=== PATIENT | male | born 1995 | race Hispanic/Latino ===

== ENCOUNTER 2019-01-07 21:58 | Observation (INO) | payer SELFPAY ==
[2019-01-07] MEDS ORDERED: DIPHENHYDRAMINE 50 MG/ML VIAL ONE (23:08)
[2019-01-07] MEDS ORDERED: ONDANSETRON 4 MG/2 ML VIAL ONE (23:09)
[2019-01-07] MEDS ORDERED: NA CHLORIDE 0.9% 1,000 ML ONE ×2 (23:09→23:28)
[2019-01-07 23:30] LABS: Absolute Lymphocytes (CBC) 2.6 K/uL (0.7-4.9); Absolute Monocytes 0.6 K/uL (0.1-1.3); Absolute Neutrophil 5.7 K/uL (1.8-8.0); Basophils % 0.3 % (0-1.3); Hematocrit 44.7 % (39.6-49.0); Lymphocytes % 28.4 % (15.3-44.8); MPV 10.3 fL (7.6-11.3); Monocytes % 7.2 % (3.3-12.3); RBC Red Blood Cell Count 5.38 M/uL (4.33-5.43)
[2019-01-07 23:31] LABS: Protime INR 1.05
[2019-01-07] MEDS ORDERED: DEXAMETHASONE 4 MG/ML VIAL ONE (23:35)
[2019-01-07 23:45] LABS: ALT/SGPT 37 U/L (12-78); AST/SGOT 24 U/L (15-37); Alkaline Phosphatase 128 U/L (45-117); BUN Blood Urea Nitrogen 12 mg/dL (7-18); Bicarbonate 29 mmol/L (21-32); Bilirubin Direct < 0.1 mg/dL (0-0.2); Bilirubin Total 0.2 mg/dL (0.2-1.0); Glucose Level 134 mg/dL (74-106); Magnesium 2.2 mg/dL (1.8-2.4); Protein, Total 8.3 g/dL (6.4-8.2); Sodium Level 140 mmol/L (136-145); Troponin (Emerg Dept Use Only) < 0.02 ng/mL (0.0-0.045)
[2019-01-08] MEDS ORDERED: ALPRAZOLAM 0.25 MG TABLET PO PRN (00:31)
[2019-01-08] MEDS ORDERED: ACETAMINOPHEN 500 MG TAB PO PRN (00:31)
--- NOTE | 2019-01-08 00:59 | ER ---
Nurse's Notes [facility] Name: Bolivar Yang Age: 23 yrs Sex: Male : 1995 Arrival Date: 01/07/2019 Time: 22:00 Bed 13 Private MD: Diagnosis: Chest pain, unspecified;Abnormal electrocardiogram [ECG] [EKG];Headache;Elevated blood-pressure reading, without diagnosis of hypertension Presentation: 01/07 22:03 Presenting complaint: Patient states: I have a bad headache that started this afternoon la1 and pain on my left side that started about an hour ago. Transition of care: patient was not received from another setting of care. Onset of symptoms was January 07, 2019. Risk Assessment: Do you want to hurt yourself or someone else? Patient reports no desire to harm self or others. Initial Sepsis Screen: Does the patient meet any 2 criteria? No. Patient's initial sepsis screen is negative. Does the patient have a suspected source of infection? No. Patient's initial sepsis screen is negative. Care prior to arrival: None. 22:03 Method Of Arrival: Ambulatory la1 22:03 Acuity: GUILLERMO 3 la1 Triage Assessment: 22:27 Headache History: Denies prior headaches. Pain: Pain at worst was 10 out of 10 on a jd3 pain scale. Pain began 4 hours ago. Also complains of no other associated symptoms. Historical: - Allergies: 22:02 No Known Allergies; la1 - PMHx: 22:02 None; la1 - Immunization history:: Adult Immunizations. - Social history:: Smoking status: Patient/guardian denies using tobacco, Smoking status: Patient/guardian denies using tobacco, the patient reports quitting approximately .5 years ago. - Ebola Screening: : No symptoms or risks identified at this time. Screenin:27 Abuse screen: Denies threats or abuse. Nutritional screening: No deficits noted. jd3 Tuberculosis screening: No symptoms or risk factors identified. Fall Risk Ambulatory Aid- None/Bed Rest/Nurse Assist (0 pts). Gait- Normal/Bed Rest/Wheelchair (0 pts) Mental Status- Oriented to own ability (0 pts). Total Arriaza Fall Scale indicates No Risk (0-24 pts). Assessment: 22:25 General: Appears in no apparent distress. uncomfortable, Behavior is calm, cooperative, jd3 appropriate for age. Pain: Complains of pain in head and left lateral anterior chest Quality of pain is described as aching. Neuro: Level of Consciousness is awake, alert, obeys commands, Oriented to person, place, time, situation, Appropriate for age. Cardiovascular: Reports chest pain, Capillary refill < 3 seconds Patient's skin is warm and dry. Rhythm is irregular. Respiratory: Airway is patent Respiratory effort is even, unlabored, Respiratory pattern is regular, symmetrical, Breath sounds are clear bilaterally. Denies shortness of breath. GI: No signs and/or symptoms were reported involving the gastrointestinal system. : No signs and/or symptoms were reported regarding the genitourinary system. EENT: No signs and/or symptoms were reported regarding the EENT system. Derm: Skin is intact, Skin is dry, Skin is normal, Skin temperature is warm. Musculoskeletal: Circulation, motion, and sensation intact. Range of motion: intact in all extremities. 23:59 Reassessment: Patient appears in no apparent distress at this time. Patient and/or jd3 family updated on plan of care and expected duration. Pain level reassessed. Patient is alert, oriented x 3, equal unlabored respirations, skin warm/dry/pink. 01/08 00:48 Reassessment: Patient appears in no apparent distress at this time. Patient and/or jd3 family updated on plan of care and expected duration. Pain level reassessed. Patient is alert, oriented x 3, equal unlabored respirations, skin warm/dry/pink. 01:35 Reassessment: Patient appears in no apparent distress at this time. Patient and/or jd3 family updated on plan of care and expected duration. Pain level reassessed. Patient is alert, oriented x 3, equal unlabored respirations, skin warm/dry/pink. Vital Signs: 01/07 22:05 Pulse 105; Resp 18; Temp 98.2; Pulse Ox 100% on R/A; Weight 136.08 kg; Height 6 ft. 0 la1 in. (182.88 cm); 22:06 BP 157 / 97; la1 23:59 BP 118 / 70; Pulse 94; Resp 18 S; Pulse Ox 98% on R/A; jd3 01/08 00:49 BP 129 / 64; Pulse 85; Resp 17 S; Pulse Ox 100% on R/A; jd3 01:35 BP 124 / 63; Pulse 84; Resp 17 S; Pulse Ox 99% on R/A; jd3 01/07 22:05 Body Mass Index 40.69 (136.08 kg, 182.88 cm) la1 ED Course: 01/07 22:00 Patient arrived in ED. am2 22:04 Triage completed. la1 22:04 Arm band placed on left wrist. la1 22:22 Josiah Schultz PA is PHCP. cp 22:22 Josiah Alaniz MD is Attending Physician. cp 22:25 Diego Gomes RN is Primary Nurse. jd3 22:27 Patient has correct armband on for positive identification. Bed in low position. Call jd3 light in reach. Side rails up X 1. Adult w/ patient. 23:05 Inserted saline lock: 20 gauge in left antecubital area, using aseptic technique. Blood jd3 collected. 01/08 00:12 XRAY Chest (1 view) In Process Unspecified. EDMS 00:[address] via wheelchair. kw1 00:26 CT completed. Patient tolerated procedure well. Patient moved back from CT. kw1 00:31 CT completed. Patient tolerated procedure well. Patient moved back from CT. kw1 00:31 CT Head Brain wo Cont In Process Unspecified. EDMS 00:57 Didier Ascencio MD is Hospitalizing Provider. cp 01:36 No provider procedures requiring assistance completed. jd3 01:37 Patient admitted, IV remains in place. jd3 Administered Medications: 01/07 23:15 Drug: Zofran 4 mg Route: IVP; Site: left antecubital; rr5 01/08 01:25 Follow up: Response: No adverse reaction jd3 01/07 23:15 Drug: NS 0.9% 1000 ml Route: IV; Rate: 1 bolus; Site: left antecubital; rr5 04 01:24 Follow up: Response: No adverse reaction; IV Status: Completed infusion jd3 01/07 23:20 Drug: Benadryl 25 mg Route: IVP; Site: left antecubital; rr5 04 01:24 Follow up: Response: No adverse reaction jd3 00:12 Drug: Decadron - Dexamethasone 10 mg Route: IVP; Site: left antecubital; jd3 01:24 Follow up: Response: No adverse reaction jd3 Outcome: 00:58 Decision to Hospitalize by Provider. cp 01:39 Admitted to Med/surg accompanied by tech, via wheelchair, room 423, with chart, Report jd3 called to Zora HEADLEY 01:39 Condition: stable 01:39 Instructed on the need for admit, Demonstrated understanding of instructions. 01:58 Patient left the ED. jd3 Signatures: Dispatcher [employer] EDMS Eric Tavera RN RN la1 Josiah Schultz PA PA Edwige Leung Jonathon, RN RN jd3 Fiona Ye1 Breezy Young RN RN rr5 Corrections: (The following items were deleted from the chart) 01:29 01/07 22:25 Cardiovascular: Heart tones S1 S3 present Capillary refill < 3 seconds jd3 Patient's skin is warm and dry. jd3 01/08 01:40 03 23:50 Inserted saline lock: 20 gauge in left antecubital area, using aseptic jd3 technique. Blood collected. jd3 01/08 01:45 01/07 22:25 Cardiovascular: Reports chest pain, Capillary refill < 3 seconds Patient's jd3 skin is warm and dry. jd3 01/08 01:50 01:39 Admitted to Med/surg jd3 jd3 01:50 01:39 Instructed on the need for admit, Demonstrated understanding of instructions, jd3 jd3
--- NOTE | 2019-01-08 00:59 | EDPHYS ---
Physician Documentation [facility] Name: Bolivar Yang Age: 23 yrs Sex: Male : 1995 Arrival Date: 01/07/2019 Time: 22:00 Bed 13 Private MD: ED Physician Josiah Alaniz HPI: 01/07 22:35 This 23 yrs old Male presents to ER via Ambulatory with complaints of Flank cp Pain, Headache. 22:35 The patient complains of pain to the top of head. The patient describes the headache as cp aching. Onset: The symptoms/episode began/occurred today. The patient or guardian reports chest pain that is located primarily in the anterior chest wall, left. The pain does not radiate. Associated signs and symptoms: Pertinent negatives: altered mental status, fever, neck stiffness, paresthesias, sinus congestion, sinus tenderness, vision changes, vomiting. Severity of symptoms: in the emergency department the pain is unchanged, despite home interventions. Duration: The patient or guardian reports a single episode, that is still ongoing, and unchanged. Mother reports she gave patient 1 tablet of her prescribed blood pressure medication [employer]TRAS[employer] MANAGER after noticing patient having elevated blood pressure today. Historical: - Allergies: 22:02 No Known Allergies; la1 - PMHx: 22:02 None; la1 - Immunization history:: Adult Immunizations. - Social history:: Smoking status: Patient/guardian denies using tobacco, Smoking status: Patient/guardian denies using tobacco, the patient reports quitting approximately .5 years ago. - Ebola Screening: : No symptoms or risks identified at this time. ROS: 22:45 Constitutional: Negative for body aches, chills, fever, poor PO intake. cp 22:45 Eyes: Negative for injury, pain, redness, and discharge. cp 22:45 ENT: Negative for drainage from ear(s), ear pain, sore throat, difficulty swallowing, difficulty handling secretions. 22:45 Neck: Negative for pain with movement, pain at rest, stiffness. 22:45 Cardiovascular: Positive for chest pain, Negative for edema, palpitations. 22:45 Respiratory: Negative for cough, shortness of breath, wheezing. 22:45 Abdomen/GI: Negative for abdominal pain, nausea, vomiting, and diarrhea. 22:45 : Negative for urinary symptoms. 22:45 Neuro: Positive for headache, Negative for altered mental status, syncope, weakness. 22:45 All other systems are negative. Exam: 22:45 ECG was reviewed by the Attending Physician. cp 22:50 Constitutional: The patient appears in no acute distress, alert, awake, cp non-diaphoretic, non-toxic, well developed, well nourished, obese. 22:50 Head/Face: Normocephalic, atraumatic. Eyes: Pupils equal round and reactive to light, cp extra-ocular motions intact. Lids and lashes normal. Conjunctiva and sclera are non-icteric and not injected. Cornea within normal limits. Periorbital areas with no swelling, redness, or edema. ENT: Nares patent. No nasal discharge, no septal abnormalities noted. Tympanic membranes are normal and external auditory canals are clear. Oropharynx with no redness, swelling, or masses, exudates, or evidence of obstruction, uvula midline. Mucous membranes moist. Neck: Trachea midline, no thyromegaly or masses palpated, and no cervical lymphadenopathy. Supple, full range of motion without nuchal rigidity, or vertebral point tenderness. No Meningismus. Chest/axilla: Normal chest wall appearance and motion. Nontender with no deformity. No lesions are appreciated. 22:50 Cardiovascular: Rate: tachycardic, Rhythm: regular, Heart sounds: murmur, not appreciated, Edema: is not appreciated, JVD: is not appreciated. 22:50 Respiratory: the patient does not display signs of respiratory distress, Respirations: normal, no use of accessory muscles, no retractions, no splinting, no tachypnea, labored breathing, is not present, Breath sounds: are clear throughout, no decreased breath sounds, no stridor, no wheezing. 22:50 Abdomen/GI: Inspection: abdomen appears normal, Bowel sounds: active, all quadrants, Palpation: abdomen is soft and non-tender, in all quadrants. 22:50 Back: pain, is absent, ROM is normal. 22:50 Skin: cellulitis, is not appreciated, no rash present. 22:50 Neuro: Orientation: to person, place \T\ time. Mentation: is normal, Cerebellar function: is grossly normal, Motor: moves all fours, strength is normal, Sensation: is normal. Vital Signs: 22:05 Pulse 105; Resp 18; Temp 98.2; Pulse Ox 100% on R/A; Weight 136.08 kg; Height 6 ft. 0 la1 in. (182.88 cm); 22:06 BP 157 / 97; la1 23:59 BP 118 / 70; Pulse 94; Resp 18 S; Pulse Ox 98% on R/A; jd3 01/08 00:49 BP 129 / 64; Pulse 85; Resp 17 S; Pulse Ox 100% on R/A; jd3 01:35 BP 124 / 63; Pulse 84; Resp 17 S; Pulse Ox 99% on R/A; jd3 01/07 22:05 Body Mass Index 40.69 (136.08 kg, 182.88 cm) la1 MDM: 01/07 22:22 Patient medically screened. cp 01/08 00:00 Differential diagnosis: cerebral vascular accident, abnormal EKG, acute myocardial cp infarction, intracerebral hemorrhage, migraine, subarachnoid bleed, tension headache. 00:30 Data reviewed: vital signs, nurses notes, lab test result(s), EKG, radiologic studies, cp CT scan, plain films, I have discussed the patient's presentation/case with the attending Emergency Department Physician; and as a result, I will admit patient. 00:30 Test interpretation: by ED physician or midlevel provider: ECG, plain radiologic cp studies. Response to treatment: the patient's symptoms have markedly improved after treatment, and as a result, I will admit patient. 01/07 22:34 Order name: Basic Metabolic Panel; Complete Time: 00:14 cp 01/07 22:34 Order name: CBC with Diff; Complete Time: 00:14 cp 01/07 22:34 Order name: LFT's; Complete Time: 00:14 cp 01/08 00:26 Interpretation: Normal except: ALK 128; TP 8.3; GLOB 4.3; A/G 0.9. cp 01/07 22:34 Order name: Magnesium; Complete Time: 00:14 cp 01/07 22:34 Order name: PT-INR; Complete Time: 00:14 cp 01/07 22:34 Order name: Troponin (emerg Dept Use Only); Complete Time: 00:14 cp 01/07 22:34 Order name: XRAY Chest (1 view) cp 01/07 22:34 Order name: CT Head Brain wo Cont cp 01/07 22:44 Order name: UDS cp 01/08 00:35 Order name: Lipid Profile EDMA 01/08 00:35 Order name: Lipid Profile EDMA 01/08 00:35 Order name: Troponin I EDMA 01/08 00:35 Order name: Troponin I EDMA 01/08 01:27 Order name: Urine Dipstick--Ancillary (enter results) mt 01/07 22:34 Order name: Urine Dipstick-Ancillary (obtain specimen); Complete Time: 01:25 cp 01/07 22:34 Order name: EKG; Complete Time: 22:35 cp 01/07 22:34 Order name: Cardiac monitoring; Complete Time: 22:42 cp 01/07 22:34 Order name: EKG - Nurse/Tech; Complete Time: 22:42 cp 01/07 22:34 Order name: IV Saline Lock; Complete Time: 00:00 cp 01/07 22:34 Order name: Labs collected and sent; Complete Time: 00:00 cp 01/07 22:34 Order name: O2 Per Protocol; Complete Time: 00:00 cp 01/07 22:34 Order name: O2 Sat Monitoring; Complete Time: 00:00 cp 01/08 00:35 Order name: Heart Healthy EDMA 01/08 00:35 Order name: Echo with Doppler EDMA 01/08 00:35 Order name: EKG Electrocardiogram EDMA 01/08 00:35 Order name: EKG Electrocardiogram EDMA EC/03 22:45 Rate is 90 beats/min. Rhythm is regular. VT interval is normal. QRS interval is normal. cp QT interval is normal. Interpreted by me. Reviewed by me. Administered Medications: 23:15 Drug: Zofran 4 mg Route: IVP; Site: left antecubital; rr5 01/08 01:25 Follow up: Response: No adverse reaction j 01/07 23:15 Drug: NS 0.9% 1000 ml Route: IV; Rate: 1 bolus; Site: left antecubital; rr5 01/08 01:24 Follow up: Response: No adverse reaction; IV Status: Completed infusion jd3 01/07 23:20 Drug: Benadryl 25 mg Route: IVP; Site: left antecubital; rr5 0304 01:24 Follow up: Response: No adverse reaction jd3 00:12 Drug: Decadron - Dexamethasone 10 mg Route: IVP; Site: left antecubital; jd3 01:24 Follow up: Response: No adverse reaction jd3 Disposition: 01/08/19 00:58 Hospitalization ordered by Didier Ascencio for Observation. Preliminary diagnosis are Chest pain, unspecified, Abnormal electrocardiogram [ECG] [EKG], Headache, Elevated blood-pressure reading, without diagnosis of hypertension. - Bed requested for Telemetry/MedSurg (observation). - Status is Observation. jd3 - Condition is Stable. - Problem is new. - Symptoms have improved. UTI on Admission? No Addendum: 01/10/2019 11:17 Co-signature as Attending Physician, Josiah Alaniz MD I agree with the assessment and c call plan of care. Signatures: Dispatcher [employer] EDMS Dorota Moon RN RN mw Anderson, Corey, MD MD cha Attema, Lee RN RN la1 Josiah Schultz PA PA cp Davies, Jonathon, RN RN jd3 Breezy Young RN RN rr5 Corrections: (The following items were deleted from the chart) 01/08 00:58 00:58 Hospitalization Ordered by Didier Ascencio MD for Observation. Preliminary mw diagnosis is Chest pain, unspecified; Abnormal electrocardiogram [ECG] [EKG]; Headache; Elevated blood-pressure reading, without diagnosis of hypertension. Bed requested for Telemetry/MedSurg (observation). Status is Observation. Condition is Stable. Problem is new. Symptoms have improved. UTI on Admission? No. cp 01:58 00:58 01/08/2019 00:58 Hospitalization Ordered by Didier Ascencio MD for Observation. jd3 Preliminary diagnosis is Chest pain, unspecified; Abnormal electrocardiogram [ECG] [EKG]; Headache; Elevated blood-pressure reading, without diagnosis of hypertension. Bed requested for Telemetry/MedSurg (observation). Status is Observation. Condition is Stable. Problem is new. Symptoms have improved. UTI on Admission? No. mw
[2019-01-08 01:49] LABS: Barbiturates NEGATIVE (NEGATIVE); Benzodiazepines NEGATIVE (NEGATIVE); Cocaine NEGATIVE (NEGATIVE); METHAMPHETAM NEGATIVE (NEGATIVE); Methadone NEGATIVE (NEGATIVE); Opiates NEGATIVE (NEGATIVE); Phencyclidine NEGATIVE (NEGATIVE); THC Cannibis NEGATIVE (NEGATIVE)
[2019-01-08 03:26] LABS: Urine Blood NEGATIVE (NEG); Urine Glucose NEGATIVE (NEG); Urine Protein NEGATIVE (NEG)
[2019-01-08 05:03] LABS: Urine Appearance CLEAR; Urine Bilirubin NEGATIVE (NEG); Urine Blood NEGATIVE (NEG); Urine Color YELLOW; Urine Glucose NEGATIVE (NEG); Urine Protein NEGATIVE (NEG); Urine Urobilinogen 0.2 mg/dL (0.2-1.0)
[2019-01-08 05:09] LABS: Urine Microscopic Reflex NO UMIC
[2019-01-08 06:05] LABS: HDL Cholesterol 41 mg/dL (40-60); LDL Cholesterol, Calculated 136 (<130); Troponin I < 0.02 ng/mL (0.0-0.045)
--- NOTE | 2019-01-08 07:52 | RAD REPORT ---
EXAM DESCRIPTION: Brijesh Single View01/08/2019 12:03 am CLINICAL HISTORY: Chest pain COMPARISON: none FINDINGS: The lungs appear clear of acute infiltrate. The heart is normal size IMPRESSION: No acute abnormalities displayed
[2019-01-08] MEDS ORDERED: INFLUENZA VACCINE (for 3y+) 0.5 ML DOSE IMVAC ONE (08:00)
[2019-01-08] MEDS: ASPIRIN EC 81 MG TAB PO SCH (08:05)
[2019-01-08] MEDS: ENOXAPARIN 40 MG/0.4 ML SQ SCH (08:06)
[2019-01-08] MEDS ORDERED: LISINOPRIL 10 MG TAB PO SCH ×2 (09:00→10:32)
--- NOTE | 2019-01-08 09:09 | EKG ---
Test Date: 2019-01-07 Test Time: 22:38:57 Switch House Operator: JAVI MEASUREMENT RESULTS: Intervals: Rate: 90 ID: [id number] QRSD: 94 QT: 380 QTc: 464 Tarrs: P: 31 ID: [id number] QRS: 38 T: 20 INTERPRETIVE STATEMENTS: Sinus rhythm with frequent premature ventricular complexes in a pattern of bigeminy Cannot rule out Anterior infarct, age undetermined Abnormal ECG No previous ECG available for comparison Electronically Signed On 01-08-19 09:09:02 EMT DISPATCHER by Manolo Mark
[2019-01-08 09:46] LABS: Thyroid Stimulating Hormone 0.326 uIU/mL (0.360-3.740)
[2019-01-08] MEDS ORDERED: MAGNESIUM SULFATE 1 gm IVPB 1 GM/100 ML BAG IV ONE (09:57)
--- NOTE | 2019-01-08 10:13 | P.HP ---
Certification for Inpatient Patient admitted to: Observation With expected LOS: <2 Midnights Patient will require the following post-hospital care: None Practitioner: I am a practitioner with admitting privileges, knowledge of patient current condition, hospital course, and medical plan of care. Services: Services provided to patient in accordance with Admission requirements found in Title 42 Section 412.3 of the Code of Federal Regulations Patient History Date of Service: 01/08/19 Reason for admission: Chest pain History of Present Illness: Patient is a 23-year-old gentleman who came to the hospital with chest pain. Pain was underneath the left pectoralis region. He denies doing any heavy lifting or falling. No injury reported. His EKG revealed of bigeminy. Because of his current symptoms decision was made to admit the patient to the hospital for further evaluation. I did speak to his mother through a restaurant line server and she states that he never had any health issues growing up. She does not remember him having any heart issues. He does not believe he has had an EKG ever in the pat. I believe this may be his normal baseline rhythm with just has never been discovered because we never have performed an EKG. However because he has morbid obesity, extensor for other comorbidities will admit him for observation and do an echocardiogram as well. Allergies No Known Allergies Allergy (Verified 01/08/19 02:06) Home Medications: NK [No Home Meds] 01/08/19 - Past Medical/Surgical History Has patient received pneumonia vaccine in the past: No Diabetic: No Past Medical History: Patient denies medical history Past Surgical History: Patient denies surgical history - Family History Mother Medical History: Hypertension, Diabetes Notes: High Cholesterol - Social History Smoking Status: Former smoker Alcohol use: Yes CD- Drugs: No Caffeine use: No Place of Residence: Home Review of Systems 10-point ROS is otherwise unremarkable Physical Examination - Vital Signs Temperature: 97.2 F Blood Pressure: 136/70 Pulse: 90 Respirations: 16 Pulse Ox (%): 98 - Physical Exam General: Alert, In no apparent distress, Oriented x3 HEENT: Atraumatic, PERRLA, Mucous membr. moist/pink, EOMI, Sclerae nonicteric Neck: Supple, 2+ carotid pulse no bruit, No LAD, Without JVD or thyroid abnormality Respiratory: Clear to auscultation bilaterally, Normal air movement Cardiovascular: Regular rate/rhythm, Normal S1 S2, No murmurs Gastrointestinal: Normal bowel sounds, Soft and benign, Non-distended, No tenderness Musculoskeletal: Tenderness (Musculoskeletal pain under the left pectoralis muscle) Integumentary: No rashes Neurological: Normal gait, Normal speech, Normal strength at 5/5 x4 extr, Normal tone, Sensation intact, Cranial nerves 3-12 intact, Normal affect Lymphatics: No axilla or inguinal lymphadenopathy - Studies Laboratory Data (last 24 hrs) 01/07/19 22:50: PT 12.4, INR 1.05 01/07/19 22:50: WBC 9.1, Hgb 14.6, Hct 44.7, Plt Count 285 01/07/19 22:50: Sodium 140, Potassium 4.0, BUN 12, Creatinine 1.10, Glucose 134 H, Magnesium 2.2, Total Bilirubin 0.2, AST 24, ALT 37, Alkaline Phosphatase 128 H Assessment & Plan - Problems (Diagnosis) (1) Chest pain, rule out acute myocardial infarction Current Visit: Yes Status: Acute (2) Bigeminal rhythm Current Visit: Yes Status: Acute - Plan 1. Serial troponins and EKG 2. Cardiology consultation 3. Echocardiogram 4. Monitor on telemetry 5. He may benefit from anti-inflammatories if his workup is negative . Discharge Plan: Home Plan to discharge in: 24 Hours - Advance Directives Does patient have a Living Will: No Does patient have a Durable POA for Healthcare: No - Code Status/Comfort Care Code Status Assessed: Yes Code Status: Full Code Critical Care: No Time Spent Managing PTS Care (In Minutes): 45
--- NOTE | 2019-01-08 10:31 | P.PN ---
Subjective Date of Service: 01/08/19 Primary Care Provider: none Chief Complaint: Chest pain Subjective: Improving Physical Examination - Vital Signs Temperature: 97.2 F Blood Pressure: 136/70 Pulse: 90 Respirations: 16 Pulse Ox (%): 98 - Physical Exam General: Alert, In no apparent distress, Oriented x3, Cooperative HEENT: Atraumatic Neck: Supple Respiratory: Clear to auscultation bilaterally, Normal air movement Cardiovascular: Normal pulses, Regular rate/rhythm Gastrointestinal: Normal bowel sounds, Soft and benign, Non-distended Musculoskeletal: No erythema, No tenderness, No warmth Integumentary: No tenderness/swelling, No erythema, No warmth, No cyanosis Neurological: Normal speech, Normal strength at 5/5 x4 extr, Normal tone, Normal affect - Studies Laboratory Data (last 24 hrs) 01/07/19 22:50: PT 12.4, INR 1.05 01/07/19 22:50: WBC 9.1, Hgb 14.6, Hct 44.7, Plt Count 285 01/07/19 22:50: Sodium 140, Potassium 4.0, BUN 12, Creatinine 1.10, Glucose 134 H, Magnesium 2.2, Total Bilirubin 0.2, AST 24, ALT 37, Alkaline Phosphatase 128 H Medications List Reviewed: Yes Assessment & Plan Discharge Plan: Home Plan to discharge in: 24 Hours Physician Review Additional Text: Impression: Chest pain, palpitations with noted PVCs on EKG Hypertension, new Obesity Suspect obstructive sleep apnea Plan: Chest pain, palpitations with noted PVCs on EKG: Continue monitor on telemetry and cardiac enzymes. Cardiology consulted to further evaluate. Echocardiogram ordered. Cardiac stress tests to be done tomorrow as per Cardiology recommendation. Anticipate discharge the next 24 hr if workup unremarkable. Hypertension, new: Patient had elevated blood pressure upon admission. Patient now on lisinopril 10 mg daily. Will monitor closely. Obesity: Will calculate BMI. Will address lifestyle modification education. Suspect obstructive sleep apnea: Will recommend sleep study to be done as an outpatient to further assess. Time Spent Managing Pts Care (In Minutes): 55
[2019-01-08] MEDS: MORPHINE 4 MG/ML SYR IV PRN ×2 (10:37→15:26)
--- NOTE | 2019-01-08 13:36 | RAD REPORT ---
EXAM DESCRIPTION: CT - Head Brain Wo Cont - 01/08/2019 3:37 am CLINICAL HISTORY: The patient is 23 years old and is Male; hypertension;Headache TECHNIQUE: Axial computed tomography images of the head/brain without intravenous contrast. Sagitt al and coronal reformatted images were created and reviewed. This CT exam was performed using one o r more of the following dose reduction techniques: automated exposure control, adjustment of the mA and/or kV according to patient size, and/or use of iterative reconstruction technique. COMPARISON: No relevant prior studies available. FINDINGS: Brain: Unremarkable. The arciniega-white matter differentiation is preserved . No hemorrhag e. No significant white matter disease. No edema. No extra-axial fluid collections. Ventricles: Unremarkable. No ventriculomegaly. Bones/joints: No acute fracture. Soft tissues: Unremarkable. Sinuses: Unremarkable as visualized. No acute sinusitis. Mastoid air cells: Unremarkable as visualized. No mastoid effusion. IMPRESSION: No acute intracranial findings. Electronically signed by: Rhonda Infante MD 01/08/2019 12:37 AM VICE PRESIDENT LENDING Due to temporary technical issues with the PACS/Fluency reporting system, reports are being signed by the in house radiologist as a courtesy to ensure prompt reporting. The interpreting radiologist is f ully responsible for the content of the report.
--- NOTE | 2019-01-08 13:42 | EKG ---
Test Date: 2019-01-08 Test Time: 10:32:11 Washtub Worker Helper: SIGIFREDO MEASUREMENT RESULTS: Intervals: Rate: 99 DC: 138 QRSD: 96 QT: 366 QTc: 469 [place]: P: 47 DC: 138 QRS: 23 T: 36 INTERPRETIVE STATEMENTS: Sinus rhythm with frequent premature ventricular complexes Right atrial enlargement Minimal voltage criteria for LVH, may be normal variant Borderline ECG Compared to ECG 01/07/2019 22:38:57 Atrial abnormality now present Left ventricular hypertrophy now present Myocardial infarct finding no longer present Electronically Signed On 01-08-19 13:38:04 DROP PRESS HAND by Manolo Mark
--- NOTE | 2019-01-08 14:41 | ECHO ---
HEIGHT: 0 ft 6 in WEIGHT: 323 lb 0 oz DATE OF STUDY: 01/08/[address]: Didier Ascencio MD 2-DIMENSIONAL: YES M.MODE: YES DOPPLER: YES COLOR FLOW: YES TDS: NO PORTABLE: NO DEFINITY: NO BUBBLE STUDY: NO DIAGNOSIS: CHEST PAIN CARDIAC HISTORY: CATHERIZATION: NO SURGERY: NO PROSTHETIC VALVE: NO PACEMAKER: NO MEASUREMENTS (cm) DIASTOLIC (NORMALS) SYSTOLIC (NORMALS) IVSd 1.4 (0.6-1.2) LA Diam 4.1 (1.9-4.0) LVEF 60-65% LVIDd 4.1 (3.5-5.7) LVIDs 2.9 (2.0-3.5) %FS 29% LVPWd 1.3 (0.6-1.2) Ao Diam 2.8 (2.0-3.7) 2 DIMENSIONAL ASSESSMENT: RIGHT ATRIUM: NORMAL LEFT ATRIUM: NORMAL RIGHT VENTRICLE: NORMAL LEFT VENTRICLE: NORMAL TRICUSPID VALVE: NORMAL MITRAL VALVE: NORMAL PULMONIC VALVE: NORMAL AORTIC VALVE: NORMAL PERICARDIAL EFFUSION: NONE AORTIC ROOT: NORMAL LEFT VENTRICULAR WALL MOTION: NORMAL. DOPPLER/COLOR FLOW: ESTIMATED RIGHT ATRIAL PRESSURE 15MMHG (ELEVATED). OTHERWISE NORMAL DOPPLER SHOWN . COMMENTS: NORMAL 2D ECHOCARDIOGRAM WITH DOPPLER. ELEVATED RIGHT ATRIAL PRESSURE. TECHNOLOGIST: ERIC AVILES [facility]
--- NOTE | 2019-01-08 14:53 | CON ---
Mr. Zhao Yang is 23 years old. He came to the hospital because yesterday he had chest pain. He w as bending over and tying his shoes. When he had to sit up, all of a sudden the pain lasted about a minute and has not come back. He does not have exertional intolerance. He does not use tobacco, he did until 6 months ago. He takes no blood pressure medicines, but is aware that he has hypertension and his doctors wanted him to start a blood pressure medicine, but he has not as of yet. We do not k now what medicine was contemplated. He denies illegal drug use, heavy alcohol use. Physical Examination: Vital signs: Six feet tall, 323 pounds. HEENT: Normal. Lungs: Clear. Heart: Within normal limits. Abdomen: Soft. Extremities: Normal. His EKG shows sinus rhythm with frequent PVCs. It is mostly bigeminy, questionable anterior infarct. I will recommend that we make sure his electrolytes are good. We will make sure we check a magnesium level. We will get an echo and nuclear stress test and see what to make of it. I suspect his pain has nothing to do with coronary heart disease. His PVCs are concerning. We need to do a workup to s ee if he has underlying cardiomyopathy, valvular heart disease, or ischemic heart disease. CIRA/FEMI Voice ID: [id number] Report ID: [id number]
[2019-01-09] MEDS: MORPHINE 4 MG/ML SYR IV PRN (01:25)
[2019-01-09 04:14] LABS: Absolute Lymphocytes (CBC) 2.4 K/uL (0.7-4.9); Absolute Monocytes 1.1 K/uL (0.1-1.3); Absolute Neutrophil 11.8 K/uL (1.8-8.0); Basophils % 0.1 % (0-1.3); Hematocrit 41.9 % (39.6-49.0); Lymphocytes % 15.5 % (15.3-44.8); MPV 10.3 fL (7.6-11.3); Monocytes % 7.1 % (3.3-12.3); RBC Red Blood Cell Count 5.03 M/uL (4.33-5.43)
[2019-01-09 04:27] LABS: BUN Blood Urea Nitrogen 13 mg/dL (7-18); Bicarbonate 29 mmol/L (21-32); Glucose Level 127 mg/dL (74-106); Magnesium 2.4 mg/dL (1.8-2.4); Sodium Level 141 mmol/L (136-145)
[2019-01-09] MEDS ORDERED: REGADENOSON 0.4 MG/5 ML SYR IV ONE (08:17)
[2019-01-09] MEDS ORDERED: LISINOPRIL 5 MG TAB PO SCH (09:00)
--- NOTE | 2019-01-09 12:48 | PN ---
Subjective: Mr. Zhao Yang is 23-year-old, was seen by Dr. Mark yesterday for chest pain and big eminy. Echocardiogram was done yesterday was perfectly normal. No changes in rhythm today. Lexisca n is pending. We will see what that shows prior to discharge him. LLUVIA/FEMI Voice ID: [id number] Report ID: [id number]
[2019-01-09] MEDS: ENOXAPARIN 40 MG/0.4 ML SQ SCH (14:35)
[2019-01-09] MEDS: ASPIRIN EC 81 MG TAB PO SCH (14:36)
--- NOTE | 2019-01-09 14:46 | RAD REPORT ---
EXAM DESCRIPTION: NM - Rest Stress Cardiac Imaging - 01/09/2019 2:33 pm CLINICAL HISTORY: Chest pain. COMPARISON: None. TECHNIQUE: The patient was administered approximately 10mCi of Tc 99m Sestamibi prior to resting SPE CT imaging of the heart. The patient was then administered approximately 30 mCi of Tc 99m Sestamibi f ollowing exercise or pharmacologic stress. Multiplanar SPECT images were reviewed. FINDINGS: Small area of diminished radiotracer uptake involves the inferior left ventricular myocard ium on rest and stress images. There is uniformity of radiotracer uptake involving the remainder of the left ventricular myocardium on rest and stress images. The left ventricular ejection fraction equals 41% IMPRESSION: Small apparent fixed perfusion defect involving the inferior left ventricular myocardium may be secondary to attenuation from the diaphragm or an infarction. There is no evidence of stress-induced ischemia
--- NOTE | 2019-01-09 15:43 | P.DS ---
Admission Date: 01/08/19 Discharge Date: 01/09/19 Primary Care Provider: none Disposition: ROUTINE DISCHARGE Discharge Condition: GOOD Reason for Admission: Chest pain Consultations: Cardiology-Dr. Mark Procedures: ECHO: EF 60% LEFT VENTRICULAR WALL MOTION: NORMAL. DOPPLER/COLOR FLOW: ESTIMATED RIGHT ATRIAL PRESSURE 15MMHG (ELEVATED). OTHERWISE NORMAL DOPPLER SHOWN . COMMENTS: NORMAL 2D ECHOCARDIOGRAM WITH DOPPLER. ELEVATED RIGHT ATRIAL PRESSURE. Cardiac Stress Test: COMPARISON: None. TECHNIQUE: The patient was administered approximately 10mCi of Tc 99m Sestamibi prior to resting SPECT imaging of the heart. The patient was then administered approximately 30 mCi of Tc 99m Sestamibi following exercise or pharmacologic stress. Multiplanar SPECT images were reviewed. FINDINGS: Small area of diminished radiotracer uptake involves the inferior left ventricular myocardium on rest and stress images. There is uniformity of radiotracer uptake involving the remainder of the left ventricular myocardium on rest and stress images. The left ventricular ejection fraction equals 41% IMPRESSION: Small apparent fixed perfusion defect involving the inferior left ventricular myocardium may be secondary to attenuation from the diaphragm or an infarction. There is no evidence of stress-induced ischemia Medical Problem List: Chest pain, palpitations with noted PVCs on EKG Hypertension, new Obesity, BMI 43.8 Suspect obstructive sleep apnea Brief History of Present Illness: 23-year-old male presented to emergency room with chest pain. Patient admitted for further evaluation. Hospital Course: Patient evaluated for chest pain, palpitations. Cardiac enzymes unremarkable. Patient seen by Cardiology. Echocardiogram unremarkable. Cardiac stress test showed no stress-induced ischemia. Patient found to have hypertension. This is new. At discharge patient will continue with lisinopril 5 mg daily along with aspirin 81 mg daily. Patient may follow up with cardiology as an outpatient to further monitor. Patient with obesity. BMI 43.8. Lifestyle modification education addressed, Patient likely with underlying obstructive sleep apnea. Will recommend patient to have sleep study done as an outpatient to further evaluate. Vital Signs/Physical Exam: Temp Pulse Resp BP Pulse Ox 97.9 F 60 16 125/65 95 01/09/19 12:00 01/09/19 14:35 01/09/19 12:00 01/09/19 14:35 01/09/19 12:00 General: Alert, In no apparent distress, Oriented x3, Cooperative HEENT: Atraumatic Neck: Supple Respiratory: Clear to auscultation bilaterally, Normal air movement Cardiovascular: Normal pulses, Regular rate/rhythm Gastrointestinal: Normal bowel sounds, Soft and benign, Non-distended, No tenderness, No masses, No rebound, No guarding Musculoskeletal: No erythema, No tenderness, No warmth Integumentary: No tenderness/swelling, No erythema, No warmth, No cyanosis Neurological: Normal speech, Normal strength at 5/5 x4 extr, Normal tone, Normal affect Laboratory Data at Discharge: WBC 15.2 K/uL (4.3-10.9) H D 01/09/19 03:33 Hgb 13.4 g/dL (13.6-17.9) L 01/09/19 03:33 Hct 41.9 % (39.6-49.0) 01/09/19 03:33 Plt Count 299 K/uL (152-406) 01/09/19 03:33 PT 12.4 SECONDS (9.5-12.5) 01/07/19 22:50 INR 1.05 01/07/19 22:50 Sodium 141 mmol/L (136-145) 01/09/19 03:33 Potassium 4.0 mmol/L (3.5-5.1) 01/09/19 03:33 BUN 13 mg/dL (7-18) 01/09/19 03:33 Creatinine 0.89 mg/dL (0.55-1.3) 01/09/19 03:33 Glucose 127 mg/dL (74-106) H 01/09/19 03:33 Magnesium 2.4 mg/dL (1.8-2.4) 01/09/19 03:33 Total Bilirubin 0.2 mg/dL (0.2-1.0) 01/07/19 22:50 AST 24 U/L (15-37) 01/07/19 22:50 ALT 37 U/L (12-78) 01/07/19 22:50 Alkaline Phosphatase 128 U/L (45-117) H 01/07/19 22:50 Troponin I < 0.02 ng/mL (0.0-0.045) 01/08/19 05:10 Triglycerides 63 mg/dL (<150) 01/08/19 05:10 Cholesterol 190 mg/dL (<200) 01/08/19 05:10 HDL Cholesterol 41 mg/dL (40-60) 01/08/19 05:10 Cholesterol/HDL Ratio 4.63 01/08/19 05:10 Home Medications: Aspirin [Aspirin EC 81 MG] 81 mg PO DAILY #30 tablet. 01/09/19 Lisinopril [Prinivil*] 5 mg PO DAILY #30 tab 01/09/19 New Medications: Aspirin [Aspirin EC 81 MG] 81 mg PO DAILY #30 tablet. Lisinopril [Prinivil*] 5 mg PO DAILY #30 tab Patient Discharge Instructions: 1. Patient will need to establish care with a PCP to continue his care. 2. Patient evaluated for chest pain, palpitations. Cardiac enzymes unremarkable. Patient seen by Cardiology. Echocardiogram unremarkable. Cardiac stress test showed no stress-induced ischemia. Patient found to have hypertension. This is new. At discharge patient will continue with lisinopril 5 mg daily along with aspirin 81 mg daily. Patient may follow up with cardiology as an outpatient to further monitor. 3. Patient with obesity. BMI 43.8. Lifestyle modification education addressed,. 4. Patient likely with underlying obstructive sleep apnea. Will recommend patient to have sleep study done as an outpatient to further evaluate. Diet: AHA Activity: Ad jyoti Time spent managing pt's care (in minutes): 55
--- NOTE | 2019-01-10 08:50 | TREADPHA ---
DX: CHEST PAIN Date of Study: 01/09/19 Ht: 6 0 Wt: 323 lb 0 oz Consulting Physician: ORLY MEDICATIONS: TYLENOL, XANAX, ASPIRIN, LOVENOX, LISINOPRIL, MORPHINE SULFATE HISTORY: 23 YEAR OLD MALE WITH COMPLAINTS OF CHEST PAIN AND HEADACHE. HISTORY OF HYPERTENSION, HYPERLIPIDEMIA, FORMER SMOKER, QUIT 8 MONTHS AGO. PATIENT WOULD SMOKE 1 PACK A WEEK. PHYSICIAL EXAMINATION: RESTING B.P.: 137/79 RESTING H.R.: 74 RESTING EKG: NORMAL. PROTOCOL: LEXISCAN EXERCISE TIME: 3:30 B.P. AT PEAK STRESS: 159/70 IMPRESSION: LEXISCAN INJECTED, FOLLOWED BY CARDIOLITE PER PROTOCOL, SEE NUCLEAR MEDICINE REPORT. NO SUPRA VENTRICULAR TACHYCARDIA. NO VENTRICULAR TACHYCARDIA. PATIENT HAD FREQUENT PREMATURE ATRIAL COMPLEXES PRIOR TO LEXISCAN INJECTION, NONE PRESENT AFTER INJECTION, AND FREQUENT PREMATURE ATRIAL COMPLEXES DURING RECOVERY. PATIENT WENT INTO BIGEMINY AND BACK DURING RECOVERY. NO PREMATURE VENTRICULAR COMPLEXES. PATIENT REPORTED CHEST PAIN 4/10 DURING PROCEDURE AND IN RECOVERY.
== END 2019-01-09 18:05 | disposition home or self-care (01) ==
LOC: ER 21:58 → ERHOLD 01-08 00:39 → 4TH 01-08 01:49
PROVIDERS: ADMIT Hospitalist; ATTEND Hospitalist
DX: R07.9 Chest pain, unspecified (principal); R00.2 Palpitations; I49.3 Ventricular premature depolarization; I10 Essential (primary) hypertension; E66.9 Obesity, unspecified; Z68.41 Body mass index [BMI] 40.0-44.9, adult
CPT/HCPCS: 36415; 70450; 71045; 78452; 80048; 80061; 80076; 80307; 81003; 83036; 83735; 84439; 84443; 84484; 85025; 85610; 93005; 93017; 93306; 96361; 96374; 96375; 99285; A9500; G0378; J1650; J2405; J2785; J3475; J7030

== ENCOUNTER 2019-06-13 08:15 | Emergency (ER) | payer OTHER, SELFPAY ==
[2019-06-13] MEDS ORDERED: NA CHLORIDE 0.9% 1,000 ML ONE ×2 (08:50→14:01)
[2019-06-13] MEDS ORDERED: ASPIRIN 81 MG CHEWABLE TABLET ONE (08:50)
--- NOTE | 2019-06-13 09:15 | EKG ---
Test Date: 2019-06-13 Test Time: 08:40:29 Business Support Liaison: AZIZA MEASUREMENT RESULTS: Intervals: Rate: 90 DC: 142 QRSD: 92 QT: 370 QTc: 452 [place]: P: 36 DC: 142 QRS: 1 T: 34 INTERPRETIVE STATEMENTS: Sinus rhythm with sinus arrhythmia with frequent premature ventricular complexes Moderate voltage criteria for LVH, may be normal variant Borderline ECG Compared to ECG 01/09/2019 01:35:07 Left ventricular hypertrophy now present Electronically Signed On 06-13-19 09:15:01 CDT by Manolo Mark
[2019-06-13 09:20] LABS: Absolute Lymphocytes (CBC) 2.2 K/uL (0.7-4.9); Basophils % 0.7 % (0-1.3); Hematocrit 41.6 % (39.6-49.0); Lymphocytes % 25.6 % (15.3-44.8); MPV 9.7 fL (7.6-11.3); RBC Red Blood Cell Count 4.94 M/uL (4.33-5.43)
[2019-06-13 09:21] LABS: Protime INR 1.01
[2019-06-13 09:41] LABS: ALT/SGPT 38 U/L (12-78); AST/SGOT 32 U/L (15-37); Albumin 3.8 g/dL (3.4-5.0); Alkaline Phosphatase 132 U/L (45-117); BUN Blood Urea Nitrogen 10 mg/dL (7-18); Bicarbonate 27 mmol/L (21-32); Bilirubin Direct 0.2 mg/dL (0-0.2); Bilirubin Total 0.6 mg/dL (0.2-1.0); Glucose Level 99 mg/dL (74-106); Lipase 51 U/L (73-393); Magnesium 2.3 mg/dL (1.8-2.4); NT PRO-BNP 28 pg/mL (<125); Potassium 4.2 mmol/L (3.5-5.1); Protein, Total 7.9 g/dL (6.4-8.2); Sodium Level 140 mmol/L (136-145); Troponin (Emerg Dept Use Only) < 0.02 ng/mL (0.0-0.045)
--- NOTE | 2019-06-13 10:07 | RAD REPORT ---
EXAM DESCRIPTION: CT - Chest For Pe Angio - 06/13/2019 9:59 am CLINICAL HISTORY: Left-sided chest pain COMPARISON: Chest films same date TECHNIQUE: Dynamically enhanced 3 mm thick images of the chest were obtained during administration o f approximately 150mL Isovue 370 IV contrast. Coronal and oblique MIP reconstruction images were gene rated and reviewed. Exam utilizes a protocol to evaluate the pulmonary arterial tree. All CT scans are performed using dose optimization technique as appropriate and may include automated exposure control or mA/KV adjustment according to patient size. FINDINGS: Examination has motion degradation limitations. This affects evaluation of the far periphe ral branches. No central pulmonary artery emboli are present and far peripheral embolic disease is fe lt to be unlikely. The aorta as imaged shows no acute or suspicious finding. Cardiomegaly is present without pericardial effusion. No infiltrate or mass in the lung parenchyma. No pleural effusion or pleural thickening. Lung marking s are prominent accentuated by the motion. No mediastinal or hilar suspicious masses. No chest wall masses or abnormal axillary lymphadenopathy. No rib lesion identified. IMPRESSION: No pulmonary emboli identified. Far peripheral branch assessment is limited due to motio n; however, probability disease is felt to be quite low. Interstitial markings are prominent and there is cardiomegaly. A mild failure or volume overload is s uspected.
[2019-06-13 10:10] LABS: Barbiturates NEGATIVE (NEGATIVE); Benzodiazepines NEGATIVE (NEGATIVE); Cocaine NEGATIVE (NEGATIVE); METHAMPHETAM NEGATIVE (NEGATIVE); Methadone NEGATIVE (NEGATIVE); Opiates NEGATIVE (NEGATIVE); Phencyclidine NEGATIVE (NEGATIVE); THC Cannibis NEGATIVE (NEGATIVE)
[2019-06-13 10:18] LABS: Urine Blood NEGATIVE (NEG); Urine Glucose NEGATIVE (NEG); Urine Protein NEGATIVE (NEG); Urine Specific Gravity 1.025 (1.005-1.030)
--- NOTE | 2019-06-13 10:22 | RAD REPORT ---
EXAM DESCRIPTION: Brijesh Single View06/13/2019 9:01 am CLINICAL HISTORY: Chest pain COMPARISON: December 2017 FINDINGS: The lungs appear clear of acute infiltrate. The heart is moderately enlarged IMPRESSION: No acute abnormalities displayed
--- NOTE | 2019-06-13 12:48 | ER ---
Nurse's Notes [facility] Name: Bolivar Yang Age: 23 yrs Sex: Male : 1995 Arrival Date: 06/13/2019 Time: 08:20 Bed 19 Private MD: Diagnosis: Chest pain, unspecified;Obesity, unspecified;Ventricular premature depolarization;Cardiomegaly Presentation: 06/13 08:29 Presenting complaint: Patient states: L sided chest/ breast pain that is tender upon ss palpation. Denies injury. Transition of care: patient was not received from another setting of care. Onset of symptoms was May 11, 2019. Risk Assessment: Do you want to hurt yourself or someone else? Patient reports no desire to harm self or others. Initial Sepsis Screen: Does the patient meet any 2 criteria? RR > 20 per min. Does the patient have a suspected source of infection? No. Patient's initial sepsis screen is negative. Care prior to arrival: None. 08:29 Method Of Arrival: Ambulatory ss 08:29 Acuity: GUILLERMO 3 ss Historical: - Allergies: 08:30 No Known Allergies; ss - PMHx: 08:30 Hypertension; ss - PSHx: 08:30 None; ss - Immunization history:: Adult Immunizations up to date. - Social history:: Smoking status: Patient/guardian denies using tobacco. - Ebola Screening: : Patient denies exposure to infectious person Patient denies travel to an Ebola-affected area in the 21 days before illness onset. - Family history:: not pertinent. Screenin:03 Abuse screen: Denies threats or abuse. Denies injuries from another. Nutritional hb screening: No deficits noted. Tuberculosis screening: No symptoms or risk factors identified. Fall Risk None identified. Assessment: 08:55 General: Appears in no apparent distress. Behavior is calm, cooperative. Pain: hb Complains of pain in left breast and left lateral anterior chest and anterior aspect of left upper chest Pain does not radiate. Pain began 1 day ago. Neuro: Level of Consciousness is awake, alert, obeys commands, Oriented to person, place, time, situation. Cardiovascular: Heart tones S1 S2 present Capillary refill < 3 seconds Patient's skin is warm and dry. Respiratory: Airway is patent Respiratory effort is even, unlabored, Respiratory pattern is regular, symmetrical, Breath sounds are clear bilaterally. GI: No signs and/or symptoms were reported involving the gastrointestinal system. : No signs and/or symptoms were reported regarding the genitourinary system. EENT: No signs and/or symptoms were reported regarding the EENT system. Derm: Skin is intact, is healthy with good turgor, Skin is pink, warm \T\ dry. Musculoskeletal: No signs and/or symptoms reported regarding the musculoskeletal system. 10:00 Reassessment: Patient appears in no apparent distress at this time. Patient and/or hb family updated on plan of care and expected duration. Pain level reassessed. Patient is alert, oriented x 3, equal unlabored respirations, skin warm/dry/pink. 10:57 Reassessment: Pt c/p left sided chest pain 07/17, VSS. Dr. Alaniz notified, morphine hb and Zofran administered as ordered. 11:30 Reassessment: Pt to radiology for echo. hb 12:30 Reassessment: Patient appears in no apparent distress at this time. Patient and/or hb family updated on plan of care and expected duration. Pain level reassessed. Patient is alert, oriented x 3, equal unlabored respirations, skin warm/dry/pink. 13:15 Reassessment: Patient appears in no apparent distress at this time. Patient and/or hb family updated on plan of care and expected duration. Pain level reassessed. Patient is alert, oriented x 3, equal unlabored respirations, skin warm/dry/pink. Vital Signs: 08:30 BP 149 / 91; Pulse 96; Resp 26; Temp 97.9(O); Pulse Ox 100% on R/A; Weight 156.04 kg; Height 6 ft. 0 in. (182.88 cm); Pain 9/10; 09:30 BP 161 / 63; Pulse 83; Resp 15; Pulse Ox 99% on R/A; Pain 5/10; hb 10:30 BP 155 / 84; Pulse 88; Resp 22; Pulse Ox 99% on R/A; hb 12:30 BP 156 / 86; Pulse 64; Resp 21; Pulse Ox 100% on R/A; Pain 5/10; hb 13:15 BP 146 / 78; Pulse 66; Resp 18; Pulse Ox 99% on R/A; hb 08:30 Body Mass Index 46.65 (156.04 kg, 182.88 cm) ED Course: 08:20 Patient arrived in ED. mr 08:22 Josiah Alaniz MD is Attending Physician. rodrigo 08:30 Triage completed. ss 08:30 Arm band placed on right wrist. ss 08:45 Mackenzie Hoang, RN is Primary Nurse. hb 08:52 EKG done, by paint prep technician. reviewed by Josiah Alaniz MD. dt2 08:55 XRAY Chest (1 view) In Process Unspecified. EDMS 08:57 Missed attempt(s): 22 gauge in right wrist. Bleeding controlled, band aid applied, hb catheter tip intact. 09:03 Patient has correct armband on for positive identification. Placed in gown. Bed in low hb position. Call light in reach. Side rails up X 1. oil well fishing tool operator on. Pulse ox on. NIBP on. 09:03 Patient maintains SpO2 saturation greater than 95% on room air. hb 09:14 Initial lab(s) drawn, by me, sent to lab. Inserted saline lock: 18 gauge in right 3 antecubital area, using aseptic technique. Blood collected. 09:20 Inserted saline lock: 20 gauge in right antecubital area, using aseptic technique. hb 09:45 Urine collected: urinal, clear. dh3 10:00 CT Chest For PE Angio In Process Unspecified. EDMS 11:06 Repeat lab(s) drawn. by me, sent to lab. dh3 11:07 Troponin (emerg Dept Use Only): now Sent. dh3 12:12 2D Echocardiogram with Doppler completed by Gps Field Data Collector. dt2 12:47 Mariano Lee MD is Referral Physician. rodrigo 13:22 No provider procedures requiring assistance completed. IV discontinued, intact, hb bleeding controlled, No redness/swelling at site. Pressure dressing applied. Administered Medications: 09:02 Drug: Aspirin 162 mg Route: PO; hb 09:44 Follow up: Response: No adverse reaction hb 09:20 Drug: NS 0.9% 1000 ml Route: IV; Rate: 1 bolus; Site: right antecubital; hb 10:19 Follow up: Response: No adverse reaction; IV Status: Completed infusion; IV Intake: hb 1000ml 10:59 Drug: morphine 4 mg {Note: RASS +2.} Route: IVP; Site: left antecubital; hb 11:25 Follow up: Response: No adverse reaction; Pain is decreased; RASS: Alert and Calm (0) hb 10:59 Drug: Zofran 4 mg Route: IVP; Site: left antecubital; hb 11:23 Follow up: Response: No adverse reaction hb 13:13 Drug: ToPROL XL 25 mg Route: PO; ss 13:20 Follow up: Response: Medication administered at discharge. hb Outcome: 12:48 Discharge ordered by . rodrigo 13:22 Discharged to home ambulatory, with family. hb 13:22 Condition: good 13:22 Discharge instructions given to patient, family, Instructed on discharge instructions, follow up and referral plans. medication usage, Demonstrated understanding of instructions, follow-up care, medications, Prescriptions given X 3. 13:26 Patient left the ED. hb Signatures: Dispatcher [employer] EDMS Josiah Alaniz MD MD cha Rivera, Brenda Layne Mojica RN RN Mackenzie Orantes RN RN Yohan, Kari 3 Edie Rowell2
--- NOTE | 2019-06-13 12:48 | EDPHYS ---
Physician Documentation [facility] Name: Bolivar Yang Age: 23 yrs Sex: Male : 1995 Arrival Date: 06/13/2019 Time: 08:20 Bed 19 Private MD: ED Physician Josiah Alaniz HPI: 06/13 08:32 This 23 yrs old Male presents to ER via Ambulatory with complaints of Chest rodrigo Pain, Dizziness. 08:32 The patient or guardian reports chest pain that is located primarily in the anterior rodrigo chest wall, left. The pain does not radiate. Associated signs and symptoms: The patient has no apparent associated signs or symptoms. The chest pain is described as aching, chest wall sore. Duration: The patient or guardian reports a single episode, that is still ongoing. Modifying factors: The symptoms are alleviated by remaining still, the symptoms are aggravated by deep breath, movement, palpation of area. Severity of pain: At its worst the pain was moderate in the emergency department the pain is unchanged. The patient has not experienced similar symptoms in the past. Historical: - Allergies: 08:30 No Known Allergies; ss - PMHx: 08:30 Hypertension; ss - PSHx: 08:30 None; ss - Immunization history:: Adult Immunizations up to date. - Social history:: Smoking status: Patient/guardian denies using tobacco. - Ebola Screening: : Patient denies exposure to infectious person Patient denies travel to an Ebola-affected area in the 21 days before illness onset. - Family history:: not pertinent. ROS: 08:32 Constitutional: Negative for fever, chills, and weight loss, Eyes: Negative for injury, rodrigo pain, redness, and discharge, ENT: Negative for injury, pain, and discharge, Neck: Negative for injury, pain, and swelling, Cardiovascular: Negative for chest pain, palpitations, and edema, Respiratory: Negative for shortness of breath, cough, wheezing, and pleuritic chest pain, Abdomen/GI: Negative for abdominal pain, nausea, vomiting, diarrhea, and constipation, Back: Negative for injury and pain, : Negative for injury, bleeding, discharge, and swelling, MS/Extremity: Negative for injury and deformity, Skin: Negative for injury, rash, and discoloration, Neuro: Negative for headache, weakness, numbness, tingling, and seizure, Psych: Negative for depression, anxiety, suicide ideation, homicidal ideation, and hallucinations, Allergy/Immunology: Negative for hives, rash, and allergies, Endocrine: Negative for neck swelling, polydipsia, polyuria, polyphagia, and marked weight changes, Hematologic/Lymphatic: Negative for swollen nodes, abnormal bleeding, and unusual bruising. Exam: 08:32 Constitutional: This is a well developed, well nourished patient who is awake, alert, rodrigo and in no acute distress. Head/Face: Normocephalic, atraumatic. Eyes: Pupils equal round and reactive to light, extra-ocular motions intact. Lids and lashes normal. Conjunctiva and sclera are non-icteric and not injected. Cornea within normal limits. Periorbital areas with no swelling, redness, or edema. ENT: Nares patent. No nasal discharge, no septal abnormalities noted. Tympanic membranes are normal and external auditory canals are clear. Oropharynx with no redness, swelling, or masses, exudates, or evidence of obstruction, uvula midline. Mucous membranes moist. Neck: Trachea midline, no thyromegaly or masses palpated, and no cervical lymphadenopathy. Supple, full range of motion without nuchal rigidity, or vertebral point tenderness. No Meningismus. Cardiovascular: Regular rate and rhythm with a normal S1 and S2. No gallops, murmurs, or rubs. Normal PMI, no JVD. No pulse deficits. Respiratory: Lungs have equal breath sounds bilaterally, clear to auscultation and percussion. No rales, rhonchi or wheezes noted. No increased work of breathing, no retractions or nasal flaring. Abdomen/GI: Soft, non-tender, with normal bowel sounds. No distension or tympany. No guarding or rebound. No evidence of tenderness throughout. Back: No spinal tenderness. No costovertebral tenderness. Full range of motion. Male : Normal genitalia with no discharge or lesions. Skin: Warm, dry with normal turgor. Normal color with no rashes, no lesions, and no evidence of cellulitis. MS/ Extremity: Pulses equal, no cyanosis. Neurovascular intact. Full, normal range of motion. Neuro: Awake and alert, GCS 15, oriented to person, place, time, and situation. Cranial nerves II-XII grossly intact. Motor strength 5/5 in all extremities. Sensory grossly intact. Cerebellar exam normal. Normal gait. Psych: Awake, alert, with orientation to person, place and time. Behavior, mood, and affect are within normal limits. 08:32 Chest/axilla: Inspection: normal, no acute changes, Palpation: tenderness, that is mild, that is moderate, of the anterior aspect of left upper chest, left lateral anterior chest and left breast. Vital Signs: 08:30 BP 149 / 91; Pulse 96; Resp 26; Temp 97.9(O); Pulse Ox 100% on R/A; Weight 156.04 kg; ss Height 6 ft. 0 in. (182.88 cm); Pain 9/10; 09:30 BP 161 / 63; Pulse 83; Resp 15; Pulse Ox 99% on R/A; Pain 5/10; hb 10:30 BP 155 / 84; Pulse 88; Resp 22; Pulse Ox 99% on R/A; hb 12:30 BP 156 / 86; Pulse 64; Resp 21; Pulse Ox 100% on R/A; Pain 5/10; hb 13:15 BP 146 / 78; Pulse 66; Resp 18; Pulse Ox 99% on R/A; hb 08:30 Body Mass Index 46.65 (156.04 kg, 182.88 cm) ss MDM: 08:22 Patient medically screened. [facility] 08:35 Data reviewed: vital signs, nurses notes, lab test result(s), EKG, radiologic studies, [facility] scan, plain films. 06/13 08:32 Order name: Basic Metabolic Panel; Complete Time: 10:03 [facility] 06/13 08:32 Order name: CBC with Diff; Complete Time: 10:03 [facility] 06/13 08:32 Order name: LFT's; Complete Time: 10:03 [facility] 06/13 08:32 Order name: Magnesium; Complete Time: 10:03 [facility] 06/13 08:32 Order name: NT PRO-BNP; Complete Time: 10:03 [facility] 06/13 08:32 Order name: PT-INR; Complete Time: 10:03 [facility] 06/13 08:32 Order name: Troponin (emerg Dept Use Only); Complete Time: 10:03 [facility] 08 08:32 Order name: XRAY Chest (1 view); Complete Time: 10:30 [facility] 06/13 08:32 Order name: CT Chest For PE Angio; Complete Time: 10:22 [facility] 06/13 08:32 Order name: Lipase; Complete Time: 10:03 [facility] 06/13 08:32 Order name: UDS; Complete Time: 10:22 rodrigo 06/13 09:46 Order name: Urine Dipstick--Ancillary (enter results); Complete Time: 10:22 06/13 10:23 Order name: Echo w/ Doppler rodrigo 06/13 10:49 Order name: Troponin (emerg Dept Use Only): now; Complete Time: 12:37 [facility] 06/13 08:32 Order name: EKG; Complete Time: 08:38 [facility] 06/13 08:32 Order name: Cardiac monitoring; Complete Time: 09:15 [facility] 06/13 08:32 Order name: EKG - Nurse/Tech; Complete Time: 09:15 [facility] 06/13 08:32 Order name: IV Saline Lock; Complete Time: 09:15 [facility] 06/13 08:32 Order name: Labs collected and sent; Complete Time: 09:15 [facility] 06/13 08:32 Order name: O2 Per Protocol; Complete Time: 09:15 [facility] 06/13 08:32 Order name: O2 Sat Monitoring; Complete Time: 09:15 [facility] 06/13 08:32 Order name: Urine Dipstick-Ancillary (obtain specimen); Complete Time: 09:45 [facility] Administered Medications: 09:02 Drug: Aspirin 162 mg Route: PO; hb 09:44 Follow up: Response: No adverse reaction hb 09:20 Drug: NS 0.9% 1000 ml Route: IV; Rate: 1 bolus; Site: right antecubital; hb 10:19 Follow up: Response: No adverse reaction; IV Status: Completed infusion; IV Intake: hb 1000ml 10:59 Drug: morphine 4 mg {Note: RASS +2.} Route: IVP; Site: left antecubital; hb 11:25 Follow up: Response: No adverse reaction; Pain is decreased; RASS: Alert and Calm (0) hb 10:59 Drug: Zofran 4 mg Route: IVP; Site: left antecubital; hb 11:23 Follow up: Response: No adverse reaction hb 13:13 Drug: ToPROL XL 25 mg Route: PO; ss 13:20 Follow up: Response: Medication administered at discharge. hb Disposition: 06/13/19 12:48 Discharged to Home. Impression: Chest pain, unspecified, Obesity, unspecified, Ventricular premature depolarization, Cardiomegaly. - Condition is Stable. - Discharge Instructions: Nonspecific Chest Pain, Chest Wall Pain, Echocardiogram, Obesity, Adult, Chest Wall Pain, Adqf-fy-Rvat, Nonspecific Chest Pain, Gmdw-cq-Djll, Aspirin and Your Heart. - Prescriptions for Ibuprofen 600 mg Oral Tablet - take 1 tablet by ORAL route every 6 hours As needed take with food; 20 tablet. Tylenol- Codeine #3 300-30 mg Oral Tablet - take 2 tablets by ORAL route every 6 hours As needed; 20 tablet. Toprol XL 25 mg Oral Tablet - take 1 tablet by ORAL route once daily; 20 tablet. - Medication Reconciliation Form, Thank You Letter, Antibiotic Education, Prescription Opioid Use, Work release form form. - Follow up: Private Physician; When: 2 - 3 days; Reason: Recheck today's complaints, Continuance of care, Re-evaluation by your physician. Follow up: Mariano Lee; When: 2 - 3 days; Reason: Recheck today's complaints, Re-evaluation by your physician. - Problem is new. - Symptoms have improved. Signatures: Dispatcher [employer] EDMS Josiah Alaniz MD MD cha Smirch, Shelby, RN RN Mackenzie Hoang RN RN hb Corrections: (The following items were deleted from the chart) 13:26 12:48 06/13/2019 12:48 Discharged to Home. Impression: Chest pain, unspecified; hb Obesity, unspecified; Ventricular premature depolarization; Cardiomegaly. Condition is Stable. Discharge Instructions: Nonspecific Chest Pain, Obesity, Adult, Nonspecific Chest Pain, Lczy-ti-Jsfc, Aspirin and Your Heart, Chest Wall Pain, Chest Wall Pain, Ikpt-rb-Vham, Echocardiogram. Prescriptions for Ibuprofen 600 mg Oral Tablet - take 1 tablet by ORAL route every 6 hours As needed take with food; 20 tablet, Tylenol-Codeine #3 300-30 mg Oral Tablet - take 2 tablets by ORAL route every 6 hours As needed; 20 tablet. and Forms are Medication Reconciliation Form, Thank You Letter, Antibiotic Education, Prescription Opioid Use. Follow up: Private Physician; When: 2 - 3 days; Reason: Recheck today's complaints, Continuance of care, Re-evaluation by your physician. Follow up: Mariano Lee; When: 2 - 3 days; Reason: Recheck today's complaints, Re-evaluation by your physician. Problem is new. Symptoms have improved. rodrigo 13:26 13:26 06/13/2019 12:48 Discharged to Home. Impression: Chest pain, unspecified; hb Obesity, unspecified; Ventricular premature depolarization; Cardiomegaly. Condition is Stable. Discharge Instructions: Nonspecific Chest Pain, Obesity, Adult, Nonspecific Chest Pain, Davw-uh-Txex, Aspirin and Your Heart, Chest Wall Pain, Chest Wall Pain, Mwtt-nc-Wnjp, Echocardiogram. Prescriptions for Ibuprofen 600 mg Oral Tablet - take 1 tablet by ORAL route every 6 hours As needed take with food; 20 tablet, Tylenol-Codeine #3 300-30 mg Oral Tablet - take 2 tablets by ORAL route every 6 hours As needed; 20 tablet, Toprol XL 25 mg Oral Tablet - take 1 tablet by ORAL route once daily; 20 tablet. and Forms are Medication Reconciliation Form, Thank You Letter, Antibiotic Education, Prescription Opioid Use, Work release form. Follow up: Private Physician; When: 2 - 3 days; Reason: Recheck today's complaints, Continuance of care, Re-evaluation by your physician. Follow up: Mariano Lee; When: 2 - 3 days; Reason: Recheck today's complaints, Re-evaluation by your physician. Problem is new. Symptoms have improved. hb
--- NOTE | 2019-06-13 12:56 | ECHO ---
HEIGHT: 6 ft 0 in WEIGHT: 344lb oz DATE OF STUDY: 06/13/[address]: Josiah Alaniz MD 2-DIMENSIONAL: YES M.MODE: YES DOPPLER: YES COLOR FLOW: YES TDS: YES PORTABLE: NO DEFINITY: NO BUBBLE STUDY: NO DIAGNOSIS: CHEST PAIN CARDIAC HISTORY: CATHERIZATION: NO SURGERY: NO PROSTHETIC VALVE: NO PACEMAKER: NO MEASUREMENTS (cm) DIASTOLIC (NORMALS) SYSTOLIC (NORMALS) IVSd 1.2 (0.6-1.2) LA Diam 4.0 (1.9-4.0) LVEF 59% LVIDd 5.2 (3.5-5.7) LVIDs 3.6 (2.0-3.5) %FS 32% LVPWd 1.2 (0.6-1.2) Ao Diam 2.9 (2.0-3.7) 2 DIMENSIONAL ASSESSMENT: RIGHT ATRIUM: NORMAL LEFT ATRIUM: DILATED RIGHT VENTRICLE: NORMAL LEFT VENTRICLE: NORMAL TRICUSPID VALVE: NORMAL MITRAL VALVE: NORMAL PULMONIC VALVE: NORMAL AORTIC VALVE: NORMAL PERICARDIAL EFFUSION: NONE AORTIC ROOT: NORMAL LEFT VENTRICULAR WALL MOTION: NORMAL. DOPPLER/COLOR FLOW: MILD MITRAL AND TRICUSPID REGURGITATION. ESTIMATED RIGHT VENTRICULAR SYSTOLIC PRESSURE 38mmHG (MILD PULMONARY HYPERTENSION) COMMENTS: NORMAL LEFT VENTRICULAR EJECTION FRACTION. DILATED LEFT ATRIUM. MILD MITRAL AND TRICUSPID REGURGITATION. MILD PULMONARY HYPERTENSION. TECHNOLOGIST: ERIC TONEY
[2019-06-13] MEDS ORDERED: METOPROLOL XL 50 MG TAB PO ONE (13:10)
[2019-06-13] MEDS ORDERED: LORAZEPAM 1 MG TABLET ONE (14:01)
== END 2019-06-13 13:26 | disposition home or self-care (01) ==
LOC: ER 08:15
DX: I49.3 Ventricular premature depolarization (principal); I51.7 Cardiomegaly; E66.9 Obesity, unspecified; I10 Essential (primary) hypertension
CPT/HCPCS: 93005; 93306; 85025; 80048; 36415; 83735; 85610; 80076; 80307 ×8; 81003; 84484 ×2; 83690; 83880; 71275; 71045; Q9967; J7030 ×2; 96361; 96374; 96375; 99285

== ENCOUNTER 2020-01-19 18:29 | Emergency (ER) | payer OTHER, SELFPAY ==
--- OUTSIDE RECORDS SUMMARY | 2020-01-19 18:31 | XMS REPORT ---
:1995 [facility] Address [address] [place] [address] Care Team Providers Name Role Phone JAY STEELE Unavailable Unavailable Problems This patient has no known problems. Allergies, Adverse Reactions, Alerts This patient has no known allergies or adverse reactions. Medications This patient has no known medications. Results Test Description Test Time Test Comments Text Results Atomic Results Result Comments TROPONIN I 2019-06-15 15:21:00 Test Item Value Reference Range Comments TROPONIN I (BEAKER) (test lvwf=471) < ng/mL 0.00-0.03 Troponin I (TnI) levels must be interpreted in the context of the presenting symptoms and the clinical findings. Elevated TnI levels indicate myocardial damage, but are not specific for ischemic heart disease. Elevated TnI levels are seen in patients with other cardiac conditions (including myocarditis and congestive heart failure), and slight TnI elevations occur in patients with other conditions, including sepsis, renal failure, acidosis, acute neurological disease, and persistent tachyarrhythmia.B-TYPE NATRIURETIC FACTOR (BNP) 15:21:00 Test Item Value Reference Range Comments B-TYPE NATRIURETIC PEPTIDE (BEAKER) (test dhza=239) 23 pg/mL 0-100 BASIC METABOLIC [id number] 15:17:00 Test Item Value Reference Range Comments SODIUM (BEAKER) (test 138 meq/L 136-145 adkk=167) POTASSIUM (BEAKER) (test 3.9 meq/L 3.5-5.1 vabu=461) CHLORIDE (BEAKER) (test 105 meq/L 98-107 hpvu=004) CO2 (BEAKER) (test 23 meq/L 22-29 fiyb=260) BLOOD UREA NITROGEN 11 mg/dL 7-21 (BEAKER) (test tmwq=505) CREATININE (BEAKER) (test 0.87 mg/dL 0.57-1.25 plun=036) GLUCOSE RANDOM (BEAKER) 79 mg/dL 70-105 (test bozu=184) CALCIUM (BEAKER) (test 9.8 mg/dL 8.4-10.2 dqgo=949) EGFR (BEAKER) (test mL/min/1.73 sq m INSUFFICIENT CLINICAL DATA ndgz=5620) TO CALCULATE ESTIMATED GFR. [id number] 15:14:00 Test Item Value Reference Range Comments MAGNESIUM (BEAKER) (test eoks=793) 2.0 mg/dL 1.6-2.6 CBC W/PLT COUNT & AUTO [id number] 14:53:00 Test Item Value Reference Range Comments WHITE BLOOD CELL COUNT (BEAKER) (test qzfv=371) 9.4 K/ L 3.5-10.5 RED BLOOD CELL COUNT (BEAKER) (test hmrx=735) 5.02 M/ L 4.63-6.08 HEMOGLOBIN (BEAKER) (test owwu=765) 13.6 GM/DL 13.7-17.5 HEMATOCRIT (BEAKER) (test vrrg=922) 44.1 % 40.1-51.0 MEAN CORPUSCULAR VOLUME (BEAKER) (test wqox=771) 87.8 fL 79.0-92.2 MEAN CORPUSCULAR HEMOGLOBIN (BEAKER) (test 27.1 pg 25.7-32.2 cvqw=927) MEAN CORPUSCULAR HEMOGLOBIN CONC (BEAKER) (test 30.8 GM/DL 32.3-36.5 fqsn=119) RED CELL DISTRIBUTION WIDTH (BEAKER) (test 13.4 % 11.6-14.4 ggns=790) PLATELET COUNT (BEAKER) (test qnhj=539) 292 K/CU MM 150-450 MEAN PLATELET VOLUME (BEAKER) (test jxbv=561) 11.1 fL 9.4-12.4 NUCLEATED RED BLOOD CELLS (BEAKER) (test 0 /100 WBC 0-0 wtfr=693) NEUTROPHILS RELATIVE PERCENT (BEAKER) (test 51 % deqk=902) LYMPHOCYTES RELATIVE PERCENT (BEAKER) (test 38 % hygd=622) MONOCYTES RELATIVE PERCENT (BEAKER) (test 9 % ezqx=286) EOSINOPHILS RELATIVE PERCENT (BEAKER) (test 1 % ppke=427) BASOPHILS RELATIVE PERCENT (BEAKER) (test 0 % xvvg=271) NEUTROPHILS ABSOLUTE COUNT (BEAKER) (test 4.80 K/ L 1.78-5.38 qaxh=324) LYMPHOCYTES ABSOLUTE COUNT (BEAKER) (test 3.60 K/ L 1.32-3.57 cwyc=864) MONOCYTES ABSOLUTE COUNT (BEAKER) (test 0.84 K/ L 0.30-0.82 ejew=737) EOSINOPHILS ABSOLUTE COUNT (BEAKER) (test 0.09 K/ L 0.04-0.54 gwnm=335) BASOPHILS ABSOLUTE COUNT (BEAKER) (test 0.04 K/ L 0.01-0.08 pwrh=237) IMMATURE GRANULOCYTES-RELATIVE PERCENT (BEAKER) 1 % 0-1 (test ixvw=9501) RAD, CHEST, 1 VIEW, NON [id number] 14:32:00Reason for exam:->CPFINAL REPORT RAD, CHEST, 1 VIEW, NON DEPT CLINICAL INDICATION: CP COMPARISON:None TECHNIQUE: AP view of the chest FINDINGS: Lung volumes are low. No focal consolidation. No pleural effusion or pneumothorax. Cardiomediastinal silhouette, kendrick, and pulmonary vasculature are normal. No acute osseous abnormality. IMPRESSION:No acute cardiopulmonary abnormality. Signed: Dina Packer MDReport Verified Date/Time: 06/15/2019 14:32:22 Reading Location: [facility] B1 [id number] Consult Reading Room
--- OUTSIDE RECORDS SUMMARY | 2020-01-19 18:31 | XMS REPORT | Summary of Care ---
:1995 Author Organization [facility] Address [address] [place] [id number] Care Team Providers Name Role Phone Bismark Han [facility] Primary Care Provider [phone] Encounter Details Date Type Department Care Team Description 06/21/2019 Letter (Out) [facility] Cardiology- Heaven Hinds MD [place] [address] [facility] [address] [address] [address] [place] [address] [place] [address] Allergies No Known Allergiesdocumented as of this encounter (statuses as of 06/21/2019) Medications Medication Sig Dispensed Refills Start Date End Date Status carvedilol (COREG) Take 1 tablet by 60 tablet 2 06/21/2019 Active 6.25 mg mouth 2 (two) tabletIndications: times daily with Essential meals. hypertension, Frequent PVCs lisinopril (PRINIVIL) Take 1 tablet by 30 tablet 2 06/21/2019 07/21/2019 Active 5 mg mouth daily for tabletIndications: 30 days. Essential hypertension, Frequent PVCs documented as of this encounter (statuses as of 06/21/2019) Active Problems Not on filedocumented as of this encounter (statuses as of 06/21/2019) Social History Tobacco Use Types Packs/Day Years Used Date Never Smoker Smokeless Tobacco: Never Used Sex Assigned at Date Recorded Not on file Job Start Date Occupation Industry Not on file Not on file Not on file Travel History Travel Start Travel End No recent travel history available. documented as of this encounter Last Filed Vital Signs Not on filedocumented in this encounter Plan of Treatment Health Maintenance Due Date Last Done Comments VARICELLA VACCINES (1 of 2 - 13+ 2006 2-dose series) DTaP,Tdap,and Td Vaccines (1 - 2012 Tdap) INFLUENZA VACCINE (#1) 2019 HPV VACCINES Aged Out No longer eligible based on patient's age to complete this topic PNEUMOCOCCAL 0-64 YEARS COMBINED Aged Out No longer eligible based on SERIES patient's age to complete this topic documented as of this encounter Results Not on filedocumented in this encounter Insurance Payer Benefit Plan / Subscriber ID Effective Dates Phone Address Type Group COMMERCIAL COMMERCIAL [id number] 2019-Elvin HMO/PPO/PO NON-CONTRACT NON-CONTRACT t S GENERIC GENERIC documented as of this encounter
--- OUTSIDE RECORDS SUMMARY | 2020-01-19 18:32 | XMS REPORT | Summary of Care ---
:1995 Author Organization [facility] - [facility] Address [address] [place] [address] Care Team Providers Name Role Phone Bismark Han [facility] Primary Care Provider [phone] Reason for Visit Reason Comments New Patient Hospital Follow up/CP Medical Records Pending to recieve from [facility] (Routine) Status Reason Specialty Diagnoses / Referred By Referred To Procedures Contact Contact New Request Cardiology Diagnoses Cardiomegaly Bismarkestella Patricio Procedures CONSULT/REFERRAL CARDIOLOGY [facility] [address] [place] [address] Encounter Details Date Type Department Care Team Description 06/21/2019 Office Visit [facility] Heaven Hinds Atypical chest pain ( Primary Dx); Cardiology- Karl Monique MD Essential [facility]; [facility] [address] [place] [phone] Allergies No Known Allergiesdocumented as of this encounter (statuses as of 07/17/2019) Medications Medication Sig Dispensed Refills Start Date [...] as of this encounter (statuses as of 07/17/2019) Active Problems Not on filedocumented as of this encounter (statuses as of 07/17/2019) Social History Tobacco Use Types Packs/Day Years Used Date Never Smoker Smokeless Tobacco: Never Used Sex Assigned at Date Recorded Not on file Job Start Date Occupation Industry Not on file Not on file Not on file Travel History Travel Start Travel End No recent travel history available. documented as of this encounter Last Filed Vital Signs Vital Sign Reading Time Taken Comments Blood Pressure 140/94 06/21/2019 9:50 AM CDT Pulse 103 06/21/2019 9:45 AM CDT Temperature - - Respiratory Rate 22 06/21/2019 9:45 AM CDT Oxygen Saturation 97% 06/21/2019 9:45 AM CDT Inhaled Oxygen Concentration - - Weight 156.3 kg (344 lb 8 oz) 06/21/2019 9:45 AM CDT Height 182.9 cm (6') 06/21/2019 9:45 AM CDT Body Mass Index 46.72 06/21/2019 9:45 AM CDT documented in this encounter Patient Instructions Patient InstructionsPraHeaven ochoa MD - 06/21/2019 9:30 AM CDTGoal BP &lt ;< 130/80 Follow up in 2 monthsElectronically signed by Heaven Hinds MD at 2018 11:46 AM CDT documented in this encounter Progress Notes Heaven Hinds MD - 06/21/2019 9:30 AM CDT [facility] Cardiology Consult Note Patient: Bolivar Churchill Date of : 1995 Date of service: 06/21/2019 Primary Care Physician: Olegario Patricio [facility] CHIEF COMPLAINT: Chief Complaint Patient presents with New Patient Hospital Follow up/ Medical Records Pending to recieve from [facility] HISTORY OF PRESENT ILLNESS: Bolivar Churchill is a 23 year old male presents to the clinic for evaluation for atypical chest pain. History from patient/. She translated for the patient Reports having Chest pain, left mammary region, all the time, worse and reproducible with palpiationand more sleeping on that side. No radiation. ORONA NYHA class II. Reports that he was evaluated in [facility]. Reports ECG, Echo was done. "told that he had enlarged heart and leaky valves). He was started on Toprol XL 25 mg daily. Awaiting records. No history of exertional chest pain. No PND or orthopnea. No pedal edema. No exertional palpitationsor palpitations at rest. No syncopal attacks. Previous Cardiac Studies: IMAGING - I personally reviewed, pertinent results as below: ECG reports from [facility] was reviewed. SR with frequent PVCs in bigeminal pattern. PAST MEDICAL HISTORY HTN, obese No significant family history and surgical history noted from cardiac stand point. SOCIAL HISTORY Social History Socioeconomic History Marital status: Spouse name: Not on file Number of children: Not on file Years of education: Not on file Highest education level: Not on file Occupational History Not on file Social Needs Financial resource strain: Not on file Food insecurity: Worry: Not on file Inability: Not on file Transportation needs: Medical: Not on file Non-medical: Not on file Tobacco Use Smoking status: Never Smoker Smokeless tobacco: Never Used Substance and Sexual Activity Alcohol use: Not on file Drug use: Not on file Sexual activity: Not on file Lifestyle Physical activity: Days per week: Not on file Minutes per session: Not on file Stress: Not on file Relationships Social connections: Talks on phone: Not on file Gets together: Not on file Attends hindu service: Not on file Active member of club or organization: Not on file Attends meetings of clubs or organizations: Not on file Relationship status: Not on file Intimate partner violence: Fear of current or ex partner: Not on file Emotionally abused: Not on file Physically abused: Not on file Forced sexual activity: Not on file Other Topics Concern Not on file Social History Narrative Not on file ALLERGIES No Known Allergies MEDICATIONS Patient's Medications START taking these medications CARVEDILOL (COREG) 6.25 MG TABLET Take 1 tablet by mouth 2 (two) times daily with meals. LISINOPRIL (PRINIVIL) 5 MG TABLET Take 1 tablet by mouth daily for 30 days. CONTINUE taking these medications which have NOT CHANGED No medications on file START taking Modified Medications as Prescribed No medications on file STOP taking these medications No medications on file REVIEW OF SYSTEMS: Comprehensive 10-system review was conducted and were negative except for what' s noted in the HPI. The following systems were reviewed: Constitutional, cardiovascular, respiratory, gastrointestinal, genitourinary, musculoskeletal, neurologic, psychiatric, endocrinological, and hematological. PHYSICAL EXAMINATION: Vitals: 06/21/19 0945 06/21/19 0950 BP: (!) 148/81 (!) 140/94 BP Location: Left arm Patient Position: Sitting BP CUFF SIZE: Adult Large Pulse: 103 Resp: 22 SpO2: 97% Weight: 344 lb 8 oz (156.3 kg) Height: 6' (1.829 m) General: no apparent distress HEENT: normocephalic atraumatic Neck: supple, no lymphadenopathy, no bruits, no JVD Lungs: clear to auscultation bilaterally. No wheezes or rhonchi. No increased work of breathing. Cardio: Regular rate and rhythm, S1&S2 normal, no murmurs, rubs or gallops Abdomen: soft; non-tender; non-distended; normoactive bowel sounds. : not examined Rectal: not examined Extremities: no clubbing, cyanosis, or edema. Skin: no rashes, no visible lesions. Neuro: no gross focal deficits LABS - Reviewed pertinent labs as below: CBC BMP PT/INR No results found for: WBC No results found for: NA No results found for: PT No results found for: PLT No results found for: K No results found for: PTINR No results found for: HGB No results found for: BUN No results found for: HCT No results found for: CREAT LIPID PROFILE No results found for: GLU No results found for: CHOL TSH No results found for: LDL No results found for: TSH CARDIAC ENZYMES No results found for: HDL No results found for: CK No results found for: TRIG LFTs No results found for: CKMB No results found for: AST No results found for: TROPNI No results found for: ALT No results found for: BNP No results found for: LDL There are no current results on file for these tests and/or test for 1 year. There are no current results on file for these tests and/or test for 1 year. No results found for: LDL No results found for: NTBNP No recent labs for review ASSESSMENT/PLAN 1. Essential hypertension carvedilol (COREG) 6.25 mg tablet lisinopril (PRINIVIL) 5 mg tablet 2. Frequent PVCs carvedilol (COREG) 6.25 mg tablet lisinopril (PRINIVIL) 5 mg tablet 3. Atypical chest pain Atypical chest pain: Non cardiac etiology. Reproducible on palpations in the left mammary region. Recommended noncardiac work up with his PCP. Will review cardiac records. If echo abnormal, then will plan for DSE or Ex stress test. HTN: uncontrolled. Likely essential HTN. Labs from 06/2019 care everywhere BMP Normal. If difficult to control, then will need secondary work up. Stop Toprol XL. Start Coreg 6.25 mg BiD and lisinopril 5 mg daily. Goal BP <& lt; 130/80. May need TORIBIO work up. Recommend to discuss with his PCP regarding that. Frequent PVCs; Will start coreg 6.25 mg BiD. Will review cardiac records. Recommend to loose weight. Follow up in 2 months. Patient's diease process and its evaluation and treatment were discussed. We discussed each of for cardio vascular-related problems and discussed long-term goals and expectations for the each problem.I reviewed each of the cardiac medications in detail. Reviewed the medication with patient in detail recommended to continue taking the current medications without further changes other than changes mentioned above. Recommended goal BP < 130/80 consistently, LDL << 70, HbA1c < 6.5. Recommended, explained and stressed the importance of healthy eating habits and exercises and lifestyle modifications Follow up as planned is predicated on symptoms stability and/or acceptable test results. Patient is urged to call in sooner should problems arise or if there is no improvement in cardiac symptoms. ER warning signs and symptoms explained and patient verbalized understanding. My diagnostic impression and treatment plans were discussed at length with the patient and family member present. All side effects as well as drug-drug interactions and risks discussed at length. Ample opportunity was offered and encouraged to ask questions during this visit and patient appreciated the answers given by me and verbzalised statisfcation in the answers given. We reviewed the [place] [employer] recommendations for reduction of overall cardio vascular risk. The importance of monitoring the blood pressure carefully both at home on regular basis along with other physicians appointment was stressed in detail. In addition we discussed target LDL levels for optimal risk reduction. It was advised that to daily physical activity be performed with 30 minutes of sustained exercise for both cardio vascular fitness and improvement for generalized medical health and well-being. Thank you for allowing us to participate in the care of Bolivar Churchill. If you have any questions or concerns please feel free to call our office at [phone]. I would be happy to be of further assistance for Bolivar Churchill wellbeing. Hosea Hinds MD Cra Officer, Division of Cardiology [facility] Addendum 07/17/[address] [facility] reviewed Echo Mild MR and TR. RVSP 38 mmHg Normal LVEF, Dilated LA. ECG: SR with frequent PVC LVH CBC Normal CMP: Normal NT pro BNP: 28 CT lung: No PE, Cardiomegaly + documented in this encounter Plan of Treatment Date Type Specialty Care Team Description 08/23/2019 Office Visit Cardiology Heaven Hinds MD [address] [place] [phone] Health Maintenance Due Date Last Done Comments [...] Results Not on filedocumented in this encounter Visit Diagnoses Diagnosis Atypical chest pain - Primary Other chest pain Essential hypertension Unspecified essential hypertension Frequent PVCs Other premature beats documented in this encounter Insurance Payer Benefit Plan / Subscriber ID Effective Dates Phone Address Type Group COMMERCIAL COMMERCIAL [id number] 2019-Elvin HMO/PPO/PO NON-CONTRACT NON-CONTRACT t S GENERIC GENERIC documented as of this encounter
--- OUTSIDE RECORDS SUMMARY | 2020-01-19 18:32 | XMS REPORT | Summary of Care ---
:1995 Author Organization [facility] - [facility] Address [address] [place] [id number] Care Team Providers Name Role Phone Bismark Han [facility] Primary Care Provider Reason for Visit Reason Comments New Patient Hospital Follow up/CP Medical Records Pending to recieve from [facility] (Routine) Status Reason Specialty Diagnoses / Referred By Referred To Procedures Contact Contact New Request Cardiology Diagnoses Cardiomegaly Bismarkestella Patricio Procedures CONSULT/REFERRAL CARDIOLOGY [facility] [address] [place] [address] Encounter Details Date Type Department Care Team Description 06/21/2019 Office Visit [facility] Heaven Hinds Atypical chest pain ( Primary Dx); Cardiology- Karl Monique MD Essential [facility]; [facility] [address], [address] [place] [phone] Allergies No Known Allergiesdocumented [...] Hinds MD - 06/21/2019 9:30 AM CDT [facility] Cardiology Consult Note Patient: Bolivar Churchill Date of : 1995 Date of service: 06/21/2019 Primary Care Physician: Olegario Patricio [facility] CHIEF COMPLAINT: Chief Complaint Patient presents with New Patient Hospital Follow up/ Medical Records Pending to recieve from [facility] HISTORY OF PRESENT ILLNESS: Bolivar Churchill is a 23 year old male presents to the clinic for evaluation for atypical chest pain. History from patient/. She translated for the patient Reports having Chest pain, left mammary region, all the time, worse and reproducible with palpiationand more sleeping on that side. No radiation. ORONA NYHA class II. Reports that he was evaluated in [facility] and [facility]. Reports ECG, Echo was done. "told that he had enlarged heart and leaky valves). He was started on Toprol XL 25 mg daily. Awaiting records. No history of exertional chest pain. No PND or orthopnea. No pedal edema. No exertional palpitationsor palpitations at rest. No syncopal attacks. Previous Cardiac Studies: IMAGING - I personally reviewed, pertinent results as below: ECG reports from [facility] was reviewed. SR with frequent PVCs in [...] file Gets together: Not on file Attends orthodox service: Not on file Active member of [...] in the answers given. We reviewed the [place] [employer] recommendations for reduction of overall [...] feel free to call our office at [phone]. I would be happy to be of further assistance for Bolivar Churchill wellbeing. Hosea Hinds MD School Laboratory Technician, Division of Cardiology [facility] documented in this encounter Plan of Treatment Date Type Specialty Care Team Description 08/23/2019 Office Visit Cardiology Heaven Hinds MD [address] [place] [phone] Health Maintenance Due Date Last Done [...] Dates Phone Address Type Group COMMERCIAL COMMERCIAL [id number] 2019-[employer] HMO/PPO/PO NON-CONTRACT NON-CONTRACT t S GENERIC GENERIC documented as of this encounter
--- OUTSIDE RECORDS SUMMARY | 2020-01-19 18:32 | XMS REPORT | Summary of Care ---
:[address] [facility] - [facility] Address [address] [place] [id number] Care Team Providers Name Role Phone Bismark Han [facility] Primary Care Provider [phone] Reason for Visit Reason Comments New Patient Hospital Follow up/CP Medical Records Pending to recieve from [place] (Routine) Status Reason Specialty Diagnoses / Referred By Referred To Procedures Contact Contact New Request Cardiology Diagnoses Cardiomegaly Bismarkestella Patricio Procedures CONSULT/REFERRAL CARDIOLOGY [facility] [address] [place] [address] Encounter Details Date Type Department Care Team Description 06/21/[address] [facility] Heaven Hinds Atypical chest pain ( Primary Dx); Cardiology- Karl Monique MD [facility]ential [facility]; [facility] [address], [address] [place] [phone] Allergies No Known Allergiesdocumented [...] Hinds MD - 06/21/2019 9:[address] [facility] Cardiology Consult Note Patient: Bolivar Churchill Date of : 1995 Date of service: 06/21/2019 Primary Care Physician: Olegario Patricio [facility] CHIEF COMPLAINT: Chief Complaint Patient presents with New Patient Hospital Follow up/ Medical Records Pending to recieve from [place] HISTORY OF PRESENT ILLNESS: Bolivar Churchill is a 23 year old male presents to the clinic for evaluation for atypical chest pain. History from patient/. She translated for the patient Reports having Chest pain, left mammary region, all the time, worse and reproducible with palpiationand more sleeping on that side. No radiation. ORONA NYHA class II. Reports that he was evaluated in [facility]. Reports ECG, Echo was done. "told that he had enlarged heart and leaky valves). He was started on Toprol XL 25 mg daily. Awaiting records. No history of exertional chest pain. No PND or orthopnea. No pedal edema. No exertional palpitationsor palpitations at rest. No syncopal attacks. Previous Cardiac Studies: IMAGING - I personally reviewed, pertinent results as below: ECG reports from [facility] was reviewed. SR with frequent PVCs in [...] file Gets together: Not on file Attends rastafarian service: Not on file Active member of [...] in the answers given. We reviewed the [place] [employer] recommendations for reduction of overall [...] feel free to call our office at [phone]. I would be happy to be of further assistance for Bolivar Churchill wellbeing. Hosea Hinds MD Multiple Tube Winding Machine Operator, Division of Cardiology [facility] documented in this encounter Plan of Treatment Date Type Specialty Care Team Description 08/23/2019 Office Visit Cardiology Heaven Hinds MD [address] [place] [phone] Health Maintenance Due Date Last Done [...] Dates Phone Address Type Group COMMERCIAL COMMERCIAL [id number] 2019-[employer] HMO/PPO/PO NON-CONTRACT NON-CONTRACT t S GENERIC GENERIC documented as of this encounter
[2020-01-19 19:57] LABS: Absolute Lymphocytes (CBC) 2.6 K/uL (0.7-4.9); Basophils % 0.6 % (0-1.3); Hematocrit 44.2 % (39.6-49.0); MPV 10.1 fL (7.6-11.3); RBC Red Blood Cell Count 5.35 M/uL (4.33-5.43)
[2020-01-19 20:02] LABS: Protime INR 1.07
[2020-01-19 20:19] LABS: ALT/SGPT 32 U/L (12-78); AST/SGOT 23 U/L (15-37); Alkaline Phosphatase 132 U/L (45-117); BUN Blood Urea Nitrogen 9 mg/dL (7-18); Bicarbonate 27 mmol/L (21-32); Bilirubin Direct < 0.1 mg/dL (0-0.2); Bilirubin Total 0.4 mg/dL (0.2-1.0); Glucose Level 97 mg/dL (74-106); Magnesium 2.2 mg/dL (1.8-2.4); NT PRO-BNP 7 pg/mL (<125); Potassium 3.9 mmol/L (3.5-5.1); Protein, Total 8.4 g/dL (6.4-8.2); Sodium Level 141 mmol/L (136-145); Troponin (Emerg Dept Use Only) < 0.02 ng/mL (0.0-0.045)
[2020-01-19] MEDS ORDERED: KETOROLAC 30 MG/ML INJ ONE (20:55)
[2020-01-19 21:03] LABS: Arterial Blood Carboxyhemoglob 1.3 % (0-1.5); Blood Gas Oxyhemoglobin 92.6 % (94-97); Blood O2 Saturation 94.5 % (92-98.5)
--- NOTE | 2020-01-19 21:45 | ER ---
Nurse's Notes [facility] Name: Bolivar Yang Age: 24 yrs Sex: Male : 1995 Arrival Date: 01/19/2020 Time: 18:32 Bed 5 Private MD: Diagnosis: Other chest pain;Palpitations Presentation: 01/18 18:53 Chief complaint: Patient states: chest discomfort x 2 days. Worse with palpation and ss repositioning. Pt has a history of high blood pressure and has not been taking his medication for months. Coronavirus screen: The patient has NOT traveled to a country currently being monitored by the [facility] within the last 14 days. Proceed with normal triage procedures. Ebola Screen: Patient denies exposure to infectious person. Patient denies travel to an Ebola-affected area in the 21 days before illness onset. Initial Sepsis Screen: Does the patient meet any 2 criteria? No. Patient's initial sepsis screen is negative. Does the patient have a suspected source of infection? No. Patient's initial sepsis screen is negative. Risk Assessment: Do you want to hurt yourself or someone else? Patient reports no desire to harm self or others. 18:53 Method Of Arrival: Ambulatory ss 18:53 Acuity: GUILLERMO 3 ss Historical: - Allergies: 18:56 No Known Allergies; ss - Home Meds: 18:56 None [Active]; ss - PMHx: 18:56 Hypertension; ss - PSHx: 18:56 None; ss - Immunization history:: Adult Immunizations up to date. - Social history:: Smoking status: Patient denies any tobacco usage or history of. Screenin:25 Abuse screen: Denies threats or abuse. Denies injuries from another. Nutritional sg screening: No deficits noted. Tuberculosis screening: No symptoms or risk factors identified. Never had TB. Fall Risk None identified. Assessment: 19:25 General: Appears in no apparent distress. uncomfortable, well groomed, well developed, sg well nourished, Behavior is calm, cooperative, appropriate for age. Pain: Complains of pain in chest Pain does not radiate. Quality of pain is described as pressure, sharp, Pain began 2-3 days ago. Is intermittent, episodic. Neuro: Level of Consciousness is awake, alert, obeys commands, Oriented to person, place, time, Automotive Starter Repairer are equal bilaterally Moves all extremities. Facial symmetry appears normal. Cardiovascular: Capillary refill is brisk in bilateral fingers Patient's skin is warm and dry. Chest pain is denied. Respiratory: Reports shortness of breath on exertion Airway is patent Respiratory effort is even, labored, Respiratory pattern is symmetrical, tachypnea Breath sounds are clear the patient has mild shortness of breath. GI: Abdomen is round non-distended, obese. : No signs and/or symptoms were reported regarding the genitourinary system. EENT: No signs and/or symptoms were reported regarding the EENT system. Derm: Skin is pink, warm \T\ dry. Musculoskeletal: Circulation, motion, and sensation intact. Range of motion: intact in all extremities. 19:51 Reassessment: Patient appears in no apparent distress at this time. Patient is alert, sg oriented x 3, equal unlabored respirations, skin warm/dry/pink. Xray at bedside at this time. 20:53 Reassessment: Patient and/or family updated on plan of care and expected duration. Pain ea level reassessed. Patient is alert, oriented x 3, equal unlabored respirations, skin warm/dry/pink. Pt complaining of pain to left upper chest, provider notified, medication order obtained, medication administered, pt tolerated well. 21:22 Reassessment: Patient and/or family updated on plan of care and expected duration. Pain ea level reassessed. Patient is alert, oriented x 3, equal unlabored respirations, skin warm/dry/pink. Pt reports pain has decreased. 22:00 Reassessment: Patient and/or family updated on plan of care and expected duration. Pain ea level reassessed. Patient is alert, oriented x 3, equal unlabored respirations, skin warm/dry/pink. Discharge instruction given to patient, verbalized the understanding of instruction. Pt left ED ambulatory accompanied by family. Vital Signs: 18:53 BP 160 / 100; Pulse 113; Resp 20; Temp 99.2(TE); Pulse Ox 95% on R/A; Height 6 ft. 0 ss in. (182.88 cm); Pain 7/10; 20:36 BP 132 / 58; Pulse 87; Resp 19; Pulse Ox 93% on R/A; ea 21:23 BP 134 / 76; Pulse 96; Resp 18; Pulse Ox 97% ; ea ED Course: 18:32 Patient arrived in ED. 18:55 Triage completed. ss 18:56 Arm band placed on right wrist. ss 19:25 Luís Roblero MD is Attending Physician. tw4 19:40 Initial lab(s) drawn, by me, sent to lab. Inserted saline lock: 18 gauge in right sg antecubital area, using aseptic technique. Blood collected. Oxygen administration via nasal cannula \T\ 2L/min Response to oxygen therapy: symptoms improved. 19:52 Elizabeth Esquivel, RN is Primary Nurse. ea 19:55 XRAY Chest (1 view) In Process Unspecified. EDMS 20:30 Patient has correct armband on for positive identification. Placed in gown. Bed in low ea position. patient monitor on. Pulse ox on. NIBP on. 21:23 No provider procedures requiring assistance completed. ea 21:46 Manolo Mark MD is Referral Physician. tw4 21:46 Mariano Lee MD is Referral Physician. tw4 22:00 IV discontinued, intact, bleeding controlled, No redness/swelling at site. Pressure ea dressing applied. Administered Medications: 20:53 Drug: TORadol - Ketorolac 15 mg Route: IVP; Site: right antecubital; ea 21:30 Follow up: Response: No adverse reaction; Pain is decreased ea Outcome: 21:44 Discharge ordered by . tw4 22:01 Discharged to home ambulatory, with family. ea 22:01 Condition: stable 22:01 Discharge instructions given to patient, Instructed on discharge instructions, follow up and referral plans. medication usage, Demonstrated understanding of instructions, follow-up care, medications, Prescriptions given X 1. 22:02 Patient left the ED. ea Signatures: Dispatcher [employer] EDMS Jone Peña, RN FANG Brenda KeysLayne, RN Elizabeth Peres, RN Luís Bergeron ea, MD MD tw4
--- NOTE | 2020-01-19 21:45 | EDPHYS ---
Physician Documentation [facility] Name: Bolivar Yang Age: 24 yrs Sex: Male : 1995 Arrival Date: 01/19/2020 Time: 18:32 Bed 5 Private MD: ED Physician Luís Roblero HPI: 01/18 21:24 This 24 yrs old Male presents to ER via Ambulatory with complaints of Chest tw4 Pain. 21:24 This 24 yrs old Male presents to ER via Ambulatory with complaints of Chest tw4 Pain for 2 days. 21:24 The pain does not radiate. tw4 21:24 The patient or guardian reports chest pain that is located primarily in the anterior tw4 chest wall, left. Associated signs and symptoms: The patient has no apparent associated signs or symptoms. The chest pain is described as sharp. Duration: The patient or guardian reports a single episode, that is still ongoing. Severity of pain: At its worst the pain was moderate in the emergency department the pain is unchanged. The patient has not experienced similar symptoms in the past. Historical: - Allergies: 18:56 No Known Allergies; ss - Home Meds: 18:56 None [Active]; ss - PMHx: 18:56 Hypertension; ss - PSHx: 18:56 None; ss - Immunization history:: Adult Immunizations up to date. - Social history:: Smoking status: Patient denies any tobacco usage or history of. ROS: 21:24 Constitutional: Negative for fever, chills, and weight loss, Eyes: Negative for injury, tw4 pain, redness, and discharge, Respiratory: Negative for shortness of breath, cough, wheezing, and pleuritic chest pain, Abdomen/GI: Negative for abdominal pain, nausea, vomiting, diarrhea, and constipation, Back: Negative for injury and pain, MS/Extremity: Negative for injury and deformity, Skin: Negative for injury, rash, and discoloration. 21:24 Cardiovascular: Positive for chest pain, Negative for edema, orthopnea, palpitations. Exam: 21:24 Constitutional: This is a well developed, well nourished patient who is awake, alert, tw4 and in no acute distress. Head/Face: Normocephalic, atraumatic. Chest/axilla: Normal chest wall appearance and motion. Nontender with no deformity. No lesions are appreciated. Cardiovascular: Regular rate and rhythm with a normal S1 and S2. No gallops, murmurs, or rubs. Normal PMI, no JVD. No pulse deficits. Respiratory: Lungs have equal breath sounds bilaterally, clear to auscultation and percussion. No rales, rhonchi or wheezes noted. No increased work of breathing, no retractions or nasal flaring. Abdomen/GI: Soft, non-tender, with normal bowel sounds. No distension or tympany. No guarding or rebound. No evidence of tenderness throughout. Back: No spinal tenderness. No costovertebral tenderness. Full range of motion. MS/ Extremity: Pulses equal, no cyanosis. Neurovascular intact. Full, normal range of motion. Neuro: Awake and alert, GCS 15, oriented to person, place, time, and situation. Cranial nerves II-XII grossly intact. Motor strength 5/5 in all extremities. Sensory grossly intact. Cerebellar exam normal. Normal gait. Vital Signs: 18:53 BP 160 / 100; Pulse 113; Resp 20; Temp 99.2(TE); Pulse Ox 95% on R/A; Height 6 ft. 0 ss in. (182.88 cm); Pain 7/10; 20:36 BP 132 / 58; Pulse 87; Resp 19; Pulse Ox 93% on R/A; ea 21:23 BP 134 / 76; Pulse 96; Resp 18; Pulse Ox 97% ; ea MDM: 19:25 Patient medically screened. tw4 21:24 Differential diagnosis: acute myocardial infarction, pulmonary embolus. Data reviewed: tw4 vital signs, nurses notes. Data interpreted: Pulse oximetry: Interpretation: normal. Counseling: I had a detailed discussion with the patient and/or guardian regarding: the historical points, exam findings, and any diagnostic results supporting the discharge/admit diagnosis. Special discussion: I discussed with the patient/guardian in detail that at this point there is no indication for admission to the hospital. It is understood, however, that if the symptoms persist or worsen the patient needs to return immediately for re-evaluation. 21:37 ED course: repeat EKG at 2126 reveal NSR with normal rate, minimal LVH rate 87, tw4 interpreted by 01/18 19:45 Order name: Basic Metabolic Panel; Complete Time: 20:29 tw4 01/18 20:30 Interpretation: Within normal limits. 01/18 19:45 Order name: CBC with Diff; Complete Time: 20:29 01/18 20:30 Interpretation: Normal except: MCH 26.5. 01/18 19:45 Order name: LFT's; Complete Time: 20:29 01/18 20:30 Interpretation: Normal except: ALK 132; TP 8.4; GLOB 4.4; A/G 0.9. 01/18 19:45 Order name: Magnesium; Complete Time: 20:29 01/18 20:30 Interpretation: Within normal limits: MG 2.2. 01/18 19:45 Order name: NT PRO-BNP; Complete Time: 20:29 01/18 20:30 Interpretation: Within normal limits: NT PRO-BNP 7. 01/18 19:45 Order name: PT-INR; Complete Time: 20:29 01/18 20:30 Interpretation: Normal except: PT 12.6. 01/18 19:45 Order name: Troponin (emerg Dept Use Only); Complete Time: 20:29 01/18 20:30 Interpretation: Within normal limits: TROPED < 0.02. 01/18 19:45 Order name: XRAY Chest (1 view) 01/18 19:45 Order name: EKG; Complete Time: 19:46 01/18 19:45 Order name: Cardiac monitoring; Complete Time: 19:46 01/18 19:45 Order name: EKG - Nurse/Tech; Complete Time: 19:46 01/18 19:45 Order name: D-Dimer; Complete Time: 20:29 01/18 20:30 Interpretation: Within normal limits: D-DIMER 294. 01/18 20:31 Order name: ABG: perform on RA; Complete Time: 21:19 01/18 19:45 Order name: IV Saline Lock; Complete Time: 19:47 01/18 19:45 Order name: Labs collected and sent; Complete Time: 19:49 01/18 19:45 Order name: O2 Per Protocol; Complete Time: 19:49 01/18 19:45 Order name: O2 Sat Monitoring; Complete Time: 19:49 tw4 EC:37 Rate is 109 beats/min. Rhythm is regular, Sinus tachycardia with Unifocal PVCs. QRS tw4 [place] is Normal. RI interval is normal. QRS interval is normal. QT interval is normal. No Q waves. T waves are Normal. No ST changes noted. Clinical impression: Sinus tachycardia. Interpreted by me. Reviewed by me. Administered Medications: 20:53 Drug: TORadol - Ketorolac 15 mg Route: IVP; Site: right antecubital; ea 21:30 Follow up: Response: No adverse reaction; Pain is decreased ea Disposition: 01/19/20 21:44 Discharged to Home. Impression: Other chest pain, Palpitations. - Condition is Stable. - Discharge Instructions: Nonspecific Chest Pain, Electrocardiography, Holter Monitoring, Pain Without a Known Cause, Palpitations, Exercise Stress Electrocardiogram, Ieeu-ag-Ewcw, Chest Wall Pain, Mwqc-hu-Ioiu, Nonspecific Chest Pain, Ubvl-mz-Rzvh, Palpitations, Mbxd-yo-Ghkz. - Prescriptions for Ibuprofen 800 mg Oral Tablet - take 1 tablet by ORAL route every 8 hours As needed take with food; 30 tablet. - Medication Reconciliation Form, Thank You Letter, Antibiotic Education, Prescription Opioid Use form. - Follow up: Private Physician; When: Upon discharge from the Emergency Department; Reason: Recheck today's complaints, Continuance of care, Re-evaluation by your physician. Follow up: Manolo Mark MD; When: Upon discharge from the Emergency Department; Reason: Recheck today's complaints, Continuance of care, Re-evaluation by your physician. Follow up: Mariano Lee MD; When: Upon discharge from the Emergency Department; Reason: Recheck today's complaints, Continuance of care, Re-evaluation by your physician. - Problem is new. - Symptoms have improved. Signatures: Dispatcher [employer] EDNM Layne Levi RN RN ss Antunez, Elena, RN RN ea Wadley, Terrence, MD MD tw4 Corrections: (The following items were deleted from the chart) 21:46 21:44 01/19/2020 21:44 Discharged to Home. Impression: Other chest pain; Palpitations. tw4 Condition is Stable. Forms are Medication Reconciliation Form, Thank You Letter, Antibiotic Education, Prescription Opioid Use. Follow up: Private Physician; When: Upon discharge from the Emergency Department; Reason: Recheck today's complaints, Continuance of care, Re-evaluation by your physician. Problem is new. Symptoms have improved. tw4 22:02 21:46 01/19/2020 21:44 Discharged to Home. Impression: Other chest pain; Palpitations. ea Condition is Stable. Discharge Instructions: Nonspecific Chest Pain, Electrocardiography, Holter Monitoring, Pain Without a Known Cause, Palpitations, Exercise Stress Electrocardiogram, Otnp-az-Clny, Chest Wall Pain, Dpvm-dz-Zagl, Nonspecific Chest Pain, Jfbr-zz-Vjeh, Palpitations, Uhal-qd-Jsva. Prescriptions for Ibuprofen 800 mg Oral Tablet - take 1 tablet by ORAL route every 8 hours As needed take with food; 30 tablet. and Forms are Medication Reconciliation Form, Thank You Letter, Antibiotic Education, Prescription Opioid Use. Follow up: Private Physician; When: Upon discharge from the Emergency Department; Reason: Recheck today's complaints, Continuance of care, Re-evaluation by your physician. Follow up: Manolo Mark; When: Upon discharge from the Emergency Department; Reason: Recheck today's complaints, Continuance of care, Re-evaluation by your physician. Follow up: Mariano Lee; When: Upon discharge from the Emergency Department; Reason: Recheck today's complaints, Continuance of care, Re-evaluation by your physician. Problem is new. Symptoms have improved. tw4
[2020-01-19 22:15] VITALS: TEMP 99.2
[2020-01-19 22:18] VITALS: BP 134/76; O2SAT 97
--- NOTE | 2020-01-20 08:27 | RAD REPORT ---
EXAM DESCRIPTION: RAD - Chest Single View - 01/19/2020 7:58 pm CLINICAL HISTORY: SOB, chest pain COMPARISON: Portable June 13, 2019 TECHNIQUE: AP portable chest image was obtained 01/19/2020 7:58 pm . FINDINGS: Lung volumes are low. No peripheral mass consolidation. Cardiomegaly is present similar to comparison. No measurable pleural effusion and no pneumothorax. No acute bony abnormality seen. No a cute aortic findings suspected. IMPRESSION: Cardiomegaly without significant failure or volume overload. No peripheral mass or consolidation.
--- NOTE | 2020-01-20 09:14 | EKG ---
Test Date: 2020-01-19 Test Time: 18:59:39 [place] Marker: KAPIL MEASUREMENT RESULTS: Intervals: Rate: 109 IL: 142 QRSD: 98 QT: 352 QTc: 474 [place]: P: 48 IL: 142 QRS: 41 T: 34 INTERPRETIVE STATEMENTS: Sinus tachycardia with frequent premature ventricular complexes Right atrial enlargement Borderline ECG Compared to ECG 06/13/2019 08:40:29 Atrial abnormality now present Sinus rhythm no longer present Sinus arrhythmia no longer present Left ventricular hypertrophy no longer present Electronically Signed On 01-20-20 09:13:21 CDT by Mariano Lee
--- NOTE | 2020-01-21 06:56 | EKG ---
Test Date: 2020-01-19 Test Time: 21:26:43 Bracelet Form Coverer: RACHANA MEASUREMENT RESULTS: Intervals: Rate: 87 ME: 154 QRSD: 98 QT: 380 QTc: 457 [place]: P: 29 ME: 154 QRS: 18 T: 16 INTERPRETIVE STATEMENTS: Normal sinus rhythm Minimal voltage criteria for LVH, may be normal variant Borderline ECG Compared to ECG 01/19/2020 18:59:39 Left ventricular hypertrophy now present Sinus tachycardia no longer present Ventricular premature complex(es) no longer present Atrial abnormality no longer present Electronically Signed On 01-21-20 06:55:00 CDT by Mariano Lee
== END 2020-01-19 22:02 | disposition home or self-care (01) ==
LOC: ER 18:29
DX: R00.2 Palpitations (principal); R07.89 Other chest pain
CPT/HCPCS: 36415; 71045; 80048; 80076; 82805; 83735; 83880; 84484; 85025; 85379; 85610; 93005; 96374; 99285

== ENCOUNTER 2020-01-20 14:17 | Emergency (ER) | payer SELFPAY ==
--- OUTSIDE RECORDS SUMMARY | 2020-01-20 14:19 | XMS REPORT ---
:1995 [facility] Address [address] [place] [address] Care Team Providers Name Role Phone JAY [...] Reference Range Comments TROPONIN I (BEAKER) (test xmjz=195) < ng/mL 0.00-0.03 Troponin I (TnI) levels [...] Range Comments B-TYPE NATRIURETIC PEPTIDE (BEAKER) (test uyva=386) 23 pg/mL 0-100 BASIC METABOLIC [id number] 15:17:00 Test Item Value Reference Range Comments SODIUM (BEAKER) (test 138 meq/L 136-145 goat=197) POTASSIUM (BEAKER) (test 3.9 meq/L 3.5-5.1 chkl=303) CHLORIDE (BEAKER) (test 105 meq/L 98-107 dtra=075) CO2 (BEAKER) (test 23 meq/L 22-29 oriv=274) BLOOD UREA NITROGEN 11 mg/dL 7-21 (BEAKER) (test zaku=403) CREATININE (BEAKER) (test 0.87 mg/dL 0.57-1.25 zkub=112) GLUCOSE RANDOM (BEAKER) 79 mg/dL 70-105 (test zsqw=610) CALCIUM (BEAKER) (test 9.8 mg/dL 8.4-10.2 bzoh=922) EGFR (BEAKER) (test mL/min/1.73 sq m INSUFFICIENT CLINICAL DATA gpwf=4354) TO CALCULATE ESTIMATED GFR. [id number] 15:14:00 Test Item Value Reference Range Comments MAGNESIUM (BEAKER) (test sbmb=801) 2.0 mg/dL 1.6-2.6 CBC W/PLT COUNT & AUTO [id number] 14:53:00 Test Item Value Reference Range Comments WHITE BLOOD CELL COUNT (BEAKER) (test xljh=359) 9.4 K/ L 3.5-10.5 RED BLOOD CELL COUNT (BEAKER) (test zuwt=804) 5.02 M/ L 4.63-6.08 HEMOGLOBIN (BEAKER) (test krkz=902) 13.6 GM/DL 13.7-17.5 HEMATOCRIT (BEAKER) (test hxny=062) 44.1 % 40.1-51.0 MEAN CORPUSCULAR VOLUME (BEAKER) (test lekk=075) 87.8 fL 79.0-92.2 MEAN CORPUSCULAR HEMOGLOBIN (BEAKER) (test 27.1 pg 25.7-32.2 xwbw=922) MEAN CORPUSCULAR HEMOGLOBIN CONC (BEAKER) (test 30.8 GM/DL 32.3-36.5 trtm=143) RED CELL DISTRIBUTION WIDTH (BEAKER) (test 13.4 % 11.6-14.4 obtd=903) PLATELET COUNT (BEAKER) (test hrzz=964) 292 K/CU MM 150-450 MEAN PLATELET VOLUME (BEAKER) (test lyum=410) 11.1 fL 9.4-12.4 NUCLEATED RED BLOOD CELLS (BEAKER) (test 0 /100 WBC 0-0 srsu=962) NEUTROPHILS RELATIVE PERCENT (BEAKER) (test 51 % jjbi=386) LYMPHOCYTES RELATIVE PERCENT (BEAKER) (test 38 % wyob=851) MONOCYTES RELATIVE PERCENT (BEAKER) (test 9 % ckrz=075) EOSINOPHILS RELATIVE PERCENT (BEAKER) (test 1 % zlqx=858) BASOPHILS RELATIVE PERCENT (BEAKER) (test 0 % ceau=555) NEUTROPHILS ABSOLUTE COUNT (BEAKER) (test 4.80 K/ L 1.78-5.38 ouua=453) LYMPHOCYTES ABSOLUTE COUNT (BEAKER) (test 3.60 K/ L 1.32-3.57 vwcj=911) MONOCYTES ABSOLUTE COUNT (BEAKER) (test 0.84 K/ L 0.30-0.82 hxdn=385) EOSINOPHILS ABSOLUTE COUNT (BEAKER) (test 0.09 K/ L 0.04-0.54 jbnm=311) BASOPHILS ABSOLUTE COUNT (BEAKER) (test 0.04 K/ L 0.01-0.08 fwkn=126) IMMATURE GRANULOCYTES-RELATIVE PERCENT (BEAKER) 1 % 0-1 (test hezs=0902) RAD, CHEST, 1 VIEW, NON [id number] 14:32:00Reason for exam:->CPFINAL REPORT RAD, CHEST, 1 VIEW, NON DEPT CLINICAL INDICATION: CP COMPARISON:None TECHNIQUE: AP view of the chest FINDINGS: Lung volumes are low. No focal consolidation. No pleural effusion or pneumothorax. Cardiomediastinal silhouette, kendrick, and pulmonary vasculature are normal. No acute osseous abnormality. IMPRESSION:No acute cardiopulmonary abnormality. Signed: Dina Packer MDReport Verified Date/Time: 06/15/2019 14:32:22 Reading Location: [facility] B1 [id number] Consult Reading Room
[2020-01-20] MEDS ORDERED: KETOROLAC 30 MG/ML INJ ONE (15:59)
[2020-01-20] MEDS ORDERED: HYDROCODONE/APAP 10/325 TAB ONE (15:59)
--- NOTE | 2020-01-20 16:20 | RAD REPORT ---
EXAM DESCRIPTION: US - BREAST/AXILLA, COMPLETE - 01/20/2020 3:42 pm CLINICAL HISTORY: Left breast region pain and swelling COMPARISON: None FINDINGS: Retroareolar and four-quadrant sonography performed. Fatty tissues are identified. No mass or abscess. No gynecomastia findings identified. IMPRESSION: Negative ultrasound of the left breast/chest soft tissues.
--- NOTE | 2020-01-20 16:28 | ER ---
Nurse's Notes [facility] Name: Bolivar Yang Age: 24 yrs Sex: Male : 1995 Arrival Date: 01/20/2020 Time: 14:19 Bed 5 Private MD: Diagnosis: Breast Pain Presentation: 01/19 14:25 Chief complaint: Spouse and/or significant other states: Chest pain x 3 days and L ss sided chest wall/ breast swelling. Pt was seen in ER last night and was told that all of his results were normal and that it was not his heart. Coronavirus screen: The patient has NOT traveled to a country currently being monitored by the [facility] within the last 14 days. Proceed with normal triage procedures. Ebola Screen: Patient denies exposure to infectious person. Patient denies travel to an Ebola-affected area in the 21 days before illness onset. Initial Sepsis Screen: Does the patient meet any 2 criteria? No. Patient's initial sepsis screen is negative. Does the patient have a suspected source of infection? No. Patient's initial sepsis screen is negative. Risk Assessment: Do you want to hurt yourself or someone else? Patient reports no desire to harm self or others. 14:25 Method Of Arrival: Ambulatory ss 14:25 Acuity: GUILLERMO 3 ss Historical: - Allergies: 14:29 No Known Allergies; ss - PMHx: 14:29 Hypertension; ss - PSHx: 14:29 None; ss - Immunization history:: Adult Immunizations up to date. - Social history:: Smoking status: Patient denies any tobacco usage or history of. Screenin:38 Abuse screen: Denies threats or abuse. Denies injuries from another. Nutritional hb screening: No deficits noted. Tuberculosis screening: No symptoms or risk factors identified. Fall Risk None identified. Assessment: 14:38 General: Appears in no apparent distress. Behavior is calm, cooperative. Pain: hb Complains of pain in left breast. Neuro: Level of Consciousness is awake, alert, obeys commands, Oriented to person, place, time, situation. Cardiovascular: Heart tones S1 S2 present Capillary refill < 3 seconds Patient's skin is warm and dry. Respiratory: Airway is patent Respiratory effort is even, unlabored, Respiratory pattern is regular, symmetrical, Breath sounds are clear bilaterally. GI: No signs and/or symptoms were reported involving the gastrointestinal system. : No signs and/or symptoms were reported regarding the genitourinary system. EENT: No signs and/or symptoms were reported regarding the EENT system. Derm: Skin is pink, warm \T\ dry. Musculoskeletal: No signs and/or symptoms reported regarding the musculoskeletal system. 15:30 Reassessment: Patient appears in no apparent distress at this time. Patient and/or hb family updated on plan of care and expected duration. Pain level reassessed. Patient is alert, oriented x 3, equal unlabored respirations, skin warm/dry/pink. 16:43 Reassessment: Patient appears in no apparent distress at this time. Patient and/or sv family updated on plan of care and expected duration. Pain level reassessed. Patient is alert, oriented x 3, equal unlabored respirations, skin warm/dry/pink. Vital Signs: 14:25 BP 159 / 93; Pulse 77; Resp 16; Temp 98.1(TE); Pulse Ox 99% on R/A; Weight 104.33 kg; ss Height 5 ft. 5 in. (165.10 cm); 16:00 BP 118 / 64; Pulse 83; Resp 18; Pulse Ox 95% ; hb 16:43 BP 114 / 76; Pulse 81; Resp 18; Pulse Ox 98% ; sv 14:25 Body Mass Index 38.27 (104.33 kg, 165.10 cm) ED Course: 14:19 Patient arrived in ED. mr 14:28 Guero Boss PA is PHCP. jr8 14:28 Josiah Alaniz MD is Attending Physician. jr8 14:28 Triage completed. ss 14:29 Arm band placed on right wrist. ss 14:37 Mackenzie Hoang, RN is Primary Nurse. hb 14:40 Patient has correct armband on for positive identification. Placed in gown. Bed in low hb position. Call light in reach. Side rails up X 1. 15:42 BREAST/AXILLA, COMPLETE In Process Unspecified. EDMS 15:47 Ultrasound completed. Patient tolerated well. Notified MASON LINER/PA . sg3 16:43 No provider procedures requiring assistance completed. Patient did not have IV access sv during this emergency room visit. Administered Medications: 15:58 Drug: TORadol - Ketorolac 15 mg Route: IM; Site: right deltoid; sv 16:45 Follow up: Response: No adverse reaction sv 15:58 Drug: [place] 10 mg-325 mg 1 tabs {Note: RASS2.} Route: PO; sv 16:44 Follow up: Response: No adverse reaction; Pain is decreased; RASS: Alert and Calm (0) sv Outcome: 16:28 Discharge ordered by MD. byrd 16:43 Discharged to home ambulatory, with family. sv 16:43 Condition: stable 16:43 Discharge instructions given to patient, family, Instructed on discharge instructions, follow up and referral plans. medication usage, Demonstrated understanding of instructions, follow-up care, medications, Prescriptions given X 1. 16:44 Patient left the ED. sv Signatures: Dispatcher [employer] EDMary Kay Moyer RN Brenda Bauman Shelby RN Guero Jerry PA PA jr8 Mackenzie Hoang RN RN Antonia Garcia sg3
--- NOTE | 2020-01-20 16:29 | EDPHYS ---
Physician Documentation [facility] Name: Bolivar Yang Age: 24 yrs Sex: Male : 1995 Arrival Date: 01/20/2020 Time: 14:19 Bed 5 Private MD: ED Physician Josiah Alaniz HPI: 01/19 14:34 This 24 yrs old Male presents to ER via Ambulatory with complaints of Breast jr8 Pain. 14:34 Onset: The symptoms/episode began/occurred acutely, 3 day(s) ago. Associated signs and jr8 symptoms: The patient has no apparent associated signs or symptoms. Modifying factors: The patient symptoms are alleviated by nothing, the patient symptoms are aggravated by nothing. The patient has not experienced similar symptoms in the past. The patient has been recently seen by a physician:. Patient seen and evaluated yesterday for chest pain. Patient had labs, ECG, and Imaging done without acute finding. Came back today for continued pain. Stated that he feels that it is more his breast. Stated that it is tender to touch and looks inflamed . Historical: - Allergies: 14:29 No Known Allergies; ss - PMHx: 14:29 Hypertension; ss - PSHx: 14:29 None; ss - Immunization history:: Adult Immunizations up to date. - Social history:: Smoking status: Patient denies any tobacco usage or history of. ROS: 14:34 Eyes: Negative for injury, pain, redness, and discharge, ENT: Negative for injury, jr8 pain, and discharge, Neck: Negative for injury, pain, and swelling, Cardiovascular: Negative for chest pain, palpitations, and edema, Respiratory: Negative for shortness of breath, cough, wheezing, and pleuritic chest pain, Abdomen/GI: Negative for abdominal pain, nausea, vomiting, diarrhea, and constipation, Back: Negative for injury and pain, MS/Extremity: Negative for injury and deformity, Neuro: Negative for headache, weakness, numbness, tingling, and seizure. 14:34 Skin: Positive for swelling, of the left breast. Exam: 14:34 Eyes: Pupils equal round and reactive to light, extra-ocular motions intact. Lids and jr8 lashes normal. Conjunctiva and sclera are non-icteric and not injected. Cornea within normal limits. Periorbital areas with no swelling, redness, or edema. ENT: Nares patent. No nasal discharge, no septal abnormalities noted. Tympanic membranes are normal and external auditory canals are clear. Oropharynx with no redness, swelling, or masses, exudates, or evidence of obstruction, uvula midline. Mucous membranes moist. Neck: Trachea midline, no thyromegaly or masses palpated, and no cervical lymphadenopathy. Supple, full range of motion without nuchal rigidity, or vertebral point tenderness. No Meningismus. Cardiovascular: Regular rate and rhythm with a normal S1 and S2. No gallops, murmurs, or rubs. Normal PMI, no JVD. No pulse deficits. Respiratory: Lungs have equal breath sounds bilaterally, clear to auscultation and percussion. No rales, rhonchi or wheezes noted. No increased work of breathing, no retractions or nasal flaring. Abdomen/GI: Soft, non-tender, with normal bowel sounds. No distension or tympany. No guarding or rebound. No evidence of tenderness throughout. Back: No spinal tenderness. No costovertebral tenderness. Full range of motion. Skin: Warm, dry with normal turgor. Normal color with no rashes, no lesions, and no evidence of cellulitis. MS/ Extremity: Pulses equal, no cyanosis. Neurovascular intact. Full, normal range of motion. Neuro: Awake and alert, GCS 15, oriented to person, place, time, and situation. Cranial nerves II-XII grossly intact. Motor strength 5/5 in all extremities. Sensory grossly intact. Cerebellar exam normal. Normal gait. 14:34 Chest/axilla: Patient has mild swelling to left breast when compared to right side. Moderate tenderness diffusely. No palpable masses felt and no lymphadenopathy palpated. Negative for nipple retraction or discharge . 14:34 ECG was reviewed by the Attending Physician. Vital Signs: 14:25 BP 159 / 93; Pulse 77; Resp 16; Temp 98.1(TE); Pulse Ox 99% on R/A; Weight 104.33 kg; ss Height 5 ft. 5 in. (165.10 cm); 16:00 BP 118 / 64; Pulse 83; Resp 18; Pulse Ox 95% ; hb 16:43 BP 114 / 76; Pulse 81; Resp 18; Pulse Ox 98% ; sv 14:25 Body Mass Index 38.27 (104.33 kg, 165.10 cm) ss MDM: 14:29 Patient medically screened. rodrigo 16:24 Data reviewed: vital signs, nurses notes, old medical records, radiologic studies, jr8 ultrasound. Data interpreted: Pulse oximetry: on room air is 95 %. Interpretation: normal. Counseling: I had a detailed discussion with the patient and/or guardian regarding: the historical points, exam findings, and any diagnostic results supporting the discharge/admit diagnosis, radiology results, the need for outpatient follow up, a family practitioner, to return to the emergency department if symptoms worsen or persist or if there are any questions or concerns that arise at home. Response to treatment: the patient's symptoms have mildly improved after treatment. ED course: No acute findings on labs, imagine, or ECG from yesterday. US today does not show any acute findings. Recommended f/u in next couple of days. To continue NSAID based products . 01/19 14:41 Order name: BREAST/AXILLA, COMPLETE; Complete Time: 16:24 EDMS EC:34 Rate is 91 beats/min. Rhythm is regular, Sinus Rhythm. QRS [place] is Normal. CA interval jr8 is normal at 146 msec. QRS interval is normal at 92 msec. QT interval is normal at 374 msec. No Q waves. T waves are Normal. No ST changes noted. Clinical impression: Abnormal EKG without significant change. Interpreted by me. Reviewed by me. Administered Medications: 15:58 Drug: TORadol - Ketorolac 15 mg Route: IM; Site: right deltoid; sv 16:45 Follow up: Response: No adverse reaction sv 15:58 Drug: [place] 10 mg-325 mg 1 tabs {Note: RASS2.} Route: PO; sv 16:44 Follow up: Response: No adverse reaction; Pain is decreased; RASS: Alert and Calm (0) sv Disposition: 01/20 10:34 Co-signature as Attending Physician, Josiah Alaniz MD I agree with the assessment and [facility] plan of care. Disposition: 01/20/20 16:28 Discharged to Home. Impression: Breast Pain. - Condition is Stable. - Discharge Instructions: Breast Ultrasound. - Prescriptions for Medrol (Shawn) 4 mg Oral Tablets, Dose Pack - take 1 tablet by ORAL route as directed - follow package instructions; 1 packet. - Medication Reconciliation Form, Thank You Letter, Antibiotic Education, Prescription Opioid Use form. - Follow up: Private Physician; When: 2 - 3 days; Reason: Recheck today's complaints, Continuance of care, Re-evaluation by your physician. - Problem is new. - Symptoms have improved. Signatures: Dispatcher [employer] EDMary Kay Moyer, RN RN Josiah Correa MD MD cha Smirch, Shelby, RN RN ss Roszak, Josh, NICK ROMERO jr8 Corrections: (The following items were deleted from the chart) 01/19 14:41 14:34 Extrmty Nonvasular [employer]+US.RAD.BRZ ordered. [facility] 16:44 16:28 01/20/2020 16:28 Discharged to Home. Impression: Breast Pain. Condition is sv Stable. Forms are Medication Reconciliation Form, Thank You Letter, Antibiotic Education, Prescription Opioid Use. Follow up: Private Physician; When: 2 - 3 days; Reason: Recheck today's complaints, Continuance of care, Re-evaluation by your physician. Problem is new. Symptoms have improved. jr8
[2020-01-20 16:52] VITALS: TEMP 98.1
[2020-01-20 16:55] VITALS: BP 114/76; O2SAT 98
--- NOTE | 2020-01-21 09:14 | EKG ---
Test Date: 2020-01-20 Test Time: 14:25:44 Assembly Riveter: CAMPBELL MEASUREMENT RESULTS: Intervals: Rate: 91 DE: 146 QRSD: 92 QT: 374 QTc: 460 [place]: P: 42 DE: 146 QRS: 46 T: 12 INTERPRETIVE STATEMENTS: Sinus rhythm with fusion complexes Biatrial enlargement Abnormal ECG Compared to ECG 01/19/2020 21:26:43 Fusion complex(es) now present Atrial abnormality now present Left ventricular hypertrophy no longer present Electronically Signed On 01-21-20 09:14:06 CDT by Manolo aMrk
== END 2020-01-20 16:44 | disposition home or self-care (01) ==
LOC: ER 14:17
DX: N64.4 Mastodynia (principal); I10 Essential (primary) hypertension
CPT/HCPCS: 76641; 93005; 96372; 99283

== ENCOUNTER 2020-06-01 22:24 | Emergency (ER) | payer SELFPAY ==
--- OUTSIDE RECORDS SUMMARY | 2020-06-01 22:26 | XMS REPORT | Clinical Summary ---
:1995 Author Organization [facility] Address [address] [place] [address] Care Team Providers Name Role Phone Mcnamara Primary Care Provider Allergies No Known Allergies Medications Medication Sig Dispensed Refills Start Date End Date Status diazePAM (VALIUM) 5 Take 1 tablet (5 10 tablet 0 06/15/2019 MG tablet mg total) by mouth 2 (two) times daily for 10 days. Max Daily Amount: 10 mg Active Problems Not on file Encounters Date Type Specialty Care Team Description 06/15/2019 Emergency Emergency Medicine Christian Dove Ches t pain, unspecified type (Primary Dx); PVC (premature ventricular contraction); Jorge 06/15/2019 Orders Only General Internal Medicine after 06/01/2019 Social History Tobacco Use Types Packs/Day Years Used Date Never Assessed Sex Assigned at Date Recorded Not on file Job Start Date Occupation Industry Not on file Not on file Not on file Travel History Travel Start Travel End No recent travel history available. Last Filed Vital Signs Vital Sign Reading Time Taken Blood Pressure 140/82 06/15/2019 5:30 PM CDT Pulse 72 06/15/2019 5:30 PM CDT Temperature 36.8 C (98.3 F) 06/15/2019 1:51 PM CDT Respiratory Rate 20 06/15/2019 5:30 PM CDT Oxygen Saturation 97% 06/15/2019 5:30 PM CDT Inhaled Oxygen Concentration - - Weight 158.3 kg (349 lb) 06/15/2019 1:51 PM CDT Height 182.9 cm (6') 06/15/2019 1:51 PM CDT Body Mass Index 47.33 06/15/2019 1:51 PM CDT Plan of Treatment Not on file Procedures Procedure Name Priority Date/Time Associated Comments Diagnosis REPORT OF PROCEDURE - 06/19/2019 5:35 ENDOSCOPY SCAN PM CDT ED ECG INTERPRETATION Routine 06/15/2019 3:37 Re sults for this PM CDT procedure are i n the results section. ED ECG INTERPRETATION Routine 06/15/2019 3:37 Re sults for this PM CDT procedure are i n the results section. ECG 12-LEAD Routine 06/15/2019 3:19 Results for this PM CDT procedure are i n the results section. ECG 12-LEAD Routine 06/15/2019 3:19 PM CDT Procedure Note - Interface, External Ris In - 06/15/2019 4:15 PM CDT Ventricular Rate 92 BPM Atrial Rate 92 BPM P-R Interval 142 ms QRS Duration 94 ms Q-T Interval 390 ms QTC Calculation(Bazett) 482 ms P [place]yg[place] 41 degrees R [place] 5 degrees T [place] 21 degrees Sinus rhythm with frequent P remature ventricular complexes in a pattern of bigeminy Right atrial enlargement Moderate voltage criteria fo r LVH, may be normal variant Prolonged QT Abnormal ECG When compared with ECG of 15:18, No significant change was fo und ECG 12-LEAD Routine 06/15/2019 3:18 PM CDT Procedure Note - Interface, External Ris In - 06/15/2019 4:14 PM CDT Ventricular Rate 89 BPM Atrial Rate 89 BPM P-R Interval 146 ms QRS Duration 98 ms Q-T Interval 390 ms QTC Calculation(Bazett) 474 ms P [place] 48 degrees R [place] 6 degrees T [place] 16 degrees Sinus rhythm with frequent P remature ventricular complexes in a pattern of bigeminy Right atrial enlargement Moderate voltage criteria fo r LVH, may be normal variant Borderline ECG No previous ECGs available ECG 12-LEAD STAT 06/15/2019 3:18 PM CDT Resu lts for this procedure are i n the results section . CBC W/PLT COUNT & AUTO STAT 06/15/2019 2:45 PM CDT Results for this DIFFERENTIAL procedure are i n the results section . CBC W/PLT COUNT & AUTO STAT 06/15/2019 2:45 PM CDT Results for this DIFFERENTIAL procedure are i n the results section . TROPONIN I STAT 06/15/2019 2:45 PM CDT Resu lts for this procedure are i n the results section . B-TYPE NATRIURETIC FACTOR STAT 06/15/2019 2:45 PM CDT Results for this (BNP) procedure are i n the results section . MAGNESIUM STAT 06/15/2019 2:45 PM CDT Resu lts for this procedure are i n the results section . BASIC METABOLIC PANEL (7) STAT 06/15/2019 2:45 PM CDT Results for this procedure are i n the results section . XR CHEST 1 VIEW STAT 06/15/2019 1:54 PM CDT R esults for this PORTABLE/BEDSIDE procedure a re in the results section . ECG 12-LEAD Routine 06/15/2019 1:46 PM CDT Resu lts for this procedure are i n the results section . ECG 12-LEAD Routine 06/15/2019 1:46 PM CDT Procedure Note - Interface, External Ris In - 06/15/2019 8:16 PM CDT Ventricular Rate 86 BPM Atrial Rate 86 BPM P-R Interval 144 ms QRS Duration 96 ms Q-T Interval 368 ms QTC Calculation(Bazett) 440 ms P [place]yg[place] 47 degrees R [place]yg[place] 46 degrees T [place] 16 degrees Normal sinus rhythm Normal ECG No previous ECGs available after 06/01/2019 Results EKG-SCANNED (06/19/2019 5:35 PM CDT) Narrative Performed At This result has an attachment that is no t available. ECG/EKG Interpretation (06/15/2019 3:37 PM CDT)Only the most recent of2 results within the time period is included. Narrative Performed At Christian Dove MD 06/16/2019 6:58 PM ECG/EKG Interpretation Date/Time: 06/16/2019 3:30 PM Performed by: Christian Dove MD Authorized by: Christian Dove MD Ectopy noted: bigeminy. ECG reviewed and does not meet STEMI criteria. Patient tolerance: Patient tolerated the procedure wel l with no immediate complications ECG 12 lead (06/15/2019 3:19 PM CDT)Only the most recent of3 resultswithin the time period is included. Specimen Narrative Performed At Ventricular Rate 92 BPM GE MUSE Atrial Rate 92 BPM P-R Interval 142 ms QRS Duration 94 ms Q-T Interval 390 ms QTC Calculation(Bazett) 482 ms P [place] 41 degrees R [place] 5 degrees T [place] 21 degrees Sinus rhythm with frequent Premature ventricular compl exes in a pattern of bigeminy Right atrial enlargement Moderate voltage criteria for LVH, may b e normal variant Prolonged QT Abnormal ECG When compared with ECG of 15-JUN-2019 15 :18, No significant change was found Confirmed by MD FARMER YOCHAI ([id number]) on 06/17/2019 5:40:47 PM Procedure Note Interface, External Ris In - 06/17/2019 5:40 PM CDT Ventricular Rate 92 BPM Atrial Rate 92 BPM P-R Interval 142 ms QRS Duration 94 ms Q-T Interval 390 ms QTC Calculation(Bazett) 482 ms P [place] 41 degrees R [place] 5 degrees T [place] 21 degrees Sinus rhythm with frequent Premature aissatou tricular complexes in a pattern of bigeminy Right atrial enlargement Moderate voltage criteria for LVH, march b e normal variant Prolonged QT Abnormal ECG When compared with ECG of 15-JUN-2019 15 :18, No significant change was found Confirmed by MD FARMER YOCHAI ([id number]) on 06/17/2019 5:40:47 PM Performing Organization Address City/State/Zipcode Phone Number GE Red Aril CBC with platelet count + automated diff (06/15/2019 2:45 PM CDT) WBC 9.4 3.5 - 10.5 K/L [facility] RBC 5.02 4.63 - 6.08 M/L [facility] Hemoglobin 13.6 (L) 13.7 - 17.5 GM/DL [facility] Hematocrit 44.1 40.1 - 51.0 % [facility] MCV 87.8 79.0 - 92.2 fL [facility] MCH 27.1 25.7 - 32.2 pg [facility] MCHC 30.8 (L) 32.3 - 36.5 GM/DL [facility] RDW 13.4 11.6 - 14.4 % [facility] Platelets 292 150 - 450 K/CU MM [facility] MPV 11.1 9.4 - 12.4 fL [facility] nRBC 0 0 - 0 /100 WBC [facility] % Neutros 51 % [facility] % Lymphs 38 % [facility] % Monos 9 % [facility] % Eos 1 % [facility] % Baso 0 % [facility] # Neutros 4.80 1.78 - 5.38 K/L [facility] # Lymphs 3.60 (H) 1.32 - 3.57 K/L [facility] # Monos 0.84 (H) 0.30 - 0.82 K/L [facility] # Eos 0.09 0.04 - 0.54 K/L [facility] # Baso 0.04 0.01 - 0.08 K/L [facility] Immature Granulocytes-Relative 1 0 - 1 % C HI [facility] Specimen Blood Performing Organization Address City/[facility]/Zipcode Phone Number [address] [address] CENTER Troponin I (06/15/2019 2:45 PM CDT) Troponin I <0.01 0.00 - 0.03 ng/mL [facility] Specimen Blood Narrative Performed At Troponin I (TnI) levels must be interpreted [facility] in the context of the presenting symptoms and the clinical findings. Elevated TnI levels indicate myocardial damage, but are not specific for ischemic heart disease. Elevated TnI levels are seen in patients with other cardiac conditions (including myocarditis and congestive heart failure), and slight TnI elevations occur in patients with other conditions, including sepsis, renal failure, acidosis, acute neurological disease, and persistent tachyarrhythmia. Performing Organization Address City/[facility]/Zipcode Phone Number [address] [address] [place] B-type Natriuretic Factor (BNP) (06/15/2019 2:45 PM CDT) BNP 23 0 - 100 pg/mL [facility] Specimen Blood Performing Organization Address City/[facility]/Zipcode Phone Number [address] [address] [place] Magnesium (06/15/2019 2:45 PM CDT) Magnesium 2.0 1.6 - 2.6 mg/dL [facility] Specimen Blood Performing Organization Address [facility] Cent[facility] Phone Number [address] [address] [place] Basic Metabolic Panel (06/15/2019 2:45 PM CDT) Sodium 138 136 - 145 meq/L [facility] Potassium 3.9 3.5 - 5.1 meq/L [facility] Chloride 105 98 - 107 meq/L [facility] CO2 23 22 - 29 meq/L [facility] BUN 11 7 - 21 mg/dL [facility] Creatinine 0.87 0.57 - 1.25 mg/dL [facility] Glucose 79 70 - 105 mg/dL [facility] Calcium 9.8 8.4 - 10.2 mg/dL [facility] EGFR Comment: INSUFFICIENT CLINICAL mL/min/1.73 sq m [facility] DATA TO CALCULATE ESTIMATED [facility] GFR. Specimen Blood Performing Organization Address City/[facility]/Zipcode Phone Number [address] [address] [place] XR chest 1 view portable / bedside (06/15/2019 1:54 PM CDT) Specimen Narrative Performed At FINAL REPORT GE RIS RAD, CHEST, 1 VIEW, NON DEPT CLINICAL INDICATION: CP COMPARISON: None TECHNIQUE: AP view of the chest FINDINGS: Lung volumes are low. No focal consolida tion. No pleural effusion or pneumothorax. Cardiomediastinal silhouet te, kendrick, and pulmonary vasculature are normal. No acute osseous abnormality. IMPRESSION: No acute cardiopulmonary abnormality. Signed: Dina Packer MD Report Verified Date/Time:06/15/2019 14:32:22 Reading Location: [facility] [id number] Consult R [facility] Room Procedure Note Interface, External Ris In - 06/15/2019 3:43 PM CDT FINAL REPORT RAD, CHEST, 1 VIEW, NON DEPT CLINICAL INDICATION: CP COMPARISON: None TECHNIQUE: AP view of the chest FINDINGS: Lung volumes are low. No focal consolida tion. No pleural effusion or pneumothorax. Cardiomediastinal silhouet te, kendrick, and pulmonary vasculature are normal. No acute osseous abnormality. IMPRESSION: No acute cardiopulmonary abnormality. Signed: Dina Packer MD Report Verified Date/Time: 06/15/2019 1 4:32:22 Reading Location: [facility] B1 [id number] Consult R [facility] Room Performing Organization Address City/State/Zipcode Phone Number GE RIS after 06/01/2019 Insurance Payer Benefit Plan / Group Subscriber ID Type Phone A ddress OTHER-COMMERCIAL GENERIC COMMERCIAL xxxxxxxxxxxx
--- OUTSIDE RECORDS SUMMARY | 2020-06-01 22:27 | XMS REPORT | Continuity of Care Document ---
:1995 Author Organization [facility] t Address [address] [place] [address] Care Team Providers Name Role Phone Anders Primary Care Physician Guzman MONDRAGON, K.H. Attending Clinician Avel Steele MD Attending Clinician AVEL STEELE Attending Clinician Unavailable Payers Payer Name Policy Policy Number Effective Expiration Source Type Date Date OTHER-COMMERCIALGENERIC xxxxxxxxxxxx [facility] COMMERCIALxxxxxxxxxxxx [facility] Problems This patient has no known problems. Allergies, Adverse Reactions, Alerts This patient has no known allergies or adverse reactions. Social History Social Habit Start Date Stop Date Quantity Comments Source Sex Assigned At [facility] Medications Ordered Filled Start Stop Current Ordering Indication Dosage Frequency Signature Comments Components Source Medication Medication Date Date Medication? Clinician (SIG) Name Name diazePAM 2019- No 5mg Q.5D Take [address] [facility] [address] (VALIUM) 5 06-15 tablet (5 Adolph es - MG tablet 00:00: 23:59 mg total) Me dical 00 :00 by mouth 2 Center (two) times daily for 10 days. Max Daily Amount: 10 mg Vital Signs Vital Name Observation Time Observation Value Comments Source Systolic blood 2019-06-15 17:30:00 140 mm[Hg] [facility] Diastolic blood 2019-06-15 17:30:00 82 mm[Hg] [facility] S [facility] Heart rate 2019-06-15 17:30:00 72 /min [facility] Respiratory rate 2019-06-15 17:30:00 20 /min [facility] Oxygen saturation in 2019-06-15 17:30:00 97 /min [facility] Arterial blood by Medical Ce nter Pulse oximetry Body temperature 2019-06-15 13:51:00 36.83 [facility] Body height 2019-06-15 13:51:00 [address] [facility] Body weight Measured 2019-06-15 13:51:00 158.305 kg [facility] BMI 2019-06-15 13:51:00 47.33 kg/m2 [facility] Procedures Procedure Date / Time Performing Clinician Source Performed REPORT OF PROCEDURE - 2019-06-19 17:35:27 Provider, Default [facility] ENDOSCOPY SCAN Scanning [facility] ED ECG INTERPRETATION 2019-06-15 15:37:50 Christian Steele [facility] ECG 12-LEAD 2019-06-15 15:19:13 Unknown, Hl7 Doctor [facility] ECG 12-LEAD 2019-06-15 15:18:44 Unknown, Hl7 Doctor [facility] BASIC METABOLIC PANEL (7) 2019-06-15 14:45:00 Juani Marinelil [facility] MAGNESIUM 2019-06-15 14:45:00 Juani Marinelli [facility] B-TYPE NATRIURETIC FACTOR 2019-06-15 14:45:00 Juani Marinelli [facility] (BNP) [facility] TROPONIN I 2019-06-15 14:45:00 Juani Marinelli [facility] CBC W/PLT COUNT & AUTO 2019-06-15 14:45:00 Juani Marinelli [facility] DIFFERENTIAL [facility] XR CHEST 1 VIEW 2019-06-15 13:54:00 Juani Marinelli [facility] PORTABLE/BEDSIDE Medical Center ECG 12-LEAD 2019-06-15 13:46:50 Unknown, 7 [facility] Encounters Start End Encounter Admission Attending Care Care Encounter Source Date/Time Date/Time Type Type Clinicians Facility Department ID 2019-06-21 2019-07-17 Office Guzman [facility] [id number] 09:25:01 12:38:55 Visit [facility] [id number] Omar [id number] Usha [id number] nal 059 Building Results Test Description Test Test Results Result Source Time Comments Comments ECG 12 lead Interface, External Ris [facility] In - 06/17/2019 5:40 Adolph es - 17:40:51 PM CDTVentricular Rate Me dical 92 BPMAtrial Rate 92 Cent er BPMP-R Interval 142 msQRS Duration 94 msQ-T Interval 390 msQTC Calculation(Bazett) 482 msP Conway 41 degreesR Conway 5 degreesT Conway 21 degreesSinus rhythm with frequent Premature ventricular complexes in a pattern of bigeminyRight atrial enlargementModerate voltage criteria for LVH, may be normal variantProlonged QTAbnormal ECGWhen compared with ECG of 15-JUN-2019 15:18,No significant change was foundConfirmed by MD DARIAN, BRYON ([id number]) on 06/17/2019 5:40:47 PM ECG/EKG 2019-06- Christian Steele MD [facility] Interpretation 09 06/16/2019 6:58 Luke s - 15:37:50 PMECG/EKG Medical InterpretationDate/Time C enter : 06/16/2019 3:30 PMPerformed by: Christian Steele MDAuthorized by: Christian Steele MD Ectopy noted: bigeminy. ECG reviewed and does not meet STEMI criteria. Patient tolerance: Patient tolerated the procedure well with no immediate complications B-type Natriuretic Factor (BNP) 2019-06-15 15:21:00 Test Item Value Reference Range Interpretation Comme nts BNP (test code = 66205-7) 23 pg/mL 0-100 Lab Interpretation (test code = 96105-6) Normal [facility] [id number] 15:21:00 Test Item Value Reference Range Interpretation Comments Troponin I (test code = <0.01 0-0.03 44477-0) EDEL (test code = EDEL) Troponin I (TnI) levels must be interpreted [...] acidosis, acute neurological disease, and persistent tachyarrhythmia. Lab Interpretation (test Normal code = 87508-8) [facility] [id number] 15:21:00 Test Item Value Reference Range Interpretation Comments TROPONIN I (BEAKER) (test code = 397) < ng/mL 0.00-0.03 Troponin I (TnI) levels [...] disease, and persistent tachyarrhythmia.B-TYPE NATRIURETIC FACTOR (BNP) 2019-06-15 15:21:00 Test Item Value Reference Range Interpretation Comments B-TYPE NATRIURETIC PEPTIDE (BEAKER) 23 pg/mL 0-100 (test code = 700) Basic Metabolic [id number] 15:17:00 Test Item Value Reference Range Interpretation Comments Sodium (test code = 138 meq/L 247-336 3830-2) Potassium (test code 3.9 meq/L 3.5-5.1 = 2823-3) Chloride (test code 105 meq/L 98-107 = 2075-0) CO2 (test code = 23 meq/L 22-29 8-9) BUN (test code = 11 mg/dL 7-21 3094-0) Creatinine (test 0.87 mg/dL 0.57-1.25 code = 2160-0) Glucose (test code = 79 mg/dL 70-105 2345-7) Calcium (test code = 9.8 mg/dL 8.4-10.2 35544-8) EGFR (test code = mL/min/1.73 sq m [facility] 51318-2) DATA TO CALCULA TE ESTIMATED GFR. [facility] [id number] 15:17:00 Test Item Value Reference Range Interpretation Comments SODIUM (BEAKER) 138 meq/L 136-145 (test code = 381) POTASSIUM (BEAKER) 3.9 meq/L 3.5-5.1 (test code = 379) CHLORIDE (BEAKER) 105 meq/L 98-107 (test code = 382) CO2 (BEAKER) (test 23 meq/L 22-29 code = 355) BLOOD UREA NITROGEN 11 mg/dL 7-21 (BEAKER) (test code = 354) CREATININE (BEAKER) 0.87 mg/dL 0.57-1.25 (test code = 358) GLUCOSE RANDOM 79 mg/dL 70-105 (BEAKER) (test code = 652) CALCIUM (BEAKER) 9.8 mg/dL 8.4-10.2 (test code = 697) EGFR (BEAKER) (test mL/min/1.73 INSUFFIC IENT CLINICAL code = 1092) sq m DATA TO CALCULA TE ESTIMATED GFR. [id number] 15:14:00 Test Item Value Reference Range Interpretation Comments Magnesium (test code = 45255-5) 2.0 mg/dL 1.6-2.6 Lab Interpretation (test code = Normal 87884-5) [facility] 15:14:00 Test Item Value Reference Range Interpretation Comments MAGNESIUM (BEAKER) (test code = 2.0 mg/dL 1.6-2.6 627) CBC with platelet count + automated [id number] 14:53:00 Test Item Value Reference Range Interpretation Comments WBC (test code = 6690-2) 9.4 3.5- 10.5 K/L RBC (test code = 789-8) 5.02 4.63- 6.08 M/L MCHC (test code = 786-4) 30.8 32.3- 36.5 GM/DL L Hematocrit (test code = 4544-3) 44.1 % 40.1-51 MCV (test code = 787-2) 87.8 fL 79-92.2 MCH (test code = 785-6) 27.1 pg 25.7-32.2 RDW (test code = 788-0) 13.4 % 11.6-14.4 Platelets (test code = 777-3) 292 150- 450 K/CU MM MPV (test code = 50484-4) 11.1 fL 9.4-12.4 nRBC (test code = 413) 0 0- 0 /100 WBC % Neutros (test code = 429) 51 % % Lymphs (test code = 430) 38 % % Monos (test code = 431) 9 % % Eos (test code = 432) 1 % % Baso (test code = 437) 0 % # Neutros (test code = 670) 4.80 1.78- 5.38 K/L # Lymphs (test code = 414) 3.60 1.32- 3.57 K/L H # Monos (test code = 415) 0.84 0.30- 0.82 K/L H # Eos (test code = 416) 0.09 0.04- 0.54 K/L # Baso (test code = 417) 0.04 0.01- 0.08 K/L Immature Granulocytes-Relative 1 % 0-1 (test code = 2801) Lab Interpretation (test code = Abnormal 85800-1) [facility] W/PLT COUNT & AUTO [id number] 14:53:00 Test Item Value Reference Range Interpretation Comments WHITE BLOOD CELL COUNT (BEAKER) 9.4 K/ L 3.5-10.5 (test code = 775) RED BLOOD CELL COUNT (BEAKER) 5.02 M/ L 4.63-6.08 (test code = 761) HEMOGLOBIN (BEAKER) (test code = 13.6 GM/DL 13.7-17.5 L 410) HEMATOCRIT (BEAKER) (test code = 44.1 % 40.1-51.0 411) MEAN CORPUSCULAR VOLUME (BEAKER) 87.8 fL 79.0-92.2 (test code = 753) MEAN CORPUSCULAR HEMOGLOBIN 27.1 pg 25.7-32.2 (BEAKER) (test code = 751) MEAN CORPUSCULAR HEMOGLOBIN CONC 30.8 GM/DL 32.3-36.5 L (BEAKER) (test code = 752) RED CELL DISTRIBUTION WIDTH 13.4 % 11.6-14.4 (BEAKER) (test code = 412) PLATELET COUNT (BEAKER) (test 292 K/CU MM 150-450 code = 756) MEAN PLATELET VOLUME (BEAKER) 11.1 fL 9.4-12.4 (test code = 754) NUCLEATED RED BLOOD CELLS 0 /100 WBC 0-0 (BEAKER) (test code = 413) NEUTROPHILS RELATIVE PERCENT 51 % (BEAKER) (test code = 429) LYMPHOCYTES RELATIVE PERCENT 38 % (BEAKER) (test code = 430) MONOCYTES RELATIVE PERCENT 9 % (BEAKER) (test code = 431) EOSINOPHILS RELATIVE PERCENT 1 % (BEAKER) (test code = 432) BASOPHILS RELATIVE PERCENT 0 % (BEAKER) (test code = 437) NEUTROPHILS ABSOLUTE COUNT 4.80 K/ L 1.78-5.38 (BEAKER) (test code = 670) LYMPHOCYTES ABSOLUTE COUNT 3.60 K/ L 1.32-3.57 H (BEAKER) (test code = 414) MONOCYTES ABSOLUTE COUNT (BEAKER) 0.84 K/ L 0.30-0.82 H (test code = 415) EOSINOPHILS ABSOLUTE COUNT 0.09 K/ L 0.04-0.54 (BEAKER) (test code = 416) BASOPHILS ABSOLUTE COUNT (BEAKER) 0.04 K/ L 0.01-0.08 (test code = 417) IMMATURE GRANULOCYTES-RELATIVE 1 % 0-1 PERCENT (BEAKER) (test code = 2801) RAD, CHEST, 1 VIEW, NON [id number] 14:32:00Reason for exam:->CPFINAL REPORT RAD, CHEST, 1 VIEW, NON DEPT CLINICAL INDICATION: CP COMPARISON:None TECHNIQUE: AP view of the chest FINDINGS: Lung volumes are low. No focal consolidation. No pleural effusion or pneumothorax. Cardiomediastinal silhouette, kendrick, and pulmonary vasculature are normal. No acute osseous abnormality. IMPRESSION:No acute cardiopulmonary abnormality. Signed: Swapnil Harman Verified Date/Time: 06/15/2019 14:32:22 Reading Location: [address] Consult Reading Room XR chest 1 view portable / bedside 2019-06-15 14:32:00Interface, External Ris In - 06/15/2019 3:43 PM CDTFINAL REPORT RAD, CHEST, 1 VIEW, NON DEPT CLINICAL INDICATION: CP COMPARISON: None TECHNIQUE: AP view of the chest FINDINGS: Lung volumes are low. No focal consolidation. No pleural effusion or pneumothorax. Cardiomediastinal silhouette, kendrick, and pulmonary vasculature are normal. No acute osseous abnormality. IMPRESSION:No acute cardiopulmonary abnormality. Signed: Swapnil Harman MDReport Verified Date/Time: 06/15/2019 14:32:22 Reading Location: [facility] C013 Consult Reading Room [facility]
[2020-06-01 23:56] LABS: Protime INR 0.94
[2020-06-01 23:58] LABS: Absolute Lymphocytes (CBC) 3.6 K/uL (0.7-4.9); Basophils % 0.7 % (0-1.3); Hematocrit 40.6 % (39.6-49.0); Lymphocytes % 28.3 % (15.3-44.8); MPV 10.2 fL (7.6-11.3); RBC Red Blood Cell Count 4.91 M/uL (4.33-5.43)
[2020-06-02 00:46] LABS: ALT/SGPT 35 U/L (12-78); AST/SGOT 20 U/L (15-37); Albumin 3.6 g/dL (3.4-5.0); Alkaline Phosphatase 130 U/L (45-117); BUN Blood Urea Nitrogen 12 mg/dL (7-18); Bicarbonate 23 mmol/L (21-32); Bilirubin Direct < 0.1 mg/dL (0-0.2); Bilirubin Total 0.3 mg/dL (0.2-1.0); Glucose Level 158 mg/dL (74-106); Magnesium 1.9 mg/dL (1.8-2.4); NT PRO-BNP 19 pg/mL (<125); Potassium 3.5 mmol/L (3.5-5.1); Protein, Total 7.4 g/dL (6.4-8.2); Sodium Level 142 mmol/L (136-145); Troponin (Emerg Dept Use Only) < 0.02 ng/mL (0.0-0.045)
[2020-06-02] MEDS ORDERED: MORPHINE 4 MG/ML SYR ONE (01:43)
[2020-06-02] MEDS ORDERED: ONDANSETRON 4 MG/2 ML VIAL ONE (01:43)
[2020-06-02 02:01] LABS: Barbiturates NEGATIVE (NEGATIVE); Benzodiazepines NEGATIVE (NEGATIVE); Cocaine NEGATIVE (NEGATIVE); METHAMPHETAM NEGATIVE (NEGATIVE); Methadone NEGATIVE (NEGATIVE); Opiates NEGATIVE (NEGATIVE); Phencyclidine NEGATIVE (NEGATIVE); THC Cannibis NEGATIVE (NEGATIVE)
--- NOTE | 2020-06-02 05:15 | EDPHYS ---
Physician Documentation [facility] Name: Bolivar Yang Age: 24 yrs Sex: Male : 1995 Arrival Date: 06/01/2020 Time: 22:28 Bed 16 Private MD: ED Physician Luís Roblero HPI: 06/01 22:56 This 24 yrs old Male presents to ER via Ambulatory with complaints of Chest jmm Pain. 22:56 The patient or guardian reports chest pain that is located primarily in the substernal jmm area. The pain does not radiate. Associated signs and symptoms: Pertinent positives: shortness of breath, Pertinent negatives: abdominal pain, cough. The chest pain is described as aching, sharp. Duration:. Modifying factors: The symptoms are alleviated by nothing. the symptoms are aggravated by nothing. This is a 24 year old male with a history of htn, sleep apnea that presents to the ED with complaints of chest pain beginning this morning around 0900 am. Patient states he has had ongoing chest pain for the past year and a half but states the pain is now more intense. . Historical: - Allergies: 22:44 No Known Allergies; lp1 - Home Meds: 22:44 Unable to obtain [Active]; lp1 - PMHx: 22:44 Hypertension; Sleep Apnea; lp1 - PSHx: 22:44 None; lp1 - Immunization history:: Adult Immunizations up to date. - Social history:: Smoking status: Patient denies any tobacco usage or history of. ROS: 22:56 Constitutional: Negative for fever, chills, and weight loss. jmm 22:56 Cardiovascular: Positive for chest pain. 22:56 Respiratory: Positive for shortness of breath. 22:56 All other systems are negative. Exam: 22:56 Head/Face: atraumatic. Eyes: EOMI, no conjunctival erythema appreciated ENT: Moist jmm Mucus Membranes Neck: Trachea midline, Supple Chest/axilla: Normal chest wall appearance and motion. Cardiovascular: Regular rate and rhythm. No edema appreciated Respiratory: Normal respirations, no respiratory distress appreciated Abdomen/GI: Non distended, soft Back: Normal ROM Skin: General appearance color normal MS/ Extremity: Moves all extremities, no obvious deformities appreciated, no edema noted to the lower extremities Neuro: Awake and alert, normal gait Psych: Behavior is normal, Mood is normal, Patient is cooperative and pleasant 22:56 Constitutional: The patient appears alert, awake, anxious, uncomfortable. Vital Signs: 22:41 BP 171 / 111; Pulse 106; Resp 18; Temp 98.7(O); Pulse Ox 98% on R/A; Weight 163.29 kg lp1 (R); Height 6 ft. 0 in. (182.88 cm); Pain 8/10; 23:21 BP 144 / 85; Pulse 104; Resp 19; Pulse Ox 96% ; Pain 8/10; mt2 06/02 00:00 BP 166 / 91; Pulse 104; Resp 19; Pulse Ox 98% on R/A; Pain 10/10; mt2 01:00 BP 143 / 80; Pulse 96; Resp 19; Temp 98.0(O); Pulse Ox 98% on R/A; Pain 5/10; mt2 02:00 BP 143 / 79; Pulse 79; Resp 16; Pulse Ox 97% on R/A; Pain 0/10; mt2 03:00 BP 149 / 89; Pulse 89; Resp 17; Temp 98.0(O); Pulse Ox 97% on R/A; Pain 0/10; mt2 04:00 BP 152 / 83; Pulse 79; Resp 19; Pulse Ox 95% on R/A; Pain 0/10; mt2 05:20 BP 144 / 72; Pulse 83; Resp 17; Pulse Ox 93% on R/A; Pain 0/10; mt2 06/01 22:41 Body Mass Index 48.82 (163.29 kg, 182.88 cm) [facility] MDM: 06/01 23:17 Patient medically screened. [facility] 06/02 03:09 Data reviewed: vital signs, nurses notes. Transition of care: After a detail discussion gladis of the patient's case, care is transferred to Luís Roblero MD. 06/01 23:18 Order name: Basic Metabolic Panel; Complete Time: 00:48 [facility] 06/02 03:52 Interpretation: Normal except: CL 108; GLUC 158; GFR 72. [facility] 06/01 23:18 Order name: CBC with Diff; Complete Time: 00:08 [facility] 06/02 03:52 Interpretation: Normal except: WBC 12.7; HGB 13.3. 4 06/01 23:18 Order name: LFT's; Complete Time: 00:48 [facility] 06/02 03:52 Interpretation: Normal except: ALK 130; GLOB 3.8; A/G 0.9. tw4 06/01 23:18 Order name: Magnesium; Complete Time: 00:48 [facility] 06/01 23:18 Order name: NT PRO-BNP; Complete Time: 00:48 [facility] 06/01 23:18 Order name: PT-INR; Complete Time: 00:08 [facility] 06/01 22:56 Order name: EKG; Complete Time: 22:[address] [facility] 06/01 23:18 Order name: Troponin (emerg Dept Use Only); Complete Time: 00:48 [facility] 06/01 23:18 Order name: XRAY Chest (1 view) [facility] 06/02 00:24 Order name: Urine Drug Screen; Complete Time: 02:06 [facility] 06/02 00:49 Order name: CT Chest For PE Angio [facility] 06/02 02:30 Order name: Troponin (emerg Dept Use Only) [facility] 06/01 22:56 Order name: EKG - Nurse/Tech; Complete Time: 23:[address] [facility] 06/01 23:18 Order name: Cardiac monitoring; Complete Time: 23:24 [facility] 06/01 23:18 Order name: IV Saline Lock; Complete Time: 23:24 [facility] 06/01 23:18 Order name: Labs collected and sent; Complete Time: 23:24 [facility] 06/01 23:18 Order name: O2 Per Protocol; Complete Time: 05:19 [facility] 06/01 23:18 Order name: O2 Sat Monitoring; Complete Time: 23:24 [facility] 06/02 02:29 Order name: EKG - Nurse/Tech; Complete Time: 05:17 [facility] EC:40 Rate is 103 beats/min. Rhythm is regular. QRS [place] is Normal. TN interval is normal. tw4 QRS interval is normal. QT interval is normal. No Q waves. T waves are Normal. No ST changes noted. Clinical impression: Sinus tachycardia. Interpreted by me. Reviewed by me. Administered Medications: 01:38 Drug: morphine 4 mg Route: IVP; Site: left antecubital; mt2 01:59 Follow up: Response: No adverse reaction; Pain is decreased mt2 01:38 Drug: Zofran (Ondansetron) 4 mg Route: IVP; Site: left antecubital; mt2 01:59 Follow up: Response: No adverse reaction; Nausea is decreased mt2 Disposition: 05:40 Co-signature as Attending Physician, Luís Roblero MD I agree with the assessment and tw4 plan of care. Disposition: 06/02/20 05:14 Discharged to Home. Impression: Other chest pain. - Condition is Stable. - Discharge Instructions: Nonspecific Chest Pain, Pain Without a Known Cause. - Medication Reconciliation Form, Thank You Letter, Antibiotic Education, Prescription Opioid Use, Work release form form. - Follow up: Private Physician; When: Upon discharge from the Emergency Department; Reason: Recheck today's complaints, Continuance of care, Re-evaluation by your physician. - Problem is new. - Symptoms have improved. Signatures: Dispatcher [employer] EDMS Jose Manuel Mathis PA PA jmm Pena, Laura, RN RN lp1 Luís Roblero MD MD tw4 Cait Lindsey wy5 Marta Harrington RN RN mt2 Corrections: (The following items were deleted from the chart) 06:14 05:14 06/02/2020 05:14 Discharged to Home. Impression: Other chest pain. Condition is mt2 Stable. Forms are Medication Reconciliation Form, Thank You Letter, Antibiotic Education, Prescription Opioid Use. Follow up: Private Physician; When: Upon discharge from the Emergency Department; Reason: Recheck today's complaints, Continuance of care, Re-evaluation by your physician. Problem is new. Symptoms have improved. tw4
--- NOTE | 2020-06-02 05:15 | ER ---
Nurse's Notes [facility] Name: Bolivar Yang Age: 24 yrs Sex: Male : 1995 Arrival Date: 06/01/2020 Time: 22:28 Bed 16 Private MD: Diagnosis: Other chest pain Presentation: 06/01 22:41 Chief complaint: Patient states: Chest pain that has been ongoing for the last 2 years; lp1 states this episode began this morning, worse pain that began this morning. Coronavirus screen: Patient denies a cough. Patient denies shortness of breath or difficulty breathing. Patient denies measured and/or subjective temperature greater than 100.4F prior to today's visit. Patient denies travel on a cruise ship or to a country the [facility] currently lists as an affected area. Patient denies contact with known and/or suspected case of COVID-19. Proceed with normal triage. Ebola Screen: No symptoms or risks identified at this time. Initial Sepsis Screen: Does the patient meet any 2 criteria? No. Patient's initial sepsis screen is negative. Does the patient have a suspected source of infection? No. Patient's initial sepsis screen is negative. Risk Assessment: Do you want to hurt yourself or someone else? Patient reports no desire to harm self or others. Onset of symptoms was June 01, 2020. 22:41 Method Of Arrival: Ambulatory lp1 22:41 Acuity: GUILLERMO 3 lp1 Triage Assessment: 23:23 General: Appears uncomfortable, Behavior is cooperative. Pain: Complains of pain in mt2 chest. Historical: - Allergies: 22:44 No Known Allergies; lp1 - Home Meds: 22:44 Unable to obtain [Active]; lp1 - PMHx: 22:44 Hypertension; Sleep Apnea; lp1 - PSHx: 22:44 None; lp1 - Immunization history:: Adult Immunizations up to date. - Social history:: Smoking status: Patient denies any tobacco usage or history of. Screenin:44 Abuse screen: Denies threats or abuse. Denies injuries from another. Nutritional lp1 screening: No deficits noted. Tuberculosis screening: No symptoms or risk factors identified. Fall Risk None identified. Assessment: 23:20 Also complains of shortness of breath. Pain: Complains of pain in chest Pain does not mt2 radiate. Pain currently is 8 out of 10 on a pain scale. Pain began gradually, 2-3 days ago. Neuro: No deficits noted. Cardiovascular: Reports chest pain, shortness of breath. Respiratory: Reports shortness of breath on exertion. GI: No deficits noted. : No deficits noted. EENT: No deficits noted. Derm: No deficits noted. Musculoskeletal: No deficits noted. 06/02 00:13 Also complains of no other symptoms. General: Appears uncomfortable, Behavior is mt2 cooperative. Pain: Complains of pain in chest Pain does not radiate. Pain currently is 5 out of 10 on a pain scale. 01:00 Reassessment: Patient and/or family updated on plan of care and expected duration. Pain mt2 level reassessed. General: Appears uncomfortable, Behavior is cooperative. Pain: Complains of pain in chest Pain currently is 10 out of 10 on a pain scale. Quality of pain is described as aching. 02:00 Reassessment: Patient and/or family updated on plan of care and expected duration. Pain mt2 level reassessed. Patient denies pain at this time. Patient states symptoms have improved. General: Appears comfortable, Behavior is cooperative. 03:00 Reassessment: Patient and/or family updated on plan of care and expected duration. Pain mt2 level reassessed. Patient denies pain at this time. Patient states symptoms have improved. General: Appears in no apparent distress. comfortable, Behavior is cooperative. 04:00 Reassessment: Patient and/or family updated on plan of care and expected duration. Pain mt2 level reassessed. Patient denies pain at this time. Patient states symptoms have improved. General: Appears comfortable, Behavior is cooperative. 05:35 Reassessment: Patient and/or family updated on plan of care and expected duration. Pain mt2 level reassessed. Patient denies pain at this time. Patient states symptoms have improved. General: Appears comfortable, Behavior is cooperative. Vital Signs: 06/01 22:41 BP 171 / 111; Pulse 106; Resp 18; Temp 98.7(O); Pulse Ox 98% on R/A; Weight 163.29 kg lp1 (R); Height 6 ft. 0 in. (182.88 cm); Pain 8/10; 23:21 BP 144 / 85; Pulse 104; Resp 19; Pulse Ox 96% ; Pain 8/10; mt2 07/27 00:00 BP 166 / 91; Pulse 104; Resp 19; Pulse Ox 98% on R/A; Pain 10/10; mt2 01:00 BP 143 / 80; Pulse 96; Resp 19; Temp 98.0(O); Pulse Ox 98% on R/A; Pain 5/10; mt2 02:00 BP 143 / 79; Pulse 79; Resp 16; Pulse Ox 97% on R/A; Pain 0/10; mt2 03:00 BP 149 / 89; Pulse 89; Resp 17; Temp 98.0(O); Pulse Ox 97% on R/A; Pain 0/10; mt2 04:00 BP 152 / 83; Pulse 79; Resp 19; Pulse Ox 95% on R/A; Pain 0/10; mt2 05:20 BP 144 / 72; Pulse 83; Resp 17; Pulse Ox 93% on R/A; Pain 0/10; mt2 06/01 22:41 Body Mass Index 48.82 (163.29 kg, 182.88 cm) lp1 ED Course: 06/01 22:28 Patient arrived in ED. es 22:43 Triage completed. lp1 22:43 Arm band placed on. lp1 23:17 Jose Manuel Mathis PA is PHCP. [facility] 23:17 Luís Roblero MD is Attending Physician. [facility] 23:19 Marta Harrington, FANG is Primary Nurse. mt2 23:22 Patient has correct armband on for positive identification. Placed in gown. Bed in low mt2 position. Call light in reach. Side rails up X 1. manager instrumentation on. 23:22 Initial lab(s) drawn, by ED staff, sent to lab. Inserted saline lock: 20 gauge in left mt2 antecubital area, using aseptic technique. Blood collected. Patient maintains SpO2 saturation greater than 95% on room air. 06/02 00:24 XRAY Chest (1 view) In Process Unspecified. EDMS 01:38 CT Chest For PE Angio In Process Unspecified. EDMS 05:30 No provider procedures requiring assistance completed. IV discontinued, intact, mt2 bleeding controlled, No redness/swelling at site. Pressure dressing applied. Administered Medications: 01:38 Drug: morphine 4 mg Route: IVP; Site: left antecubital; mt2 01:59 Follow up: Response: No adverse reaction; Pain is decreased mt2 01:38 Drug: Zofran (Ondansetron) 4 mg Route: IVP; Site: left antecubital; mt2 01:59 Follow up: Response: No adverse reaction; Nausea is decreased mt2 Outcome: 05:14 Discharge ordered by . tw4 05:30 Discharged to home ambulatory. mt2 05:30 Condition: good 05:30 Discharge instructions given to patient, Instructed on discharge instructions, follow up and referral plans. Demonstrated understanding of instructions, follow-up care. 06:14 Patient left the ED. mt2 Signatures: Dispatcher [employer] EDMS Jose Manuel Mathis PA PA jmm Salyer, Edna es Pena, Laura RN RN lp1 Luís Roblero MD MD tw4 Marta Harrington RN RN mt2
[2020-06-02 06:26] VITALS: TEMP 98
[2020-06-02 06:32] VITALS: BP 144/72; O2SAT 93
--- NOTE | 2020-06-02 08:16 | RAD REPORT ---
EXAM DESCRIPTION: RAD - Chest Single View - 06/02/2020 12:14 am CLINICAL HISTORY: CHEST PAIN COMPARISON: January 19, 2020 TECHNIQUE: AP portable chest image was obtained 06/02/2020 12:14 am . FINDINGS: Lung volumes are low. Assessment is further limited by portable technique and very large b modesto habitus. As imaged the lung ross are clear. No significant failure or volume overload. Retrocardiac left bas e assessment is limited. Mild cardiomegaly, accentuated by chest film limitations. Vasculature within normal limits for this examination. No measurable pleural effusion and no pneumothorax. No acute bony abnormality seen. No acute aortic findings suspected. IMPRESSION: Portable chest film was significantly limited. However, no acute cardiopulmonary finding identifiable.
--- NOTE | 2020-06-02 09:39 | RAD REPORT ---
EXAM DESCRIPTION: CT - Chest For Pe Angio - 06/02/2020 2:31 am CLINICAL HISTORY: 24 years Male CHEST PAIN TECHNIQUE: Contiguous axial images obtained through the chest were obtained from the thoracic inlet to the level of the upper abdomen during the pulmonary arterial phase of intravenous contrast adminis tration. Multiplanar reformatted images provided. This CT exam was performed according to our departmental dose-optimization program, which includes on e or more of the following dose reduction techniques: automated exposure control, adjustment of the m A and/or kV according to patient size, and/or use of iterative reconstruction technique. COMPARISON: No prior exams provided for comparison. FINDINGS: There is no central pulmonary venous. Small peripheral pulmonary emboli can neither be con firmed nor excluded due to beam hardening artifact related to patient size. Mild cardiomegaly without pericardial effusion. No thoracic aortic aneurysm or dissection. Low lung volumes with mild atelectasis. The lungs are otherwise clear. No pleural effusion or pneumot horax. The central airways are patent. No visualized lymphadenopathy in the chest. No visualized acute upper abdominal or osseous abnormality. IMPRESSION: No central pulmonary embolus. Small peripheral pulmonary emboli cannot be excluded due t o artifact related to patient size. Mild cardiomegaly. Low lung volumes with mild atelectasis. Electronically signed by: Gema Oneill MD 06/02/2020 1:46 AM CDT Due to temporary technical issues with the PACS/Fluency reporting system, reports are being signed by the in house radiologist without review as a courtesy to ensure prompt reporting. The interpreting r adiologist is fully responsible for the content of the report.
== END 2020-06-02 06:14 | disposition home or self-care (01) ==
LOC: ER 22:24
DX: R07.89 Other chest pain (principal); I10 Essential (primary) hypertension
CPT/HCPCS: 36415; 71045; 71275; 80048; 80076; 80307; 83735; 83880; 84484; 85025; 85610; 93005; 96374; 96375; 99285; J2405; Q9967

== ENCOUNTER 2020-11-25 13:35 | Emergency (ER) | payer BC, SELFPAY ==
--- OUTSIDE RECORDS SUMMARY | 2020-11-25 13:41 | XMS REPORT | Clinical Summary ---
:1995 Author Organization [facility] Address [address] [place] [address] Care Team Providers Name Role Phone Anders Primary Care Provider Allergies No Known Allergies Medications Not on file Active Problems Not on file Social History Tobacco Use Types Packs/Day Years Used Date Never Assessed Sex Assigned at Date Recorded Not on file Last Filed Vital Signs Not on file Plan of Treatment Health Maintenance Due Date Last Done Comments LIPID PANEL 2013 INFLUENZA VACCINE (#1) 2020 Results Not on fileafter 11/25/2019
--- OUTSIDE RECORDS SUMMARY | 2020-11-25 13:42 | XMS REPORT | Continuity of Care Document ---
:1995 Author Organization [facility] t Address [address] [place] [address] Care Team Providers Name Role Phone Anders Primary Care Physician Jacquelyn Woodson DO Attending Clinician Doctor Unassigned, Name Attending Clinician Unavailable Guzman MONDRAGON, K.H. Attending Clinician AVEL STEELE Attending Clinician Unavailable Problems This patient has no known problems. Allergies, Adverse Reactions, Alerts This patient has no known allergies or adverse reactions. Social History Social Habit Start Date Stop Date Quantity Comments Source Sex Assigned At [facility] Medications This patient has no known medications. Procedures This patient has no known procedures. Plan of Care Planned Activity Planned Date Details Comments Source Future Scheduled 2020-07-[address] [facility] - Test 00:00:00 (#1) [code = [facility] INFLUENZA VACCINE (#1)] Future Scheduled [address] [facility] - Test 00:00:00 (procedure) [code = [facility] [id number]] Encounters Start End Encounter Admission Attending Care Care Encounter Source Date/Time Date/Time Type Type Clinicians Facility Department ID 2020-07-14 2020-07-15 Emergency ELLIE Woodson [id number] 21:40:00 00:54:00 Archana Barajas [id number] [place] [id number] [place] [id number] 2020-07-14 2020-07-14 Orders Doctor BARBIE [id number] 00:00:00 00:00:00 Only Unassigned, [place]AN[place] [id number] [place] [facility] [id number] 2019-06-21 2019-07-17 Office Guzman, [facility] [id number] 09:25:01 12:38:55 Visit Heaven Barajas [id number] [place] [id number] [place] [id number] [place] 059 Building Results Test Description Test Time Test Comments Results Result Comments Source TROPONIN I 2019-06-15 15:21:00 Test Item Value Reference Range Interpretation Comme nts TROPONIN I (BEAKER) (test code = 397) [...] 23 pg/mL 0-100 (test code = 700) BASIC METABOLIC [id number] 15:17:00 Test Item Value Reference Range Interpretation [...] m DATA TO CALCULA TE ESTIMATED GFR. [id number] 15:14:00 Test Item Value Reference Range Interpretation Comments MAGNESIUM (BEAKER) (test code = 2.0 mg/dL 1.6-2.6 627) CBC W/PLT COUNT & AUTO [id number] 14:53:00 Test Item Value Reference Range Interpretation [...] = 2801) RAD, CHEST, 1 VIEW, NON [id number] 14:32:00Reason for exam:->CPFINAL REPORT RAD, CHEST, 1 VIEW, NON DEPT CLINICAL INDICATION: CP COMPARISON:None TECHNIQUE: AP view of the chest FINDINGS: Lung volumes are low. No focal consolidation. No pleural effusion or pneumothorax. Cardiomediastinal silhouette, kendrick, and pulmonary vasculature are normal. No acute osseous abnormality. IMPRESSION:No acute cardiopulmonary abnormality. Signed: Swapnil Packer MDReport Verified Date/Time: 06/15/2019 14:32:22 Reading Location: [facility] C013 Consult Reading Room
[2020-11-25] MEDS ORDERED: HYDROCODONE/APAP 10/325 TAB ONE (16:10)
--- NOTE | 2020-11-25 16:36 | RAD REPORT ---
EXAM DESCRIPTION: RAD - Femur Left - 11/25/2020 4:17 pm CLINICAL HISTORY: PAIN COMPARISON: None. FINDINGS: No fracture is identified. There is no dislocation or periosteal reaction noted. No acute or suspicious bony finding. No air or foreign body in the soft tissues. IMPRESSION: Negative left femur examination.
--- NOTE | 2020-11-25 16:55 | RAD REPORT ---
EXAM DESCRIPTION: US - Extremity Venous Uni Ltd - 11/25/2020 4:50 pm CLINICAL HISTORY: pain, swelling COMPARISON: None. TECHNIQUE: Real-time sonographic evaluation of the left lower extremity deep venous system was perfo rmed. FINDINGS: Normal compressibility, flow augmentation, phasic flow and spontaneous flow are identified in the left lower extremity common femoral, superficial femoral, popliteal and posterior tibial vein s. No intraluminal filling defects seen. IMPRESSION: No DVT in the left lower extremity.
--- NOTE | 2020-11-25 17:41 | EDPHYS ---
Physician Documentation [facility] Name: Bolivar Yang Age: 24 yrs Sex: Male : 1995 Arrival Date: 11/25/2020 Time: 13:38 Bed 20 Private MD: ED Physician Josiah Alaniz HPI: 11/25 15:45 This 24 yrs old Male presents to ER via Wheelchair with complaints of Leg Pain.jmm 15:45 The patient presents with pain. Onset: The symptoms/episode began/occurred gradually, 2 jmm day(s) ago. Modifying factors: The symptoms are alleviated by nothing. the symptoms are aggravated by nothing. This is a 24 year old male with a history of htn, that presents to the ED with complaints of left thigh pain. Denies injury. Denies fever. . Historical: - Allergies: 14:23 No Known Allergies; ca1 - PMHx: 14:23 Hypertension; Sleep Apnea; ca1 - PSHx: 14:23 None; ca1 - Immunization history:: Flu vaccine is up to date. - Social history:: Smoking status: Patient denies any tobacco usage or history of. ROS: 15:45 Constitutional: Negative for fever, chills, and weight loss, Cardiovascular: Negative jmm for chest pain, palpitations, and edema, Respiratory: Negative for shortness of breath, cough, wheezing, and pleuritic chest pain. 15:45 MS/extremity: Positive for pain. 15:45 All other systems are negative. Exam: 15:45 Constitutional: This is a well developed, well nourished patient who is awake, alert, jmm and in no acute distress. Head/Face: atraumatic. Eyes: EOMI, no conjunctival erythema appreciated ENT: Moist Mucus Membranes Neck: Trachea midline, Supple Chest/axilla: Normal chest wall appearance and motion. Cardiovascular: Regular rate and rhythm. No edema appreciated Respiratory: Normal respirations, no respiratory distress appreciated Abdomen/GI: Non distended, soft Back: Normal ROM Skin: General appearance color normal 15:45 Musculoskeletal/extremity: left proximal thigh ttp, compartments are soft, NVI. 15:45 Skin: Appearance: Color: normal in color. 15:45 Neuro: Orientation: is normal, Mentation: is normal, Memory: is normal. 15:45 Psych: Behavior/mood is pleasant, cooperative. Vital Signs: 14:21 BP 137 / 85; Pulse 83; Resp 16 S; Temp 98.4(TE); Pulse Ox 99% on R/A; Weight 145.15 kg; ca1 Height 6 ft. 0 in. (182.88 cm) (R); Pain 7/10; 17:31 BP 134 / 67; Pulse 83; Resp 16; Pulse Ox 100% ; bp 14:21 Body Mass Index 43.40 (145.15 kg, 182.88 cm) ca1 MDM: 15:12 Patient medically screened. [facility] 17:37 Data reviewed: vital signs, nurses notes. Counseling: I had a detailed discussion with gladis the patient and/or guardian regarding: the historical points, exam findings, and any diagnostic results supporting the discharge/admit diagnosis, radiology results, the need for outpatient follow up, to return to the emergency department if symptoms worsen or persist or if there are any questions or concerns that arise at home. ED course: Imaging studies negative. Patient advised to follow up with ortho for further evaluation. Patient understood and agrees with the plan of care. . 11/25 15:32 Order name: US Extremity Venous Unilateral Ltd; Complete Time: 17:00 [facility] 11/25 15:32 Order name: Femur Left XRAY; Complete Time: 16:39 [facility] Administered Medications: 15:50 Drug: Widener 10 mg-325 mg 1 tabs Route: PO; bp 17:48 Follow up: Response: Pain is decreased bp Disposition: 11/26 06:24 Co-signature as Attending Physician, Josiah Alaniz MD I agree with the assessment and [facility] plan of care. Disposition: 11/25/20 17:40 Discharged to Home. Impression: Pain in left leg. - Condition is Stable. - Discharge Instructions: Musculoskeletal Pain. - Prescriptions for orphenadrine citrate 100 mg Oral Tablet Sustained Release - take 1 tablet by ORAL route 2 times per day As needed; 20 tablet. - Medication Reconciliation Form, Thank You Letter, Antibiotic Education, Prescription Opioid Use, Work release form form. - Follow up: Private Physician; When: 2 - 3 days; Reason: Recheck today's complaints, Continuance of care, Re-evaluation by your physician. Signatures: Dispatcher [employer] EDJosiah Mcgill MD MD cha Mickail, Joel, PA PA Osito Connors RN RN bp Barbara Schmitz RN RN ca1 Corrections: (The following items were deleted from the chart) 11/25 17:48 17:40 11/25/2020 17:40 Discharged to Home. Impression: Pain in left leg. Condition is bp Stable. Forms are Medication Reconciliation Form, Thank You Letter, Antibiotic Education, Prescription Opioid Use. Follow up: Private Physician; When: 2 - 3 days; Reason: Recheck today's complaints, Continuance of care, Re-evaluation by your physician. gladis
--- NOTE | 2020-11-25 17:41 | ER ---
Nurse's Notes [facility] Name: Bolivar Yang Age: 24 yrs Sex: Male : 1995 Arrival Date: 11/25/2020 Time: 13:38 Bed 20 Private MD: Diagnosis: Pain in left leg Presentation: 11/25 14:21 Chief complaint: Patient states: L anterior thigh pain since Tuesday, getting worse. L ca1 thigh swelling, pain with ambulation. Denies injury. Coronavirus screen: Client denies travel out of the [place] in the last 14 days. At this time, the client does not indicate any symptoms associated with coronavirus-19. Ebola Screen: Patient negative for fever greater than or equal to 101.5 degrees Fahrenheit, and additional compatible Ebola Virus Disease symptoms Patient denies exposure to infectious person. Patient denies travel to an Ebola-affected area in the 21 days before illness onset. No symptoms or risks identified at this time. Initial Sepsis Screen: Does the patient meet any 2 criteria? No. Patient's initial sepsis screen is negative. Does the patient have a suspected source of infection? No. Patient's initial sepsis screen is negative. Risk Assessment: Do you want to hurt yourself or someone else? Patient reports no desire to harm self or others. Onset of symptoms was November 25, 2020. 14:21 Method Of Arrival: Wheelchair ca1 14:21 Acuity: GUILLERMO 4 ca1 Triage Assessment: 15:00 General: Appears in no apparent distress. uncomfortable, Behavior is cooperative, bp appropriate for age, anxious. Pain: Complains of pain in left leg. EENT: No deficits noted. Neuro: No deficits noted. Cardiovascular: No deficits noted. Respiratory: No deficits noted. GI: No signs and/or symptoms were reported involving the gastrointestinal system. : No signs and/or symptoms were reported regarding the genitourinary system. Derm: No deficits noted. Musculoskeletal: Reports pain in left quadriceps. Historical: - Allergies: 14:23 No Known Allergies; ca1 - PMHx: 14:23 Hypertension; Sleep Apnea; ca1 - PSHx: 14:23 None; ca1 - Immunization history:: Flu vaccine is up to date. - Social history:: Smoking status: Patient denies any tobacco usage or history of. Screenin:00 Abuse screen: Denies threats or abuse. Denies injuries from another. Nutritional bp screening: No deficits noted. Tuberculosis screening: No symptoms or risk factors identified. Fall Risk None identified. Assessment: 15:00 General: SEE TRIAGE NOTE. bp 16:00 Reassessment: Patient appears in no apparent distress at this time. Patient and/or bp family updated on plan of care and expected duration. Pain level reassessed. Patient is alert, oriented x 3, equal unlabored respirations, skin warm/dry/pink. XRAY AT B/S. 17:33 Reassessment: PT RETURNED FROM U/S. DISPO PENDING. bp 17:46 Reassessment: PT D/C HOME AMBULATORY, DX WITH LEG PAIN. bp Vital Signs: 14:21 BP 137 / 85; Pulse 83; Resp 16 S; Temp 98.4(TE); Pulse Ox 99% on R/A; Weight 145.15 kg; ca1 Height 6 ft. 0 in. (182.88 cm) (R); Pain 7/10; 17:31 BP 134 / 67; Pulse 83; Resp 16; Pulse Ox 100% ; bp 14:21 Body Mass Index 43.40 (145.15 kg, 182.88 cm) ca1 ED Course: 13:38 Patient arrived in ED. rg4 14:23 Triage completed. ca1 14:23 Arm band placed on right wrist. ca1 15:00 Patient has correct armband on for positive identification. Bed in low position. Call bp light in reach. Side rails up X2. 15:02 Osito Fair, FANG is Primary Nurse. bp 15:03 Jose Manuel Mathis PA is PHCP. [facility] 15:03 Josiah Alaniz MD is Attending Physician. jmm 16:17 Femur Left XRAY In Process Unspecified. EDMS 16:50 US Extremity Venous Unilateral Ltd In Process Unspecified. EDMS 17:46 No provider procedures requiring assistance completed. Patient did not have IV access bp during this emergency room visit. Administered Medications: 15:50 Drug: [place] 10 mg-325 mg 1 tabs Route: PO; bp 17:48 Follow up: Response: Pain is decreased bp Outcome: 17:40 Discharge ordered by . jmm 17:46 Discharged to home ambulatory. bp 17:46 Condition: stable 17:46 Discharge instructions given to patient, Instructed on discharge instructions, follow up and referral plans. medication usage, Demonstrated understanding of instructions, follow-up care, medications, Prescriptions given X 1. 17:48 Patient left the ED. bp Signatures: Dispatcher [employer] EDJose Manuel Ward PA PA jmm Garcia, Rubi rg4 Osito Fair, RN RN bp Barbara Schmitz RN RN ca1
[2020-11-25 17:54] VITALS: TEMP 98.4
[2020-11-25 17:55] VITALS: BP 134/67; O2SAT 100
== END 2020-11-25 17:48 | disposition home or self-care (01) ==
LOC: ER 13:35
DX: M79.652 Pain in left thigh (principal); I10 Essential (primary) hypertension
CPT/HCPCS: 93971; 99283

== ENCOUNTER 2021-04-21 09:43 | Emergency (ER) | payer BC, SELFPAY ==
[2021-04-21] MEDS ORDERED: NA CHLORIDE 0.9% 1,000 ML ONE (11:45)
[2021-04-21] MEDS ORDERED: ONDANSETRON 4 MG/2 ML VIAL ONE (11:45)
[2021-04-21 11:55] LABS: RBC Red Blood Cell Count 4.86 M/uL (4.33-5.43)
[2021-04-21 11:56] LABS: Absolute Lymphocytes (CBC) 2.2 K/uL (0.7-4.9); Basophils % 0.7 % (0-1.3); Hematocrit 41.2 % (39.6-49.0); Lymphocytes % 26.5 % (15.3-44.8); MPV 10.4 fL (7.6-11.3)
[2021-04-21 12:09] LABS: ALT/SGPT 36 U/L (12-78); AST/SGOT 25 U/L (15-37); Alkaline Phosphatase 110 U/L (45-117); BUN Blood Urea Nitrogen 10 mg/dL (7-18); Bicarbonate 28 mmol/L (21-32); Bilirubin Direct 0.1 mg/dL (0-0.2); Bilirubin Total 0.4 mg/dL (0.2-1.0); Glucose Level 92 mg/dL (74-106); Lipase 32 U/L (73-393); Potassium 3.8 mmol/L (3.5-5.1); Protein, Total 7.8 g/dL (6.4-8.2); Sodium Level 142 mmol/L (136-145)
[2021-04-21] MEDS ORDERED: FAMOTIDINE 20 MG/2 ML VIAL IV ONE (13:03)
--- NOTE | 2021-04-21 13:58 | ER ---
Nurse's Notes [facility] Name: Bolivar Yang Age: 25 yrs Sex: Male : 1995 Arrival Date: 04/21/2021 Time: 09:45 Bed 20 Private MD: Diagnosis: Vomiting;Diarrhea, unspecified Presentation: 04/21 09:59 Chief complaint: Patient states: "He has been feeling bad since yesterday. Yesterday he ss had diarrhea and today he is nauseous. Last time he had this it was a bacteria." Denies fever. Coronavirus screen: Client denies travel out of the [place] in the last 14 days. Ebola Screen: Patient denies exposure to infectious person. Patient denies travel to an Ebola-affected area in the 21 days before illness onset. Initial Sepsis Screen: Does the patient meet any 2 criteria? No. Patient's initial sepsis screen is negative. Does the patient have a suspected source of infection? No. Patient's initial sepsis screen is negative. Risk Assessment: Do you want to hurt yourself or someone else? Patient reports no desire to harm self or others. Onset of symptoms was April 20, 2021. 09:59 Method Of Arrival: Ambulatory ss 09:59 Acuity: GUILLERMO 3 ss Historical: - Allergies: 10:02 No Known Allergies; ss - Home Meds: 10:02 None [Active]; ss - PMHx: 10:02 Hypertension; Sleep Apnea; ss - PSHx: 10:02 None; ss - Immunization history:: Adult Immunizations up to date. - Social history:: Smoking status: Patient reports the use of cigarette tobacco products, < 1/2 ppd. Screenin:21 Abuse screen: Denies threats or abuse. Nutritional screening: No deficits noted. vg1 Tuberculosis screening: No symptoms or risk factors identified. Fall Risk No fall in past 12 months (0 pts). No secondary diagnosis (0 pts). IV access (20 points). Ambulatory Aid- None/Bed Rest/Nurse Assist (0 pts). Gait- Normal/Bed Rest/Wheelchair (0 pts) Mental Status- Oriented to own ability (0 pts). Total Arriaza Fall Scale indicates No Risk (0-24 pts). Assessment: 11:20 General: Appears in no apparent distress. comfortable, Behavior is calm, cooperative. vg1 Pain: Complains of pain in epigastric area Pain currently is 0 out of 10 on a pain scale. Pain began 1 day ago. Neuro: Level of Consciousness is awake, alert, obeys commands, Oriented to person, place, time, situation. Cardiovascular: Patient's skin is warm and dry. Respiratory: Airway is patent Respiratory effort is even, unlabored. GI: Abdomen is round obese, Bowel sounds present X 4 quads. Reports diarrhea, nausea, vomiting. : No signs and/or symptoms were reported regarding the genitourinary system. EENT: No signs and/or symptoms were reported regarding the EENT system. Derm: Skin is intact, is healthy with good turgor. Musculoskeletal: Circulation, motion, and sensation intact. 12:34 Reassessment: Patient appears in no apparent distress at this time. No changes from vg1 previously documented assessment. Patient and/or family updated on plan of care and expected duration. Pain level reassessed. Patient is alert, oriented x 3, equal unlabored respirations, skin warm/dry/pink. Pt states can hold water down and food but then has a sensation of regurgitation. Provider notified. 13:53 Reassessment: Patient appears in no apparent distress at this time. Patient and/or vg1 family updated on plan of care and expected duration. Pain level reassessed. Patient is alert, oriented x 3, equal unlabored respirations, skin warm/dry/pink. Patient states feeling better. Vital Signs: 09:59 Pulse 71; Resp 22; Temp 98.0(TE); Pulse Ox 98% ; Pain 0/10; ss 10:02 BP 157 / 77; ss 11:21 BP 140 / 93; Pulse 70; Resp 18; Pulse Ox 99% on R/A; vg1 12:35 BP 104 / 70; Pulse 62; Resp 18; Pulse Ox 100% on R/A; vg1 13:53 BP 121 / 89; Pulse 70; Resp 18; Pulse Ox 100% on R/A; vg1 ED Course: 09:45 Patient arrived in ED. rg4 10:01 Triage completed. ss 10:02 Arm band placed on right wrist. ss 10:58 Jose Manuel Mathis PA is PHCP. [facility] 10:58 Josiah Alaniz MD is Attending Physician. [facility] 11:12 Devi Colmenares, RN is Primary Nurse. vg1 11:21 Patient has correct armband on for positive identification. Bed in low position. Call 1 light in reach. Side rails up X 1. 11:38 Initial lab(s) drawn, by me, sent to lab. Inserted saline lock: 20 gauge in right vg1 antecubital area, using aseptic technique. Blood collected. 14:05 No provider procedures requiring assistance completed. IV discontinued, intact, vg1 bleeding controlled, No redness/swelling at site. Pressure dressing applied. Administered Medications: 11:40 Drug: NS 0.9% 1000 ml Route: IV; Rate: 1 bolus; Site: right antecubital; vg1 12:34 Follow up: IV Status: Completed infusion; IV Intake: 1000ml vg1 11:41 Drug: Zofran (Ondansetron) 4 mg Route: IVP; Site: right antecubital; vg1 12:34 Follow up: Response: No adverse reaction; Nausea is decreased vg1 12:48 Drug: Pepcid (famotidine) 20 mg Route: IVP; Site: right antecubital; vg1 13:53 Follow up: Response: No adverse reaction; Pain is decreased vg1 Intake: 12:34 IV: 1000ml; Total: 1000ml. vg1 Outcome: 13:58 Discharge ordered by . gladis 14:06 Discharged to home ambulatory, with family. vg1 14:06 Condition: stable 14:06 Discharge instructions given to patient, Instructed on discharge instructions, follow up and referral plans. medication usage, Demonstrated understanding of instructions, follow-up care, medications, Prescriptions given X 2. 14:06 Patient left the ED. vg1 Signatures: Jose Manuel Mathis PA PA jmm Smirch, Shelby, RN RN April Logan4 Devi Colmenares RN RN vg1
--- NOTE | 2021-04-21 13:58 | EDPHYS ---
Physician Documentation [facility] Name: Bolivar Yang Age: 25 yrs Sex: Male : 1995 Arrival Date: 04/21/2021 Time: 09:45 Bed 20 Private MD: ED Physician Josiah Alaniz HPI: 04/21 11:20 This 25 yrs old Male presents to ER via Ambulatory with complaints of jmm Diarrhea, Nausea. 11:20 The patient presents to the emergency department with nausea, vomiting, diarrhea. jmm Onset: The symptoms/episode began/occurred gradually, 1 day(s) ago. Possible causes: unknown. The symptoms are aggravated by nothing. The symptoms are alleviated by nothing. Associated signs and symptoms: Pertinent negatives: abdominal pain, fever. This is a 25 year old male with no chronic medical conditions that presents to the ED with complaints of vomiting, diarrhea, beginning approx 1 day ago. Denies recent travel, infectious exposure, recent abx use. . Historical: - Allergies: 10:02 No Known Allergies; ss - Home Meds: 10:02 None [Active]; ss - PMHx: 10:02 Hypertension; Sleep Apnea; ss - PSHx: 10:02 None; ss - Immunization history:: Adult Immunizations up to date. - Social history:: Smoking status: Patient reports the use of cigarette tobacco products, < 1/2 ppd. ROS: 11:20 Constitutional: Negative for fever, chills, and weight loss, Cardiovascular: Negative jmm for chest pain, palpitations, and edema, Respiratory: Negative for shortness of breath, cough, wheezing, and pleuritic chest pain. 11:20 Abdomen/GI: Positive for nausea and vomiting, diarrhea. 11:20 All other systems are negative. Exam: 11:20 Constitutional: This is a well developed, well nourished patient who is awake, alert, jmm and in no acute distress. Head/Face: atraumatic. Eyes: EOMI, no conjunctival erythema appreciated ENT: Moist Mucus Membranes Neck: Trachea midline, Supple Chest/axilla: Normal chest wall appearance and motion. Cardiovascular: Regular rate and rhythm. No edema appreciated Respiratory: Normal respirations, no respiratory distress appreciated 11:20 Back: Normal ROM Skin: General appearance color normal MS/ Extremity: Moves all extremities, no obvious deformities appreciated, no edema noted to the lower extremities Neuro: Awake and alert, normal gait Psych: Behavior is normal, Mood is normal, Patient is cooperative and pleasant 11:20 Abdomen/GI: Inspection: abdomen appears normal, Bowel sounds: normal, Palpation: soft, nontender, in all quadrants. Vital Signs: 09:59 Pulse 71; Resp 22; Temp 98.0(TE); Pulse Ox 98% ; Pain 0/10; ss 10:02 BP 157 / 77; ss 11:21 BP 140 / 93; Pulse 70; Resp 18; Pulse Ox 99% on R/A; vg1 12:35 BP 104 / 70; Pulse 62; Resp 18; Pulse Ox 100% on R/A; vg1 13:53 BP 121 / 89; Pulse 70; Resp 18; Pulse Ox 100% on R/A; vg1 MDM: 11:08 Patient medically screened. rodrigo 13:56 Data reviewed: vital signs, nurses notes. Counseling: I had a detailed discussion with bon the patient and/or guardian regarding: the historical points, exam findings, and any diagnostic results supporting the discharge/admit diagnosis, lab results, the need for outpatient follow up, to return to the emergency department if symptoms worsen or persist or if there are any questions or concerns that arise at home. ED course: Patient advised to follow up with GI for further evaluation. Otherwise given strict return precautions. Patient understood and agrees with the plan of care. . 04/21 11:20 Order name: Basic Metabolic Panel [facility] 04/21 11:20 Order name: CBC with Diff; Complete Time: 12:01 [facility] 04/21 11:20 Order name: Hepatic Function; Complete Time: 12:12 [facility] 04/21 11:20 Order name: Lipase; Complete Time: 12:12 [facility] 04/21 11:20 Order name: Basic Metabolic Panel; Complete Time: 12:12 [facility] 04/21 11:20 Order name: IV Saline Lock; Complete Time: 11:44 [facility] 04/21 11:20 Order name: Labs collected and sent; Complete Time: 11:44 [facility] 04/21 12:13 Order name: PO challenge; Complete Time: 12:34 [facility] Administered Medications: 11:40 Drug: NS 0.9% 1000 ml Route: IV; Rate: 1 bolus; Site: right antecubital; vg1 12:34 Follow up: IV Status: Completed infusion; IV Intake: 1000ml vg1 11:41 Drug: Zofran (Ondansetron) 4 mg Route: IVP; Site: right antecubital; vg1 12:34 Follow up: Response: No adverse reaction; Nausea is decreased vg1 12:48 Drug: Pepcid (famotidine) 20 mg Route: IVP; Site: right antecubital; vg1 13:53 Follow up: Response: No adverse reaction; Pain is decreased vg1 Disposition: 04/22 07:57 Co-signature as Attending Physician, Josiah Alaniz MD I agree with the assessment and [facility] plan of care. Disposition: 04/21/21 13:58 Discharged to Home. Impression: Vomiting, Diarrhea, unspecified. - Condition is Stable. - Discharge Instructions: Food Choices to Help Relieve Diarrhea, Adult, Diarrhea, Adult, Nausea and Vomiting, Adult. - Prescriptions for Zofran ODT 4 mg Oral tablet,disintegrating - place 1 tablet by TRANSLINGUAL route every 4-6 hours; 20 tablet. Pepcid 20 mg Oral Tablet - take 1 tablet by ORAL route every 12 hours for 10 days; 20 tablet. - Medication Reconciliation Form, Thank You Letter, Antibiotic Education, Prescription Opioid Use form. - Follow up: Private Physician; When: 2 - 3 days; Reason: Recheck today's complaints, Continuance of care, Re-evaluation by your physician. Signatures: Dispatcher [employer] Josiah Medina MD MD cha Mickail, Joel, PA PA jmm Smirch, Shelby, RN RN ss Deiv Colmenares RN RN vg1 Corrections: (The following items were deleted from the chart) 04/21 14:06 13:58 04/21/2021 13:58 Discharged to Home. Impression: Vomiting; Diarrhea, unspecified. vg1 Condition is Stable. Forms are Medication Reconciliation Form, Thank You Letter, Antibiotic Education, Prescription Opioid Use. Follow up: Private Physician; When: 2 - 3 days; Reason: Recheck today's complaints, Continuance of care, Re-evaluation by your physician. gladis
[2021-04-21 14:12] VITALS: TEMP 98
[2021-04-21 14:16] VITALS: O2SAT 100
[2021-04-21 14:18] VITALS: BP 121/89
== END 2021-04-21 14:06 | disposition home or self-care (01) ==
LOC: ER 09:43
DX: R19.7 Diarrhea, unspecified (principal); I10 Essential (primary) hypertension; F17.210 Nicotine dependence, cigarettes, uncomplicated
CPT/HCPCS: 36415; 80048; 80076; 83690; 85025; 96361; 96374; 96375; 99284; J2405; J7030

== ENCOUNTER 2021-07-02 16:04 | Emergency (ER) | payer OTHER, SELFPAY ==
--- OUTSIDE RECORDS SUMMARY | 2021-07-02 16:07 | XMS REPORT | Continuity of Care Document ---
:1995 Author Organization [facility] t Address [address] [place] [address] Care Team Providers Name Role Phone Anders Primary Care Physician Jacquelyn Woodson DO Attending Clinician Doctor Unassigned, Name Attending Clinician Unavailable Guzman MONDRAGON, K.H. Attending Clinician AVLE STEELE Attending Clinician Unavailable Problems This patient has no known problems. Allergies, Adverse Reactions, Alerts This patient has no known allergies or adverse reactions. Social History Social Habit Start Date Stop Date Quantity Comments Source Sex Assigned At [facility] Medications This patient has no known medications. Procedures This patient has no known procedures. Plan of Care Planned Activity Planned Date Details Comments Source Future Scheduled 2020-07-08 INFLUENZA VACCINE [facility] - Test 00:00:00 (#1) [code = [facility] INFLUENZA VACCINE (#1)] Future Scheduled 2013 Lipid panel [facility] - Test 00:00:00 (procedure) [code = [facility] [id number]] Encounters Start End Encounter Admission Attending Care Care Encounter Source Date/Time Date/Time Type Type Clinicians Facility Department ID 2020-07-14 2020-07-15 Emergency ELLIE Woodson [id number] 21:40:00 00:54:00 Archana Barajas [id number] [place] [id number] [place] [id number] 2020-07-14 2020-07-14 Orders Doctor BARBIE [id number] 00:00:00 00:00:00 Only Unassigned, [place] [id number] [place] [facility] [id number] 2019-06-21 2019-07-17 Office Guzman, [facility] [id number] 09:25:01 12:38:55 Visit Heaven Barajas [id number] [place] [id number] [place] [id number] [place] 059 Building Results Test Description Test [...] 0-100 (test code = 700) BASIC METABOLIC [id number] 15:17:00 Test Item Value Reference Range Interpretation [...] m DATA TO CALCULA TE ESTIMATED GFR. [id number] 15:14:00 Test Item Value Reference Range Interpretation Comments MAGNESIUM (BEAKER) (test code = 2.0 mg/dL 1.6-2.6 627) CBC W/PLT COUNT & AUTO [id number] 14:53:00 Test Item Value Reference Range Interpretation [...] = 2801) RAD, CHEST, 1 VIEW, NON [id number] 14:32:00Reason for exam:->CPFINAL REPORT RAD, CHEST, 1 VIEW, NON DEPT CLINICAL INDICATION: CP COMPARISON:None TECHNIQUE: AP view of the chest FINDINGS: Lung volumes are low. No focal consolidation. No pleural effusion or pneumothorax. Cardiomediastinal silhouette, kendrick, and pulmonary vasculature are normal. No acute osseous abnormality. IMPRESSION:No acute cardiopulmonary abnormality. Signed: Dina Packer Verified Date/Time: 06/15/2019 14:32:22 Reading Location: [facility] C013 Consult Reading Room
[2021-07-02] MEDS ORDERED: ACETAMINOPHEN 500 MG TAB ONE (17:07)
[2021-07-02] MEDS ORDERED: NA CHLORIDE 0.9% 250 ML ONE (20:10)
[2021-07-02] MEDS ORDERED: CASIRIVIMAB/IMDEVIMAB 10 ML VIAL ONE (20:11)
--- NOTE | 2021-07-02 20:33 | EDPHYS ---
Physician Documentation [facility] Name: Bolivar Yang Age: 25 yrs Sex: Male : 1995 Arrival Date: 07/02/2021 Time: 16:08 Bed DIS3 Private MD: ED Physician Yonathan Ford HPI: 07/02 20:28 This 25 yrs old Male presents to ER via Ambulatory with complaints of Cough, rn Sore Throat, Fever. 20:28 The patient or guardian reports cough, that is intermittent, described as mild, with no rn sputum. Onset: The symptoms/episode began/occurred yesterday. Severity of symptoms: At their worst the symptoms were mild, in the emergency department the symptoms are unchanged. Modifying factors: The symptoms are alleviated by nothing, the symptoms are aggravated by nothing. Associated signs and symptoms: Pertinent positives: fever, Headache, myalgias, fatigue, loss of taste and smell. The patient has not experienced similar symptoms in the past. The patient has not recently seen a physician. Patient reports 1 day of fever, chills, myalgias, loss of taste and smell. Denies any cough or trouble breathing. Denies chest pain or abdominal pain.. Historical: - Allergies: 16:42 No Known Allergies; sv - PMHx: 16:42 Hypertension; Sleep Apnea; sv - Immunization history:: Client reports having NOT received the Covid vaccine. - Social history:: Smoking status: Patient denies any tobacco usage or history of. - Family history:: not pertinent. - Hospitalizations: : No recent hospitalization is reported. ROS: 20:28 Constitutional: Positive for fever and chills Eyes: Negative for injury, pain, redness, rn and discharge, Cardiovascular: Negative for chest pain, palpitations, and edema, Respiratory: Negative for cough or shortness of breath. Abdomen/GI: Negative for abdominal pain, nausea, vomiting, and constipation, Back: Negative for injury and pain, : Negative for injury, bleeding, discharge, and swelling, MS/Extremity: Negative for injury and deformity, Skin: Negative for injury, rash, and discoloration, Neuro: Positive for headache and generalized weakness 20:28 All other systems are negative. Exam: 20:28 Constitutional: Overweight male no acute distress Head/Face: Normocephalic, rn atraumatic. Eyes: Pupils equal round and reactive to light, extra-ocular motions intact. Lids and lashes normal. Conjunctiva and sclera are non-icteric and not injected. Cornea within normal limits. Periorbital areas with no swelling, redness, or edema. ENT: No stridor Neck: Trachea midline, no masses palpated, and no cervical lymphadenopathy. Supple, full range of motion without nuchal rigidity, or vertebral point tenderness. No Meningismus. Cardiovascular: Regular rate and rhythm. No pulse deficits. Respiratory: Mild tachypnea, no retractions. Speaking full sentences unlabored. Abdomen/GI: Soft, non-tender Skin: Warm, dry with normal turgor. Normal color with no rashes, no lesions, and no evidence of cellulitis. MS/ Extremity: Pulses equal, no cyanosis. Neurovascular intact. Full, normal range of motion. Equal circumference. Neuro: Awake and alert, GCS 15 Vital Signs: 16:42 BP 156 / 90; Pulse 86; Resp 28; Temp 101.6(O); Pulse Ox 99% ; Weight 163.29 kg; Height sv 6 ft. 0 in. (182.88 cm); 20:23 BP 143 / 74; Pulse 81; Resp 16 S; Temp 99.5(O); Pulse Ox 97% on R/A; bb 20:50 BP 144 / 73; Pulse 80; Resp 16 S; Temp 100.1(O); Pulse Ox 99% on R/A; bb 21:20 BP 133 / 71; Pulse 88; Resp 16 S; Temp 100.3(O); Pulse Ox 97% on R/A; bb 23:00 BP 143 / 72; Pulse 85; Resp 16 S; Temp 98.1(O); Pulse Ox 94% on R/A; bb 16:42 Body Mass Index 48.82 (163.29 kg, 182.88 cm) sv MDM: 19:31 Patient medically screened. rn 20:28 Differential Diagnosis: Bronchitis Upper Respiratory Infection Pharyngitis Viral rn Syndrome Pneumonia Other Covid. Data reviewed: vital signs, nurses notes. 20:31 Data interpreted: Pulse oximetry: on room air is 99 %. Interpretation: normal. rn Counseling: I had a detailed discussion with the patient and/or guardian regarding: the historical points, exam findings, and any diagnostic results supporting the discharge/admit diagnosis, lab results, the need for outpatient follow up, to return to the emergency department if symptoms worsen or persist or if there are any questions or concerns that arise at home. Special discussion: I discussed with the patient/guardian in detail that at this point there is no indication for admission to the hospital. It is understood, however, that if the symptoms persist or worsen the patient needs to return immediately for re-evaluation. ED course: Patient without oxygen requirement. Will DC home. Patient with hypertension, obese, and sleep apnea. Will receive Regeneron and DC home. Patient consented and understands risks and benefits.. 07/02 19:40 Order name: SARS-COV-2 RT PCR; Complete Time: 19:44 EDMS Administered Medications: 16:45 Drug: Tylenol 1000 mg Route: PO; sv 23:06 Follow up: Response: No adverse reaction bb 20:31 Drug: REGEN-COV Dose Pack 120 mg/mL-120 mg/mL (EUA) 600 mg Route: IV; Rate: calculated bb rate; Site: left antecubital; 21:35 Follow up: IV Status: Completed infusion; IV Intake: 310ml bb 21:30 Drug: Motrin (ibuprofen) 800 mg Route: PO; bb 23:06 Follow up: Response: No adverse reaction; Temperature is decreased bb Disposition Summary: 07/02/21 20:32 Discharge Ordered Location: Home rn Problem: new rn Symptoms: are unchanged rn Condition: Stable rn Diagnosis - SARS-associated coronavirus as the cause of diseases classified elsewhere rn - Fever, unspecified rn Followup: rn - With: Private Physician - When: As needed - Reason: Recheck today's complaints, Re-evaluation by your physician Discharge Instructions: - Discharge Summary Sheet rn - Fever, Adult rn - COVID-19 rn - Viral Illness, Adult rn Forms: - Medication Reconciliation Form rn - Work release form bb - Thank You Letter rn - Antibiotic rn procedure - Prescription Opioid Use rn Signatures: Dispatcher [employer] EDMary Kay Moyer RN RN Samantha Stoddard RN RN Yonathan Deluna MD MD distance learning coordinator: (The following items were deleted from the chart) 18:56 16:44 CORONAVIRUS+.MARTINZ ordered. EDMS EDMS
--- NOTE | 2021-07-02 20:33 | ER ---
Nurse's Notes [facility] Name: Bolivar Yang Age: 25 yrs Sex: Male : 1995 Arrival Date: 07/02/2021 Time: 16:08 Bed DIS3 Private MD: Diagnosis: SARS-associated coronavirus as the cause of diseases classified elsewhere;Fever, unspecified Presentation: 07/02 16:41 Chief complaint: Spouse and/or significant other states: headache, sore throat, cough, sv swollen feet, joint pain x 1 day. Coronavirus screen: Client denies travel out of the [place] in the last 14 days. At this time, the client does not indicate any symptoms associated with coronavirus-19. Ebola Screen: No symptoms or risks identified at this time. Risk Assessment: Do you want to hurt yourself or someone else? Patient reports no desire to harm self or others. 16:41 Method Of Arrival: Ambulatory sv 16:42 Initial Sepsis Screen: Does the patient meet any 2 criteria? RR > 20 per min. Temp sv <36.0*C (96.8*F)) or > 38.3*C (100.9*F). Yes Does the patient have a suspected source of infection? No. Patient's initial sepsis screen is negative. Onset of symptoms was July 01, 2021. 16:42 Acuity: GUILLERMO 3 sv Triage Assessment: 16:45 General: Appears in no apparent distress. Behavior is calm, cooperative, appropriate sv for age. Neuro: Level of Consciousness is awake, alert, obeys commands. Respiratory: Respiratory effort is even, unlabored, Respiratory pattern is tachypnea. Historical: - Allergies: 16:42 No Known Allergies; sv - PMHx: 16:42 Hypertension; Sleep Apnea; sv - Immunization history:: Client reports having NOT received the Covid vaccine. - Social history:: Smoking status: Patient denies any tobacco usage or history of. - Family history:: not pertinent. - Hospitalizations: : No recent hospitalization is reported. Screenin:45 Abuse screen: Denies threats or abuse. Nutritional screening: No deficits noted. bb Tuberculosis screening: No symptoms or risk factors identified. Fall Risk None identified. Assessment: 19:45 General: Appears in no apparent distress. obese, Behavior is calm, cooperative. Pain: bb Denies pain. Neuro: Level of Consciousness is awake, alert, obeys commands, Oriented to person, place, time, situation. Cardiovascular: Capillary refill < 3 seconds Patient's skin is warm and dry. Respiratory: Airway is patent Respiratory effort is even, unlabored, Breath sounds are clear bilaterally. GI: No signs and/or symptoms were reported involving the gastrointestinal system. EENT: Throat is clear. Derm: Skin is dry, Skin is normal, Skin temperature is warm. Musculoskeletal: Circulation, motion, and sensation intact. 20:30 Reassessment: Patient is alert, oriented x 3, equal unlabored respirations, skin bb warm/dry/pink. Regen-Cov administered to L AC. 20:41 Reassessment: pt awaiting completion of Regen-Cov and subsequent one hour of monitoring bb prior to discharge. 21:30 Reassessment: Patient is alert, oriented x 3, equal unlabored respirations, skin bb warm/dry/pink. Regen-Cov completed, pt tolerated well, will continue to monitor x 1 hour prior to discharge. 23:00 Reassessment: Patient is alert, oriented x 3, equal unlabored respirations, skin bb warm/dry/pink. pt verbalized understanding of and agrees to plan of care discharge instructions given pt ambulated with steady gait to exit. Vital Signs: 16:42 BP 156 / 90; Pulse 86; Resp 28; Temp 101.6(O); Pulse Ox 99% ; Weight 163.29 kg; Height sv 6 ft. 0 in. (182.88 cm); 20:23 BP 143 / 74; Pulse 81; Resp 16 S; Temp 99.5(O); Pulse Ox 97% on R/A; bb 20:50 BP 144 / 73; Pulse 80; Resp 16 S; Temp 100.1(O); Pulse Ox 99% on R/A; bb 21:20 BP 133 / 71; Pulse 88; Resp 16 S; Temp 100.3(O); Pulse Ox 97% on R/A; bb 23:00 BP 143 / 72; Pulse 85; Resp 16 S; Temp 98.1(O); Pulse Ox 94% on R/A; bb 16:42 Body Mass Index 48.82 (163.29 kg, 182.88 cm) sv ED Course: 16:08 Patient arrived in ED. ds1 16:40 Arm band placed on. sv 16:43 Triage completed. sv 19:31 Yonathan Ford MD is Attending Physician. rn 19:39 Notified ED physician of a critical lab result(s). COVID positive Dr Ford notified. bb 19:45 Aurelio Chin, RN is Primary Nurse. em 19:45 Patient has correct armband on for positive identification. bb 19:45 No provider procedures requiring assistance completed. bb 20:16 consent for Regen-Cov explained by Dr Ford and signed by pt. bb 20:27 Inserted saline lock: 20 gauge in left antecubital area, using aseptic technique. bb 23:15 IV discontinued, intact, bleeding controlled, No redness/swelling at site. Pressure bb dressing applied. Administered Medications: 16:45 Drug: Tylenol 1000 mg Route: PO; sv 23:06 Follow up: Response: No adverse reaction bb 20:31 Drug: REGEN-COV Dose Pack 120 mg/mL-120 mg/mL (EUA) 600 mg Route: IV; Rate: calculated bb rate; Site: left antecubital; 21:35 Follow up: IV Status: Completed infusion; IV Intake: 310ml bb 21:30 Drug: Motrin (ibuprofen) 800 mg Route: PO; bb 23:06 Follow up: Response: No adverse reaction; Temperature is decreased bb Intake: 21:35 IV: 310ml; Total: 310ml. bb Outcome: 20:32 Discharge ordered by . rn 23:15 Discharged to home ambulatory. bb 23:15 Condition: stable 23:15 Discharge instructions given to patient, Instructed on discharge instructions, follow up and referral plans. Demonstrated understanding of instructions, follow-up care. 23:15 Patient left the ED. bb Signatures: Mary Kay Stark RN RN Aurelio Chin, RN RN Attila Eliza ds1 Samantha Salgado RN RN bb Yonathan Ford MD MD pattern cleaner: (The following items were deleted from the chart) 16:43 16:41 Chief complaint: Spouse and/or significant other states: headache, sore throat, sv cough x 1 day sv
[2021-07-02] MEDS ORDERED: NA CHLORIDE 0.9% 50 ML ONE (20:43)
[2021-07-02] MEDS ORDERED: IBUPROFEN 200 MG TAB PO ONE (21:39)
[2021-07-02 23:35] VITALS: BP 143/72; TEMP 98.1; O2SAT 94
== END 2021-07-02 23:15 | disposition home or self-care (01) ==
LOC: ER 16:04
DX: U07.1 COVID-19 (principal); I10 Essential (primary) hypertension
CPT/HCPCS: 96365; 99283; J7050; U0003

== ENCOUNTER 2021-07-30 11:09 | Emergency (ER) | payer SELFPAY ==
[2021-07-30 11:55] LABS: Absolute Lymphocytes (CBC) 2.7 K/uL (0.7-4.9); Basophils % 0.4 % (0-1.3); Hematocrit 38.5 % (39.6-49.0); Lymphocytes % 30.5 % (15.3-44.8); MPV 9.6 fL (7.6-11.3); RBC Red Blood Cell Count 4.57 M/uL (4.33-5.43)
[2021-07-30 11:59] LABS: Protime INR 1.02
[2021-07-30 12:16] LABS: ALT/SGPT 31 U/L (12-78); AST/SGOT 17 U/L (15-37); Albumin 3.9 g/dL (3.4-5.0); Alkaline Phosphatase 118 U/L (45-117); BUN Blood Urea Nitrogen 9 mg/dL (7-18); Bicarbonate 29 mmol/L (21-32); Bilirubin Direct 0.1 mg/dL (0-0.2); Bilirubin Total 0.3 mg/dL (0.2-1.0); Glucose Level 127 mg/dL (74-106); Magnesium 2.1 mg/dL (1.8-2.4); NT PRO-BNP 51 pg/mL (<125); Potassium 3.8 mmol/L (3.5-5.1); Protein, Total 7.7 g/dL (6.4-8.2); Sodium Level 141 mmol/L (136-145); Troponin (Emerg Dept Use Only) < 0.02 ng/mL (0.0-0.045)
--- NOTE | 2021-07-30 13:20 | RAD REPORT ---
EXAM DESCRIPTION: RAD - Chest Single View - 07/30/2021 1:00 pm CLINICAL HISTORY: CHEST PAIN Chest pain. COMPARISON: Chest Single View dated 06/01/2020; Chest Single View dated 01/19/2020; Chest Single View dated 06/13/2019; Chest Single View dated 01/07/2019 FINDINGS: Portable technique limits examination quality. Interstitial lung markings are mildly prominent. This can be seen in viral infection/bronchitis or in terstitial pulmonary edema. Cardiac size is mildly enlarged. No displaced fractures.
[2021-07-30] MEDS ORDERED: KETOROLAC 30 MG/ML INJ ONE (13:22)
[2021-07-30] MEDS ORDERED: METHYLPREDNISOLONE 125 MG INJ ONE (13:22)
[2021-07-30] MEDS ORDERED: ASPIRIN 81 MG CHEWABLE TABLET ONE (13:22)
--- NOTE | 2021-07-30 14:36 | RAD REPORT ---
EXAM DESCRIPTION: US - Chest - 07/30/2021 1:31 pm CLINICAL HISTORY: Left chest wall/breast pain Pain and swelling COMPARISON: Chest Single View dated 07/30/2021 FINDINGS: No abnormal finding is seen in the area of interest left chest wall. No mass or fluid charu ection is identified.
--- NOTE | 2021-07-30 16:15 | ER ---
Nurse's Notes [facility] Name: Bolivar Yang Age: 25 yrs Sex: Male : 1995 Arrival Date: 07/30/2021 Time: 11:13 Bed 3 Private MD: Diagnosis: Chest pain, unspecified-Left anterior chest wall Presentation: 07/30 11:19 Chief complaint: Spouse and/or significant other states: "He has been having this chest jd3 pain for about a week. we went to the clinic and they did an EKG and they said to come to the ER.". Coronavirus screen: At this time, the client does not indicate any symptoms associated with coronavirus-19. Ebola Screen: Patient negative for fever greater than or equal to 101.5 degrees Fahrenheit, and additional compatible Ebola Virus Disease symptoms. Initial Sepsis Screen: Does the patient meet any 2 criteria? No. Patient's initial sepsis screen is negative. Does the patient have a suspected source of infection? No. Patient's initial sepsis screen is negative. Risk Assessment: Do you want to hurt yourself or someone else? Patient reports no desire to harm self or others. Onset of symptoms was July 22, 2021. 11:19 Method Of Arrival: Ambulatory jd3 11:19 Acuity: GUILLERMO 3 jd3 Historical: - Allergies: 11:20 No Known Allergies; jd3 - Home Meds: 11:20 None [Active]; jd3 - PMHx: 11:20 Hypertension; Sleep Apnea; jd3 - PSHx: 11:20 None; jd3 - Immunization history:: Adult Immunizations unknown. - Social history:: Smoking status: Patient denies any tobacco usage or history of. Screenin:24 Abuse screen: Denies threats or abuse. Denies injuries from another. Nutritional ch5 screening: No deficits noted. Tuberculosis screening: No symptoms or risk factors identified. Fall Risk None identified. Assessment: 12:24 Reassessment: Pt sent for CP 06/16. Dx with PVC's in th past. Pain: Complains of pain in ch5 chest Pain currently is 8 out of 10 on a pain scale. Cardiovascular: Reports chest pain, shortness of breath, Chest pain is aggravated by activity. 14:39 Reassessment: No changes from previously documented assessment. Patient states feeling ch5 better. Vital Signs: 11:20 BP 176 / 83; Pulse 69; Resp 18 S; Temp 98.4(TE); Pulse Ox 100% on R/A; Weight 163.75 kg jd3 (R); Height 6 ft. 0 in. (182.88 cm) (R); Pain 8/10; 14:39 BP 159 / 99; Pulse 65; Resp 20; Pulse Ox 98% ; Pain 3/10; ch5 15:59 BP 149 / 95; Pulse 75; Resp 19; Pulse Ox 98% ; ch5 11:20 Body Mass Index 48.96 (163.75 kg, 182.88 cm) jd3 ED Course: 11:13 Patient arrived in ED. as 11:20 Triage completed. jd3 11:21 Arm band placed on. jd3 11:29 John Frazier MD is Attending Physician. kdr 12:24 Sanjay Nicholson RN is Primary Nurse. ch5 12:24 Patient has correct armband on for positive identification. Bed in low position. Call ch5 light in reach. Side rails up X2. 12:24 No provider procedures requiring assistance completed. Inserted saline lock: 20 gauge ch5 in right antecubital area, using aseptic technique. 12:55 XRAY Chest (1 view) Sent. ch5 13:00 XRAY Chest (1 view) In Process Unspecified. EDMS 13:31 Chest In Process Unspecified. EDMS 15:31 Troponin (emerg Dept Use Only): Drawn 2 hours after initial draw Sent. ch5 15:59 intact. ch5 Administered Medications: 13:04 Drug: Ketorolac 15 mg Route: IVP; Site: right antecubital; ch5 13:04 Drug: SOLU-Medrol (methylPrednisoLONE) 125 mg Route: IVP; Site: right antecubital; ch5 Outcome: 15:59 Discharged to home ambulatory. ch5 15:59 Condition: improved 15:59 Discharge instructions given to patient, Prescriptions given X 3. 16:15 Discharge ordered by . kdr 16:22 Patient left the ED. ch5 Signatures: Dispatcher [employer] EDMS John Frazier MD MD kdr Martinez, Amelia as Davies, Jonathon, RN RN j Sanjay Nicholson RN RN 5
--- NOTE | 2021-07-30 16:15 | EDPHYS ---
Physician Documentation [facility] Name: Bolivar Yang Age: 25 yrs Sex: Male : 1995 Arrival Date: 07/30/2021 Time: 11:13 Bed 3 Private MD: ED Physician John Frazier Historical: - Allergies: 07/30 11:20 No Known Allergies; jd3 - Home Meds: 11:20 None [Active]; jd3 - PMHx: 11:20 Hypertension; Sleep Apnea; jd3 - PSHx: 11:20 None; jd3 - Immunization history:: Adult Immunizations unknown. - Social history:: Smoking status: Patient denies any tobacco usage or history of. Vital Signs: 11:20 BP 176 / 83; Pulse 69; Resp 18 S; Temp 98.4(TE); Pulse Ox 100% on R/A; Weight 163.75 kg jd3 (R); Height 6 ft. 0 in. (182.88 cm) (R); Pain 8/10; 14:39 BP 159 / 99; Pulse 65; Resp 20; Pulse Ox 98% ; Pain 3/10; ch5 15:59 BP 149 / 95; Pulse 75; Resp 19; Pulse Ox 98% ; ch5 11:20 Body Mass Index 48.96 (163.75 kg, 182.88 cm) jd3 MDM: 16:15 Patient medically screened. kdr 07/30 11:28 Order name: Basic Metabolic Panel; Complete Time: 12:56 bp 07/30 11:28 Order name: CBC with Diff; Complete Time: 12:56 bp 07/30 11:28 Order name: LFT's; Complete Time: 12:56 bp 07/30 11:28 Order name: Magnesium; Complete Time: 12:56 bp 07/30 11:28 Order name: NT PRO-BNP; Complete Time: 12:56 bp 07/30 11:28 Order name: PT-INR; Complete Time: 12:56 bp 07/30 11:28 Order name: Troponin (emerg Dept Use Only); Complete Time: 12:56 bp 07/30 11:28 Order name: XRAY Chest (1 view); Complete Time: 13:50 bp 07/30 11:28 Order name: EKG; Complete Time: 11:29 bp 07/30 12:57 Order name: Troponin (emerg Dept Use Only): Drawn 2 hours after initial draw ; Complete kdr Time: 16:17 07/30 12:59 Order name: Chest; Complete Time: 14:49 EDMS 07/30 11:28 Order name: Cardiac monitoring; Complete Time: 12:28 bp 07/30 11:28 Order name: EKG - Nurse/Tech; Complete Time: 12:28 bp 07/30 11:28 Order name: IV Saline Lock; Complete Time: 12:28 bp 07/30 11:28 Order name: Labs collected and sent; Complete Time: 12:29 bp 07/30 11:28 Order name: O2 Per Protocol; Complete Time: 12:29 bp 07/30 11:28 Order name: O2 Sat Monitoring; Complete Time: 12:29 bp Administered Medications: 13:04 Drug: Ketorolac 15 mg Route: IVP; Site: right antecubital; 5 13:04 Drug: SOLU-Medrol (methylPrednisoLONE) 125 mg Route: IVP; Site: right antecubital; 5 Disposition Summary: 07/30/21 16:15 Discharge Ordered Location: Home kdr Problem: an ongoing problem kdr Symptoms: have improved kdr Condition: Stable kdr Diagnosis - Chest pain, unspecified - Left anterior chest wall kdr Followup: kdr - With: Private Physician - When: 2 - 3 days - Reason: If symptoms return, Further diagnostic work-up, Recheck today's complaints, Continuance of care, Re-evaluation by your physician Discharge Instructions: - Discharge Summary Sheet kdr - Chest Wall Pain, [id number] kdr - Nonspecific Chest Pain, Adult, [id number] kdr Forms: - Medication Reconciliation Form kdr - Thank You Letter kdr - Prescription Opioid Use kdr - Work release form ch5 Prescriptions: - Ibuprofen 600 mg Oral Tablet - take 1 tablet by ORAL route every 6 hours As needed take with food; 30 tablet; kdr Refills: 0, Product Selection Permitted - Tramadol 50 mg Oral Tablet - take 1 tablet by ORAL route every 8 hours as needed; 12 tablet; Refills: 0, kdr Product Selection Permitted - Medrol (Shawn) 4 mg Oral Tablets, Dose Pack - take 1 tablet by ORAL route as directed - follow package instructions; 1 kdr packet; Refills: 0, Product Selection Permitted Signatures: Dispatcher [employer] EDMS Rittger, MD MD loree Lopez Jonathon, RN RN jd3 Osito Fair RN RN bp Sanjay Nicholson RN RN ch5 Corrections: (The following items were deleted from the chart) 12:59 12:57 Abdomen Limited+US.RAD.JUAN ordered. EDMS EDMS
[2021-07-30 16:37] VITALS: TEMP 98.4
[2021-07-30 16:39] VITALS: O2SAT 98
[2021-07-30 16:40] VITALS: BP 149/95
== END 2021-07-30 16:22 | disposition home or self-care (01) ==
LOC: ER 11:09
DX: R07.89 Other chest pain (principal); I10 Essential (primary) hypertension
CPT/HCPCS: 36415; 71045; 76604; 80048; 80076; 83735; 83880; 84484; 85025; 85610; 93005; 96374; 96375; 99284; J2930

== ENCOUNTER 2021-12-01 09:44 | Emergency (ER) | payer OTHER, SELFPAY ==
--- OUTSIDE RECORDS SUMMARY | 2021-12-01 09:47 | XMS REPORT | Continuity of Care Document ---
:1995 Author Organization [facility] t Address [address] [place] [address] Care Team Providers Name Role Phone Mcnamara Primary Care Physician Jacquelyn Woodson DO Attending Clinician Doctor Unassigned, Name Attending Clinician Unavailable Guzman MONDRAGON, K.H. Attending Clinician AVEL STEELE Attending Clinician Unavailable Payers Payer Name Policy Type Policy Number Effective Date Expiration Date S ource COMMERCIAL [id number] 2019 NON-CONTRACT 00:00:00 GENERIC Problems This patient has no known problems. Allergies, Adverse Reactions, Alerts Allergy Allergy Status Severity Reaction(s) Onset Inactive Treating Comm ents Source Name Type Date Date Clinician NO KNOWN Drug Active Univers ALLERGIE Class ity of S [facility] Social History Social Habit Start Date Stop Date Quantity Comments Source Sex Assigned At [facility] Medications This patient has no known medications. Procedures This patient has no known procedures. Plan of Care Planned Activity Planned Date Details Comments Source Future Scheduled 2020-07-08 INFLUENZA VACCINE [facility] - Test 00:00:00 (#1) [code = [facility] INFLUENZA VACCINE (#1)] Future Scheduled 2013 Lipid panel [facility] s - Test 00:00:00 (procedure) [code = [facility] [id number]] Encounters Start End Encounter Admission Attending Care Care Encounter Source Date/Time Date/Time Type Type Clinicians Facility Department ID 2021-09-04 Emergency [facility] [id number] [facility] 16:13:46 ity [facility] 2020-07-14 2020-07-15 Emergency Chintan, [facility] [id number] 21:40:00 00:54:00 Archana Barajas [id number] [place] [id number] [place] [id number] 2020-07-14 2020-07-14 Orders Doctor BARBIE [id number] 00:00:00 00:00:00 Only Unassigned, [place] [id number] [place] [facility] [id number] 2019-06-21 2019-07-17 Office Hinds, [facility] [id number] 09:25:01 12:38:55 Visit Heaven Barajas [id number] [place] [id number] [facility] [id number] nal 059 Building Results Test Description Test [...] 0-100 (test code = 700) BASIC METABOLIC [id number] 15:17:00 Test Item Value Reference Range Interpretation [...] m DATA TO CALCULA TE ESTIMATED GFR. [id number] 15:14:00 Test Item Value Reference Range Interpretation Comments MAGNESIUM (BEAKER) (test code = 2.0 mg/dL 1.6-2.6 627) CBC W/PLT COUNT & AUTO [id number] 14:53:00 Test Item Value Reference Range Interpretation [...] = 2801) RAD, CHEST, 1 VIEW, NON [id number] 14:32:00Reason for exam:->CPFINAL REPORT RAD, CHEST, 1 VIEW, NON DEPT CLINICAL INDICATION: CP COMPARISON:None TECHNIQUE: AP view of the chest FINDINGS: Lung volumes are low. No focal consolidation. No pleural effusion or pneumothorax. Cardiomediastinal silhouette, kendrick, and pulmonary vasculature are normal. No acute osseous abnormality. IMPRESSION:No acute cardiopulmonary abnormality. Signed: Dina Packer MDReport Verified Date/Time: 06/15/2019 14:32:22 Reading Location: [facility] B1 [id number] Consult Reading Room
[2021-12-01] MEDS ORDERED: KETOROLAC 30 MG/ML INJ ONE (10:11)
[2021-12-01] MEDS ORDERED: HYDROMORPHONE HCL 1 MG/ML INJ ONE (10:11)
[2021-12-01] MEDS ORDERED: ONDANSETRON 4 MG/2 ML VIAL ONE (10:11)
--- NOTE | 2021-12-01 11:22 | RAD REPORT ---
EXAM DESCRIPTION: MRI - Lumbar Spine Carter Finn - 12/01/2021 10:57 am CLINICAL HISTORY: LOWER BACK PAIN, left lower extremity radiculopathy COMPARISON: No comparisons TECHNIQUE: Sagittal T1-weighted, T2-weighted and T2-STIR weighted sequences were obtained. Axial T1 -weighted and heavily T2-weighted sequenceswere obtained through the lumbar disc levels. FINDINGS: Exam is limited due to large body habitus. Lumbar bodies are normal in height. No subluxation abnormality seen. There is accentuation of the low er lumbar lordosis. No suspicious marrow signal. No paraspinal masses. There is minimal edema associa yaima with a Schmorl's node in the anterior aspect of the S1 superior endplate. Schmorl's nodes are see n in the superior and inferior endplates of the L1-L4 vertebrae and the inferior endplate T12. Conus is normal with no clumping or thickening of the cauda equina. T12-L1 level: No significant findings. L1-2 level: No significant findings. L2-3 level: No significant findings. L3-4 level: No significant findings. L4-5 level: Disc is desiccated without loss in disc height. No central spinal stenosis or significant foraminal encroachment. L5-S1 level: Disc is desiccated. No canal or foramen stenosis. IMPRESSION: No disc herniation, central spinal stenosis or other abnormality to explain left lower e xtremity radiculopathy. Patient has disc desiccation and L4-5 and L5-S1 levels. Numerous Schmorl's nodes are seen throughout the lumbar spine with edema adjacent to the Schmorl's no de in the superior endplate of S1. These are generally asymptomatic but can be associated occasionall y with pain symptoms. This would not explain the radiculopathy.
--- NOTE | 2021-12-01 12:29 | EDPHYS ---
Physician Documentation [facility] Name: Bolivar Yang Age: 26 yrs Sex: Male : 1995 Arrival Date: 12/01/2021 Time: 09:47 Bed 7 Private MD: ED Physician Brittaney Reynolds HPI: 12/01 10:03 This 26 yrs old Male presents to ER via Wheelchair with complaints of Fall sp3 Injury, Back Pain, Leg Pain. 10:03 26-year-old male with history of hypertension, obesity, sleep apnea presents with acute sp3 on chronic low back pain with pain radiating posteriorly down the left leg to the point where he was weak and sustained a slow ground-level fall without traumatic injury from the fall itself. Patient denies loss of bowel or bladder control, any other neurological symptoms including sensory deficits or weakness anywhere else. Patient states that the leg was somewhat weak but not totally limp. Patient states that the symptoms are off and on for several weeks but have recently gotten worse over the last 3 to 4 days with today being the worst. On ROS, patient denies headache, neck pain, chest pain, upper back pain, shortness of breath, cough, congestion, abdominal pain, nausea, vomiting, diarrhea, syncope, known sick contacts, or any other symptoms at this time.. Historical: - Allergies: 09:53 No Known Allergies; ll1 - PMHx: 09:53 Hypertension; Sleep Apnea; ll1 - Immunization history:: Client reports having NOT received the Covid vaccine. - Social history:: Smoking status: Patient reports the use of cigarette tobacco products, smokes one-half pack cigarettes per day. - Immunization history: Last tetanus immunization: unknown. ROS: 10:05 Constitutional: Negative for fever, chills, and weight loss, Eyes: Negative for injury, sp3 pain, redness, and discharge, ENT: Negative for injury, pain, and discharge, Neck: Negative for injury, pain, and swelling, Cardiovascular: Negative for chest pain, palpitations, and edema, Respiratory: Negative for shortness of breath, cough, wheezing, and pleuritic chest pain, Abdomen/GI: Negative for abdominal pain, nausea, vomiting, diarrhea, and constipation, MS/Extremity: Negative for injury and deformity, Skin: Negative for injury, rash, and discoloration, Neuro: Negative for headache, weakness, numbness, tingling, and seizure, Psych: Negative for depression, anxiety, suicide ideation, homicidal ideation, and hallucinations, Allergy/Immunology: Negative for hives, rash, and allergies, Hematologic/Lymphatic: Negative for swollen nodes, abnormal bleeding, and unusual bruising. Exam: 10:05 Constitutional: This is a well developed, well nourished patient who is awake, alert, sp3 and in no acute distress. Head/Face: Normocephalic, atraumatic. Eyes: Pupils equal round and reactive to light, extra-ocular motions intact. Lids and lashes normal. Conjunctiva and sclera are non-icteric and not injected. Cornea within normal limits. Periorbital areas with no swelling, redness, or edema. ENT: Nares patent. No nasal discharge, no septal abnormalities noted. External auditory canals are clear. Oropharynx with no redness, swelling, or masses, exudates, or evidence of obstruction, uvula midline. Mucous membranes moist. Neck: Trachea midline, no thyromegaly or masses palpated, and no cervical lymphadenopathy. Supple, full range of motion without nuchal rigidity, or vertebral point tenderness. No Meningismus. Chest/axilla: Normal chest wall appearance and motion. Nontender with no deformity. No lesions are appreciated. Cardiovascular: Regular rate and rhythm with a normal S1 and S2. No gallops, murmurs, or rubs. Normal PMI, no JVD. No pulse deficits. Respiratory: Lungs have equal breath sounds bilaterally, clear to auscultation and percussion. No rales, rhonchi or wheezes noted. No increased work of breathing, no retractions or nasal flaring. Abdomen/GI: Soft, non-tender, with normal bowel sounds. No distension or tympany. No guarding or rebound. No evidence of tenderness throughout. Skin: Warm, dry with normal turgor. Normal color with no rashes, no lesions, and no evidence of cellulitis. Psych: Awake, alert, with orientation to person, place and time. Behavior, mood, and affect are within normal limits. 10:05 Back: Patient has pain on his lower back with extension into his left lower leg. 4 out of 5 motor strength on plantar flexion and 5/5 on dorsiflexion. Sensory exam including pin and temperature and proprioception are normal. Reflexes are normal. Right leg has a normal exam. There is no loss of bowel or bladder control. Remainder of neurological exam including mental status is normal. Gait exam deferred at this time.. Vital Signs: 09:53 Resp 18; Temp 98.1; Weight 165.56 kg; Height 6 ft. 0 in. (182.88 cm); Pain 9/10; ll1 10:04 BP 159 / 107; Pulse 79; Resp 20; Pulse Ox 100% ; vg1 11:30 BP 128 / 80; Pulse 66; Resp 19; Pulse Ox 100% ; vg1 12:46 BP 124 / 61; Pulse 60; Resp 20; Temp 98.3(O); Pulse Ox 100% ; jh6 09:53 Body Mass Index 49.50 (165.56 kg, 182.88 cm) ll1 Shashank Coma Score: 10:00 Eye Response: spontaneous(4). Verbal Response: oriented(5). Motor Response: obeys vg1 commands(6). Total: 15. Trauma Score (Adult): 10:00 Eye Response: spontaneous(1); Verbal Response: oriented(1); Motor Response: obeys vg1 commands(2); Systolic BP: > 89 mm Hg(4); Respiratory Rate: 10 to 29 per min(4); [place] Score: 15; Trauma Score: 12 MDM: 09:50 Patient medically screened. sp3 10:06 Data reviewed: vital signs, nurses notes. ED course: 26-year-old male with acute on sp3 chronic low back pain with now radiculopathy in the left lower extremity with objective signs of motor weakness. Will obtain MRI of the lumbosacral spine and administer ketorolac, Dilaudid, and Zofran for IV pain control. Disposition based on work-up and patient course.. 12:27 ED course: Demonstrates no significant disc herniation or spinal compromise. Disc sp3 desiccation is present in L5-S1 and L4-L5. Will have patient follow-up with neurosurgery and discharge patient on Medrol Dosepak and anti-inflammatories.. 12/01 09:57 Order name: MRI Lumbar Spine wo Con; Complete Time: 12:07 sp3 12/01 09:58 Order name: IV Saline Lock; Complete Time: 10:22 sp3 Administered Medications: 10:15 Drug: Zofran (Ondansetron) 4 mg Route: IVP; Site: right antecubital; vg1 12:15 Follow up: Response: No adverse reaction jh6 10:17 Drug: Ketorolac 60 mg Route: IVP; Site: right antecubital; vg1 12:14 Follow up: Response: Pain is decreased jh6 10:19 Drug: Dilaudid (HYDROmorphone) 1 mg Route: IVP; Site: right antecubital; vg1 12:15 Follow up: Response: Pain is decreased jh6 Disposition Summary: 12/01/21 12:28 Discharge Ordered Location: Home sp3 Condition: Stable sp3 Diagnosis - Sciatica, left side sp3 Followup: sp3 - With: Private Physician - When: Upon discharge from the Emergency Department - Reason: Continuance of care Followup: sp3 - With: Galo Crespo MD - When: Upon discharge from the Emergency Department - Reason: Recheck today's complaints Discharge Instructions: - Discharge Summary Sheet sp3 - Sciatica sp3 Forms: - Medication Reconciliation Form sp3 - Thank You Letter sp3 - Antibiotic Education sp3 - Prescription Opioid Use sp3 - Work release form jh6 Prescriptions: - Diclofenac Sodium 75 mg Oral Tablet Sustained Release - take 1 tablet by ORAL route 2 times per day; 30 tablet; Refills: 0, Product sp3 Selection Permitted - Medrol (Shawn) 4 mg Oral Tablets, Dose Pack - take 1 tablet by ORAL route as directed - follow package instructions; 1 sp3 packet; Refills: 0, Product Selection Permitted Signatures: Dispatcher [employer] Devi Graves RN RN vg1 Ruthann Huddleston RN RN ll1 Brittaney Reynolds MD MD sp3 Meera Valera RN jh6
--- NOTE | 2021-12-01 12:29 | ER ---
Nurse's Notes [facility] Name: Bolivar aYng Age: 26 yrs Sex: Male : 1995 Arrival Date: 12/01/2021 Time: 09:47 Bed 7 Private MD: Diagnosis: Sciatica, left side Presentation: 12/01 09:53 Chief complaint: Patient states: Back pain for a month, worse for 1 week. Pain radiates ll1 down L leg, L leg gave out his morning and he fell. Coronavirus screen: Vaccine status: Patient reports being unvaccinated. Client denies travel out of the [place] in the last 14 days. At this time, the client does not indicate any symptoms associated with coronavirus-19. Ebola Screen: Patient denies travel to an Ebola-affected area in the 21 days before illness onset. Risk Assessment: Do you want to hurt yourself or someone else? Patient reports no desire to harm self or others. Onset of symptoms was October 31, 2021. 09:53 Method Of Arrival: Wheelchair ll1 09:53 Acuity: GUILLERMO 3 ll1 10:03 Care prior to arrival: None. Mechanism of Injury: Fall down 1 steps. Trauma event vg1 details: Injury occurred in the [facility]. 12:48 Initial Sepsis Screen: Does the patient meet any 2 criteria? No. Patient's initial [facility] sepsis screen is negative. 12:48 Initial Sepsis Screen: Does the patient have a suspected source of infection? No. 6 Patient's initial sepsis screen is negative. Trauma Activation: Physician: ED Physician; Name: Dr Reynolds; Notified At: ; Arrived At: Physician: General Surgeon; Name: ; Notified At: ; Arrived At: Physician: Radiology; Name: ; Notified At: ; Arrived At: Physician: Respiratory; Name: ; Notified At: ; Arrived At: Physician: Lab; Name: ; Notified At: ; Arrived At: Historical: - Allergies: 09:53 No Known Allergies; ll1 - PMHx: 09:53 Hypertension; Sleep Apnea; ll1 - Immunization history:: Client reports having NOT received the Covid vaccine. - Social history:: Smoking status: Patient reports the use of cigarette tobacco products, smokes one-half pack cigarettes per day. - Immunization history: Last tetanus immunization: unknown. Screenin:00 Abuse screen: Denies threats or abuse. Nutritional screening: No deficits noted. vg1 Tuberculosis screening: No symptoms or risk factors identified. 10:00 Fall Risk Fall in past 12 months (25 points). No secondary diagnosis (0 pts). IV access vg1 (20 points). Ambulatory Aid- None/Bed Rest/Nurse Assist (0 pts). Gait- Weak (10 pts.). Mental Status- Oriented to own ability (0 pts). Total [place] Fall Scale indicates High Risk Score (45 or more points). Fall prevention measures have been instituted. Side Rails Up X 2 Placed Close to Nursing Station. Primary Survey: 10:00 NO uncontrolled hemorrhage observed. A: The patient is alert. Breathing/Chest: vg1 Respiratory pattern: regular, Respiratory effort: spontaneous, Breath sounds: clear, bilaterally. Chest inspection: symmetrical rise and fall of the chest. Circulation: Skin color: pink. Disability Alert. Exposure/Environment: A warming method has been applied: A warm blanket has been provided to the patient. 10:10 Reassessment Airway Airway Patent Breathing/Chest Respiratory pattern Regular vg1 Respiratory effort Spontaneous Breath sounds Clear Chest inspection Symmetrical Circulation Color [place] Disability Alert. Secondary Survey: 10:00 HEENT: No deficits noted. Gastrointestinal: Abdomen is obese. : No signs and/or vg1 symptoms were reported regarding the genitourinary system. Musculoskeletal: Circulation, motion, and sensation intact. Denies numbness in, left leg. Assessment: 10:00 General: Appears in no apparent distress. uncomfortable, Behavior is calm, cooperative. vg1 Pain: Complains of pain in lower back and left leg Pain currently is 9 out of 10 on a pain scale. Pain began about a month ago. Neuro: Level of Consciousness is awake, alert, obeys commands, Oriented to person, place, time, situation, Reports headache Denies dizziness, paresthesias numbness. EENT: No signs and/or symptoms were reported regarding the EENT system. Cardiovascular: Patient's skin is warm and dry. Respiratory: Airway is patent Respiratory effort is even, unlabored. GI: Patient currently denies nausea, vomiting. : No signs and/or symptoms were reported regarding the genitourinary system. Derm: Skin is intact, is healthy with good turgor. Musculoskeletal: Circulation, motion, and sensation intact. Denies numbness in, left leg. 11:30 Reassessment: Patient appears in no apparent distress at this time. Patient and/or vg1 family updated on plan of care and expected duration. Pain level reassessed. Patient is alert, oriented x 3, equal unlabored respirations, skin warm/dry/pink. Rates pain 5/10 Patient states feeling better. Vital Signs: 09:53 Resp 18; Temp 98.1; Weight 165.56 kg; Height 6 ft. 0 in. (182.88 cm); Pain 9/10; ll1 10:04 BP 159 / 107; Pulse 79; Resp 20; Pulse Ox 100% ; vg1 11:30 BP 128 / 80; Pulse 66; Resp 19; Pulse Ox 100% ; vg1 12:46 BP 124 / 61; Pulse 60; Resp 20; Temp 98.3(O); Pulse Ox 100% ; jh6 09:53 Body Mass Index 49.50 (165.56 kg, 182.88 cm) ll1 Shashank Coma Score: 10:00 Eye Response: spontaneous(4). Verbal Response: oriented(5). Motor Response: obeys vg1 commands(6). Total: 15. Trauma Score (Adult): 10:00 Eye Response: spontaneous(1); Verbal Response: oriented(1); Motor Response: obeys vg1 commands(2); Systolic BP: > 89 mm Hg(4); Respiratory Rate: 10 to 29 per min(4); Shashank Score: 15; Trauma Score: 12 ED Course: 09:47 Patient arrived in ED. mr 09:49 Brittaney Reynolds MD is Attending Physician. sp3 09:53 Arm band placed on Patient placed in an exam room, on a stretcher. ll1 09:54 Triage completed. ll1 09:55 Devi Colmenares, RN is Primary Nurse. vg1 10:00 Patient has correct armband on for positive identification. Bed in low position. Call vg1 light in reach. Side rails up X 1. Adult w/ patient. 10:00 Patient maintains SpO2 saturation greater than 95% on room air. vg1 10:03 Thermoregulation: warm blanket given to patient. vg1 10:12 Inserted saline lock: 20 gauge in right antecubital area, using aseptic technique. vg1 10:46 MRI Lumbar Spine wo Con In Process Unspecified. EDMS 12:28 Galo Crespo MD is Referral Physician. sp3 12:45 IV discontinued, intact, bleeding controlled, No redness/swelling at site. Pressure jh6 dressing applied. 12:47 No provider procedures requiring assistance completed. jh6 12:49 IV discontinued, intact, bleeding controlled, No redness/swelling at site. Pressure jh6 dressing applied. Administered Medications: 10:15 Drug: Zofran (Ondansetron) 4 mg Route: IVP; Site: right antecubital; vg1 12:15 Follow up: Response: No adverse reaction jh6 10:17 Drug: Ketorolac 60 mg Route: IVP; Site: right antecubital; vg1 12:14 Follow up: Response: Pain is decreased jh6 10:19 Drug: Dilaudid (HYDROmorphone) 1 mg Route: IVP; Site: right antecubital; vg1 12:15 Follow up: Response: Pain is decreased jh6 Output: 12:46 Urine: 700ml (Voided); Total: 700ml. jh6 Outcome: 12:28 Discharge ordered by . sp3 12:47 Discharged to home ambulatory. jh6 12:47 Condition: good 12:47 Discharge instructions given to patient, family, Instructed on discharge instructions, Demonstrated understanding of instructions, Prescriptions given X 2. 12:49 Patient's length of stay was not longer than 2 hours. jh6 12:50 Patient left the ED. 6 Signatures: Dispatcher [employer] [facility] Brenda KeysDevi RN RN vg1 Ruthann Huddleston RN RN ll1 Brittaney Reynolds MD MD sp3 Meera Valera RN RN jh6
[2021-12-01 13:03] VITALS: O2SAT 100
[2021-12-01 13:07] VITALS: BP 124/61; TEMP 98.3
== END 2021-12-01 12:50 | disposition home or self-care (01) ==
LOC: ER 09:44
DX: M54.32 Sciatica, left side (principal); I10 Essential (primary) hypertension; F17.210 Nicotine dependence, cigarettes, uncomplicated; W19.XXXA Unspecified fall, initial encounter
CPT/HCPCS: 72148; 96374; 96375; 99284; J1170; J2405

== ENCOUNTER 2022-01-19 06:12 | Emergency (ER) | payer OTHER, SELFPAY ==
--- OUTSIDE RECORDS SUMMARY | 2022-01-19 06:15 | XMS REPORT | Continuity of Care Document ---
:1995 Author Organization [facility] t Address [address] [place] [address] Care Team Providers Name Role Phone Mcnamara Primary Care Physician Jacquelyn Woodson DO Attending Clinician Doctor Unassigned, Name Attending Clinician Unavailable Guzman MONDRAGON, K.H. Attending Clinician AVEL STEELE Attending Clinician Unavailable Payers Payer Name Policy Type Policy Number Effective Date Expiration Date S [employer] [id number] 2019 NON-CONTRACT 00:00:00 GENERIC Problems This patient has no known problems. Allergies, Adverse Reactions, Alerts Allergy Allergy Status Severity Reaction(s) Onset Inactive Treating Comm ents Source Name Type Date Date Clinician NO KNOWN Drug Active Univers ALLERGIE Class ity of S [facility] Social History Social Habit Start Date Stop Date Quantity Comments Source Sex Assigned At [facility] Medications This patient has no known medications. Procedures This patient has no known procedures. Plan of Care Planned Activity Planned Date Details Comments Source Future Scheduled 2020-07-08 INFLUENZA VACCINE [facility] - Test 00:00:00 (#1) [code = [facility] INFLUENZA VACCINE (#1)] Future Scheduled 2013 Lipid panel [facility] s - Test 00:00:00 (procedure) [code = [facility] [id number]] Encounters Start End Encounter Admission Attending Care Care Encounter Source Date/Time Date/Time Type Type Clinicians Facility Department ID 2021-09-04 Emergency [facility] [id number] Univers 16:13:46 ity [facility] 2020-07-14 2020-07-15 Emergency Chint[place], [facility] [id number] 21:40:00 00:54:00 Archana Barajas [id number] [place] [id number] [place] [id number] 2020-07-14 2020-07-14 Orders Doctor BARBIE [id number] 00:00:00 00:00:00 Only Unassigned, [place] [id number] [place] [facility] [id number] 2019-06-21 2019-07-17 Office [place], [facility] [id number] 09:25:01 12:38:55 Visit Heaven Barajas [id number] [place] [id number] Profess [id number] [facility] [address] Results Test Description Test Time [...] 0-100 (test code = 700) BASIC METABOLIC [id number] 15:17:00 Test Item Value Reference Range Interpretation [...] m DATA TO CALCULA TE ESTIMATED GFR. [id number] 15:14:00 Test Item Value Reference Range Interpretation Comments MAGNESIUM (BEAKER) (test code = 2.0 mg/dL 1.6-2.6 627) CBC W/PLT COUNT & AUTO [id number] 14:53:00 Test Item Value Reference Range Interpretation [...] = 2801) RAD, CHEST, 1 VIEW, NON [id number] 14:32:00Reason for exam:->CPFINAL REPORT RAD, CHEST, 1 VIEW, NON DEPT CLINICAL INDICATION: CP COMPARISON:None TECHNIQUE: AP view of the chest FINDINGS: Lung volumes are low. No focal consolidation. No pleural effusion or pneumothorax. Cardiomediastinal silhouette, kendrick, and pulmonary vasculature are normal. No acute osseous abnormality. IMPRESSION:No acute cardiopulmonary abnormality. Signed: Dina Packer MDReport Verified Date/Time: 06/15/2019 14:32:22 Reading Location: [facility] B1 [id number] Consult Reading Room
[2022-01-19] MEDS ORDERED: MORPHINE 4 MG/ML SYR ONE ×2 (07:15→09:38)
[2022-01-19] MEDS ORDERED: NA CHLORIDE 0.9% 1,000 ML ONE (07:16)
[2022-01-19] MEDS ORDERED: ONDANSETRON 4 MG/2 ML VIAL ONE (07:16)
[2022-01-19 07:37] LABS: Urine Blood Negative (Negative); Urine Glucose Negative (Negative); Urine Protein Negative (Negative); Urine Specific Gravity 1.025 (1.005-1.030)
[2022-01-19 07:38] LABS: Absolute Lymphocytes (CBC) 2.5 K/uL (0.7-4.9); Hematocrit 39.8 % (39.6-49.0); Lymphocytes % 28.6 % (15.3-44.8); MPV 9.8 fL (7.6-11.3); RBC Red Blood Cell Count 4.71 M/uL (4.33-5.43)
[2022-01-19 08:58] LABS: ALT/SGPT 34 U/L (12-78); AST/SGOT 20 U/L (15-37); Albumin 3.4 g/dL (3.4-5.0); Alkaline Phosphatase 98 U/L (45-117); BUN Blood Urea Nitrogen 11 mg/dL (7-18); Bicarbonate 27 mmol/L (21-32); Bilirubin Total 0.4 mg/dL (0.2-1.0); Glucose Level 104 mg/dL (74-106); Lipase 78 U/L (73-393); Potassium 3.9 mmol/L (3.5-5.1); Sodium Level 140 mmol/L (136-145)
[2022-01-19 09:17] LABS: Bilirubin Direct < 0.1 mg/dL (0-0.2)
[2022-01-19 09:18] LABS: Blood Morphology Comment NOT SEEN (NOT SEEN); Platelet Estimate ADEQ; White Blood Cell Scan OK (OK)
--- NOTE | 2022-01-19 10:09 | RAD REPORT ---
EXAM DESCRIPTION: CT - Abdomen Pelvis W Contrast - 01/19/2022 9:34 am CLINICAL HISTORY: Abdominal pain COMPARISON: none. TECHNIQUE: Computed axial tomography of the abdomen pelvis was obtained. 100 cc Isovue-300 was admin istered intravenously. Oral contrast was not requested which limits evaluation of bowel. All CT scans are performed using dose optimization technique as appropriate and may include automated exposure control or mA/KV adjustment according to patient size. FINDINGS: The liver, spleen, pancreas, adrenal and kidneys appear unremarkable. There is no evidence of diverticulitis. Normal appendix Cardiomegaly Small left inguinal hernia contains fat. Small umbilical hernia IMPRESSION: Cardiomegaly No acute abnormality involving the abdomen.
--- NOTE | 2022-01-19 10:29 | ER ---
Nurse's Notes [facility] Name: Bolivar Yang Age: 26 yrs Sex: Male : 1995 Arrival Date: 01/19/2022 Time: 06:25 Bed 7 Private MD: Diagnosis: Abdominal pain, unspecified Presentation: 01/19 06:39 Chief complaint: Spouse and/or significant other states: LUQ pain, nausea, dizziness. as6 Coronavirus screen: At this time, the client does not indicate any symptoms associated with coronavirus-19. Ebola Screen: No symptoms or risks identified at this time. Initial Sepsis Screen: Does the patient meet any 2 criteria? No. Patient's initial sepsis screen is negative. Does the patient have a suspected source of infection? No. Patient's initial sepsis screen is negative. Risk Assessment: Do you want to hurt yourself or someone else? Patient reports no desire to harm self or others. Onset of symptoms was January 18, 2022. 06:39 Method Of Arrival: Ambulatory as6 06:39 Acuity: GUILLERMO 3 as6 Triage Assessment: 06:44 General: Appears uncomfortable, Behavior is calm, cooperative. Pain: Complains of pain as6 in left upper quadrant. GI: Reports upper abdominal pain, nausea. Historical: - Allergies: 06:43 No Known Allergies; as6 - Home Meds: 06:43 None [Active]; as6 - PMHx: 06:43 Hypertension; as6 - PSHx: 06:43 None; as6 - Immunization history:: Client reports having NOT received the Covid vaccine. - Social history:: Smoking status: Patient reports the use of cigarette tobacco products, smokes 0.25 packs per day. Screenin:31 Abuse screen: Denies threats or abuse. Nutritional screening: No deficits noted. vg1 Tuberculosis screening: No symptoms or risk factors identified. Fall Risk No fall in past 12 months (0 pts). No secondary diagnosis (0 pts). IV access (20 points). Ambulatory Aid- None/Bed Rest/Nurse Assist (0 pts). Gait- Normal/Bed Rest/Wheelchair (0 pts) Mental Status- Oriented to own ability (0 pts). Total Arriaza Fall Scale indicates No Risk (0-24 pts). Assessment: 07:15 General: Appears in no apparent distress. uncomfortable, Behavior is calm, cooperative. vg1 Pain: Complains of pain in abdomen and left upper quadrant Pain currently is 8 out of 10 on a pain scale. Pain began 1 day ago. Neuro: Level of Consciousness is awake, alert, obeys commands, Oriented to person, place, time, situation. Cardiovascular: Patient's skin is warm and dry. Respiratory: Airway is patent Respiratory effort is even, unlabored. GI: Abdomen is flat, obese, Bowel sounds present X 4 quads. Abdomen is tender to palpation in left upper quadrant. : No signs and/or symptoms were reported regarding the genitourinary system. EENT: No signs and/or symptoms were reported regarding the EENT system. Derm: Skin is intact, is healthy with good turgor. Musculoskeletal: Circulation, motion, and sensation intact. 08:36 Reassessment: Patient appears in no apparent distress at this time. No changes from vg1 previously documented assessment. Patient and/or family updated on plan of care and expected duration. Pain level reassessed. Patient is alert, oriented x 3, equal unlabored respirations, skin warm/dry/pink. 09:35 Reassessment: Patient appears in no apparent distress at this time. No changes from ww previously documented assessment. Patient states symptoms have not improved. complaining of abdominal pain, Bud WLILARD notified. New order for Morphine IVP. Patient is in CT scan at this time.. Vital Signs: 06:39 BP 148 / 85; Pulse 61; Resp 18 S; Temp 99.0(TE); Pulse Ox 100% on R/A; Weight 165.56 kg as6 (R); Height 6 ft. 0 in. (182.88 cm) (R); Pain 8/10; 07:31 BP 159 / 90; Pulse 60; Resp 16; Pulse Ox 100% ; vg1 08:37 BP 145 / 76; Pulse 59; Resp 17; Pulse Ox 100% ; vg1 09:30 BP 147 / 77; Pulse 58; Resp 17; Pulse Ox 99% ; vg1 10:30 BP 127 / 80; Pulse 62; Resp 16; Pulse Ox 100% ; vg1 06:39 Body Mass Index 49.50 (165.56 kg, 182.88 cm) as6 ED Course: 06:25 Patient arrived in ED. es 06:43 Triage completed. as6 06:45 Arm band placed on. as6 06:55 [facility] pm1 06:55 Rip Mejia MD is Attending Physician. pm1 07:22 Basic Metabolic Panel Sent. ww 07:22 CBC with Diff Sent. ww 07:22 Hepatic Function Sent. ww 07:22 Lipase Sent. ww 07:22 Inserted saline lock: 20 gauge in left antecubital area, using aseptic technique. Blood ww collected. 07:27 Devi Colmenares, RN is Primary Nurse. vg1 07:31 Patient has correct armband on for positive identification. Bed in low position. Call vg1 light in reach. Side rails up X 1. Adult w/ patient. 07:31 No provider procedures requiring assistance completed. vg1 07:38 IV discontinued, intact, bleeding controlled, No redness/swelling at site. Pressure vg1 dressing applied. 07:41 Inserted saline lock: 20 gauge in right antecubital area, using aseptic technique. vg1 08:15 Lab(s) recollected, by me, sent to lab. vg1 09:34 CT Abd/Pelvis - IV Contrast Only In Process Unspecified. EDMS Administered Medications: 07:20 Drug: NS 0.9% 1000 ml Route: IV; Rate: 1000 ml; Site: left antecubital; vg1 08:36 Follow up: IV Status: Completed infusion; IV Intake: 1000ml vg1 07:22 Drug: Zofran (Ondansetron) 4 mg Route: IVP; Site: left antecubital; vg1 08:37 Follow up: Response: No adverse reaction vg1 07:25 Drug: morphine 4 mg Route: IVP; Site: left antecubital; vg1 08:37 Follow up: Response: No adverse reaction; Pain is unchanged, physician notified vg1 09:42 Drug: morphine 4 mg Route: IVP; Site: right antecubital; ww 10:54 Follow up: Response: No adverse reaction; No change in condition vg1 10:54 Drug: GI Cocktail without - (Maalox Suspension 30 ml, Lidocaine Liquid 2 % 15 vg1 ml) Route: PO; 10:54 Follow up: Response: Medication administered at discharge. vg1 Intake: 08:36 IV: 1000ml; Total: 1000ml. vg1 Outcome: 10:28 Discharge ordered by . pm1 10:55 Discharged to home ambulatory, with family. vg1 10:55 Condition: good 10:55 Discharge instructions given to patient, family, Instructed on discharge instructions, follow up and referral plans. medication usage, Demonstrated understanding of instructions, follow-up care, medications, Prescriptions given X 2. 10:55 Patient left the ED. vg1 Signatures: Dispatcher [employer] EDJaneth Yates Patrick, NP SCADA ENGINEER pm1 Devi Colmenares RN RN vg1 Dov Cabral RN RN as6 Saritha Loja RN RN ww Corrections: (The following items were deleted from the chart) 06:44 06:43 PMHx: Sleep Apnea; as6 as6
--- NOTE | 2022-01-19 10:29 | EDPHYS ---
Physician Documentation [facility] Name: Bolivar Yang Age: 26 yrs Sex: Male : 1995 Arrival Date: 01/19/2022 Time: 06:25 Bed 7 Private MD: ED Physician Rip Mejia HPI: 01/19 07:49 This 26 yrs old Male presents to ER via Ambulatory with complaints of pm1 Abdominal Pain. 07:49 The patient presents with abdominal pain in the left upper quadrant. Onset: The pm1 symptoms/episode began/occurred today. The symptoms do not radiate. Associated signs and symptoms: Pertinent positives: nausea, Low back pain, Pertinent negatives: chest pain, constipation, diarrhea, dysuria, fever, shortness of breath. The symptoms are described as sharp. Modifying factors: The symptoms are alleviated by nothing, the symptoms are aggravated by nothing. Severity of pain: in the emergency department the pain is unchanged. The patient has not experienced similar symptoms in the past. The patient has not recently seen a physician. Historical: - Allergies: 06:43 No Known Allergies; as6 - Home Meds: 06:43 None [Active]; as6 - PMHx: 06:43 Hypertension; as6 - PSHx: 06:43 None; as6 - Immunization history:: Client reports having NOT received the Covid vaccine. - Social history:: Smoking status: Patient reports the use of cigarette tobacco products, smokes 0.25 packs per day. ROS: 07:49 Constitutional: Negative for fever, chills, and weight loss, Cardiovascular: Negative pm1 for chest pain, palpitations, and edema, Respiratory: Negative for shortness of breath, cough, wheezing, and pleuritic chest pain. 07:49 : Negative for injury, bleeding, discharge, and swelling, MS/Extremity: Negative for injury and deformity, Skin: Negative for injury, rash, and discoloration, Neuro: Negative for headache, weakness, numbness, tingling, and seizure. 07:49 Abdomen/GI: Positive for abdominal pain, of the left upper quadrant, Negative for nausea, vomiting, and diarrhea. 07:49 Back: Positive for of the low back area. 07:49 All other systems are negative. Exam: 07:49 Constitutional: This is a well developed, well nourished patient who is awake, alert, pm1 and in no acute distress. Head/Face: Normocephalic, atraumatic. 07:49 Skin: Warm, dry with normal turgor. Normal color with no rashes, no lesions, and no evidence of cellulitis. MS/ Extremity: Pulses equal, no cyanosis. Neurovascular intact. Full, normal range of motion. 07:49 Eyes: Exam is negative for acute changes, Pupils: no acute changes, Extraocular movements: no acute changes, Conjunctiva: no acute changes, no injection. 07:49 Cardiovascular: Exam negative for acute changes, Rate: normal, Rhythm: regular, Pulses: no pulse deficits are appreciated, Heart sounds: normal. 07:49 Respiratory: Exam negative for acute changes, respiratory distress, shortness of breath, Breath sounds: are clear throughout. 07:49 Abdomen/GI: Inspection: obese Palpation: soft, in all quadrants, mild abdominal tenderness, in the left upper quadrant. 07:49 Back: pain, that is mild, of the left low back and right low back. 07:49 Neuro: Exam negative for acute changes, Orientation: is normal, Mentation: is normal, Motor: is normal, moves all fours. Vital Signs: 06:39 BP 148 / 85; Pulse 61; Resp 18 S; Temp 99.0(TE); Pulse Ox 100% on R/A; Weight 165.56 kg as6 (R); Height 6 ft. 0 in. (182.88 cm) (R); Pain 8/10; 07:31 BP 159 / 90; Pulse 60; Resp 16; Pulse Ox 100% ; vg1 08:37 BP 145 / 76; Pulse 59; Resp 17; Pulse Ox 100% ; vg1 09:30 BP 147 / 77; Pulse 58; Resp 17; Pulse Ox 99% ; vg1 10:30 BP 127 / 80; Pulse 62; Resp 16; Pulse Ox 100% ; vg1 06:39 Body Mass Index 49.50 (165.56 kg, 182.88 cm) as6 MDM: 07:03 Patient medically screened. pm1 10:27 Data reviewed: vital signs. Data interpreted: Pulse oximetry: on room air is 100 %. pm1 Interpretation: normal. Counseling: I had a detailed discussion with the patient and/or guardian regarding: the historical points, exam findings, and any diagnostic results supporting the discharge/admit diagnosis, lab results, radiology results, the need for outpatient follow up, to return to the emergency department if symptoms worsen or persist or if there are any questions or concerns that arise at home. 10:45 ED course: Patient reports symptoms similar to reflux that he experiences at night. pm1 Will try GI cocktail for the patient and prescribe prescription medication. 01/19 07:06 Order name: Basic Metabolic Panel pm1 01/19 07:06 Order name: CBC with Diff pm01/19 07:06 Order name: Hepatic Function pm01/19 07:06 Order name: Lipase pm1 01/19 07:07 Order name: Basic Metabolic Panel; Complete Time: 09:34 EDMS 01/19 07:07 Order name: CBC with Automated Diff; Complete Time: 09:34 EDMS 01/19 07:06 Order name: CT Abd/Pelvis - IV Contrast Only; Complete Time: 10:22 pm1 01/19 07:07 Order name: Liver (Hepatic) Function; Complete Time: 09:34 EDMS 01/19 07:07 Order name: Lipase; Complete Time: 09:34 EDMS 01/19 07:36 Order name: Urine Dipstick-Ancillary; Complete Time: 07:38 EDMS 01/19 09:18 Order name: CBC Smear Scan; Complete Time: 09:34 EDMS 01/19 07:06 Order name: IV Saline Lock; Complete Time: 07:22 pm1 01/19 07:06 Order name: Labs collected and sent; Complete Time: 07:22 pm1 01/19 07:06 Order name: Urine Dipstick-Ancillary (obtain specimen); Complete Time: 07:33 pm1 01/19 08:02 Order name: Labs - recollect needed: recollect green top; Complete Time: 08:14 bd Administered Medications: 07:20 Drug: NS 0.9% 1000 ml Route: IV; Rate: 1000 ml; Site: left antecubital; vg1 08:36 Follow up: IV Status: Completed infusion; IV Intake: 1000ml vg1 07:22 Drug: Zofran (Ondansetron) 4 mg Route: IVP; Site: left antecubital; vg1 08:37 Follow up: Response: No adverse reaction vg1 07:25 Drug: morphine 4 mg Route: IVP; Site: left antecubital; vg1 08:37 Follow up: Response: No adverse reaction; Pain is unchanged, physician notified vg1 09:42 Drug: morphine 4 mg Route: IVP; Site: right antecubital; ww 10:54 Follow up: Response: No adverse reaction; No change in condition vg1 10:54 Drug: GI Cocktail without - (Maalox Suspension 30 ml, Lidocaine Liquid 2 % 15 vg1 ml) Route: PO; 10:54 Follow up: Response: Medication administered at discharge. vg1 Disposition: 01/20 01:07 Co-signature as Attending Physician, Rip Mejia MD. 7 Disposition Summary: 01/19/22 10:28 Discharge Ordered Location: Home pm1 Problem: new pm1 Symptoms: have improved pm1 Condition: Stable pm1 Diagnosis - Abdominal pain, unspecified pm1 Followup: pm1 - With: Emergency Department - When: As needed - Reason: Worsening of condition Followup: pm1 - With: Private Physician - When: 2 - 3 days - Reason: Recheck today's complaints, Continuance of care, Re-evaluation by your physician Discharge Instructions: - Discharge Summary Sheet pm1 - Abdominal Pain, Adult pm1 Forms: - Medication Reconciliation Form pm1 - Thank You Letter pm1 - Antibiotic Education pm1 - Prescription Opioid Use pm1 - Work release form pm1 Prescriptions: - dicyclomine 20 mg Oral Tablet - take 1 tablet by ORAL route every 6 hours As needed; 20 tablet; Refills: 0, pm1 Product Selection Permitted - Pepcid 20 mg Oral Tablet - take 1 tablet by ORAL route every 12 hours for 10 days; 20 tablet; Refills: 0, pm1 Product Selection Permitted Signatures: Dispatcher [employer] EDAshwini Mata Patrick, NP TRAUMA MANAGER pm1 Devi Colmenares RN RN vg1 Rip Mejia MD MD 7 Dov Cabral RN RN as6 Saritha Loja RN RN ww Corrections: (The following items were deleted from the chart) 01/19 06:44 06:43 PMHx: Sleep Apnea; as6 as6
[2022-01-19] MEDS ORDERED: MAGNES/ALUMIN/SIMET 30ML UCUP ONE (10:53)
[2022-01-19] MEDS ORDERED: LIDOCAINE VISCOUS 2% SOLN 15 ML UDC ONE (10:53)
[2022-01-19 11:12] VITALS: TEMP 99
[2022-01-19 11:17] VITALS: BP 127/80; O2SAT 100
== END 2022-01-19 10:55 | disposition home or self-care (01) ==
LOC: ER 06:12
DX: R10.12 Left upper quadrant pain (principal); R11.0 Nausea; M54.50 Low back pain, unspecified; F17.210 Nicotine dependence, cigarettes, uncomplicated; I10 Essential (primary) hypertension
CPT/HCPCS: 36415; 74177; 80048; 80076; 81003; 83690; 85025; 99284; J2405; J7030; Q9967

== ENCOUNTER 2022-05-04 18:41 | Emergency (ER) | payer SELFPAY ==
--- OUTSIDE RECORDS SUMMARY | 2022-05-04 18:44 | XMS REPORT | Continuity of Care Document ---
:1995 Author Organization [facility] t Address [address] [place] [address] Care Team Providers Name Role Phone Mcnamara Primary Care Physician FRANCISCA PETERSON Attending Clinician Unavailable Francisca Rosa Attending Clinician Doctor Unassigned, Name Attending Clinician Unavailable Jacquelyn Woodson DO Attending Clinician Guzman MONDRAGON, K.H. Attending Clinician AVEL STEELE Attending Clinician Unavailable FRANCISCA PETERSON Admitting Clinician Unavailable Payers Payer Name Policy Type Policy Number Effective Date Expiration Date S delphinece COMMERCIAL [id number] 2019 NON-CONTRACT 00:00:00 GENERIC MEDICAID [place] PENDING 2022 PENDING 00:00:00 Problems Condition Condition Condition Status Onset Resolution Last Treating Co mments Source Name Details Category Date Date Treatment Clinician Date No known No known Disease Unive rs active active ity of problems problems [facility] Allergies, Adverse Reactions, Alerts Allergy Allergy Status Severity Reaction(s) Onset Inactive Treating Comm ents Source Name Type Date Date Clinician NO KNOWN Drug Active [facility] ALLERGIE Class ity of S [facility] Social History Social Habit Start Date Stop Date Quantity Comments Source Tobacco use and 2019-06-21 2019-06-21 Never used [employer] [facility] exposure 00:00:00 00:00:00 Medical Branch Sex Assigned At [birth year] [facility] [place] 00:00:00 00:00:00 Medical Branch Smoking Status Start Date Stop Date Source [place] smoker [facility] [place] [facility] Medications Ordered Filled Start Stop Current Ordering Indication Dosage Frequency Signature Comments Components Source Medication Medication Date Date Medication? Clinician (SIG) Name Name HYDROcodone No 1{tbl} 1 tablet, Univers -acetaminop 02-17 Oral, ity of [place] (NORCO) 20:15: 19:34 [place]CE, [place] 10-325 mg 00 :00 dose, On Medica l tablet 1 Wed Branch tablet 02/17/22 at 1515, Routine ketorolac 30mg 30 mg, Unive rs (TORADOL) 02-17 Intramuscu ity of injection 20:15: 19:34 lar, ONCE, [place] 30 mg 00 :00 1 dose, On Medical Wed Branch 02/17/22 at 1515, GURPREET
Fa culty member approving Restricted medication : Flor PETERSON ibuprofen Yes [id number] 600mg Take 1 U nivers 600 mg 4-13 tablet by ity of tablet 00:00: mouth [place] 00 every 6 Medical (six) Branch hours. carvedilol Yes [id number] 6.25mg Take 1 Univers (COREG) 8-15 tablet by ity of 6.25 mg 00:00: mouth 2 [place] tablet 00 (two) Medical times Branch daily with meals. carvedilol Yes [id number] 6.25mg Take 1 Univers (COREG) 8-15 tablet by ity of 6.25 mg 00:00: mouth 2 [place] tablet 00 (two) Medical times Branch daily with meals. Vital Signs Vital Name Observation Time Observation Value Comments Source Systolic blood 2022-02-17 16:59:00 147 mm[Hg] Univer sity of pressure [facility] Diastolic blood 2022-02-17 16:59:00 84 mm[Hg] Unive rsity of pressure [facility] Heart rate 2022-02-17 16:59:00 75 /min [facility] Body temperature 2022-02-17 16:59:00 36.67 Brooklynn [facility] [place] [facility] Res[facility] rate 2022-02-17 16:59:00 18 /min [facility] Body weight 2022-02-17 16:59:[address] [facility] BMI 2022-02-17 16:59:00 48.82 kg/m2 [facility] Oxygen saturation in 2022-02-17 16:59:00 100 /min [facility] blood by [facility] Pulse oximetry Branch Procedures Procedure Date / Time Performed Performing Clinician Yoel e XR HIPS 2 VW LEFT 2022-02-17 21:00:00 Flor Peterson [facility] CONSENT/REFUSAL FOR 2022-02-17 16:46:56 Doctor Unassigned, No Un [facility] DIAGNOSIS AND Name [facility] TREATMENT Plan of Care Planned Activity Planned Date Details Comments Source Future Scheduled 2020-07-[address] [facility] Test 00:00:00 (#1) [code = [facility] INFLUENZA VACCINE (#1)] Future Scheduled [address] [facility] Test 00:00:00 (procedure) [code = [facility] [id number]] Encounters Start End Encounter Admission Attending Care Care Encounter Source Date/Time Date/Time Type Type Clinicians Facility Department ID 2021-09-04 Emergency [facility] [id number] Univers 16:13:46 ity of [facility] 2022-02-17 2022-02-17 Emergency X Flor PETERSON [facility] ERT [id number] Univers 12:01:00 17:24:00 ity of [facility] 2022-02-17 2022-02-17 Emergency Flor Peterson [facility] [id number] Univers 12:01:00 17:24:00 Francisca BARAJAS [id number] i ty [facility] [place] [id number] [id number] [facility] 084 Branch 2022-02-17 2022-02-17 Orders Doctor VALENTIN [id number] Univers 00:00:00 00:00:00 Only Unassigned, CONSTANZA [id number] ity of [place] [facility] [id number] Adán [id number] [facility] 009 Branch 2020-07-14 2020-07-15 Emergency Chintan, [facility] [id number] 21:40:00 00:54:00 Archana Valladares [place] [id number] [place] [id number] [place] [id number] 2020-07-14 2020-07-14 Orders Doctor BARBIE [id number] 00:00:00 00:00:00 Only Unassigned, CONSTANZA [id number] [place] [facility] [id number] 2019-06-21 2019-07-17 Office Hinds, [facility] [id number] 09:25:01 12:38:55 Visit Heaven Barajas [id number] [place] [id number] [facility] [id number] nal 059 Building Results Test Description Test [...] 0-100 (test code = 700) BASIC METABOLIC [id number] 15:17:00 Test Item Value Reference Range Interpretation [...] m DATA TO CALCULA TE ESTIMATED GFR. [id number] 15:14:00 Test Item Value Reference Range Interpretation Comments MAGNESIUM (BEAKER) (test code = 2.0 mg/dL 1.6-2.6 627) CBC W/PLT COUNT & AUTO [id number] 14:53:00 Test Item Value Reference Range Interpretation [...] = 2801) RAD, CHEST, 1 VIEW, NON [id number] 14:32:00Reason for exam:->CPFINAL REPORT RAD, CHEST, 1 VIEW, NON DEPT CLINICAL INDICATION: CP COMPARISON:None TECHNIQUE: AP view of the chest FINDINGS: Lung volumes are low. No focal consolidation. No pleural effusion or pneumothorax. Cardiomediastinal silhouette, kendrick, and pulmonary vasculature are normal. No acute osseous abnormality. IMPRESSION:No acute cardiopulmonary abnormality. Signed: Swapnil Packer MDRmonalisa Verified Date/Time: 06/15/2019 14:32:22 Reading Location: [facility] [id number] Consult Reading Room
[2022-05-04] MEDS ORDERED: ONDANSETRON 4 MG/2 ML VIAL ONE (19:50)
[2022-05-04] MEDS ORDERED: ACETAMINOPHEN 500 MG TAB ONE (19:50)
[2022-05-04] MEDS ORDERED: NA CHLORIDE 0.9% 1,000 ML ONE (19:50)
--- NOTE | 2022-05-04 21:09 | EDPHYS ---
Physician Documentation [facility] Name: Bolivar Yang Age: 26 yrs Sex: Male : 1995 Arrival Date: 05/04/2022 Time: 18:45 Bed 20 Private MD: ED Physician John Frazier HPI: 05/05 03:43 This 26 yrs old Male presents to ER via Ambulatory with complaints of Runny kdr Nose, Headache. 03:43 Patient states that yesterday, she began feeling sick. She was vomiting. She also kdr complained of headache and a runny nose. She has had COVID previously but she ended feels that this is worse. Onset: The symptoms/episode began/occurred yesterday. Severity of symptoms: At their worst the symptoms were mild moderate just prior to arrival, in the emergency department the symptoms have resolved. The patient has not experienced similar symptoms in the past. Historical: - PMHx: 05/04 19:18 Hypertension; kd3 - Immunization history:: Adult Immunizations up to date. - Social history:: Smoking status: Patient/guardian denies using tobacco. ROS: 05/05 03:43 Constitutional: Negative for fever, chills, and weight loss, Eyes: Negative for injury, kdr pain, redness, and discharge, Neck: Negative for injury, pain, and swelling, Cardiovascular: Negative for chest pain, palpitations, and edema, Respiratory: Negative for shortness of breath, cough, wheezing, and pleuritic chest pain, Back: Negative for injury and pain, : Negative for injury, bleeding, discharge, and swelling, MS/Extremity: Negative for injury and deformity, Skin: Negative for injury, rash, and discoloration, Psych: Negative for depression, anxiety, suicide ideation, homicidal ideation, and hallucinations, Allergy/Immunology: Negative for hives, rash, and allergies, Endocrine: Negative for neck swelling, polydipsia, polyuria, polyphagia, and marked weight changes, Hematologic/Lymphatic: Negative for swollen nodes, abnormal bleeding, and unusual bruising. Abdomen/GI: Negative for nausea. Neuro: Positive for headache. Exam: 03:43 Constitutional: This is a well developed, well nourished patient who is awake, alert, kdr and in no acute distress. Head/Face: Normocephalic, atraumatic. Eyes: Pupils equal round and reactive to light, extra-ocular motions intact. Lids and lashes normal. Conjunctiva and sclera are non-icteric and not injected. Cornea within normal limits. Periorbital areas with no swelling, redness, or edema. Neck: Trachea midline, no thyromegaly or masses palpated, and no cervical lymphadenopathy. Supple, full range of motion without nuchal rigidity, or vertebral point tenderness. No Meningismus. Chest/axilla: Normal chest wall appearance and motion. Nontender with no deformity. No lesions are appreciated. Cardiovascular: Regular rate and rhythm with a normal S1 and S2. No gallops, murmurs, or rubs. Normal PMI, no JVD. No pulse deficits. Respiratory: Lungs have equal breath sounds bilaterally, clear to auscultation and percussion. No rales, rhonchi or wheezes noted. No increased work of breathing, no retractions or nasal flaring. Abdomen/GI: Soft, non-tender, with normal bowel sounds. No distension or tympany. No guarding or rebound. No evidence of tenderness throughout. Back: No spinal tenderness. No costovertebral tenderness. Full range of motion. Skin: Warm, dry with normal turgor. Normal color with no rashes, no lesions, and no evidence of cellulitis. MS/ Extremity: Pulses equal, no cyanosis. Neurovascular intact. Full, normal range of motion. Neuro: Awake and alert, GCS 15, oriented to person, place, time, and situation. Cranial nerves II-XII grossly intact. Motor strength 5/5 in all extremities. Sensory grossly intact. Cerebellar exam normal. Normal gait. Psych: Awake, alert, with orientation to person, place and time. Behavior, mood, and affect are within normal limits. Vital Signs: 05/04 19:16 Temp 100.6(O); Weight 158.76 kg; Height 6 ft. (182.88 cm); kd3 19:39 BP 147 / 128; Pulse 62; Resp 18; Pulse Ox 100% on R/A; sm5 21:20 BP 114 / 60; Pulse 62; Resp 19; Pulse Ox 100% on R/A; sm5 22:24 BP 146 / 89; Pulse 60; Resp 19; Pulse Ox 100% on R/A; sm5 19:16 Body Mass Index 47.47 (158.76 kg, 182.88 cm) kd3 MDM: 21:08 Patient medically screened. kdr 05/05 03:43 Data reviewed: vital signs, nurses notes, lab test result(s), radiologic studies. kdr Counseling: I had a detailed discussion with the patient and/or guardian regarding: the historical points, exam findings, and any diagnostic results supporting the discharge/admit diagnosis, lab results, radiology results. 05/04 19:16 Order name: Flu; Complete Time: 20:46 sm5 05/04 19:18 Order name: Influenza Screen (A ; Complete Time: 20:46 EDMS 05/04 19:22 Order name: COVID-19 SARS RT PCR (Document "Date of Onset" if Symptomatic) kd3 Administered Medications: 05/04 19:49 Drug: NS 0.9% 1000 ml Route: IV; Rate: 1 bolus; Site: right antecubital; sm5 22:25 Follow up: IV Status: Completed infusion; IV Intake: 1000ml [facility] 19:49 Drug: Tylenol 1000 mg Route: PO; sm5 21:11 Follow up: Response: No adverse reaction 5 19:49 Drug: Zofran (Ondansetron) 4 mg Route: IVP; Site: right antecubital; sm5 21:11 Follow up: Response: No adverse reaction 5 21:17 Drug: Bebtelovimab 1 vials Route: IV; Rate: calculated rate; Site: right antecubital; sm5 21:18 Follow up: Response: No adverse reaction; IV Status: Completed infusion; IV Intake: 2ml 5 Disposition Summary: 05/04/22 21:08 Discharge Ordered Location: Home kdr Problem: new kdr Symptoms: have improved kdr Condition: Stable kdr Diagnosis - SARS-associated coronavirus as the cause of diseases classified elsewhere kdr Followup: kdr - With: Private Physician - When: 2 - 3 days - Reason: If symptoms return, Further diagnostic work-up, Recheck today's complaints, Continuance of care, Re-evaluation by your physician Discharge Instructions: - Discharge Summary Sheet kdr - COVID-19 kdr - Things to Know about the COVID-19 Pandemic - [facility] kdr - 10 Things You Can Do to Manage Your COVID-19 Symptoms at Home - [facility] kdr - Viral Illness, Adult kdr - COVID-19: Quarantine vs. Isolation - [facility] kdr - Prevent the Spread of COVID-19 if You Are Sick - [facility] kdr - Form - Excuse from Work, School, or Physical Activity [facility] Forms: - Medication Reconciliation Form kdr - Thank You Letter kdr - Work release form 5 Prescriptions: - Ibuprofen 600 mg Oral Tablet - take 1 tablet by ORAL route every 6 hours As needed take with food; 30 tablet; kdr Refills: 0, Product Selection Permitted Signatures: Dispatcher [employer] John Patton MD MD kdr Doucette, Kyli RN RN kd3 Antonia Kat RN RN sm5
--- NOTE | 2022-05-04 21:09 | ER ---
Nurse's Notes [facility] Name: Bolivar Yang Age: 26 yrs Sex: Male : 1995 Arrival Date: 05/04/2022 Time: 18:45 Bed 20 Private MD: Diagnosis: SARS-associated coronavirus as the cause of diseases classified elsewhere Presentation: 05/04 19:16 Chief complaint: Patient states: I started feeling sick yesterday and started throwing kd3 up. I have a headache and my nose is running. I have had covid before but this almost feels worse. Coronavirus screen: Vaccine status: Patient reports being unvaccinated. Ebola Screen: No symptoms or risks identified at this time. Initial Sepsis Screen: Does the patient meet any 2 criteria? No. Patient's initial sepsis screen is negative. Does the patient have a suspected source of infection? No. Patient's initial sepsis screen is negative. Risk Assessment: Do you want to hurt yourself or someone else? Patient reports no desire to harm self or others. Onset of symptoms was May 03, 2022. 19:16 Method Of Arrival: Ambulatory kd3 19:16 Acuity: GUILLERMO 3 kd3 Triage Assessment: 19:18 Headache History: Denies prior headaches. General: Appears uncomfortable, Behavior is kd3 calm, cooperative. Pain: Pain currently is 7 out of 10 on a pain scale. Pain began gradually. Pain: Also complains of no other associated symptoms. Neuro: Level of Consciousness is awake, alert, obeys commands, Oriented to person, place, time, situation. Historical: - PMHx: 19:18 Hypertension; kd3 - Immunization history:: Adult Immunizations up to date. - Social history:: Smoking status: Patient/guardian denies using tobacco. Screenin:19 Abuse screen: Denies threats or abuse. Denies injuries from another. Nutritional kd3 screening: No deficits noted. Tuberculosis screening: No symptoms or risk factors identified. Fall Risk None identified. Assessment: 19:49 General: Appears in no apparent distress. Behavior is cooperative. Pain: Complains of sm5 pain in head. Neuro: Level of Consciousness is awake, alert, obeys commands, Oriented to person, place, time, situation, Reports headache. Cardiovascular: Capillary refill < 3 seconds Patient's skin is warm and dry. Respiratory: Airway is patent Trachea midline Respiratory effort is even, unlabored. GI: Abdomen is obese, Reports nausea, vomiting, Patient currently denies diarrhea. 21:20 Reassessment: No changes from previously documented assessment. Patient and/or family sm5 updated on plan of care and expected duration. Pain level reassessed. 22:24 Reassessment: No changes from previously documented assessment. Patient and/or family sm5 updated on plan of care and expected duration. Pain level reassessed. Vital Signs: 19:16 Temp 100.6(O); Weight 158.76 kg; Height 6 ft. (182.88 cm); kd3 19:39 BP 147 / 128; Pulse 62; Resp 18; Pulse Ox 100% on R/A; sm5 21:20 BP 114 / 60; Pulse 62; Resp 19; Pulse Ox 100% on R/A; sm5 22:24 BP 146 / 89; Pulse 60; Resp 19; Pulse Ox 100% on R/A; sm5 19:16 Body Mass Index 47.47 (158.76 kg, 182.88 cm) kd3 ED Course: 18:45 Patient arrived in ED. rg4 19:14 Antonia Kat, RN is Primary Nurse. sm5 19:18 Triage completed. kd3 19:18 John Frazier MD is Attending Physician. kdr 19:18 Arm band placed on right wrist. kd3 19:19 Patient has correct armband on for positive identification. kd3 19:25 COVID-19 SARS RT PCR (Document "Date of Onset" if Symptomatic) Sent. sm5 19:38 Inserted saline lock: 20 gauge in right antecubital area, using aseptic technique. sm5 19:50 No provider procedures requiring assistance completed. sm5 19:58 Influenza Screen (A Sent. zm 19:58 Flu Sent. zm 20:13 Notified ED physician of a critical lab result(s). Covid positive. Dr Frazier notified. bb 22:25 IV discontinued, intact, bleeding controlled, No redness/swelling at site. Pressure sm5 dressing applied. Administered Medications: 19:49 Drug: NS 0.9% 1000 ml Route: IV; Rate: 1 bolus; Site: right antecubital; 5 22:25 Follow up: IV Status: Completed infusion; IV Intake: 1000ml sm5 19:49 Drug: Tylenol 1000 mg Route: PO; sm5 21:11 Follow up: Response: No adverse reaction 5 19:49 Drug: Zofran (Ondansetron) 4 mg Route: IVP; Site: right antecubital; 5 21:11 Follow up: Response: No adverse reaction 5 21:17 Drug: Bebtelovimab 1 vials Route: IV; Rate: calculated rate; Site: right antecubital; 5 21:18 Follow up: Response: No adverse reaction; IV Status: Completed infusion; IV Intake: 2ml 5 Medication: 19:50 VIS not applicable for this client. 5 Intake: 21:18 IV: 2ml; Total: 2ml. 5 22:25 IV: 1000ml; Total: 1002ml. 5 Outcome: 21:08 Discharge ordered by . kdr 22:24 Discharged to home ambulatory. 5 22:24 Condition: stable 22:24 Discharge instructions given to patient, Instructed on discharge instructions, follow up and referral plans. medication usage, Demonstrated understanding of instructions, follow-up care, medications, Prescriptions given X 1. 22:25 Patient left the ED. 5 Signatures: John Frazier MD MD kdr Ballard, Brenda RN RN April Remy4 Ophelia Gómez RN RN 3 Antonia Kat RN RN sm5 Lexi Moore
[2022-05-04] MEDS ORDERED: BEBTELOVIMAB 175 MG/2 ML VIAL IV ONE (21:17)
[2022-05-04 23:32] VITALS: TEMP 100.6
[2022-05-04 23:34] VITALS: O2SAT 100
[2022-05-04 23:37] VITALS: BP 146/89
== END 2022-05-04 22:25 | disposition home or self-care (01) ==
LOC: ER 18:41
DX: U07.1 COVID-19 (principal); I10 Essential (primary) hypertension
CPT/HCPCS: 87804; J2405; J7030; U0003

== ENCOUNTER 2022-07-01 17:51 | Emergency (ER) | payer SELFPAY ==
--- OUTSIDE RECORDS SUMMARY | 2022-07-01 17:54 | XMS REPORT | Continuity of Care Document ---
:1995 Author Organization [facility] t Address [address] [place] [address] Care Team Providers Name Role Phone Anders Gali Primary Care Physician Flor PETERSON Attending Clinician Unavailable Flor Rosa Attending Clinician Doctor Unassigned, [place] Attending Clinician Unavailable Archana Woodson DO Attending Clinician Guzman MONDRAGON, Heaven K.HPurvi Attending Clinician JAY STEELE Attending Clinician Unavailable Flor PETERSON Admitting Clinician Unavailable Payers Payer Name Policy Type Policy Number Effective Date Expiration Date S [employer]ix[employer]CIAL [id number] 2019 NON-CONTRACT 00:00:00 GENERIC MEDICAID [place] PENDING 2022 PENDING 00:00:00 Problems Condition Condition Condition Status Onset Resolution Last Treating Co mments Source Name Details Category Date Date Treatment Clinician Date No known No known Disease Unive rs active active ity of problems problems [facility] Allergies, Adverse Reactions, Alerts Allergy Allergy Status Severity Reaction(s) Onset Inactive Treating Comm ents Source Name Type Date Date Clinician NO KNOWN Drug Active Univers ALLERGIE Class ity of S [facility] Social History Social Habit Start Date Stop Date Quantity Comments Source Tobacco use and 2019-06-21 2019-06-21 Never used [facility] [place] exposure 00:00:00 00:00:00 Medical Branch Sex Ass[birth year] At [birth year] DODIE Bowen 00:00:00 [facility]:00:00 [facility] Smoking Status Start Date Stop Date Source Never smoker [facility] Branch Medications Ordered Filled Start Stop Current [...] Restricted medication : Flor PETERSON ibuprofen Yes [id number] 600mg Take 1 U nivers 600 mg 4-13 tablet by ity of tablet 00:00: mouth [place] 00 every 6 Medical (six) Branch hours. carvedilol Yes [id number] 6.25mg Take 1 Univers (COREG) 8-15 tablet by ity of 6.25 mg 00:00: mouth 2 [place] tablet 00 (two) Medical times Branch daily with meals. carvedilol Yes [id number] 6.25mg Take 1 Univers (COREG) 8-15 tablet by ity of 6.25 mg 00:00: mouth 2 [place] tablet 00 (two) Medical times Branch daily with meals. Vital Signs Vital Name Observation Time Observation Value Comments Source Systolic blood 2022-02-17 16:59:00 147 mm[Hg] [facility] Diastolic blood 2022-02-17 16:59:00 84 mm[Hg] [facility] Heart rate 2022-02-17 16:59:00 75 /min Universi [facility] Body temperature 2022-02-17 16:59:00 36.67 Brooklynn [facility] Respiratory rate 2022-02-17 16:59:00 18 /min [facility] Body weight 2022-02-17 16:59:00 163.295 [facility] BMI 2022-02-17 16:59:00 48.82 kg/m2 [facility] Oxygen saturation in 2022-02-17 16:59:00 100 /min [facility] Arterial blood by [facility] Pulse oximetry [place] Procedures Procedure Date / Time Performed Performing Clinician Yoel e XR HIPS 2 VW LEFT 2022-02-17 21:00:00 Flor Peterson [facility] CONSENT/REFUSAL FOR 2022-02-17 16:46:56 Doctor [place], No Un [facility] DIAGNOSIS AND Name [facility] TREATMENT Plan of Care Planned Activity Planned Date Details Comments Source Future Scheduled 2020-07-[address] [facility] Test 00:00:00 (#1) [code = [facility] INFLUENZA VACCINE (#1)] Future Scheduled [address] [facility] Test 00:00:00 (procedure) [code = [facility] 88435964] Encounters Start End Encounter Admission Attending Care Care Encounter Source Date/Time Date/Time Type Type Clinicians Facility Department ID 2021-09-04 Emergency [facility] [id number] Univers 16:13:46 ity of [facility] 2022-02-17 2022-02-17 Emergency X Flor PETERSON [facility] ERT [id number] Univers 12:01:00 17:24:00 ity [facility] 2022-02-17 2022-02-17 Emergency Flor Peterson [facility] [id number] Univers 12:01:00 17:24:00 Praveena BARAJAS [id number] i ty of [place] [id number] [facility] [id number] [facility] 084 Branch 2022-02-17 2022-02-17 Orders Doctor VALENTIN [id number] Univers 00:00:00 00:00:00 Only Unassigned, CONSTANZA [id number] ity of [place] [facility] [id number] [place] [id number] [facility] 009 Branch 2020-07-14 2020-07-15 Emergency Chintan, [facility] [id number] 21:40:00 00:54:00 Archana Barajas [id number] [place] [id number] [place] [id number] 2020-07-14 2020-07-14 Orders Doctor BARBIE [id number] 00:00:00 00:00:00 Only Unassigned, CONSTANZA [id number] [place] [facility] [id number] 2019-06-21 2019-07-17 Office Hinds, [facility] [id number] 09:25:01 12:38:55 Visit Heaven Barajas [id number] [place] [id number] Professio [id number] nal 059 Building Results Test Description Test [...] 0-100 (test code = 700) BASIC METABOLIC [id number] 15:17:00 Test Item Value Reference Range Interpretation [...] m DATA TO CALCULA TE ESTIMATED GFR. [id number] 15:14:00 Test Item Value Reference Range Interpretation Comments MAGNESIUM (BEAKER) (test code = 2.0 mg/dL 1.6-2.6 627) CBC W/PLT COUNT & AUTO [id number] 14:53:00 Test Item Value Reference Range Interpretation [...] = 2801) RAD, CHEST, 1 VIEW, NON [id number] 14:32:00Reason for exam:->CPFINAL REPORT RAD, CHEST, 1 VIEW, NON DEPT CLINICAL INDICATION: CP COMPARISON: None TECHNIQUE: AP view of the chest FINDINGS: Lung volumes are low. No focal consolidation. No pleural effusion or pneumothorax. Cardiomediastinal silhouette, kendrick, and pulmonary vasculature are normal.No acute osseous abnormality. IMPRESSION:No acute cardiopulmonary abnormality. Signed: Swapnil Packer MDReport Verified Date/Time: 06/15/2019 14:32:22 Reading Location: [facility] B1 C013W Consult Reading Room
[2022-07-01] MEDS ORDERED: KETOROLAC 30 MG/ML INJ ONE (18:51)
[2022-07-01] MEDS ORDERED: LIDOCAINE 4% PATCH ONE (18:51)
[2022-07-01] MEDS ORDERED: dexAMETHasone 10 MG/ML VIAL ONE (18:51)
[2022-07-01 19:27] LABS: Urine Blood Negative (Negative); Urine Glucose Negative (Negative); Urine Protein Negative (Negative)
[2022-07-01] MEDS ORDERED: MORPHINE 4 MG/ML SYR ONE ×2 (19:46→20:31)
[2022-07-01] MEDS ORDERED: MORPHINE 2 MG/ML SYR ONE ×2 (19:46→20:31)
--- NOTE | 2022-07-01 20:17 | RAD REPORT ---
EXAM DESCRIPTION: RAD - Lumbar Spine 3 Views - 07/01/2022 8:11 pm CLINICAL HISTORY: Back pain FINDINGS: No fracture or dislocation seen. Mild spondylosis involves lumbar spine.
--- NOTE | 2022-07-01 20:26 | ER ---
Nurse's Notes [facility] Name: Bolivar Yang Age: 26 yrs Sex: Male : 1995 Arrival Date: 07/01/2022 Time: 17:52 Bed 10 Private MD: Diagnosis: Low back pain Presentation: 07/01 18:00 Chief complaint: Patient states: "I was kneeling down 2 days ago and when I went to get aa5 up my low back started hurting and today the pain is worse". Coronavirus screen: At this time, the client does not indicate any symptoms associated with coronavirus-19. Ebola Screen: No symptoms or risks identified at this time. Initial Sepsis Screen: Does the patient meet any 2 criteria? No. Patient's initial sepsis screen is negative. Does the patient have a suspected source of infection? No. Patient's initial sepsis screen is negative. Risk Assessment: Do you want to hurt yourself or someone else? Patient reports no desire to harm self or others. Onset of symptoms was June 2022. 18:00 Acuity: GUILLERMO 3 aa5 18:00 Method Of Arrival: Ambulatory aa5 Historical: - Allergies: 18:01 No Known Allergies; aa5 - PMHx: 18:01 Hypertension; Sleep apnea; aa5 - PSHx: 18:01 None; aa5 - Immunization history:: Adult Immunizations unknown. - Social history:: Smoking status: Patient denies any tobacco usage or history of. Screenin:47 Abuse screen: Denies threats or abuse. Nutritional screening: No deficits noted. bm7 Tuberculosis screening: No symptoms or risk factors identified. Fall Risk None identified. Assessment: 18:47 Reassessment: Patient and/or family updated on plan of care and expected duration. Pain bm7 level reassessed. Patient is alert, oriented x 3, equal unlabored respirations, skin warm/dry/pink. 19:44 General: Appears in no apparent distress. uncomfortable, obese, well groomed, well bm7 developed, Behavior is calm, cooperative, appropriate for age. Pain: Complains of pain in left low back and right low back Pain does not radiate. Pain currently is 8 out of 10 on a pain scale. Neuro: No deficits noted. Cardiovascular: No deficits noted. Respiratory: No deficits noted. GI: No deficits noted. No signs and/or symptoms were reported involving the gastrointestinal system. : No deficits noted. No signs and/or symptoms were reported regarding the genitourinary system. EENT: No deficits noted. No signs and/or symptoms were reported regarding the EENT system. Derm: No deficits noted. No signs and/or symptoms reported regarding the dermatologic system. Musculoskeletal: Reports pain in back. 20:25 Reassessment: Patient still complains of pain. The remaining 5 mg of morphine given IM. bm7 20:26 Reassessment: Patient states symptoms have not improved. bm7 Vital Signs: 18:00 BP 158 / 87; Pulse 94; Resp 20 S; Temp 98.9(TE); Pulse Ox 99% on R/A; Weight 163.29 kg aa5 (R); Height 6 ft. 0 in. (182.88 cm) (R); 19:33 BP 127 / 69; Pulse 77; Resp 16; Pulse Ox 100% on R/A; Pain 8/10; bm7 20:25 BP 150 / 89; Pulse 76; Resp 16; Pulse Ox 100% on R/A; Pain 8/10; bm7 18:00 Body Mass Index 48.82 (163.29 kg, 182.88 cm) aa5 ED Course: 17:52 Patient arrived in ED. as 18:00 Arm band placed on. aa5 18:01 Triage completed. aa5 18:04 Josiah Schultz PA is PHCP. cp 18:04 Seng Gutiérrez DO is Attending Physician. cp 18:38 Ilana Doyle, RN is Primary Nurse. bm7 18:47 No apparent distress. Awaiting radiology results. bm7 18:47 Patient has correct armband on for positive identification. Placed in gown. Bed in low bm7 position. Call light in reach. Side rails up X 1. Adult w/ patient. Client placed on continuous cardiac and pulse oximetry monitoring. NIBP monitoring applied. Warm blanket given. Assisted with urinal. 18:47 No provider procedures requiring assistance completed. Patient maintains SpO2 bm7 saturation greater than 95% on room air. 19:33 Urine collected: clean catch specimen, clear. bm7 20:04 Patient moved to radiology. bm7 20:12 XRAY Lumbar Spine (3 Views) In Process Unspecified. EDMS 20:25 Patient moved back from radiology. bm7 20:33 Patient did not have IV access during this emergency room visit. bm7 Administered Medications: 18:17 CANCELLED (Physician Discretion): Ketorolac 60 mg IVP once cp 18:47 Drug: Lidoderm Patch 5 % (700 mg/patch) 1 patches {Note: low back .} Route: Topical; bm7 Site: affected area; 18:47 Drug: Dexamethasone 10 mg Route: IM; Site: right gluteus; bm7 19:43 Follow up: Response: Pain is unchanged, physician notified bm7 18:47 Drug: Ketorolac 60 mg Route: IM; Site: left gluteus; bm7 19:43 Follow up: Response: Pain is unchanged, physician notified bm7 19:43 Drug: morphine 10 mg {Note: per ER provider ok to split does in half. 5 IM then repeat bm7 5 IM if needed. .} Route: IM; Site: left gluteus; 20:33 Follow up: Response: Pain is decreased bm7 Medication: 18:47 VIS not applicable for this client. bm7 Outcome: 20:25 Discharge ordered by MD. cp 20:33 Discharged to home ambulatory, with family. bm7 20:33 Condition: good 20:33 Discharge instructions given to patient, family, Instructed on discharge instructions, follow up and referral plans. medication usage, Demonstrated understanding of instructions, follow-up care, medications, Prescriptions given X 3. 20:34 Patient left the ED. bm7 Signatures: Dispatcher [employer] EDAida Marcus Audri, RN RN aa5 Josiah Schultz PA PA cp McCarthy, Brittany, RN RN bm7
--- NOTE | 2022-07-01 20:26 | EDPHYS ---
Physician Documentation [facility] Name: Bolivar Yang Age: 26 yrs Sex: Male : 1995 Arrival Date: 07/01/2022 Time: 17:52 Bed 10 Private MD: ED Physician Seng Gutiérrez HPI: 07/01 18:15 This 26 yrs old Male presents to ER via Ambulatory with complaints of Low Back cp Pain. 18:15 The patient presents with pain that is acute. The symptoms are located in the low back. cp The pain does not radiate. The problem was sustained started after standing from kneeling position. Onset: The symptoms/episode began/occurred 2 day(s) ago. 18:15 Associated signs and symptoms: Pertinent negatives: abdominal pain, chest pain, cp constipation, dysuria, fever, hematuria, incontinence, numbness, urinary retention, weakness. Severity of symptoms: in the emergency department the symptoms are unchanged, despite home interventions. Historical: - Allergies: 18:01 No Known Allergies; aa5 - PMHx: 18:01 Hypertension; Sleep apnea; aa5 - PSHx: 18:01 None; aa5 - Immunization history:: Adult Immunizations unknown. - Social history:: Smoking status: Patient denies any tobacco usage or history of. ROS: 18:20 Constitutional: Negative for body aches, chills, fever, poor PO intake. cp 18:20 Eyes: Negative for injury, pain, redness, and discharge. cp 18:20 Neck: Negative for pain with movement, pain at rest, stiffness. 18:20 Cardiovascular: Negative for chest pain, palpitations. 18:20 Respiratory: Negative for cough, shortness of breath, wheezing. 18:20 Abdomen/GI: Negative for abdominal pain, nausea, vomiting, and diarrhea, constipation, black/tarry stool, rectal bleeding, bowel incontinence. 18:20 : Negative for urinary symptoms, difficulty urinating, bladder incontinence, testicular pain 18:20 Neuro: Negative for altered mental status, headache, numbness, tingling, weakness. 18:20 All other systems are negative. Exam: 20:10 Head/Face: Normocephalic, atraumatic. cp 20:10 Constitutional: The patient appears in no acute distress, alert, awake, non-toxic, well developed, well nourished, obese, uncomfortable. 20:10 Neck: ROM/movement: is normal, is supple, without pain, no range of motions limitations, no nuchal rigidity. 20:10 Chest/axilla: Inspection: normal. 20:10 Cardiovascular: Rate: normal, Rhythm: regular. 20:10 Respiratory: the patient does not display signs of respiratory distress, Respirations: normal, no use of accessory muscles, no retractions, labored breathing, is not present, Breath sounds: are clear throughout, no decreased breath sounds, no stridor, no wheezing. 20:10 Abdomen/GI: Inspection: abdomen appears normal, Bowel sounds: active, all quadrants, Palpation: abdomen is soft and non-tender, in all quadrants. 20:10 Back: pain, that is moderate, of the low back area, ROM is painful, with all movement, Straight leg raises: of both lower extremities does not illicit pain. 20:10 Neuro: Motor: moves all fours, strength is normal, Sensation: is normal, Deep tendon reflexes are 2+ (normal) in the right patellar, right Achilles, left patellar and left Achilles. 20:10 Skin: cellulitis, is not appreciated, no rash present. cp Vital Signs: 18:00 BP 158 / 87; Pulse 94; Resp 20 S; Temp 98.9(TE); Pulse Ox 99% on R/A; Weight 163.29 kg aa5 (R); Height 6 ft. 0 in. (182.88 cm) (R); 19:33 BP 127 / 69; Pulse 77; Resp 16; Pulse Ox 100% on R/A; Pain 8/10; bm7 20:25 BP 150 / 89; Pulse 76; Resp 16; Pulse Ox 100% on R/A; Pain 8/10; bm7 18:00 Body Mass Index 48.82 (163.29 kg, 182.88 cm) aa5 MDM: 18:05 Patient medically screened. cp 20:15 Data reviewed: vital signs, nurses notes, radiologic studies, plain films. cp 20:15 Differential diagnosis: strain, sciatica, Herniated disc cauda equina, spinal stenosis. cp Counseling: I had a detailed discussion with the patient and/or guardian regarding: the historical points, exam findings, and any diagnostic results supporting the discharge/admit diagnosis, radiology results, the need for outpatient follow up, a family practitioner, to return to the emergency department if symptoms worsen or persist or if there are any questions or concerns that arise at home. Response to treatment: the patient's symptoms have markedly improved after treatment, and as a result, I will discharge patient. 07/01 19:28 Order name: Urine Dipstick-Ancillary; Complete Time: 20:19 EDMS 07/01 19:27 Order name: XRAY Lumbar Spine (3 Views); Complete Time: 20:19 cp 07/01 18:04 Order name: Urine Dipstick-Ancillary (obtain specimen); Complete Time: 19:33 cp Administered Medications: 18:17 CANCELLED (Physician Discretion): Ketorolac 60 mg IVP once cp 18:47 Drug: Lidoderm Patch 5 % (700 mg/patch) 1 patches {Note: low back .} Route: Topical; bm7 Site: affected area; 18:47 Drug: Dexamethasone 10 mg Route: IM; Site: right gluteus; bm7 19:43 Follow up: Response: Pain is unchanged, physician notified bm7 18:47 Drug: Ketorolac 60 mg Route: IM; Site: left gluteus; bm7 19:43 Follow up: Response: Pain is unchanged, physician notified bm7 19:43 Drug: morphine 10 mg {Note: per ER provider ok to split does in half. 5 IM then repeat bm7 5 IM if needed. .} Route: IM; Site: left gluteus; 20:33 Follow up: Response: Pain is decreased bm7 Disposition: 07/02 11:25 Co-signature as Attending Physician, Seng Gutiérrez DO I was immediately available on-site ms3 in the Emergency Department for consultation in the care of the patient. . Disposition Summary: 07/01/22 20:25 Discharge Ordered Location: Home cp Problem: new cp Symptoms: have improved cp Condition: Stable cp Diagnosis - Low back pain cp Followup: cp - With: Private Physician - When: 2 - 3 days - Reason: Recheck today's complaints Discharge Instructions: - Discharge Summary Sheet cp - Acute Back Pain, Adult cp - Heat Therapy cp - Back Exercises cp Forms: - Medication Reconciliation Form cp - Thank You Letter cp - Antibiotic Education cp - Prescription Opioid Use cp Prescriptions: - Medrol (Shawn) 4 mg Oral Tablets, Dose Pack - take 1 tablet by ORAL route as directed - follow package instructions; 1 cp packet; Refills: 0, Product Selection Permitted - Diclofenac Sodium 75 mg Oral tablet,delayed release (DR/EC) - take 1 tablet by ORAL route 2 times per day; 20 tablet; Refills: 0, Product cp Selection Permitted - orphenadrine citrate 100 mg Oral Tablet Sustained Release - take 1 tablet by ORAL route 2 times per day As needed; 20 tablet; Refills: 0, cp Product Selection Permitted Signatures: Dispatcher [employer] EDKristen Bello, RN RN aa5 Josiah Schultz PA PA Seng Raymundo DO DO ms3 Ilana Doyle RN RN bm7 Corrections: (The following items were deleted from the chart) 07/01 18:17 18:17 Ketorolac 60 mg IVP once ordered. cp cp
[2022-07-01 23:44] VITALS: TEMP 98.9
[2022-07-01 23:49] VITALS: O2SAT 100
[2022-07-01 23:51] VITALS: BP 150/89
== END 2022-07-01 20:34 | disposition home or self-care (01) ==
LOC: ER 17:51
DX: M54.50 Low back pain, unspecified (principal); I10 Essential (primary) hypertension
CPT/HCPCS: 72100; 81003; 96372; 99284; J1100; J2001; J2270

== ENCOUNTER 2022-08-02 18:33 | Emergency (ER) | payer SELFPAY ==
[2022-08-02] MEDS ORDERED: IPRATROPIUM BROM 0.5MG/2.5ML ONE ×2 (19:01→19:05)
[2022-08-02] MEDS ORDERED: HYDROCODONE/CHLORPHEN 5 ML/OSYR ONE (19:03)
[2022-08-02] MEDS ORDERED: ALBUTEROL 2.5 MG/3 ML NEB SOL ONE (19:05)
--- OUTSIDE RECORDS SUMMARY | 2022-08-02 19:25 | XMS REPORT | Continuity of Care Document ---
:1995 Author Organization [facility] t Address [address] [place] [address] Care Team Providers Name Role Phone Anders Gali Primary Care Physician Flor PETERSON Attending Clinician Unavailable Flor Rosa Attending Clinician Doctor Unassigned, [place] Attending Clinician Unavailable Archana Woodson DO Attending Clinician Guzman MONDRAGON, Heaven [facility] Attending Clinician JAY STEELE Attending Clinician Unavailable Flor PETERSON Admitting Clinician Unavailable Payers Payer Name Policy Type Policy Number Effective Date Expiration Date [place] [employer] [id number] 2019 NON-CONTRACT 00:00:00 GENERIC MEDICAID [place] PENDING 2022 PENDING 00:00:00 Problems Condition Condition Condition Status Onset Resolution Last Treating Co mments Source Name Details Category Date Date Treatment Clinician Date No known No known Disease Unive rs active active ity of problems problems [facility] Allergies, Adverse Reactions, Alerts Allergy Allergy Status Severity Reaction(s) Onset Inactive Treating Comm ents Source Name Type Date Date Clinician NO KNOWN Drug Active Univers ALLERGIE Class ity of S [facility] Social History Social Habit Start Date Stop Date Quantity Comments Source Tobacco use and 2019-06-21 2019-06-21 Never used [facility] [place] exposure 00:00:00 00:00:00 Medical Branch Sex Ass[birth year] At [birth year] DODIE Bowen 00:00:00 00:00:00 [facility] Smoking Status Start Date Stop Date Source Never smoker [facility] Branch Medications Ordered Filled Start Stop Current [...] Restricted medication : Flor PETERSON ibuprofen Yes [id number] 600mg Take 1 U nivers 600 mg 4-13 tablet by ity of tablet 00:00: mouth [place] 00 every 6 Medical (six) Branch hours. carvedilol Yes [id number] 6.25mg Take 1 Univers (COREG) 8-15 tablet by ity of 6.25 mg 00:00: mouth 2 [place] tablet 00 (two) Medical times Branch daily with meals. carvedilol Yes [id number] 6.25mg Take 1 Univers (COREG) 8-15 tablet by ity of 6.25 mg 00:00: mouth 2 [place] tablet 00 (two) Medical times Branch daily with meals. Vital Signs Vital Name Observation Time Observation Value Comments Source Systolic blood 2022-02-17 16:59:00 147 mm[Hg] Univer sity of [facility] Diastolic blood 2022-02-17 16:59:00 84 mm[Hg] Unive rsity of [facility] Heart rate 2022-02-17 16:59:00 75 /min [facility] Body temperature 2022-02-17 16:59:00 36.67 [facility] Res[facility] rate 2022-02-17 16:59:00 18 /min [facility] Body weight 2022-02-17 16:59:00 163.295 kg [facility] BMI 2022-02-17 16:59:00 48.82 kg/m2 [facility] Oxygen saturation in 2022-02-17 16:59:00 100 /min [facility] blood by [facility] Pulse oximetry Branch Procedures Procedure Date / Time Performed Performing Clinician Yoel e XR HIPS 2 VW LEFT 2022-02-17 21:00:00 Flor Peterson [facility] CONSENT/REFUSAL FOR 2022-02-17 16:46:56 Doctor [place], [place] Un [facility] DIAGNOSIS AND Name [facility] TREATMENT Plan of Care Planned Activity Planned Date Details Comments Source Future Scheduled 2020-07-[address] [facility] Test 00:00:00 (#1) [code = [facility] INFLUENZA VACCINE (#1)] Future Scheduled [address] [facility] Test 00:00:00 (procedure) [code = [facility] [id number]] Encounters Start End Encounter Admission Attending Care Care Encounter Source Date/Time Date/Time Type Type Clinicians Facility Department ID 2021-09-04 Emergency [facility] [id number] Univers 16:13:46 ity of [facility] 2022-02-17 2022-02-17 Emergency X Flor PETERSON [facility] ERT [id number] Univers 12:01:00 17:24:00 ity [facility] 2022-02-17 2022-02-17 Emergency Flor Peterson [facility] [id number] Univers 12:01:00 17:24:00 Praveena BARAJAS [id number] i ty [facility] [place] [id number] [id number] [facility] 084 Branch 2022-02-17 2022-02-17 Orders Doctor VALENTIN [id number] Univers 00:00:00 00:00:00 Only Unassigned, CONSTANZA [id number] ity of [place] [facility] [id number] Adán [id number] [facility] 009 Branch 2020-07-14 2020-07-15 Emergency Chintan, [facility] [id number] 21:40:00 00:54:00 Archana Barajas [id number] [place] [id number] Cecilia [id number] [id number] 2020-07-14 2020-07-14 Orders Doctor BARBIE [id number] 00:00:00 00:00:00 Only Unassigned, [place]STANZA [id number] [place] [facility] [id number] 2019-06-21 2019-07-17 Office Hinds, [facility] [id number] 09:25:01 12:38:55 Visit Heaven Barajas [id number] [place]fr[place] [id number] Professio [phone] nal 059 Building Results Test Description Test [...] 0-100 (test code = 700) BASIC METABOLIC [id number] 15:17:00 Test Item Value Reference Range Interpretation [...] m DATA TO CALCULA TE ESTIMATED GFR. [id number] 15:14:00 Test Item Value Reference Range Interpretation Comments MAGNESIUM (BEAKER) (test code = 2.0 mg/dL 1.6-2.6 627) CBC W/PLT COUNT & AUTO [id number] 14:53:00 Test Item Value Reference Range Interpretation [...] = 2801) RAD, CHEST, 1 VIEW, NON [id number] 14:32:00Reason for exam:->CPFINAL REPORT RAD, CHEST, 1 VIEW, NON DEPT CLINICAL INDICATION: CP COMPARISON: None TECHNIQUE: AP view of the chest FINDINGS: Lung volumes are low. No focal consolidation. No pleural effusion or pneumothorax. Cardiomediastinal silhouette, kendrick, and pulmonary vasculature are normal.No acute osseous abnormality. IMPRESSION:No acute cardiopulmonary abnormality. Signed: Swapnil Packer MDReport Verified Date/Time: 06/15/2019 14:32:22 Reading Location: [facility] B1 C013W Consult Reading Room
--- NOTE | 2022-08-02 19:44 | RAD REPORT ---
EXAM DESCRIPTION: RAD - Chest Pa And Lat (2 Views) - 08/02/2022 7:26 pm CLINICAL HISTORY: Cough, hypertension COMPARISON: Portable 07/30/2021 TECHNIQUE: Frontal and lateral views of the chest were obtained. FINDINGS: The lungs are clear. Lungs are underinflated. Portable technique and overlying soft tissu e accentuates lung parenchymal density. An acute lung parenchymal process is seen. The interstitial p attern similar to comparison. Heart size is normal and central vasculature is within normal limits. No pleural effusion or pneumo thorax seen. No acute bony finding noted. No aortic abnormality. No significant change from compar risa study. IMPRESSION: No acute cardiopulmonary process.
[2022-08-02 20:15] LABS: Absolute Lymphocytes (CBC) 2.3 K/uL (0.7-4.9); Hematocrit 41.7 % (39.6-49.0); MCV 82.7 fL (80-100); MPV 9.5 fL (7.6-11.3); RBC Red Blood Cell Count 5.04 M/uL (4.33-5.43)
[2022-08-02 20:27] LABS: Potassium 3.7 mmol/L (3.5-5.1)
[2022-08-02] MEDS ORDERED: METHYLPREDNISOLONE 125 MG INJ ONE (21:17)
--- NOTE | 2022-08-02 21:59 | ER ---
Nurse's Notes [facility] Name: Bolivar Yang Age: 26 yrs Sex: Male : 1995 Arrival Date: 08/02/2022 Time: 18:34 Bed 19 Private MD: Diagnosis: Acute bronchitis, unspecified;Hypertensive heart disease without heart failure Presentation: 08/02 18:49 Chief complaint: Spouse and/or significant other states: SOB, cough x 3 weeks and not jl7 any better. Coronavirus screen: Vaccine status: Patient reports being unvaccinated. cough unrelated to allergies, difficulty breathing. Ebola Screen: No symptoms or risks identified at this time. Initial Sepsis Screen: Does the patient meet any 2 criteria? No. Patient's initial sepsis screen is negative. Does the patient have a suspected source of infection? No. Patient's initial sepsis screen is negative. Risk Assessment: Do you want to hurt yourself or someone else? Patient reports no desire to harm self or others. Onset of symptoms was July 08, 2022. 18:49 Method Of Arrival: Ambulatory jl7 18:49 Acuity: GULILERMO 3 jl7 Triage Assessment: 18:50 General: Appears in no apparent distress. uncomfortable, Behavior is calm, cooperative, jl7 appropriate for age. Pain: Denies pain. Respiratory: Reports shortness of breath cough that is Onset: The symptoms/episode began/occurred x 3 weeks, the patient has mild shortness of breath. Historical: - Allergies: 18:50 No Known Allergies; jl7 - Home Meds: 18:50 HTN medication - noncomplaint [Active]; jl7 - PMHx: 18:50 Hypertension; Sleep Apnea; jl7 - Immunization history:: Adult Immunizations unknown. - Social history:: Smoking status: Patient denies any tobacco usage or history of. Screenin:01 Abuse screen: Denies threats or abuse. Denies injuries from another. Nutritional lg3 screening: No deficits noted. Tuberculosis screening: No symptoms or risk factors identified. Fall Risk None identified. Assessment: 20:01 General: Appears in no apparent distress. uncomfortable, Behavior is calm, cooperative. lg3 Pain: Denies pain. Neuro: No deficits noted. Level of Consciousness is awake, alert, obeys commands, Oriented to person, place, time, situation. Cardiovascular: Denies chest pain, shortness of breath, Capillary refill < 3 seconds Clubbing of nail beds is absent JVD is absent Patient's skin is warm and dry. Rhythm is sinus rhythm. Respiratory: Reports cough that is persistent Airway is patent Trachea midline Respiratory effort is even, unlabored, Respiratory pattern is regular, symmetrical, Breath sounds with crackles bilaterally. GI: No deficits noted. No signs and/or symptoms were reported involving the gastrointestinal system. Abdomen is round non-distended, obese, Abd is soft and non tender X 4 quads. : No deficits noted. No signs and/or symptoms were reported regarding the genitourinary system. EENT: No deficits noted. No signs and/or symptoms were reported regarding the EENT system. Derm: No deficits noted. No signs and/or symptoms reported regarding the dermatologic system. Skin is intact, is healthy with good turgor, Skin is dry, Skin is normal, Skin temperature is warm. Musculoskeletal: No deficits noted. No signs and/or symptoms reported regarding the musculoskeletal system. Circulation, motion, and sensation intact. Range of motion: intact in all extremities. 20:54 Reassessment: Patient appears in no apparent distress at this time. No changes from lg3 previously documented assessment. Patient and/or family updated on plan of care and expected duration. Pain level reassessed. Patient is alert, oriented x 3, equal unlabored respirations, skin warm/dry/pink. 22:29 Reassessment: Patient appears in no apparent distress at this time. No changes from lg3 previously documented assessment. Patient and/or family updated on plan of care and expected duration. Pain level reassessed. Patient is alert, oriented x 3, equal unlabored respirations, skin warm/dry/pink. Vital Signs: 18:49 BP 179 / 100; Pulse 85; Resp 22; Temp 98.6; Pulse Ox 98% ; Weight 163.29 kg; Height 6 jl7 ft. (182.88 cm); Pain 0/10; 20:22 BP 176 / 88; Pulse 91; Resp 18 S; Pulse Ox 98% on R/A; lg3 22:28 BP 149 / 81; Pulse 88; Resp 18 S; Pulse Ox 99% on R/A; lg3 18:49 Body Mass Index 48.82 (163.29 kg, 182.88 cm) jl7 ED Course: 18:34 Patient arrived in ED. [email or web address] 18:37 Josiah Schultz PA is PHCP. cp 18:37 Seng Gutiérrez DO is Attending Physician. cp 18:50 Triage completed. jl7 18:50 Arm band placed on right wrist. jl7 19:27 XRAY Chest Pa And Lat (2 Views) In Process Unspecified. EDMS 19:59 Maylin Pinto, RN is Primary Nurse. lg3 20:00 Basic Metabolic Panel Sent. lg3 20:00 CBC with Diff Sent. lg3 20:00 NT PRO-BNP Sent. lg3 20:00 Troponin HS Sent. lg3 20:00 COVID-19 SARS RT PCR (Document "Date of Onset" if Symptomatic) Sent. lg3 20:01 Patient has correct armband on for positive identification. Bed in low position. Call lg3 light in reach. Side rails up X 1. Client placed on continuous cardiac and pulse oximetry monitoring. NIBP monitoring applied. campus monitor on. Door closed. Noise minimized. Warm blanket given. Family accompanied patient. 20:01 Inserted saline lock: 20 gauge in right antecubital area, using aseptic technique. lg3 Blood collected. 22:29 No provider procedures requiring assistance completed. IV discontinued, intact, lg3 bleeding controlled, No redness/swelling at site. Pressure dressing applied. Administered Medications: 20:00 Drug: Albuterol - atroVENT (ipratropium) (3:1) (2.5 mg - 0.5 mg) 3 ml Route: Nebulizer; lg3 20:20 Follow up: Response: No adverse reaction; Marked relief of symptoms lg3 20:00 Drug: Tussionex Pennkinetic ER (chlorpheniramine-hydrocodone) Suspension 5 ml Route: PO;lg3 20:20 Follow up: Response: No adverse reaction; Marked relief of symptoms lg3 21:20 Drug: SOLU-Medrol (methylPrednisoLONE) 125 mg Route: IVP; Site: right antecubital; lg3 22:11 Follow up: Response: No adverse reaction lg3 Medication: 22:29 VIS not applicable for this client. lg3 Outcome: 21:57 Discharge ordered by MD. cp 22:29 Discharged to home ambulatory, with significant other. lg3 22:29 Condition: stable 22:29 Discharge instructions given to patient, significant other, Instructed on discharge instructions, follow up and referral plans. medication usage, Demonstrated understanding of instructions, follow-up care, medications, Prescriptions given X 3. 22:39 Patient left the ED. lg3 Signatures: Dispatcher [employer] EDMS Josiah Schultz PA PA cp Garcia, Rubi rg4 Heidi Gandhi, RN RN jl7 Maylin Pinto RN RN lg3
--- NOTE | 2022-08-02 21:59 | EDPHYS ---
Physician Documentation [facility] Name: Bolivar Yang Age: 26 yrs Sex: Male : 1995 Arrival Date: 08/02/2022 Time: 18:34 Bed 19 Private MD: ED Physician Seng Gutiérrez HPI: 08/02 19:00 This 26 yrs old Male presents to ER via Ambulatory with complaints of Cough, cp Breathing Difficulty. 19:00 The patient or guardian reports cough, with productive sputum. cp 19:00 Onset: The symptoms/episode began/occurred 3 week(s) ago. cp 19:00 Severity of symptoms: in the emergency department the symptoms are unchanged, despite cp home interventions. Associated signs and symptoms: Pertinent positives: chest pain, with cough, sore throat, shortness of breath, Pertinent negatives: diarrhea, fever, vomiting. Patient reports history of HTN. Prescribed antihypertensive in the past but stopped medication due to side effects. Historical: - Allergies: 18:50 No Known Allergies; jl7 - Home Meds: 18:50 HTN medication - noncomplaint [Active]; jl7 - PMHx: 18:50 Hypertension; Sleep Apnea; jl7 - Immunization history:: Adult Immunizations unknown. - Social history:: Smoking status: Patient denies any tobacco usage or history of. ROS: 19:05 Constitutional: Negative for body aches, chills, fever, poor PO intake. cp 19:05 Eyes: Negative for injury, pain, redness, and discharge. cp 19:05 ENT: Positive for sore throat, Negative for drainage from ear(s), ear pain, difficulty swallowing, difficulty handling secretions. 19:05 Neck: Negative for pain with movement, pain at rest, stiffness. 19:05 Cardiovascular: Positive for chest pain, with cough, Negative for edema, palpitations. 19:05 Respiratory: Positive for cough, "sounds productive", shortness of breath. 19:05 Abdomen/GI: Negative for abdominal pain, vomiting, diarrhea, constipation. 19:05 Back: Negative for pain at rest, pain with movement. 19:05 Neuro: Negative for altered mental status, dizziness, headache, syncope, weakness. 19:05 All other systems are negative. Exam: 19:10 Constitutional: The patient appears in no acute distress, alert, awake, cp non-diaphoretic, non-toxic, well developed, well nourished, obese. 19:10 Head/Face: Normocephalic, atraumatic. cp 19:10 Eyes: Periorbital structures: appear normal, Conjunctiva: normal, no exudate, no cp injection, Sclera: no appreciated abnormality, Lids and lashes: appear normal, bilaterally. 19:10 ENT: External ear(s): are unremarkable, Ear canal(s): are normal, clear, TM's: dullness, bilaterally, Nose: is normal, Mouth: Lips: moist, Oral mucosa: moist, Posterior pharynx: Airway: no evidence of obstruction, patent, Tonsils: with erythema, no enlargement, no exudate, swelling, is not appreciated, erythema, that is mild, exudate, is not appreciated. 19:10 Neck: ROM/movement: is normal, is supple, without pain, no range of motions limitations, no meningismus. 19:10 Chest/axilla: Inspection: normal, Palpation: is normal, no crepitus, no tenderness. 19:10 Cardiovascular: Rate: normal, Rhythm: regular, Edema: is not appreciated, JVD: is not appreciated. 19:10 Respiratory: the patient does not display signs of respiratory distress, Respirations: normal, no use of accessory muscles, no retractions, labored breathing, is not present, Breath sounds: bronchial sounds, that are mild, are heard diffusely, decreased breath sounds, are not appreciated, stridor, is not appreciated, wheezing: that is mild, is heard diffusely. 19:10 Abdomen/GI: Inspection: abdomen appears normal, Palpation: abdomen is soft and non-tender, in all quadrants. 19:10 Back: pain, is absent, ROM is normal. 19:10 Skin: cellulitis, is not appreciated, no rash present. 19:10 Neuro: Orientation: to person, place \\T\\ time. Mentation: is normal, Cerebellar function: is grossly normal, Motor: moves all fours, strength is normal, Sensation: is normal. 19:45 ECG was reviewed by the Attending Physician. cp Vital Signs: 18:49 BP 179 / 100; Pulse 85; Resp 22; Temp 98.6; Pulse Ox 98% ; Weight 163.29 kg; Height 6 jl7 ft. (182.88 cm); Pain 0/10; 20:22 BP 176 / 88; Pulse 91; Resp 18 S; Pulse Ox 98% on R/A; lg3 22:28 BP 149 / 81; Pulse 88; Resp 18 S; Pulse Ox 99% on R/A; lg3 18:49 Body Mass Index 48.82 (163.29 kg, 182.88 cm) jl7 MDM: 18:53 Patient medically screened. cp 21:55 Data reviewed: vital signs, nurses notes, lab test result(s), EKG, radiologic studies, cp plain films. 21:55 Differential Diagnosis: Bronchitis Influenza Pneumonia Other CHF, cardiac arrythmia, cp less likely pulmonary embolism. Test interpretation: by ED physician or midlevel provider: ECG, plain radiologic studies. Counseling: I had a detailed discussion with the patient and/or guardian regarding: the historical points, exam findings, and any diagnostic results supporting the discharge/admit diagnosis, lab results, radiology results, the need for outpatient follow up, a family practitioner, to return to the emergency department if symptoms worsen or persist or if there are any questions or concerns that arise at home. Response to treatment: the patient's symptoms have markedly improved after treatment, and as a result, I will discharge patient. ED course: VSS. Patient appears non-toxic and no signs of respiratory distress. Will discharge to home for continued monitoring. 08/02 18:50 Order name: COVID-19 SARS RT PCR (Document "Date of Onset" if Symptomatic); Complete cp Time: 20:57 08/02 18:50 Order name: Basic Metabolic Panel; Complete Time: 20:57 cp 08/02 18:50 Order name: XRAY Chest Pa And Lat (2 Views); Complete Time: 20:57 cp 08/02 18:50 Order name: CBC with Diff; Complete Time: 20:57 cp 08/02 18:50 Order name: NT PRO-BNP; Complete Time: 20:57 cp 08/02 18:50 Order name: Troponin HS; Complete Time: 20:57 cp 08/02 18:50 Order name: EKG; Complete Time: 18:51 cp 08/02 18:50 Order name: Cardiac monitoring; Complete Time: 19:43 cp 08/02 18:50 Order name: EKG - Nurse/Tech; Complete Time: 19:43 cp 08/02 18:50 Order name: IV Saline Lock; Complete Time: 20:00 cp 08/02 18:50 Order name: Labs collected and sent; Complete Time: 20:00 cp 08/02 18:50 Order name: O2 Per Protocol; Complete Time: :43 cp 08/02 18:50 Order name: O2 Sat Monitoring; Complete Time: :43 cp EC:45 Rate is 87 beats/min. Rhythm is regular. MN interval is normal. QRS interval is normal. cp QT interval is normal. T waves are Inverted in lead aVR. Interpreted by me. Reviewed by me. Administered Medications: 20:00 Drug: Albuterol - atroVENT (ipratropium) (3:1) (2.5 mg - 0.5 mg) 3 ml Route: Nebulizer; lg3 20:20 Follow up: Response: No adverse reaction; Marked relief of symptoms lg3 20:00 Drug: Tussionex Pennkinetic ER (chlorpheniramine-hydrocodone) Suspension 5 ml Route: PO;lg3 20:20 Follow up: Response: No adverse reaction; Marked relief of symptoms lg3 21:20 Drug: SOLU-Medrol (methylPrednisoLONE) 125 mg Route: IVP; Site: right antecubital; lg3 22:11 Follow up: Response: No adverse reaction lg3 Disposition: 08/03 08:48 Co-signature as Attending Physician, Seng BANSAL was immediately available on-site ms3 in the Emergency Department for consultation in the care of the patient. . Disposition Summary: 08/02/22 21:57 Discharge Ordered Location: Home cp Problem: new cp Symptoms: have improved cp Condition: Stable cp Diagnosis - Acute bronchitis, unspecified cp - Hypertensive heart disease without heart failure cp Followup: cp - With: Private Physician - When: 1 - 2 days - Reason: Recheck today's complaints Discharge Instructions: - Discharge Summary Sheet cp - Acute Bronchitis, Adult cp - Hypertension, Adult cp - Form - Blood Pressure Record Sheet cp - How to Take Your Blood Pressure cp Forms: - Medication Reconciliation Form cp - Thank You Letter cp - Antibiotic Education cp - Prescription Opioid Use cp Prescriptions: - albuterol sulfate 90 mcg/actuation Inhalation HFA aerosol inhaler - inhale 2 puff by INHALATION route every 6 hours; 1 Device; Refills: 0, Product cp Selection Permitted - Zithromax Z-Shawn 250 mg Oral Tablet - take 1 tablet by ORAL route as directed for 5 days Day 1 - take two (2) tablets cp one time. Day 2, 3, 4 , 5 take one (1) tablet once daily.; 6 tablet; Refills: 0, Product Selection Permitted - Prednisone 20 mg Oral Tablet - take 2 tablets by ORAL route once daily for 5 days; 10 tablet; Refills: 0, cp Product Selection Permitted - Bromfed DM 2-30-10 mg/5 mL Oral syrup - take 10 milliliter by ORAL route every 4 hours; 200 milliliter; Refills: 0, cp Product Selection Permitted Signatures: Dispatcher [employer] EDMS Josiah Schultz PA PA cp Leal, Jahala RN RN jl7 Maylin Pinto RN RN lg3 Seng Gutiérrez DO DO ms3
--- NOTE | 2022-08-03 17:27 | EKG ---
Test Date: 2022-08-02 Test Time: 19:40:27 Doll Maker: RACHANA MEASUREMENT RESULTS: Intervals: Rate: 87 IL: 146 QRSD: 100 QT: 388 QTc: 466 Blair: P: 51 IL: 146 QRS: 53 T: 33 INTERPRETIVE STATEMENTS: Normal sinus rhythm Right atrial enlargement Borderline ECG Compared to ECG 07/30/2021 11:55:54 Atrial abnormality now present Ventricular premature complex(es) no longer present Left ventricular hypertrophy no longer present Electronically Signed On 08-03-22 17:26:24 CDT by Edward Montgomery
== END 2022-08-02 22:39 | disposition home or self-care (01) ==
LOC: ER 18:33
DX: J20.9 Acute bronchitis, unspecified (principal); I11.9 Hypertensive heart disease without heart failure; I10 Essential (primary) hypertension
CPT/HCPCS: 36415; 71046; 80048; 83880; 84484; 85025; 93005; 94640; 96374; 99285; J2930; U0003

== ENCOUNTER 2022-09-16 21:18 | Emergency (ER) | payer SELFPAY ==
--- OUTSIDE RECORDS SUMMARY | 2022-09-16 21:21 | XMS REPORT | Continuity of Care Document ---
:1995 Author Organization [facility] t Address [address] [place] [address] Care Team Providers Name Role Phone Anders Gali Primary Care Physician Flor PETERSON Attending Clinician Unavailable Flor Rosa Attending Clinician Doctor Unassigned, [place] Attending Clinician Unavailable Archana Woodson DO Attending Clinician Guzman MONDRAGON, Heaven K.HPurvi Attending Clinician JAY STEELE Attending Clinician Unavailable Flor PETERSON Admitting Clinician Unavailable Payers Payer Name Policy Type Policy Number Effective Date Expiration Date S ource COMMERCIAL [id number] 2019 NON-CONTRACT 00:00:00 GENERIC MEDICAID [place] PENDING 2022 PENDING 00:00:00 Problems Condition Condition Condition Status Onset Resolution Last Treating Co mments Source Name Details Category Date Date Treatment Clinician Date No known No known Disease Unive rs active active ity of problems problems [facility] [place] Allergies, Adverse Reactions, Alerts Allergy Allergy Status Severity Reaction(s) Onset Inactive Treating Comm ents Source Name Type Date Date Clinician NO KNOWN Drug Active Univers ALLERGIE Class ity of S [facility] [place] Social History Social Habit Start Date Stop Date Quantity Comments Source Tobacco use and 2019-06-21 2019-06-21 Never used [facility] [place] exposure 00:00:00 00:00:00 Medical Branch Sex Ass[birth year] At [birth year] DODIE Bowen 00:00:00 00:00:00 [facility] Smoking Status Start Date Stop Date Source Never smoker [facility] Branch Medications Ordered Filled Start Stop [...] Restricted medication : Flor PETERSON ibuprofen Yes [id number] 600mg Take 1 U nivers 600 mg 4-13 tablet by ity of tablet 00:00: mouth [place] 00 every 6 Medical (six) Branch hours. carvedilol Yes [id number] 6.25mg Take 1 Univers (COREG) 8-15 tablet by ity of 6.25 mg 00:00: mouth 2 [place] tablet 00 (two) Medical times Branch daily with meals. carvedilol Yes [id number] 6.25mg Take 1 Univers (COREG) 8-15 tablet by ity of 6.25 mg 00:00: mouth 2 [place] tablet 00 (two) Medical times Branch daily with meals. Vital Signs Vital Name Observation Time Observation Value Comments Source Systolic blood 2022-02-17 16:59:00 147 mm[Hg] Univer sity [facility] Diastolic blood 2022-02-17 16:59:00 84 mm[Hg] Unive rsity [facility] Heart rate 2022-02-17 16:59:00 75 [facility] Body temperature 2022-02-17 16:59:00 36.67 [facility] Respiratory rate 2022-02-17 16:59:00 18 /min [facility] Body weight 2022-02-17 16:59:00 163.295 [facility] BMI 2022-02-17 16:59:00 48.82 kg/m2 [facility] Oxygen saturation in 2022-02-17 16:59:00 100 /min [facility] Arterial blood by [facility] Pulse oximetry Branch Procedures Procedure Date / Time Performed Performing Clinician Yoel e XR HIPS 2 VW LEFT 2022-02-17 21:00:00 Flor Peterson [facility] CONSENT/REFUSAL FOR 2022-02-17 16:46:56 Doctor Unassigned, No Un [facility] DIAGNOSIS AND Name [facility] TREATMENT Plan of Care Planned Activity Planned Date Details Comments Source Future Scheduled 2020-07-[address] [facility] Test 00:00:00 (#1) [code = [facility] INFLUENZA VACCINE (#1)] Future Scheduled [address] [facility] Test 00:00:00 (procedure) [code = [facility] 43662216] Encounters Start End Encounter Admission Attending Care Care Encounter Source Date/Time Date/Time Type Type Clinicians Facility Department ID 2021-09-04 Emergency [facility] [id number] Univers 16:13:46 [facility] 2022-08-17 2022-08-17 Outpatient SFA SFA [id number] [place] 11:53:10 11:53:10 1011 F Sheng 2022-02-17 2022-02-17 Emergency X Flor PETERSON [facility] ERT [id number] Univers 12:01:00 [facility]24[facility] 2022-02-17 2022-02-17 Emergency Flro Peterson [facility] [id number] Univers 12:01:00 17:24:00 Praveena BARAJAS [id number] i ty [facility] [id number] [facility] [id number] Medi gricelda 084 Branch 2022-02-17 2022-02-17 Orders Doctor VALENTIN [id number] Univers 00:00:00 00:00:00 Only Unassigned, CONSTANZA [id number] ity of [place] [facility] [id number] Adán as [id number] [address] 2020-07-14 2020-07-15 [facility] [id number] 21:40:00 00:54:00 Archana Barajas [id number] [place] [id number] [place] [phone] [id number] 2020-07-14 2020-07-14 Orders Doctor BARBIE [id number] 00:00:00 00:00:00 Only Unassigned, CONSTANZA [id number] [place] [facility] [id number] 2019-06-21 2019-07-17 Office [facility] [id number] 09:25:01 12:38:55 Visit Heaven Barajas [id number] [place] [id number] [facility] [id number] nal 059 Building Results Test Description Test [...] 0-100 (test code = 700) BASIC METABOLIC [id number] 15:17:00 Test Item Value Reference Range Interpretation [...] m DATA TO CALCULA TE ESTIMATED GFR. [id number] 15:14:00 Test Item Value Reference Range Interpretation Comments MAGNESIUM (BEAKER) (test code = 2.0 mg/dL 1.6-2.6 627) CBC W/PLT COUNT & AUTO [id number] 14:53:00 Test Item Value Reference Range Interpretation [...] = 2801) RAD, CHEST, 1 VIEW, NON [id number] 14:32:00Reason for exam:->CPFINAL REPORT RAD, CHEST, 1 VIEW, NON DEPT CLINICAL INDICATION: CP COMPARISON: None TECHNIQUE: AP view of the chest FINDINGS: Lung volumes are low. No focal consolidation. No pleural effusion or pneumothorax. Cardiomediastinal silhouette, kendrick, and pulmonary vasculature are normal.No acute osseous abnormality. IMPRESSION:No acute cardiopulmonary abnormality. Signed: Swapnil Packer MDReport Verified Date/Time: 06/15/2019 14:32:22 Reading Location: [facility] B1 [id number] Consult Reading Room
[2022-09-16] MEDS ORDERED: MORPHINE 4 MG/ML SYR ONE (22:27)
[2022-09-16] MEDS ORDERED: NA CHLORIDE 0.9% 1,000 ML ONE (22:27)
[2022-09-16] MEDS ORDERED: ONDANSETRON 4 MG/2 ML VIAL ONE (22:27)
[2022-09-16 22:57] LABS: Urine Blood Negative (Negative); Urine Glucose Negative (Negative); Urine Protein Negative (Negative); Urine Specific Gravity >=1.030 (1.005-1.030)
[2022-09-16 23:03] LABS: Absolute Lymphocytes (CBC) 3.4 K/uL (0.7-4.9); Hematocrit 39.5 % (39.6-49.0); Lymphocytes % 32.3 % (15.3-44.8); MCV 83.6 fL (80-100); MPV 9.3 fL (7.6-11.3); RBC Red Blood Cell Count 4.73 M/uL (4.33-5.43)
[2022-09-16 23:09] LABS: Urine Bacteria <20 /HPF (<20); Urine Mucus Slight /HPF (None Seen); Urine RBC <5 /HPF (None Seen)
[2022-09-16 23:24] LABS: Albumin 3.6 g/dL (3.4-5.0); Bilirubin Total 0.6 mg/dL (0.2-1.0); Protein, Total 7.5 g/dL (6.4-8.2)
[2022-09-16 23:25] LABS: Potassium 4.1 mmol/L (3.5-5.1)
--- NOTE | 2022-09-17 00:42 | ER ---
Nurse's Notes [facility] Name: Bolivar Yang Age: 26 yrs Sex: Male : 1995 Arrival Date: 09/16/2022 Time: 21:25 Bed 5 Private MD: Diagnosis: Low back pain Presentation: 09/16 22:08 Chief complaint: Patient states: Per inset cutter Nicolasa #[id number], pt states left lower back kb3 pain that radiates into left groin and pain with urination x2-3 days. Denies fever, N/V. Coronavirus screen: Vaccine status: Patient reports being unvaccinated. Client denies travel out of the [place] in the last 14 days. Ebola Screen: Patient negative for fever greater than or equal to 101.5 degrees Fahrenheit, and additional compatible Ebola Virus Disease symptoms Patient denies exposure to infectious person. Patient denies travel to an Ebola-affected area in the 21 days before illness onset. Initial Sepsis Screen: Does the patient meet any 2 criteria? No. Patient's initial sepsis screen is negative. Does the patient have a suspected source of infection? No. Patient's initial sepsis screen is negative. Risk Assessment: Do you want to hurt yourself or someone else? Patient reports no desire to harm self or others. Onset of symptoms was September 13, 2022. 22:08 Method Of Arrival: Ambulatory kb3 22:08 Acuity: GUILLERMO 3 kb3 Triage Assessment: 22:09 General: Appears in no apparent distress. uncomfortable, Behavior is calm, cooperative. kb3 Pain: Complains of pain in left low back Pain radiates to groin and left femoral area Pain currently is 10 out of 10 on a pain scale. Quality of pain is described as sharp. : Reports pain urgency. Historical: - Allergies: 22:09 No Known Allergies; kb3 - Home Meds: 22:09 HTN medication - noncomplaint [Active]; kb3 - PMHx: 22:09 Hypertension; Sleep Apnea; kb3 - PSHx: 22:09 None; kb3 - Immunization history:: Adult Immunizations up to date, Client reports having NOT received the Covid vaccine. Last tetanus immunization: unknown. - Social history:: Smoking status: Patient denies any tobacco usage or history of. Screenin:15 Abuse screen: Denies threats or abuse. Denies injuries from another. Nutritional as6 screening: No deficits noted. Tuberculosis screening: No symptoms or risk factors identified. Fall Risk None identified. Assessment: 22:40 General: Appears in no apparent distress. Behavior is calm, cooperative. Pain: as6 Complains of pain in pelvis and left femoral area and groin and back and left low back. Neuro: Level of Consciousness is awake, alert, obeys commands. : Reports pain in lower back. Vital Signs: 22:08 BP 189 / 105; Pulse 80; Resp 20; Temp 98.5; Pulse Ox 96% ; Weight 165.56 kg; Height 6 kb3 ft. 0 in. (182.88 cm); Pain 10; 22:57 BP 189 / 105; Pulse 80; Resp 18 S; Pulse Ox 95% on R/A; as6 09/17 00:52 BP 136 / 82; Pulse 70; Resp 16 S; Pulse Ox 98% on R/A; as6 09/16 22:08 Body Mass Index 49.50 (165.56 kg, 182.88 cm) kb3 ED Course: 09/16 21:25 Patient arrived in ED. mr 21:44 Triage completed. kb3 21:49 Dov Cabral RN is Primary Nurse. as6 21:50 Bud Cheng NP is PHCP. pm1 21:50 Josiah Alaniz MD is Attending Physician. pm1 22:09 Arm band placed on right wrist. kb3 22:57 Inserted saline lock: 20 gauge in right antecubital area, using aseptic technique. as6 Blood collected. 23:15 Bed in low position. Call light in reach. Side rails up X 1. as6 23:47 CT Stone Protocol In Process Unspecified. EDMS 09/17 00:44 No provider procedures requiring assistance completed. as6 01:28 IV discontinued, intact, bleeding controlled, No redness/swelling at site. Pressure as6 dressing applied. Administered Medications: 09/16 22:57 Drug: NS 0.9% 1000 ml Route: IV; Rate: 1 bolus; Site: right antecubital; as6 09/17 00:43 Follow up: Response: No adverse reaction; IV Status: Completed infusion; IV Intake: as6 1000ml 09/16 22:57 Drug: Zofran (Ondansetron) 4 mg Route: IVP; Site: right antecubital; as6 09/17 00:44 Follow up: Response: No adverse reaction as6 09/16 22:57 Drug: morphine 4 mg Route: IVP; Infused Over: 4 mins; Site: right antecubital; as6 09/17 00:44 Follow up: Response: No adverse reaction as6 Medication: :28 VIS not applicable for this client. as6 Intake: 00:43 IV: 1000ml; Total: 1000ml. as6 Outcome: 00:42 Discharge ordered by MD. pm1 01:28 Discharged to home ambulatory. as6 01:28 Condition: stable 01:28 Discharge instructions given to patient, Instructed on discharge instructions, follow up and referral plans. medication usage, Demonstrated understanding of instructions, follow-up care, medications, Prescriptions given X 2. 01:28 Patient left the ED. as6 Signatures: Dispatcher [employer] EDMS MassimoBrenda mr ChengBud, SCRATCH BRUSHER SCRATCH BRUSHER pm1 Dov Cabral RN RN as6 Lizzy Rader RN RN kb3 Corrections: (The following items were deleted from the chart) 09/16 21:48 21:42 Chief complaint: Patient states: Pt reports N/V/D x3-4 hrs with a headache. 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 Client kb3 denies travel out of the [place] in the last 14 days. kb3 21:48 21:42 Ebola Screen: Patient negative for fever greater than or equal to 101.5 degrees kb3 Fahrenheit, and additional compatible Ebola Virus Disease symptoms Patient denies exposure to infectious person. Patient denies travel to an Ebola-affected area in the 21 days before illness onset. kb3 21:48 21:42 Initial Sepsis Screen: Does the patient meet any 2 criteria? No. Patient's kb3 initial sepsis screen is negative. Does the patient have a suspected source of infection? No. Patient's initial sepsis screen is negative. kb3 21:48 21:42 Risk Assessment: Do you want to hurt yourself or someone else? Patient reports no kb3 desire to harm self or others. kb3 21:48 21:42 Onset of symptoms was September 16, 2022 at 18:30 kb3 kb3 21:48 21:42 Method Of Arrival: Ambulatory kb3 kb3 21:48 21:42 BP 118 / 82; Pulse 95bpm; Resp 20bpm; Pulse Ox 100%; Temp 98.8F; 102.06 kg; kb3 Height 5 ft. 7 in.; BMI: 35.2; Pain 7/10; kb3 21:48 21:42 Acuity: GUILLERMO 3 kb3 kb3
--- NOTE | 2022-09-17 00:43 | EDPHYS ---
Physician Documentation [facility] Name: Bolivar Yang Age: 26 yrs Sex: Male : 1995 Arrival Date: 09/16/2022 Time: 21:25 Bed 5 Private MD: ED Physician Josiah Alaniz HPI: 09/16 22:07 This 26 yrs old Male presents to ER via Ambulatory with complaints of Back pm1 Pain, Urinary Problem. 22:07 The patient presents with pain that is acute. pm1 22:07 The symptoms are located in the left low back. Onset: The symptoms/episode pm1 began/occurred 3 day(s) ago. The pain radiates to the left lower quadrant. Associated signs and symptoms: Pertinent positives: dysuria, Pertinent negatives: fever, vomiting, Diarrhea. The problem was sustained from unknown cause. Modifying factors: The patient symptoms are alleviated by nothing, the patient symptoms are aggravated by movement. Severity of symptoms: in the emergency department the symptoms are actually worse. The patient has not experienced similar symptoms in the past. The patient has not recently seen a physician. Historical: - Allergies: 22:09 No Known Allergies; kb3 - Home Meds: 22:09 HTN medication - noncomplaint [Active]; kb3 - PMHx: 22:09 Hypertension; Sleep Apnea; kb3 - PSHx: 22:09 None; kb3 - Immunization history:: Adult Immunizations up to date, Client reports having NOT received the Covid vaccine. Last tetanus immunization: unknown. - Social history:: Smoking status: Patient denies any tobacco usage or history of. ROS: 22:07 Constitutional: Negative for fever, chills, and weight loss, Cardiovascular: Negative pm1 for chest pain, palpitations, and edema, Respiratory: Negative for shortness of breath, cough, wheezing, and pleuritic chest pain. 22:07 MS/Extremity: Negative for injury and deformity, Skin: Negative for injury, rash, and discoloration, Neuro: Negative for headache, weakness, numbness, tingling, and seizure. 22:07 Abdomen/GI: Positive for abdominal pain, of the left lower quadrant. 22:07 Back: Positive for flank pain, on the left. 22:07 : Positive for urinary symptoms. 22:07 All other systems are negative. Exam: 22:07 Constitutional: This is a well developed, well nourished patient who is awake, alert, pm1 and in no acute distress. Head/Face: Normocephalic, atraumatic. 22:07 Skin: Warm, dry with normal turgor. Normal color with no rashes, no lesions, and no evidence of cellulitis. MS/ Extremity: Pulses equal, no cyanosis. Neurovascular intact. Full, normal range of motion. 22:07 Cardiovascular: Exam negative for acute changes, Rate: normal, Rhythm: regular, Pulses: no pulse deficits are appreciated. 22:07 Respiratory: Exam negative for acute changes, respiratory distress, shortness of breath. 22:07 Abdomen/GI: Inspection: obese Palpation: abdomen is soft and non-tender, in all quadrants. 22:07 Back: pain, that is moderate, of the left low back. 22:07 Neuro: Exam negative for acute changes, Orientation: is normal, Mentation: is normal, Motor: is normal, moves all fours. Vital Signs: 22:08 BP 189 / 105; Pulse 80; Resp 20; Temp 98.5; Pulse Ox 96% ; Weight 165.56 kg; Height 6 kb3 ft. 0 in. (182.88 cm); Pain 08/16; 22:57 BP 189 / 105; Pulse 80; Resp 18 S; Pulse Ox 95% on R/A; as6 09/17 00:52 BP 136 / 82; Pulse 70; Resp 16 S; Pulse Ox 98% on R/A; as6 09/16 22:08 Body Mass Index 49.50 (165.56 kg, 182.88 cm) kb3 MDM: 09/16 21:55 Patient medically screened. pm1 09/17 00:41 Data reviewed: vital signs. Data interpreted: Pulse oximetry: on room air is 95 %. pm1 Interpretation: normal. Counseling: I had a detailed discussion with the patient and/or guardian regarding: the historical points, exam findings, and any diagnostic results supporting the discharge/admit diagnosis, lab results, radiology results, the need for outpatient follow up, to return to the emergency department if symptoms worsen or persist or if there are any questions or concerns that arise at home. 00:42 Special discussion: I have referred the patient to see his PCP for further evaluation pm1 of high blood pressure. 09/16 22:07 Order name: CBC with Diff; Complete Time: 23:23 pm1 09/16 22:07 Order name: CMP; Complete Time: 23:38 pm1 09/16 22:07 Order name: Lipase; Complete Time: 23:38 pm1 09/16 22:07 Order name: Urine Microscopic Only; Complete Time: 23:23 pm1 09/16 22:07 Order name: CT Stone Protocol pm1 09/16 22:58 Order name: Urine Dipstick-Ancillary; Complete Time: 23:00 EDMS 09/16 22:07 Order name: IV Saline Lock; Complete Time: 22:56 pm1 09/16 22:07 Order name: Labs collected and sent; Complete Time: 22:56 pm1 09/16 22:07 Order name: Urine Dipstick-Ancillary (obtain specimen); Complete Time: 22:56 pm1 Administered Medications: 09/16 22:57 Drug: NS 0.9% 1000 ml Route: IV; Rate: 1 bolus; Site: right antecubital; as6 09/17 00:43 Follow up: Response: No adverse reaction; IV Status: Completed infusion; IV Intake: as6 1000ml 09/16 22:57 Drug: Zofran (Ondansetron) 4 mg Route: IVP; Site: right antecubital; as09/17 00:44 Follow up: Response: No adverse reaction as6 09/16 22:57 Drug: morphine 4 mg Route: IVP; Infused Over: 4 mins; Site: right antecubital; as6 09/17 00:44 Follow up: Response: No adverse reaction as6 Disposition Summary: 09/17/22 00:42 Discharge Ordered Location: Home pm1 Problem: new pm1 Symptoms: have improved pm1 Condition: Stable pm1 Diagnosis - Low back pain pm1 Followup: pm1 - With: Emergency Department - When: As needed - Reason: Worsening of condition Followup: pm1 - With: Private Physician - When: 2 - 3 days - Reason: Recheck today's complaints, Continuance of care, Re-evaluation by your physician Discharge Instructions: - Discharge Summary Sheet pm1 - Acute Back Pain, Adult pm1 Forms: - Medication Reconciliation Form pm1 - Work release form la1 - Thank You Letter pm1 - Antibiotic Education pm1 - Prescription Opioid Use pm1 Prescriptions: - Cyclobenzaprine 10 mg Oral Tablet - take 1 tablet by ORAL route every 8 hours As needed; 30 tablet; Refills: 0, pm1 Product Selection Permitted - Diclofenac Sodium 75 mg Oral Tablet Sustained Release - take 1 tablet by ORAL route 2 times per day; 30 tablet; Refills: 0, Product pm1 Selection Permitted Addendum: 09/23/2022 09:56 Co-signature as Attending Physician, Josiah Alaniz MD I agree with the assessment and c call plan of care. Signatures: Dispatcher [employer] EDAR Josiah Alaniz MD MD cha Marinas, Patrick, DEAF/HARD OF HEARING SPECIALIST DEAF/HARD OF HEARING SPECIALIST pm1 Dov Cabral, RN RN as6 Lizzy Rader RN RN kb3
[2022-09-17 01:40] VITALS: TEMP 98.5
[2022-09-17 01:42] VITALS: BP 136/82; O2SAT 98
--- NOTE | 2022-09-17 12:05 | RAD REPORT ---
EXAM DESCRIPTION: CT Abdomen and Pelvis Without Intravenous Contrast CLINICAL HISTORY: The patient is 26 years old and is Male; Flank pain, kidney stone suspected TECHNIQUE: Axial computed tomography images of the abdomen and pelvis without intravenous contrast. Sagittal and coronal reformatted images were created and reviewed. This CT exam was performed usi ng one or more of the following dose reduction techniques: automated exposure control, adjustment o f the mA and/or kV according to patient size, and/or use of iterative reconstruction technique. DLP: 2895 mGy*cm COMPARISON: CT abdomen and pelvis dated 01/19/2022. FINDINGS: LUNG BASES: Lung bases are clear. HEART: Visualized heart is within normal limits. ABDOMEN: LIVER: Hepatic steatosis. GALLBLADDER AND BILE DUCTS: Unremarkable. No calcified stones. No ductal dilation. PANCREAS: Unremarkable. No ductal dilation. SPLEEN: Unremarkable. No splenomegaly. ADRENALS: Unremarkable. No mass. KIDNEYS AND URETERS: Unremarkable. No obstructing stones. No hydronephrosis. STOMACH AND BOWEL: Unremarkable. No obstruction. No mucosal thickening. PELVIS: APPENDIX: The appendix is seen and is within normal limits. BLADDER: Bladder is decompressed. No stones. REPRODUCTIVE: Unremarkable as visualized. ABDOMEN and PELVIS: INTRAPERITONEAL SPACE: Unremarkable. No free air. No significant fluid collection. BONES/JOINTS: Lower lumbar other changes. No acute fracture. No dislocation. SOFT TISSUES: Unremarkable. VASCULATURE: Unremarkable. No abdominal aortic aneurysm. LYMPH NODES: Unremarkable. No enlarged lymph nodes. IMPRESSION: 1. No acute abdominal or pelvic abnormity. No obstructive uropathy. 2. Hepatic steatosis. Electronically signed by: Sami Lambert DO 09/17/2022 12:10 AM [employer] Due to temporary technical issues with the PACS/Fluency reporting system, reports are being signed by the in house radiologists without review as a courtesy to insure prompt reporting. The interpreting radiologist is fully responsible for the content of the report.
== END 2022-09-17 01:28 | disposition home or self-care (01) ==
LOC: ER 21:18
DX: M54.50 Low back pain, unspecified (principal); I10 Essential (primary) hypertension
CPT/HCPCS: 36415; 74176; 76377; 80053; 81003; 81015; 83690; 85025; 96361; 96374; 96375; 99284; J2405; J7030

== ENCOUNTER 2022-11-05 00:40 | Emergency (ER) | payer SELFPAY ==
--- OUTSIDE RECORDS SUMMARY | 2022-11-05 00:44 | XMS REPORT | Continuity of Care Document ---
:1995 Author Organization [facility] t Address [address] [place] [address] Care Team Providers Name Role Phone Anders Gali Primary Care Physician Flor PETERSON Attending Clinician Unavailable Flor Rosa Attending Clinician Doctor Unassigned, [place] Attending Clinician Unavailable Archana Woodson DO Attending Clinician Guzman MONDRAGON, Heaven K.HPurvi Attending Clinician JAY STEELE Attending Clinician Unavailable Flor PETERSON Admitting Clinician Unavailable Payers Payer Name Policy Type Policy Number Effective Date Expiration Date S ource COMMERCIAL [id number] 2019 NON-CONTRACT 00:00:00 GENERIC MEDICAID [place] PENDING 2022 PENDING 00:00:00 Problems Condition Condition Condition Status Onset Resolution Last Treating Co mments Source Name Details Category Date Date Treatment Clinician Date No known No known Disease Unive rs active active ity of problems problems [facility] Allergies, Adverse Reactions, Alerts Allergy Allergy Status Severity Reaction(s) Onset Inactive Treating Comm ents Source Name Type Date Date Clinician NO KNOWN Drug Active Univers ALLERGIE Class ity of S [facility] Social History Social Habit Start Date Stop Date Quantity Comments Source Tobacco use and 2019-06-21 2019-06-21 Never used [facility] [place] exposure 00:00:00 00:00:00 Medical Branch Sex Ass[birth year] At [birth year] DODIE Bowen 00:00:00 00:00:00 [facility] Smoking Status Start Date Stop Date Source Never smoker [facility] Medications Ordered Filled Start Stop [...] Restricted medication : Flor PETERSON ibuprofen Yes [id number] 600mg Take 1 U nivers 600 mg 4-13 tablet by ity of tablet 00:00: mouth [place] 00 every 6 Medical (six) Branch hours. carvedilol Yes [id number] 6.25mg Take 1 Univers (COREG) 8-15 tablet by ity of 6.25 mg 00:00: mouth 2 [place] tablet 00 (two) Medical times Branch daily with meals. carvedilol Yes [id number] 6.25mg Take 1 Univers (COREG) 8-15 tablet by ity of 6.25 mg 00:00: mouth 2 [place] tablet 00 (two) Medical times Branch daily with meals. Vital Signs Vital Name Observation Time Observation Value Comments Source Systolic blood 2022-02-17 16:59:00 147 mm[Hg] Univer sity [facility] Diastolic blood 2022-02-17 16:59:00 84 mm[Hg] Unive rsity [facility] Heart rate 2022-02-17 16:59:00 75 /min [facility] Body temperature 2022-02-17 16:59:00 36.67 [facility] Respiratory rate 2022-02-17 16:59:00 18 /min [facility] Body weight 2022-02-17 16:59:00 163.295 kg [facility] BMI 2022-02-17 16:59:00 48.82 kg/m2 [facility] Oxygen saturation in 2022-02-17 16:59:00 100 /min [facility] Arterial blood by [facility] Pulse oximetry Branch Procedures Procedure Date / Time Performed Performing Clinician Yoel e XR HIPS 2 VW LEFT 2022-02-17 21:00:00 Flor Peterson [facility] CONSENT/REFUSAL FOR 2022-02-17 16:46:56 Doctor Unassigned, No Un [facility] DIAGNOSIS AND Name [facility] TREATMENT Plan of Care Planned Activity Planned Date Details Comments Source Future Scheduled 2020-07-[address] [facility] Test 00:00:00 (#1) [code = [facility] INFLUENZA VACCINE (#1)] Future Scheduled [address] [facility] Test 00:00:00 (procedure) [code = [facility] 07301373] Encounters Start End Encounter Admission Attending Care Care Encounter Source Date/Time Date/Time Type Type Clinicians Facility Department ID 2021-09-04 Emergency [facility] [id number] Univers 16:13:46 [facility] 2022-08-17 2022-08-17 Outpatient SFA SFA [id number] [place] 11:53:10 11:53:10 1011 [address] Sheng 2022-02-17 2022-02-17 Emergency X Flor PETERSON [facility] ERT [id number] Univers 12:01:00 [facility]22-[facility]-17 2022-02-17 Emergency Flor Peterson [facility] [id number] Univers 12:01:00 17:24:00 Praveena BARAJAS [id number] i ty [facility] [id number] [facility] [id number] Medi gricelda 084 Branch 2022-02-17 2022-02-17 Orders Doctor VALENTIN [id number] Univers 00:00:00 00:00:00 Only Unassigned, CONSTANZA [id number] ity of [place] [facility] [id number] Adán as [id number] [address] 2020-07-14 2020-07-15 [facility] [id number] 21:40:00 00:54:00 Archana Barajas [id number] [place] [id number] [place] [id number] 2020-07-14 2020-07-14 Orders Doctor BARBIE [id number] 00:00:00 00:00:00 Only Unassigned, CONSTANZA [id number] [place] [facility] [id number] 2019-06-21 2019-07-17 Office [facility] [id number] 09:25:01 12:38:55 Visit Heaven Barajas [id number] [place] [id number] [id number] [place] 0[facility] Building Results Test Description Test [...] 0-100 (test code = 700) BASIC METABOLIC [id number] 15:17:00 Test Item Value Reference Range Interpretation [...] m DATA TO CALCULA TE ESTIMATED GFR. [id number] 15:14:00 Test Item Value Reference Range Interpretation Comments MAGNESIUM (BEAKER) (test code = 2.0 mg/dL 1.6-2.6 627) CBC W/PLT COUNT & AUTO [id number] 14:53:00 Test Item Value Reference Range Interpretation [...] = 2801) RAD, CHEST, 1 VIEW, NON [id number] 14:32:00Reason for exam:->CPFINAL REPORT RAD, CHEST, 1 VIEW, NON DEPT CLINICAL INDICATION: CP COMPARISON: None TECHNIQUE: AP view of the chest FINDINGS: Lung volumes are low. No focal consolidation. No pleural effusion or pneumothorax. Cardiomediastinal silhouette, kendrick, and pulmonary vasculature are normal.No acute osseous abnormality. IMPRESSION:No acute cardiopulmonary abnormality. Signed: Swapnil Packer MDReport Verified Date/Time: 06/15/2019 14:32:22 Reading Location: [facility] B1 [id number] Consult Reading Room
[2022-11-05] MEDS ORDERED: KETOROLAC 30 MG/ML INJ ONE (01:12)
[2022-11-05] MEDS ORDERED: dexAMETHasone 10 MG/ML VIAL ONE (01:12)
[2022-11-05] MEDS ORDERED: KETAMINE HCL 500 MG/5 ML VIAL ONE ×2 (01:12→02:37)
--- NOTE | 2022-11-05 02:38 | EDPHYS ---
Physician Documentation [facility] Name: Bolivar Yang Age: 26 yrs Sex: Male : 1995 Arrival Date: 11/05/2022 Time: 00:45 Bed 7 Private MD: ED Physician Brittaney Reynolds HPI: 11/05 01:05 This 26 yrs old Male presents to ER via Wheelchair with complaints of Leg jmm Pain, Weakness. 01:05 The patient presents with pain. Onset: The symptoms/episode began/occurred 2 day(s) jmm ago. Is a 26-year-old male with history of hypertension the presents emerged department with complaints of lower back pain which radiates into his left leg. This is a chronic problem for him. Patient states pain is intensified over the past couple of days. Patient had a fall just prior to arrival while taking a shower. Denies numbness, urinary or bowel issues, weakness in the leg, fever.. Historical: - Allergies: 00:53 No Known Allergies; tw5 - Home Meds: 00:53 None [Active]; tw5 - PMHx: 00:53 Hypertension; Sleep Apnea; tw5 - Immunization history:: Flu vaccine is not up to date. - Social history:: Smoking status: Patient denies any tobacco usage or history of. ROS: 01:05 Constitutional: Negative for fever, chills, and weight loss, Cardiovascular: Negative jmm for chest pain, palpitations, and edema, Respiratory: Negative for shortness of breath, cough, wheezing, and pleuritic chest pain. 01:05 Back: Positive for pain with movement. 01:05 MS/extremity: Positive for pain. 01:05 All other systems are negative. Exam: 01:05 Constitutional: This is a well developed, well nourished patient who is awake, alert, jmm and in no acute distress. Head/Face: atraumatic. Eyes: EOMI, no conjunctival erythema appreciated ENT: Moist Mucus Membranes Neck: Trachea midline, Supple Chest/axilla: Normal chest wall appearance and motion. Cardiovascular: Regular rate and rhythm. No edema appreciated Respiratory: Normal respirations, no respiratory distress appreciated Abdomen/GI: Non distended 01:05 Back: pain, that is moderate, of the lumbar area. 01:05 Musculoskeletal/extremity: ROM: intact in all extremities. 01:05 Neuro: Extensor hallucis longus intact bilaterally. 01:05 Psych: Behavior/mood is pleasant, cooperative. Vital Signs: 00:50 BP 171 / 100; Pulse 116; Resp 20; Temp 99.2(O); Pulse Ox 96% on R/A; Weight 165.56 kg; tw5 Height 6 ft. 0 in. (182.88 cm); Pain 10/10; 00:57 BP 155 / 98; Pulse 95; Resp 18 S; Pulse Ox 98% on R/A; ha1 01:50 BP 120 / 55; Pulse 90; Resp 17 S; Pulse Ox 100% on R/A; ha1 02:56 BP 124 / 60; Pulse 87; Resp 18 S; Pulse Ox 100% on R/A; ha1 00:50 Body Mass Index 49.50 (165.56 kg, 182.88 cm) tw5 MDM: 01:05 Patient medically screened. [facility] 02:36 Data reviewed: vital signs, nurses notes. Counseling: I had a detailed discussion with gladis the patient and/or guardian regarding: the historical points, exam findings, and any diagnostic results supporting the discharge/admit diagnosis, radiology results, the need for outpatient follow up, to return to the emergency department if symptoms worsen or persist or if there are any questions or concerns that arise at home. ED course: CT is negative for fracture. I do not currently suspect cord compression, cauda equina, spinal abscess. Patient advised to follow-up with orthopedic spine otherwise given strict return precautions. Patient understood and agrees plan of care.. 11/05 01:06 Order name: CT Lumbar Spine Wo Con [facility] 11/05 01:05 Order name: Saline Lock; Complete Time: 01:25 [facility] Administered Medications: 01:14 Drug: Decadron - Dexamethasone 10 mg Route: IVP; Site: right antecubital; as6 01:30 Follow up: Response: No adverse reaction ha1 01:14 Drug: Ketorolac 30 mg Route: IVP; Site: right antecubital; as6 01:30 Follow up: Response: No adverse reaction; Pain is decreased ha1 01:14 Drug: Ketamine 20 mg Route: IVP; Site: right antecubital; as6 01:30 Follow up: Response: No adverse reaction ha1 02:35 Drug: Ketamine 10 mg Route: IVP; Site: right antecubital; ha1 02:58 Follow up: Response: No adverse reaction; Pain is decreased; RASS: Alert and Calm (0) ha1 Disposition Summary: 11/05/22 02:38 Discharge Ordered Location: Home [facility] Condition: Stable [facility] Diagnosis - Low back pain jmm - Sciatica, left side jmm Followup: [facility] - With: Private Physician - When: 2 - 3 days - Reason: Recheck today's complaints, Continuance of care, Re-evaluation by your physician Discharge Instructions: - Discharge Summary Sheet [facility] - Acute Back Pain, Adult jmm - Sciatica Rehab-SportsMed jmm - and Returning to Work ha1 Forms: - Medication Reconciliation Form [facility] - Thank You Letter [facility] - Antibiotic Education [facility] - Prescription Opioid Use [facility] - Work release form ha1 Prescriptions: - Zanaflex 4 mg Oral Tablet - take 1 tablet by ORAL route every 8 hours As needed; 20 tablet; Refills: 0, [facility] Product Selection Permitted - Diclofenac Sodium 75 mg Oral Tablet Sustained Release - take 1 tablet by ORAL route 2 times per day; 30 tablet; Refills: 0, Product [facility] Selection Permitted Signatures: Dispatcher [employer] EDJose Manuel Ward PA PA jmm Wood, Tiffany tw5 Dov Cabral RN RN as6 Mariza Malone RN RN ha1 Corrections: (The following items were deleted from the chart) 00:54 00:53 Home Meds: HTN medication - noncomplaint; tw tw5
--- NOTE | 2022-11-05 02:38 | ER ---
Nurse's Notes [facility] Name: Bolivar Yang Age: 26 yrs Sex: Male : 1995 Arrival Date: 11/05/2022 Time: 00:45 Bed 7 Private MD: Diagnosis: Low back pain;Sciatica, left side Presentation: 11/05 00:50 Chief complaint: patient is Portuguese speaking. His states " He has been having pain tw5 that starts in his lower back and goes all the way down the back side of his left leg. Today it was so bad that he was having trouble getting out of the tub and he fell, which only made his leg pain worse.". Coronavirus screen: Vaccine status: Patient reports being unvaccinated. Ebola Screen: Patient negative for fever greater than or equal to 101.5 degrees Fahrenheit, and additional compatible Ebola Virus Disease symptoms Patient denies exposure to infectious person. Patient denies travel to an Ebola-affected area in the 21 days before illness onset. 00:50 Method Of Arrival: Wheelchair tw5 00:53 Initial Sepsis Screen: Does the patient meet any 2 criteria? HR > 90 bpm. Does the tw5 patient have a suspected source of infection? No. Patient's initial sepsis screen is negative. Risk Assessment: Do you want to hurt yourself or someone else? Patient reports no desire to harm self or others. Onset of symptoms is unknown. 00:53 Acuity: GUILLERMO 3 tw5 Triage Assessment: 00:53 General: Appears uncomfortable, obese, Behavior is calm. Pain: Complains of pain in tw5 left gluteal fold, left hamstring, posterior aspect of left knee and left calf Pain currently is 10 out of 10 on a pain scale. Historical: - Allergies: 00:53 No Known Allergies; tw5 - Home Meds: 00:53 None [Active]; tw5 - PMHx: 00:53 Hypertension; Sleep Apnea; tw5 - Immunization history:: Flu vaccine is not up to date. - Social history:: Smoking status: Patient denies any tobacco usage or history of. Screenin:00 Abuse screen: Denies threats or abuse. Denies injuries from another. Nutritional ha1 screening: No deficits noted. Tuberculosis screening: No symptoms or risk factors identified. 01:17 [facility] ED Fall Risk Assessment (Adult) History of falling in the last 3 months, ha1 including since admission Yes- single mechanical fall (1 pt) Confusion or Disorientation No (0 pts) Intoxicated or Sedated No (0 pts) Impaired Gait No (0 pts) Mobility Assist Device Used No (0 pt) Altered Elimination No (0 pt) Score/Fall Risk Level 0 - 2 = Low Risk Oriented to surroundings, Maintained a safe environment, Educated pt \\T\\ family on fall prevention, incl call for assistance when getting out of bed, Hourly rounding (assess needs \\T\\ fall precautionary measures) done. Assessment: 00:55 General: Appears uncomfortable, Behavior is cooperative. Pain: Complains of pain in ha1 left leg and secrum area Pain does not radiate. Pain currently is 10 out of 10 on a pain scale. Quality of pain is described as throbbing, Pain began 2 hours ago. Is continuous. Neuro: Level of Consciousness is awake, alert, obeys commands, Oriented to person, place, time, situation. Cardiovascular: Capillary refill < 3 seconds Patient's skin is warm and dry. Respiratory: No deficits noted. Airway is patent Trachea midline Respiratory effort is even, unlabored, Respiratory pattern is regular, symmetrical. GI: No signs and/or symptoms were reported involving the gastrointestinal system. Abdomen is non-distended, obese. : No signs and/or symptoms were reported regarding the genitourinary system. EENT: No deficits noted. No signs and/or symptoms were reported regarding the EENT system. Derm: Skin is dry, Skin is normal. Musculoskeletal: Circulation, motion, and sensation intact. Range of motion: intact in all extremities, Reports pain in left leg and sacrum. 01:55 Reassessment: Patient and/or family updated on plan of care and expected duration. Pain ha1 level reassessed. Patient is alert, oriented x 3, equal unlabored respirations, skin warm/dry/pink. Patient states feeling better. Patient states symptoms have improved. 02:56 Reassessment: Patient and/or family updated on plan of care and expected duration. Pain ha1 level reassessed. Patient is alert, oriented x 3, equal unlabored respirations, skin warm/dry/pink. Patient states feeling better. Patient states symptoms have improved. Vital Signs: 00:50 BP 171 / 100; Pulse 116; Resp 20; Temp 99.2(O); Pulse Ox 96% on R/A; Weight 165.56 kg; tw5 Height 6 ft. 0 in. (182.88 cm); Pain 10/10; 00:57 BP 155 / 98; Pulse 95; Resp 18 S; Pulse Ox 98% on R/A; ha1 01:50 BP 120 / 55; Pulse 90; Resp 17 S; Pulse Ox 100% on R/A; ha1 02:56 BP 124 / 60; Pulse 87; Resp 18 S; Pulse Ox 100% on R/A; ha1 00:50 Body Mass Index 49.50 (165.56 kg, 182.88 cm) tw5 ED Course: 00:45 Patient arrived in ED. es 00:45 Jose Manuel Mathis PA is PHCP. jmm 00:45 Brittaney Reynolds MD is Attending Physician. jm 00:53 Triage completed. tw5 00:53 Arm band placed on. tw5 00:54 Patient has correct armband on for positive identification. Placed in gown. Bed in low ha1 position. Call light in reach. Side rails up X 1. Adult w/ patient. 00:56 Dov Cabral, RN is Primary Nurse. as6 01:00 Inserted saline lock: 20 gauge in right antecubital area, using aseptic technique. ha1 01:38 CT Lumbar Spine Wo Con In Process Unspecified. EDMS 02:57 No provider procedures requiring assistance completed. IV discontinued, intact, ha1 bleeding controlled, No redness/swelling at site. Pressure dressing applied. Administered Medications: 01:14 Drug: Decadron - Dexamethasone 10 mg Route: IVP; Site: right antecubital; as6 01:30 Follow up: Response: No adverse reaction ha1 01:14 Drug: Ketorolac 30 mg Route: IVP; Site: right antecubital; as6 01:30 Follow up: Response: No adverse reaction; Pain is decreased ha1 01:14 Drug: Ketamine 20 mg Route: IVP; Site: right antecubital; as6 01:30 Follow up: Response: No adverse reaction ha1 02:35 Drug: Ketamine 10 mg Route: IVP; Site: right antecubital; ha1 02:58 Follow up: Response: No adverse reaction; Pain is decreased; RASS: Alert and Calm (0) ha1 Medication: 02:58 VIS not applicable for this client. ha1 Outcome: 02:38 Discharge ordered by . gladis 02:57 Discharged to home via wheelchair, with family. ha1 02:57 Condition: stable 02:57 Discharge instructions given to patient, family, Instructed on discharge instructions, follow up and referral plans. medication usage, Demonstrated understanding of instructions, follow-up care, medications, Prescriptions given X 2. 02:59 Patient left the ED. ha1 Signatures: Dispatcher [employer] EDMS Jose Manuel Mathis PA PA jmm Salyer, Edna es Wood, Tiffany tw5 Dov Cabral RN RN as6 Mariza Malone RN RN ha1 Corrections: (The following items were deleted from the chart) 00:54 00:53 Home Meds: HTN medication - noncomplaint; tw5 tw 02:23 01:50 BP 120 / 45; Pulse 90bpm; Resp 17bpm; Spontaneous; Pulse Ox 100% RA; ha1 ha1
[2022-11-05 03:26] VITALS: TEMP 99.2
[2022-11-05 03:28] VITALS: O2SAT 100
[2022-11-05 03:29] VITALS: BP 124/60
--- NOTE | 2022-11-05 17:48 | RAD REPORT ---
EXAM DESCRIPTION: CT - Spine Lumbar Wo Con - 11/05/2022 2:42 am CLINICAL HISTORY: Fall, back pain TECHNIQUE: Axial computed tomography images of the lumbar spine without intravenous contrast. Sagi ttal and coronal reformatted images were created and reviewed. This CT exam was performed using one or more of the following dose reduction techniques: automated exposure control, adjustment of the mA and/or kV according to patient size, and/or use of iterative reconstruction technique. COMPARISON: Abdomen pelvis CT dated 01/19/2022 FINDINGS: Vertebrae: 6 nonrib-bearing lumbar-type vertebral bodies. No acute fracture or subluxa tion. Discs/spinal canal/neural foramina: Mild degenerative changes. No canal stenosis. Soft tissues: Unremarkable. IMPRESSION: No acute injury. Electronically signed by: Sara Haley MD 11/05/2022 2:18 AM [employer] [facility] Due to temporary technical issues with the PACS/Fluency reporting system, reports are being signed by the in house radiologists without review as a courtesy to insure prompt reporting. The interpreting radiologist is fully responsible for the content of the report.
== END 2022-11-05 02:59 | disposition home or self-care (01) ==
LOC: ER 00:40
DX: M54.32 Sciatica, left side (principal)
CPT/HCPCS: 72131; 96374; 96375; 99284; J1100

== ENCOUNTER 2023-06-06 21:05 | Emergency (ER) | payer SELFPAY ==
--- OUTSIDE RECORDS SUMMARY | 2023-06-06 21:21 | XMS REPORT | Continuity of Care Document ---
:1995 Author Organization [facility] t Address [address] [facility] [address] [place] [address] Care Team Providers Name Role Phone Anders Gali Primary Care Physician JORGE SANCHEZ Attending Clinician Unavailable Jorge Nevarez Attending Clinician MASSIMO HERNANDEZ Attending Clinician Unavailable Massimo Garzon Attending Clinician Flor PETERSON Attending Clinician Unavailable Flor Rosa Attending Clinician Doctor Unassigned, [place] Attending Clinician Unavailable Archana Woodson DO Attending Clinician Heaven Hinds MD Attending Clinician JAY STEELE Attending Clinician Unavailable Flor PETERSON Admitting Clinician Unavailable Payers Payer Name Policy Type Policy Number Effective Date Expiration Date S vel COMMERCIAL [id number] 2019 NON-CONTRACT 00:00:00 GENERIC MEDICAID [place] PENDING 2022 PENDING 00:00:00 Problems Condition Condition Condition Status Onset Resolution Last Treating Co mments Source Name Details Category Date Date Treatment Clinician Date No known No known Disease Unive rs active active ity of problems problems [facility] Allergies, Adverse Reactions, Alerts Allergy Allergy Status Severity Reaction(s) Onset Inactive Treating Comm ents Source Name Type Date Date Clinician NO KNOWN Drug Active Univers ALLERGIE Class ity of S [facility] Social History Social Habit Start Date Stop Date Quantity Comments Source Exposure to 2022-11-06 2022-11-16 Not sure University SARS-CoV-2 00:00:00 22:49:00 [facility] (event) [place] Tobacco use and 2019-06-21 2019-06-21 Smokeless tobacco Un iversity of exposure 00:00:00 00:00:00 non-user [facility] Sex Assigned At [birth year] DODIE Bowen 00:00:00 [facility]:00:00 [facility] Smoking Status Start Date Stop Date Source Never smoked tobacco [facility] Medications Ordered Filled Start Stop Current Ordering Indication Dosage Frequency Signature Comments Components Source Medication Medication Date Date Medication? Clinician (SIG) Name Name penicillin 2022- No 1.210 1.2 Unive rs g 04-0530 Million ity of benzathine 19:15: 19[place] ([place] 00 :00 Intramuscu Medi gricelda L-A) lar, ONCE, Branch injection 1 dose, On 1.2 Million Tue Units 04/05/23 at 1415, GURPREET
Re ason for Anti-Infec tive: Documented Infection< br>Documen yaima Infection Site: HEENT
D uration of Therapy: Other (see Comments) acetaminoph 2022- No 1000mg 1,000 mg, Univers en 04-05 Oral, ity of (TYLENOL) 17:45: 17:46 ONCE, [place] tablet 00 :00 dose, On Medical 1,000 mg [facility] Branch 04/05/23 at 1245, GURPREET ketorolac 2022- No 30mg 30 mg, Unive rs (TORADOL) 11-17 Intramuscu ity of injection 05:45: 05:18 lar, ONCE, [place] 30 mg 00 :00 1 dose, On Medical Tue Branch 11/16/22 at 2345, Routine HYDROcodone 2022- No 1{tbl} 1 tablet, Univers -acetaminop 11-17 Oral, ity of hen (NORCO 05:45: 05:18 ONCE, 1 [place] 5) 5-325 mg 00 :00 dose, On Medi gricelda tablet 1 e Branch tablet 11/16/22 at 2345, GURPREET cyclobenzap Yes [id number] 10mg Take 1 Univers rine 10 mg 1-10 tablet by ity of tablet 00:00: mouth [place] 00 every 8 Medical (eight) Branch hours as needed for Muscle Spasms. naproxen Yes [id number] 500mg Take 1 U nivers 500 mg EC 1-10 tablet by ity o f tablet 00:00: mouth 2 [place] 00 (two) Medical times Branch daily with meals. cyclobenzap Yes [id number] 10mg Take 1 Univers rine 10 mg 1-10 tablet by ity of tablet 00:00: mouth [place] 00 every 8 Medical (eight) Branch hours as needed for Muscle Spasms. naproxen Yes [id number] 500mg Take 1 U nivers 500 mg EC 1-10 tablet by ity o f tablet 00:00: mouth 2 [place] 00 (two) Medical times Branch daily with meals. HYDROcodone 2021- No 1{tbl} 1 tablet, Univers -acetaminop 02-17 Oral, ity of hen (NORCO) 20:15: 19:34 ONCE, 1 [place] 10-325 mg 00 :00 dose, On Medica l tablet 1 Tue Branch tablet 02/17/22 at 1515, Routine ketorolac 2021- No 30mg 30 mg, Unive rs (TORADOL) 02-17 Intramuscu ity of injection 20:15: 19:34 lar, ONCE, [place] 30 mg 00 :00 1 dose, On Medical Wed Branch 02/17/22 at 1515, GURPREET
Fa culty member approving Restricted medication : Flor PETERSON ibuprofen Yes [id number] 600mg Take 1 U nivers 600 mg -13 tablet by ity of tablet 00:00: mouth [place] 00 every 6 Medical (six) Branch hours. ibuprofen 2022- No [id number] 600mg Take 1 Univers 600 mg 4-13 01-10 tablet by ity of tablet 00:00: 00:00 mouth [place] 00 :00 every 6 Medical (six) Branch hours. carvedilol Yes [id number] 6.25mg Take 1 Univers (COREG) 8-15 tablet by ity of 6.25 mg 00:00: mouth 2 [place] tablet 00 (two) Medical times Branch daily with meals. carvedilol Yes [id number] 6.25mg Take 1 Univers (COREG) 8-15 tablet by ity of 6.25 mg 00:00: mouth 2 [place] tablet 00 (two) Medical times Branch daily with meals. carvedilol Yes [id number] 6.25mg Take 1 Univers (COREG) 8-15 tablet by ity of 6.25 mg 00:00: mouth 2 [place] tablet 00 (two) Medical times Branch daily with meals. carvedilol Yes [id number] 6.25mg Take 1 Univers (COREG) 8-15 tablet by ity of 6.25 mg 00:00: mouth 2 [place] tablet 00 (two) Medical times [place] daily with meals. Vital Signs Vital Name Observation Time Observation Value Comments Source Diastolic blood 2023-04-05 19:20:38 104 mm[Hg] Unive [facility] Heart rate 2023-04-05 19:20:38 118 /min [facility] Body temperature 2023-04-05 19:20:38 37.28 [facility] Respiratory rate 2023-04-05 19:20:38 26 /min [facility] Oxygen saturation in 2023-04-05 19:20:38 98 /min [facility] Arterial blood by [facility] Pulse oximetry Branch Systolic blood 2023-04-05 19:20:38 152 mm[Hg] [facility] height 2023-04-05 17:41:00 182.9 cm [facility] Body weight 2023-04-05 17:41:00 189.377 kg [facility] BMI 2023-04-05 17:41:00 56.62 kg/m2 [facility] Systolic blood 2022-11-17 04:45:00 151 mm[Hg] [facility] Diastolic blood 2022-11-17 04:45:00 90 mm[Hg] Unive [facility] Heart rate 2022-11-17 04:45:00 87 /min [facility] Body temperature 2022-11-17 04:45:00 36.61 [facility] [place] [facility] Respiratory rate 2022-11-17 04:45:00 19 /min [facility] [place] [facility] Body height 2022-11-17 04:45:00 182.9 cm [facility] Body weight 2022-11-17 04:45:00 163.295 kg [facility] [place] [facility] BMI 2022-11-17 04:45:00 48.82 kg/m2 [facility] Oxygen saturation in 2022-11-17 04:45:00 98 /min University of Arterial blood by [facility] Pulse oximetry Branch Systolic blood 2022-02-17 16:59:00 147 mm[Hg] Univer sity of pressure [facility] [place] Diastolic blood 2022-02-17 16:59:00 84 mm[Hg] Unive rsity of pressure [facility] [place] Heart rate 2022-02-17 16:59:00 75 /min [facility] Body temperature 2022-02-17 16:59:00 36.67 [facility] Respiratory rate 2022-02-17 16:59:00 18 /min [facility] [place] [facility] Body weight 2022-02-17 16:59:00 163.295 kg [facility] BMI 2022-02-17 16:59:00 48.82 kg/m2 [facility] Oxygen saturation in 2022-02-17 16:59:00 100 /min University of Arterial blood by [facility] Pulse oximetry Branch Procedures Procedure Date / Time Performed Performing Clinician Sour e RAPID STREP SCREEN 2023-04-05 18:01:00 Jorge Sanchez [facility] FOR GROUP A Medical Branch CONSENT/REFUSAL FOR 2023-04-05 17:32:32 Doctor Unassigned, No Un [facility] [place] [facility] AND Name Medical Branch TREATMENT CONSENT/REFUSAL FOR 2022-11-17 04:41:39 Doctor Unassigned, No Un [facility] [place] DIAGNOSIS AND Name Medical Branch TREATMENT XR HIPS 2 VW LEFT 2022-02-17 21:00:00 Flor Peterson [facility] CONSENT/REFUSAL FOR 2022-02-17 16:46:56 Doctor Unassigned, No Un [facility] DIAGNOSIS AND Name [facility] TREATMENT Plan of Care Planned Activity Planned Date Details Comments Source Future Scheduled 2020-07-[address] [facility] Test 00:00:00 (#1) [code = [facility] INFLUENZA VACCINE (#1)] Future Scheduled [address] [facility] Test 00:00:00 (procedure) [code = [facility] 31687060] Encounters Start End Encounter Admission Attending Care Care Encounter Source Date/Time Date/Time Type Type Clinicians Facility Department ID 2021-09-04 Emergency [facility] [id number] [facility]23-04-05 2023-04-05 Emergency X LAURA [facility] ERT [id number] Univers 12:44:00 15:23:[facility] 2023-04-05 2023-04-05 Emergency Laura [facility] [id number] Univers 12:44:00 15:23:00 Jorge King MONTEZUMA [id number] i [facility] [id number] [facility] [id number] [address] 2022-12-23 2022-12-23 Outpatient SFA [facility]FA [id number] [place] 16:22:27 16:22:27 0216 [facility] 2022-12-20 2022-12-20 Outpatient SFA SFA [id number] [place] 16:02:57 16:02:57 0213 [facility] 2022-12-15 2022-12-15 Outpatient SFA SFA [id number] [place] 16:04:10 16:04:10 0208 [facility] 2022-12-08 2022-12-08 Outpatient SFA SFA [id number] [place] 14:27:58 14:27:58 0201 [facility] 2022-11-24 2022-11-24 Outpatient SFA SFA [id number] [place] 15:20:20 15:20:20 0118 [facility] 2022-11-16 2022-11-16 Emergency X MARY [facility] ERT [id number] Univers 22:52:00 23:45:00 MASSIMO it y of [facility] 2022-11-16 2022-11-16 Emergency Mary [facility] [id number] Univers 22:52:00 23:45:00 Massimo EVANS [id number] ity of [place] 4.2.7.2.686 [facility] [id number] [address] 2022-08-17 2022-08-17 Outpatient SFA [facility] [id number] [place] 11:53:10 11:53:10 1011 F Sheng 2022-02-17 2022-02-17 Emergency X Flor PETERSON [facility] ERT [id number] Univers 12:01:00 17:24:00 ity of [facility] 2022-02-17 2022-02-17 Emergency Genoveva, K [facility] [id number] Univers 12:01:00 17:24:00 Praveena EVANS [id number] i ty of [place] [id number] [facility] [id number] [address] 2022-02-17 2022-02-17 Orders Doctor BARBIE [id number] Univers 00:00:00 00:00:00 Only Unassigned, CONSTANZA [id number] ity of [place] [facility] [id number] [facility] [id number] [place] [address] Branch 2020-07-14 2020-07-15 [facility] [id number] 21:40:00 00:54:00 Archana Evans [id number] [place] 4.2.7.2.686 [place] [id number] 2020-07-14 2020-07-14 Orders Doctor BARBIE [id number] 00:00:00 00:00:00 Only Unassigned, CONSTANZA [id number] [place] [facility] [id number] [id number] 2019-06-21 2019-07-17 Office Guzman [facility] [id number] 09:25:01 12:38:55 Visit Heaven Evans [id number] [place] 4.2.7.2.686 Usha [id number] [facility] 059 Building Results Test Description Test Time [...] 0-100 (test code = 700) BASIC METABOLIC [id number] 15:17:00 Test Item Value Reference Range Interpretation [...] m DATA TO CALCULA TE ESTIMATED GFR. [id number] 15:14:00 Test Item Value Reference Range Interpretation Comments MAGNESIUM (BEAKER) (test code = 2.0 mg/dL 1.6-2.6 627) CBC W/PLT COUNT & AUTO [id number] 14:53:00 Test Item Value Reference Range Interpretation [...] = 2801) RAD, CHEST, 1 VIEW, NON [id number] 14:32:00Reason for exam:->CPFINAL REPORT RAD, CHEST, 1 VIEW, NON DEPT CLINICAL INDICATION: CP COMPARISON: None TECHNIQUE: AP view of the chest FINDINGS: Lung volumes are low. No focal consolidation. No pleural effusion or pneumothorax. Cardiomediastinal silhouette, kendrick, and pulmonary vasculature are normal.No acute osseous abnormality. IMPRESSION:No acute cardiopulmonary abnormality. Signed: Swapnil Packer Verified Date/Time: 06/15/2019 14:32:22 Reading Location: [address] Consult Reading Room
[2023-06-07] MEDS ORDERED: METOCLOPRAMIDE 10 MG/2mL INJ ONE (00:55)
[2023-06-07] MEDS ORDERED: ACETAMINOPHEN 500 MG TAB ONE (00:55)
[2023-06-07] MEDS ORDERED: MECLIZINE HCL 12.5 MG TAB ONE (00:56)
[2023-06-07 00:59] LABS: Absolute Lymphocytes (CBC) 3.8 K/uL (0.7-4.9); Hematocrit 39.9 % (39.6-49.0); Lymphocytes % 31.8 % (15.3-44.8); MCV 82.8 fL (80-100); MPV 9.4 fL (7.6-11.3); RBC Red Blood Cell Count 4.82 M/uL (4.33-5.43)
[2023-06-07 01:02] LABS: Protime INR 1.12
[2023-06-07 01:22] LABS: ALT/SGPT 32 U/L (16-61); AST/SGOT 19 U/L (15-37); Albumin 3.6 g/dL (3.4-5.0); Alkaline Phosphatase 124 U/L (45-117); BUN Blood Urea Nitrogen 12 mg/dL (7-18); Bicarbonate 28 mEq/L (21-32); Bilirubin Total 0.4 mg/dL (0.2-1.0); Glomerular Filtration Rate 102 ml/min (=/>90); Glucose Level 97 mg/dL (74-106); NT PRO-BNP 21 pg/mL (<125); Potassium 3.1 mEq/L (3.5-5.1); Protein, Total 8.5 g/dL (6.4-8.2); Sodium Level 138 mEq/L (136-145); Troponin High Sensitivity 18.9 pg/mL (<58.9)
[2023-06-07 01:22] LABS: Barbiturates NEGATIVE (NEGATIVE); Benzodiazepines NEGATIVE (NEGATIVE); Cocaine NEGATIVE (NEGATIVE); METHAMPHETAM NEGATIVE (NEGATIVE); Methadone NEGATIVE (NEGATIVE); Opiates NEGATIVE (NEGATIVE); Phencyclidine NEGATIVE (NEGATIVE); THC Cannibis POSITIVE (NEGATIVE)
[2023-06-07 01:23] LABS: Bilirubin Direct < 0.1 mg/dL (0-0.2); Bilirubin Indirect, Calculated ND mg/dL (0.2-0.8)
[2023-06-07] MEDS ORDERED: POTASSIUM 25 MEQ EFFERV TAB ONE (01:49)
[2023-06-07] MEDS ORDERED: MORPHINE 4 MG/ML SYR ONE (01:49)
[2023-06-07] MEDS ORDERED: KETOROLAC 30 MG/ML INJ ONE (01:49)
--- NOTE | 2023-06-07 03:32 | EDPHYS ---
Physician Documentation [facility] Name: Bolivar Yang Age: 27 yrs Sex: Male : 1995 Arrival Date: 06/06/2023 Time: 21:05 Bed DIS8 Private MD: ED Physician Kushal Quiroga HPI: 06/06 21:55 This 27 yrs old Male presents to ER via Wheelchair with complaints of cp Dizziness, Fall Injury. 21:55 The patient presents with dizziness, lightheadedness, shortness of breath. cp 21:55 Onset: The symptoms/episode began/occurred yesterday. cp 21:55 Associated signs and symptoms: Pertinent negatives: abdominal pain, confusion, cp diaphoresis, focal weakness, head injury, near-syncope, numbness, palpitations, syncope, vomiting. Patient's baseline: Neuro: alert and fully oriented, Motor: no deficits, Ambulation: walks without assistance, Speech: normal. 21:55 Patient with PMHX for HTN. Admits to not taking blood pressure medication. Reports fall cp onto left side yesterday causing left shoulder and left side chest/rib pain. Historical: - Allergies: 21:46 No Known Allergies; as6 - PMHx: 21:46 Hypertension; Sleep Apnea; as6 - PSHx: 21:46 None; as6 - Immunization history:: Client reports having NOT received the Covid vaccine. - Social history:: Smoking status: Patient denies any tobacco usage or history of. ROS: 22:00 Constitutional: Negative for fever. cp 22:00 Eyes: Negative for injury, pain, redness, and discharge. cp 22:00 ENT: Negative for drainage from ear(s), ear pain, sore throat, difficulty swallowing, difficulty handling secretions. 22:00 Neck: Negative for stiffness. 22:00 Cardiovascular: Positive for chest pain, of the left side and left lateral rib area, Negative for edema, palpitations. 22:00 Respiratory: Positive for shortness of breath, Negative for cough, wheezing. 22:00 Abdomen/GI: Negative for abdominal pain, vomiting, diarrhea, constipation. 22:00 Back: Negative for pain at rest, pain with movement. 22:00 : Negative for urinary symptoms. 22:00 Neuro: Positive for dizziness, Negative for altered mental status, loss of consciousness, syncope, weakness. 22:00 All other systems are negative. Exam: 22:05 Constitutional: The patient appears in no acute distress, alert, awake, cp non-diaphoretic, non-toxic, well developed, well nourished, obese, uncomfortable. 22:05 Head/Face: Normocephalic, atraumatic. cp 22:05 Eyes: Periorbital structures: appear normal, Pupils: equal, round, and reactive to light and accomodation, Extraocular movements: intact throughout, Conjunctiva: normal, no exudate, no injection, Sclera: no appreciated abnormality, Lids and lashes: appear normal, bilaterally. 22:05 ENT: External ear(s): are unremarkable, Nose: is normal, Mouth: Lips: moist, Oral mucosa: pink and intact, moist, Posterior pharynx: is normal, airway is patent, no erythema, no exudate. 22:05 Neck: C-spine: vertebral tenderness, is not appreciated, crepitus, is not appreciated, ROM/movement: pain, that is mild, with any movement, limited range of motion, is not appreciated, Meningeal signs: are not present, nuchal rigidity, is not appreciated. 22:05 Chest/axilla: Inspection: normal, Palpation: crepitus, is not appreciated, tenderness, that is moderate, of the left lateral anterior chest and left lateral posterior chest, that partially reproduces the patient's complaints. 22:05 Cardiovascular: Rate: normal, Rhythm: regular, Edema: is not appreciated, JVD: is not appreciated. 22:05 Respiratory: the patient does not display signs of respiratory distress, Respirations: normal, no use of accessory muscles, no retractions, labored breathing, is not present, Breath sounds: are clear throughout, no decreased breath sounds, stridor, is not appreciated, wheezing: is not appreciated. 22:05 Abdomen/GI: Inspection: obese Bowel sounds: active, all quadrants, Palpation: abdomen is soft and non-tender, in all quadrants, rebound tenderness, is not appreciated. 22:05 Back: CVA tenderness, is absent, vertebral tenderness not appreciated. 22:05 Musculoskeletal/extremity: Extremities: grossly normal except: noted in the left shoulder: pain, tenderness, There is no evidence of decreased ROM, deformity, ROM: limited passive range of motion due to pain, in the left shoulder, Pulses: noted to be 2+ in the right radial artery and left radial artery, the left hand and left arm Sensation intact. 22:05 Skin: cellulitis, is not appreciated, no rash present. 22:05 Neuro: Orientation: to person, place \T\ time. Mentation: is normal, Cerebellar function: is grossly normal, Motor: moves all fours, strength is normal, Sensation: is normal, Gait: is steady. 06/07 00:13 ECG was reviewed by the Attending Physician. Vital Signs: 06/06 21:43 BP 154 / 99; Pulse 96; Resp 18 S; Temp 98.9(O); Pulse Ox 95% on R/A; Weight 185.97 kg as6 (R); Height 6 ft. 0 in. (R); Pain 8/10; 06/07 00:19 BP 173 / 99; Pulse 86; Resp 19 S; Pulse Ox 98% on R/A; lg3 01:32 BP 166 / 86; Pulse 87; Resp 19 S; Pulse Ox 98% on R/A; lg3 03:14 BP 152 / 88; Pulse 84; Resp 18 S; Pulse Ox 98% on R/A; lg3 06/06 21:43 Body Mass Index 55.61 (185.97 kg, 182.88 cm) as6 06/06 21:43 Pain Scale: Adult as6 Shashank Coma Score: 03:48 Eye Response: spontaneous(4). Motor Response: obeys commands(6). Verbal Response: rv oriented(5). Total: 15. MDM: 06/06 21:49 Patient medically screened. 06/07 03:30 Data reviewed: vital signs, nurses notes, lab test result(s), EKG, radiologic studies, cp CT scan, plain films. 03:30 I considered the following discharge prescriptions or medication management in the emergency department Medications were administered in the Emergency Department. See MAR. Independent interpretation of the following test(s) in the Emergency Department X-Ray: My interpretation is images of left shoulder negative for fracture and images of left ribs negative for fracture. Test considered but Not performed: CT: chest and abdomen due to patient weight and limits of CT. Care significantly affected by the following chronic conditions: Hypertension, Obesity. Care significantly affected by the following Social Determinants of Health: Poor access to healthcare and/or lack of insurance. Counseling: I had a detailed discussion with the patient and/or guardian regarding: the historical points, exam findings, and any diagnostic results supporting the discharge/admit diagnosis, the presence of at least one elevated blood pressure reading (>120/80) during this emergency department visit, lab results, radiology results, the need for outpatient follow up, a family practitioner, to return to the emergency department if symptoms worsen or persist or if there are any questions or concerns that arise at home. Response to treatment: the patient's symptoms have markedly improved after treatment. Special discussion: Based on the patient's history, exam, and Dx evaluation, there is no indication for emergent intervention or inpatient Tx. It is understood by the patient/guardian that if the Sx's persist or worsen they need to return immediately for re-evaluation. 06/06 22:51 Order name: Basic Metabolic Panel; Complete Time: 06/07 01:29 Interpretation: K 3.1; Reviewed. 06/06 22:51 Order name: CBC with Diff; Complete Time: 06/07 01:29 Interpretation: Normal except: WBC 11.90; HGB 12.8; MCH 26.5. 06/06 22:51 Order name: D-Dimer; Complete Time: 06/06 22:51 Order name: LFT's; Complete Time: 06/07 01:29 Interpretation: Normal except: ALK 124; TP 8.5; GLOB 4.9; A/G 0.7. 06/06 22:51 Order name: Magnesium; Complete Time: 06/06 22:51 Order name: NT PRO-BNP; Complete Time: : 06/06 22:51 Order name: PT-INR; Complete Time: : 06/06 22:51 Order name: Troponin HS; Complete Time: : cp 06/06 23:43 Order name: Flu; Complete Time: rv 06/06 23:43 Order name: COVID-19 SARS RT PCR; Complete Time: rv 06/07 00:16 Order name: UDS; Complete Time: 06/07 01:31 Interpretation: Normal except: THC POSITIVE. 06/06 22:51 Order name: XRAY Chest (1 view) 06/06 22:51 Order name: CT Head C Spine 06/07 01:30 Order name: XRAY Ribs LEFT 06/07 01:30 Order name: XRAY Shoulder LEFT 2 view 06/06 22:51 Order name: Cardiac monitoring; Complete Time: 00:22 cp 06/06 22:51 Order name: EKG - Nurse/Tech; Complete Time: 00:22 cp 06/06 22:51 Order name: IV Saline Lock; Complete Time: 00:22 06/06 22:51 Order name: Labs collected and sent; Complete Time: 00:22 cp 06/06 22:51 Order name: O2 Per Protocol; Complete Time: 00:22 cp 06/06 22:51 Order name: O2 Sat Monitoring; Complete Time: 00: cp EC:13 Rate is 86 beats/min. Rhythm is regular. TN interval is normal. QRS interval is cp prolonged at 106 msec. QT interval is prolonged at 402 msec. Interpreted by me. Reviewed by me. Administered Medications: 00:52 Drug: Meclizine PO 25 mg Route: PO; lg3 03:48 Follow up: Response: No adverse reaction rv 00:52 Drug: Acetaminophen PO 1000 mg Route: PO; lg3 03:48 Follow up: Response: No adverse reaction rv 00:52 Drug: metoCLOPramide IVP 10 mg Route: IVP; Site: right antecubital; lg3 03:48 Follow up: Response: No adverse reaction rv 02:02 Drug: Ketorolac IVP 15 mg Route: IVP; Site: right antecubital; lg3 03:47 Follow up: Response: No adverse reaction rv 02:03 Drug: Potassium PO Effervescent Tablet 50 mEq Route: PO; lg3 03:48 Follow up: Response: No adverse reaction rv 02:03 Drug: morphine IVP or IV 4 mg Route: IVP; Infused Over: 4 mins; Site: right antecubital;lg3 03:48 Follow up: Response: No adverse reaction rv 03:47 Drug: Lisinopril PO 20 mg Route: PO; rv 03:47 Follow up: Response: Medication administered at discharge. rv Disposition: 05:56 Co-signature as Attending Physician, Kushal Quiroga MD I agree with the assessment sp4 and plan of care. I reviewed the patient's care provided by the Advanced Practice Provider and agree with the diagnosis and treatment plan. Disposition Summary: 06/07/23 03:31 Discharge Ordered Location: Home cp Problem: new cp Symptoms: have improved cp Condition: Stable cp Diagnosis - Dizziness and giddiness cp - Hypertensive heart disease without heart failure cp - Fall on same level, unspecified cp - Pain in left shoulder cp - Chest pain, unspecified - left lateral rib pain from fall cp - Hypokalemia cp Followup: cp - With: Private Physician - When: 2 - 3 days - Reason: Recheck today's complaints Discharge Instructions: - Discharge Summary Sheet cp - Rib Contusion cp - Potassium Content of Foods cp - Dizziness cp - Hypertension, Adult cp - Shoulder Pain cp - Shoulder Range of Motion Exercises cp - Aspirin and Your Heart cp - Form - Blood Pressure Record Sheet cp - How to Take Your Blood Pressure cp Forms: - Medication Reconciliation Form cp - Thank You Letter cp - Antibiotic Education cp - Prescription Opioid Use cp - Patient Portal Instructions cp Prescriptions: - Meclizine 25 mg Oral Tablet - take 1 tablet by ORAL route every 8 hours As needed; 30 tablet; Refills: 0, cp Product Selection Permitted - Naprosyn 500 mg Oral Tablet - take 1 tablet by ORAL route 2 times per day take with food; 20 tablet; Refills: cp 0, Product Selection Permitted - Potassium Chloride 10 mEq Oral capsule, extended release - take 2 tablet by ORAL route once daily for 3 days; 6 tablet; Refills: 0, cp Product Selection Permitted - Lisinopril-Hydrochlorothiazide 20-12.5 mg Oral Tablet - take 1 tablet by ORAL route once daily; 30 tablet; Refills: 0, Product cp Selection Permitted Signatures: Dispatcher [employer] EDMS Josiah Schultz PA PA cp Fawad Flores RN RN Maylin Schwartz RN RN lg3 Dov Cabral RN RN as6 Kushal Quiroga MD MD sp4 Corrections: (The following items were deleted from the chart) 06/08 01:08 01:02 Constitutional: Negative for fever, cp cp 03:14 06/06 21:55 The patient presents with dizziness, lightheadedness, cp cp
--- NOTE | 2023-06-07 03:32 | ER ---
Nurse's Notes [facility] Name: Bolivar Yang Age: 27 yrs Sex: Male : 1995 Arrival Date: 06/06/2023 Time: 21:05 Bed DIS8 Private MD: Diagnosis: Dizziness and giddiness;Hypertensive heart disease without heart failure;Fall on same level, unspecified;Pain in left shoulder;Chest pain, unspecified-left lateral rib pain from fall;Hypokalemia Presentation: 06/06 21:43 Chief complaint: Patient states: headache, dizziness, shortness of breath that started as6 yesterday. Coronavirus screen: At this time, the client does not indicate any symptoms associated with coronavirus-19. Ebola Screen: No symptoms or risks identified at this time. Initial Sepsis Screen: Does the patient meet any 2 criteria? No. Patient's initial sepsis screen is negative. Does the patient have a suspected source of infection? No. Patient's initial sepsis screen is negative. Risk Assessment: Do you want to hurt yourself or someone else? Patient reports no desire to harm self or others. Onset of symptoms was June 05, 2023. 21:43 Method Of Arrival: Wheelchair as6 21:43 Acuity: GUILLERMO 3 as6 Historical: - Allergies: 21:46 No Known Allergies; as6 - PMHx: 21:46 Hypertension; Sleep Apnea; as6 - PSHx: 21:46 None; as6 - Immunization history:: Client reports having NOT received the Covid vaccine. - Social history:: Smoking status: Patient denies any tobacco usage or history of. Screenin/01 00:19 [facility] ED Fall Risk Assessment (Adult) History of falling in the last 3 months, lg3 including since admission No falls in past 3 months (0 pts). Abuse screen: Denies threats or abuse. Denies injuries from another. Nutritional screening: No deficits noted. Tuberculosis screening: No symptoms or risk factors identified. Assessment: 00:19 General: Appears in no apparent distress. uncomfortable, Behavior is calm, cooperative. lg3 Pain: Complains of pain in head, generalized body aches. Neuro: No deficits noted. Selby Agitation-Sedation Scale (RASS): 0 - Alert and Calm Level of Consciousness is awake, alert, obeys commands, Oriented to person, place, time, situation, Reports dizziness, headache. Cardiovascular: No deficits noted. Reports shortness of breath, Capillary refill < 3 seconds Clubbing of nail beds is absent JVD is absent Patient's skin is warm and dry. Respiratory: No deficits noted. Reports shortness of breath cough that is Airway is patent Respiratory effort is even, unlabored, Respiratory pattern is regular, symmetrical. GI: No deficits noted. No signs and/or symptoms were reported involving the gastrointestinal system. Abdomen is round non-distended, obese. : No deficits noted. No signs and/or symptoms were reported regarding the genitourinary system. EENT: No deficits noted. No signs and/or symptoms were reported regarding the EENT system. Derm: No deficits noted. No signs and/or symptoms reported regarding the dermatologic system. Skin is intact, is healthy with good turgor, Skin is dry, Skin is normal, Skin temperature is warm. Musculoskeletal: No deficits noted. Circulation, motion, and sensation intact. Range of motion: intact in all extremities. :31 Reassessment: Patient appears in no apparent distress at this time. No changes from lg3 previously documented assessment. Patient and/or family updated on plan of care and expected duration. Pain level reassessed. Patient is alert, oriented x 3, equal unlabored respirations, skin warm/dry/pink. 03:14 Reassessment: Patient appears in no apparent distress at this time. No changes from lg3 previously documented assessment. Patient and/or family updated on plan of care and expected duration. Pain level reassessed. Patient is alert, oriented x 3, equal unlabored respirations, skin warm/dry/pink. Vital Signs: 06/06 21:43 BP 154 / 99; Pulse 96; Resp 18 S; Temp 98.9(O); Pulse Ox 95% on R/A; Weight 185.97 kg as6 (R); Height 6 ft. 0 in. (R); Pain 8/10; 06/07 00:19 BP 173 / 99; Pulse 86; Resp 19 S; Pulse Ox 98% on R/A; lg3 01:32 BP 166 / 86; Pulse 87; Resp 19 S; Pulse Ox 98% on R/A; lg3 03:14 BP 152 / 88; Pulse 84; Resp 18 S; Pulse Ox 98% on R/A; lg3 06/06 21:43 Body Mass Index 55.61 (185.97 kg, 182.88 cm) as6 07 21:43 Pain Scale: Adult as6 Shashank Coma Score: 03:48 Eye Response: spontaneous(4). Motor Response: obeys commands(6). Verbal Response: rv oriented(5). Total: 15. ED Course: 06/06 21:08 Patient arrived in ED. jj6 21:16 Josiah Schultz PA is PHCP. cp 21:16 Kushal Quiroga MD is Attending Physician. cp 21:46 Triage completed. as6 21:46 Arm band placed on. as6 23:31 Fawad Flores, FANG is Primary Nurse. rv 23:52 XRAY Chest (1 view) In Process Unspecified. EDMS 08 00:19 Patient has correct armband on for positive identification. Placed in gown. Bed in low lg3 position. Call light in reach. Side rails up X 1. Client placed on continuous cardiac and pulse oximetry monitoring. NIBP monitoring applied. panel monitor on. Door closed. Noise minimized. Warm blanket given. Family accompanied patient. 00:19 Inserted saline lock: 20 gauge in right antecubital area, using aseptic technique. lg3 Blood collected. 00:22 COVID-19 SARS RT PCR Sent. lg3 00:22 Flu Sent. lg3 00:22 Basic Metabolic Panel Sent. lg3 00:22 CBC with Diff Sent. lg3 00:22 D-Dimer Sent. lg3 00:22 LFT's Sent. lg3 00:22 Magnesium Sent. lg3 00:22 NT PRO-BNP Sent. lg3 00:23 PT-INR Sent. lg3 00:23 Troponin HS Sent. lg3 00:37 CT Head C Spine In Process Unspecified. EDMS 02:07 XRAY Ribs LEFT In Process Unspecified. EDMS 02:07 XRAY Shoulder LEFT 2 view In Process Unspecified. EDMS 03:48 No provider procedures requiring assistance completed. IV discontinued, intact, rv bleeding controlled, No redness/swelling at site. Pressure dressing applied. 03:49 Provided Education on: medication compliance. rv Administered Medications: 00:52 Drug: Meclizine PO 25 mg Route: PO; lg3 03:48 Follow up: Response: No adverse reaction rv 00:52 Drug: Acetaminophen PO 1000 mg Route: PO; lg3 03:48 Follow up: Response: No adverse reaction rv 00:52 Drug: metoCLOPramide IVP 10 mg Route: IVP; Site: right antecubital; lg3 03:48 Follow up: Response: No adverse reaction rv 02:02 Drug: Ketorolac IVP 15 mg Route: IVP; Site: right antecubital; lg3 03:47 Follow up: Response: No adverse reaction rv 02:03 Drug: Potassium PO Effervescent Tablet 50 mEq Route: PO; lg3 03:48 Follow up: Response: No adverse reaction rv 02:03 Drug: morphine IVP or IV 4 mg Route: IVP; Infused Over: 4 mins; Site: right antecubital;lg3 03:48 Follow up: Response: No adverse reaction rv 03:47 Drug: Lisinopril PO 20 mg Route: PO; rv 03:47 Follow up: Response: Medication administered at discharge. rv Medication: 03:49 VIS not applicable for this client. rv Outcome: 03:31 Discharge ordered by . cp 03:49 Discharged to home ambulatory, with family. rv 03:49 Condition: improved 03:49 Discharge instructions given to patient, family, Instructed on discharge instructions, follow up and referral plans. medication usage, Demonstrated understanding of instructions, follow-up care, medications, Prescriptions given X 4. 03:49 Patient left the ED. rv Signatures: Dispatcher [employer] EDMS Josiah Schultz PA PA cp Vicente, Ronaldo, RN RN rv Maylin Pinto RN RN lg3 Meera Mc6 Dov Cabral RN RN as6
[2023-06-07] MEDS ORDERED: lisinopriL 20 MG TAB ONE (03:54)
[2023-06-07 04:01] VITALS: TEMP 98.9
[2023-06-07 04:03] VITALS: O2SAT 98
[2023-06-07 04:06] VITALS: BP 152/88
--- NOTE | 2023-06-07 12:43 | RAD REPORT ---
EXAM DESCRIPTION: Chest Single View CLINICAL HISTORY: SOB COMPARISON: None. FINDINGS: Single frontal radiograph view of the chest. Cardiomediastinal silhouette: Cardiomegaly. Lungs: No consolidation, pneumothorax, or pleural effusion. Low lung volumes. Bones: No acute osseous abnormality. Upper abdomen: No abnormality identified. IMPRESSION: 1. No acute pulmonary process identified. Low lung volumes. 2. Cardiomegaly. Electronically signed by: Sanjay Kearney 06/07/2023 12:05 AM CDT Due to temporary technical issues with the PACS/Fluency reporting system, reports are being signed by the in house radiologists without review as a courtesy to insure prompt reporting. The interpreting radiologist is fully responsible for the content of the report.
--- NOTE | 2023-06-07 12:44 | RAD REPORT ---
EXAM DESCRIPTION: 1. CT of the head without contrast 2. CT of the cervical spine without contrast. CLINICAL HISTORY: Headache, fall COMPARISON: None available TECHNIQUE: Axial CT of the head obtained from the skull apex to the skull base without contrast. Ax ial CT images of the cervical spine obtained from the skull base through the thoracic inlet. Sagittal and coronal reformatted images available. This exam was performed according to our departmental dose -optimization program, which includes automated exposure control, adjustment of the mA and/or kV acco rding to patient size and/or use of iterative reconstruction technique. FINDINGS: CT head: No acute intracranial hemorrhage identified. No mass, mass effect, shift of the midline, abnormal ext ra-axial fluid collection or CT evidence of acute ischemic change identified. The ventricular system is unremarkable. No acute abnormalities of the supratentorial white matter, basal ganglia, cerebell um, or brainstem. The visualized paranasal sinuses and the mastoids are clear. No skull fracture identified. Visualized orbits and globes are unremarkable. Cervical CT: Alignment of the cervical spine is maintained without evidence of subluxation. The atlantoaxial, at lantodental, and occipitoatlantal intervals are preserved. No fracture identified. Vertebral body h eight preserved. Prevertebral soft tissues are unremarkable. Mild multilevel endplate spondylosis. Visualized skull base is intact. No fracture of the visualized facial bones. Visualized mastoid air c ells and paranasal sinuses are well aerated. Visualized thyroid is unremarkable. No cervical lymphadenopathy. No pneumothorax in the visualized lung apices. IMPRESSION: 1. No acute intracranial abnormality. 2. No acute fracture or subluxation of the cervical spine. Electronically signed by: Sanjay Kearney 06/07/2023 12:56 AM CDT Due to temporary technical issues with the PACS/Fluency reporting system, reports are being signed by the in house radiologists without review as a courtesy to insure prompt reporting. The interpreting radiologist is fully responsible for the content of the report.
--- NOTE | 2023-06-07 17:57 | RAD REPORT ---
EXAM DESCRIPTION: Ribs Left CLINICAL HISTORY: Fall;Pain COMPARISON: None. FINDINGS: 2 views of the left ribs. No left rib fractures identified. Normal osseous mineralization. No pneumothorax. IMPRESSION: 1. No left rib fractures identified. Electronically signed by: Sanjay Kearney 06/07/2023 2:51 AM CDT Due to temporary technical issues with the PACS/Fluency reporting system, reports are being signed by the in house radiologists without review as a courtesy to insure prompt reporting. The interpreting radiologist is fully responsible for the content of the report.
--- NOTE | 2023-06-07 17:57 | RAD REPORT ---
EXAM DESCRIPTION: Shoulder Left 2 View CLINICAL HISTORY: Fall;Pain COMPARISON: None. FINDINGS: 2 views of the left shoulder. No acute fracture or dislocation. Normal osseous mineralizat ion. Degenerative change of the glenohumeral joint. IMPRESSION: 1. No acute fracture or dislocation. Electronically signed by: Sanjay Kearney 06/07/2023 2:52 AM CDT Due to temporary technical issues with the PACS/Fluency reporting system, reports are being signed by the in house radiologists without review as a courtesy to insure prompt reporting. The interpreting radiologist is fully responsible for the content of the report.
--- NOTE | 2023-06-08 17:40 | EKG ---
Test Date: 2023-06-07 Test Time: 00:06:38 Bilingual Interpreter: RAHEL MEASUREMENT RESULTS: Intervals: Rate: 86 [place]: 160 QRSD: 106 QT: 402 QTc: 481 [place]: P: 29 NJ: 160 QRS: 4 T: 36 INTERPRETIVE STATEMENTS: Sinus rhythm with frequent premature ventricular complexes in a pattern of bigeminy Left ventricular hypertrophy Prolonged QT Abnormal ECG Compared to ECG 08/02/2022 19:40:27 Ventricular premature complex(es) now present Left ventricular hypertrophy now present Prolonged QT interval now present Atrial abnormality no longer present Electronically Signed On 06-08-23 17:34:58 CDT by Edward Montgomery
--- NOTE | 2023-06-08 17:40 | EKG ---
Test Date: 2023-06-07 Test Time: 00:06:06 Manager Case: LA MEASUREMENT RESULTS: Intervals: Rate: 83 OR: 150 QRSD: 106 QT: 400 QTc: 470 [place]: P: 48 OR: 150 QRS: 4 T: 41 INTERPRETIVE STATEMENTS: Sinus rhythm with frequent premature ventricular complexes Voltage criteria for left ventricular hypertrophy Abnormal ECG Compared to ECG 08/02/2022 19:40:27 Ventricular premature complex(es) now present Left ventricular hypertrophy now present Atrial abnormality no longer present Electronically Signed On 06-08-23 17:35:01 CDT by Edward Montgomery
== END 2023-06-07 03:49 | disposition home or self-care (01) ==
LOC: ER 21:05
DX: R42 Dizziness and giddiness (principal); I11.9 Hypertensive heart disease without heart failure; M25.512 Pain in left shoulder; R07.89 Other chest pain; E87.6 Hypokalemia; W18.30XA Fall on same level, unspecified, initial encounter
CPT/HCPCS: 36415; 70450; 71045; 72125; 80048; 80076; 80307; 83735; 83880; 84484; 85025; 85379; 85610; 87635; 87804; 93005; J2765; J8597

== ENCOUNTER 2023-07-06 05:05 | Emergency (ER) | payer SELFPAY ==
--- OUTSIDE RECORDS SUMMARY | 2023-07-06 05:09 | XMS REPORT | Continuity of Care Document ---
:1995 Author Organization [facility] t Address [address] [facility] [address] [place] [id number] Care Team Providers Name Role Phone Anders Gali Primary Care Physician JORGE SANCHEZ Attending Clinician Unavailable Jorge Nevarez Attending Clinician MASSIMO HERNANDEZ Attending Clinician Unavailable Massimo Garzon Attending Clinician Flor PETERSON Attending Clinician Unavailable Flor Rosa Attending Clinician Doctor Unassigned, [place] Attending Clinician Unavailable Archana Woodson DO Attending Clinician Heaven Hinds MD Attending Clinician JAY STEELE Attending Clinician Unavailable Flor PETERSON Admitting Clinician Unavailable Payers Payer Name Policy Type Policy Number Effective Date Expiration Date S vel COMMERCIAL [id number] 2019 NON-CONTRACT 00:00:00 GENERIC MEDICAID [place] PENDING 2022 PENDING 00:00:00 Problems Condition Condition Condition Status Onset Resolution Last Treating Co mments Source Name Details Category Date Date Treatment Clinician Date No known No known Disease Unive rs active active ity of problems problems [facility] Allergies, Adverse Reactions, Alerts Allergy Allergy Status Severity Reaction(s) Onset Inactive Treating Comm ents Source Name Type Date Date Clinician NO KNOWN Drug Active Univers ALLERGIE Class ity of S [facility] Social History Social Habit Start Date Stop Date Quantity Comments Source Exposure to 2022-11-06 2022-11-16 Not sure University SARS-CoV-2 00:00:00 22:49:00 [facility] (event) [place] Tobacco use and 2019-06-21 2019-06-21 Smokeless tobacco Un iversity of exposure 00:00:00 00:00:00 non-user [facility] Sex Ass[birth year] At [birth year] DODIE [place] 00:00:00 [facility]:00:00 [facility] Smoking Status Start Date Stop Date Source Never smoked tobacco [facility] Medications Ordered Filled Start Stop Current [...] 00 :00 dose, On Medical 1,000 mg [facility] 04/05/23 at 1245, GURPREET ketorolac [...] tablet 11/16/22 at 2345, GURPREET cyclobenzap Yes [id number] 10mg Take 1 Univers rine 10 mg 1-10 tablet by ity of tablet 00:00: mouth [place] 00 every 8 Medical (eight) Branch hours as needed for Muscle Spasms. naproxen Yes [id number] 500mg Take 1 U nivers 500 mg EC 1-10 tablet by ity o f tablet 00:00: mouth 2 [place] 00 (two) Medical times Branch daily with meals. cyclobenzap Yes [id number] 10mg Take 1 Univers rine 10 mg 1-10 tablet by ity of tablet 00:00: mouth [place] 00 every 8 Medical (eight) Branch hours as needed for Muscle Spasms. naproxen Yes [id number] 500mg Take 1 U nivers 500 mg [...] Restricted medication : Flor PETERSON ibuprofen Yes [id number] 600mg Take 1 U nivers 600 mg -13 tablet by ity of tablet 00:00: mouth [place] 00 every 6 Medical (six) Branch hours. ibuprofen 2022- No [id number] 600mg Take 1 Univers 600 mg 4-13 01-10 tablet by ity of tablet 00:00: 00:00 mouth [place] 00 :00 every 6 Medical (six) Branch hours. carvedilol Yes [id number] 6.25mg Take 1 Univers (COREG) 8-15 tablet by ity of 6.25 mg 00:00: mouth 2 [place] tablet 00 (two) Medical times Branch daily with meals. carvedilol Yes [id number] 6.25mg Take 1 Univers (COREG) 8-15 tablet by ity of 6.25 mg 00:00: mouth 2 [place] tablet 00 (two) Medical times Branch daily with meals. carvedilol Yes [id number] 6.25mg Take 1 Univers (COREG) 8-15 tablet by ity of 6.25 mg 00:00: mouth 2 [place] tablet 00 (two) Medical times Branch daily with meals. carvedilol Yes [id number] 6.25mg Take 1 Univers (COREG) 8-15 tablet by ity of 6.25 mg 00:00: mouth 2 [place] tablet 00 (two) Medical times [place] daily with meals. Vital Signs Vital Name Observation Time Observation Value Comments Source Diastolic blood 2023-04-05 19:20:38 104 mm[Hg] [facility] [place] Heart rate 2023-04-05 19:20:38 118 /min [facility] Body temperature 2023-04-05 19:20:38 37.28 [place] Respiratory rate 2023-04-05 19:20:38 26 /min [facility] Oxygen saturation in 2023-04-05 19:20:38 98 /min [facility] Arterial blood by [facility] Pulse oximetry Branch Systolic blood 2023-04-05 19:20:38 152 mm[Hg] [facility] height 2023-04-05 17:41:00 182.9 cm [facility] Body weight 2023-04-05 17:41:00 189.377 kg [facility] BMI 2023-04-05 17:41:00 56.62 kg/m2 [facility] Systolic blood 2022-11-17 04:45:00 151 mm[Hg] [facility] Diastolic blood 2022-11-17 04:45:00 90 mm[Hg] Unive [facility] [place] Heart rate 2022-11-17 04:45:00 87 /min [facility] Body temperature 2022-11-17 04:45:00 36.61 [place]nn [facility] [place] [facility] Respiratory rate 2022-11-17 04:45:00 19 /min [facility] Body height 2022-11-17 04:45:00 182.9 cm [facility] Body weight 2022-11-17 04:45:00 163.295 kg [facility] BMI 2022-11-17 04:45:00 48.82 kg/m2 [facility] Oxygen saturation in 2022-11-17 04:45:00 98 /min University of Arterial blood by [facility] Pulse oximetry Branch Systolic blood 2022-02-17 16:59:00 147 mm[Hg] Univer sity of pressure [place] [facility] [place] Diastolic blood 2022-02-17 16:59:00 84 mm[Hg] Unive rsity of pressure [place] [facility] [place] Heart rate 2022-02-17 16:59:00 75 /min [facility] Body temperature 2022-02-17 16:59:00 36.67 [place] [facility] [place] [facility] Respiratory rate 2022-02-17 16:59:00 18 /min [facility] [place] [facility] Body weight 2022-02-17 16:59:00 163.295 kg [facility] BMI 2022-02-17 16:59:00 48.82 kg/m2 [facility] Oxygen saturation in 2022-02-17 16:59:00 100 /min University of Arterial blood by [facility] Pulse oximetry Branch Procedures Procedure Date / Time Performed Performing Clinician Sour e RAPID STREP SCREEN 2023-04-05 18:01:00 Jorge Sanchez [facility] FOR GROUP A Medical Branch CONSENT/REFUSAL FOR 2023-04-05 17:32:32 Doctor Unassigned, No Un [facility] [place] DIAGNOSIS AND Name Medical Branch TREATMENT CONSENT/REFUSAL FOR 2022-11-17 04:41:39 Doctor Unassigned, No Un [facility] [place] DIAGNOSIS AND Name Medical Branch TREATMENT XR HIPS 2 VW LEFT 2022-02-17 21:00:00 Flor Peterson [facility] CONSENT/REFUSAL FOR 2022-02-17 16:46:56 Doctor Unassigned, No Un [facility] DIAGNOSIS AND Name [facility] TREATMENT Plan of Care Planned Activity Planned Date Details Comments Source Future Scheduled 2020-07-[address] [facility] Test 00:00:00 (#1) [code = [facility] INFLUENZA VACCINE (#1)] Future Scheduled [address] [facility] Test 00:00:00 (procedure) [code = [facility] [id number]] Encounters Start End Encounter Admission Attending Care Care Encounter Source Date/Time Date/Time Type Type Clinicians Facility Department ID 2021-09-04 Emergency [facility] [id number] Univers [facility]:13[facility] 2023-04-05 2023-04-05 Emergency X LAURA [facility] ERT [id number] Univers 12:44:00 15:23:00 [facility] 2023-04-05 2023-04-05 Emergency Laura [facility] [id number] Univers 12:44:00 15:23:00 Jorge King LOOMIS [id number] i [facility] [id number] [facility] [id number] [address] 2022-12-23 2022-12-23 Outpatient SFA [facility] [id number] [place] 16:22:27 16:22:27 0216 [facility] 2022-12-20 2022-12-20 Outpatient SFA SFA [id number] [place] 16:02:57 16:02:57 0213 [facility] 2022-12-15 2022-12-15 Outpatient SFA SFA [id number] [place] 16:04:10 16:04:10 0208 [facility] 2022-12-08 2022-12-08 Outpatient SFA SFA [id number] [place] 14:27:58 14:27:58 0201 [facility] 2022-11-24 2022-11-24 Outpatient SFA SFA [id number] [place] 15:20:20 15:20:20 0118 [facility] 2022-11-16 2022-11-16 Emergency X MARY [facility] ERT [id number] Univers 22:52:00 23:45:00 MASSIMO it y of [facility] 2022-11-16 2022-11-16 Emergency Mary [facility] [id number] Univers 22:52:00 23:45:00 Massimo EVANS [id number] ity of [place] 4.2.7.2.686 [facility] [id number] [address] 2022-08-17 2022-08-17 Outpatient SFA [facility] [id number] [place] 11:53:10 11:53:10 1011 F Sheng 2022-02-17 2022-02-17 Emergency X Flor PETERSON [facility] ERT [id number] Univers 12:01:00 17:24:00 ity of [facility] 2022-02-17 2022-02-17 Emergency Genoveva, K [facility] [id number] Univers 12:01:00 17:24:00 Praveena EVANS [id number] i ty of [place] [id number] [facility] [id number] [address] 2022-02-17 2022-02-17 Orders Doctor BARBIE [id number] Univers 00:00:00 00:00:00 Only Unassigned, CONSTANZA [id number] ity of [facility] [id number] [facility] [id number] [place] [address] Branch 2020-07-14 2020-07-15 [facility] [id number] 21:40:00 00:54:00 Archana Evans [id number] [place] 4.2.7.2.686 [place] [id number] 2020-07-14 2020-07-14 Orders Doctor BARBIE [id number] 00:00:00 00:00:00 Only Unassigned, CONSTANZA [id number] [place] [facility] 4.2.7.2.686 [id number] 2019-06-21 2019-07-17 Office Guzman [facility] [id number] 09:25:01 12:38:55 Visit Heaven Evans [id number] [place] 4.2.7.2.686 [facility] [id number] [facility] 059 Building Results Test Description Test Time [...] 0-100 (test code = 700) BASIC METABOLIC [id number] 15:17:00 Test Item Value Reference Range Interpretation [...] m DATA TO CALCULA TE ESTIMATED GFR. [id number] 15:14:00 Test Item Value Reference Range Interpretation Comments MAGNESIUM (BEAKER) (test code = 2.0 mg/dL 1.6-2.6 627) CBC W/PLT COUNT & AUTO [id number] 14:53:00 Test Item Value Reference Range Interpretation [...] = 2801) RAD, CHEST, 1 VIEW, NON [id number] 14:32:00Reason for exam:->CPFINAL REPORT RAD, CHEST, 1 VIEW, NON DEPT CLINICAL INDICATION: CP COMPARISON: None TECHNIQUE: AP view of the chest FINDINGS: Lung volumes are low. No focal consolidation. No pleural effusion or pneumothorax. Cardiomediastinal silhouette, kendrick, and pulmonary vasculature are normal.No acute osseous abnormality. IMPRESSION:No acute cardiopulmonary abnormality. Signed: Swapnil Packer Verified Date/Time: 06/15/2019 14:32:22 Reading Location: [address] Consult Reading Room
[2023-07-06] MEDS ORDERED: cloNIDine HCL 0.1 MG TAB ONE (05:54)
[2023-07-06] MEDS ORDERED: CYCLOBENZAPRINE 10 MG TAB ONE (05:54)
[2023-07-06] MEDS ORDERED: IBUPROFEN 400 MG TAB ONE (05:55)
[2023-07-06] MEDS ORDERED: CODEINE 30MG/APAP 300MG TAB ONE (05:55)
--- NOTE | 2023-07-06 06:29 | EDPHYS ---
Physician Documentation [facility] Name: Bolivar Yang Age: 27 yrs Sex: Male : 1995 Arrival Date: 07/06/2023 Time: 05:05 Bed 5 Private MD: ED Physician Kushal Quiroga HPI: 07/06 05:25 This 27 yrs old Male presents to ER via Unassigned with complaints of Ankle sp4 Injury. 06:24 27-year-old male presents with right lower leg right ankle pain starting yesterday when sp4 he twisted his right ankle inward. Patient denied any other injury. Reports right outer ankle swelling, pain, moderate to severe pain on ambulation.. Historical: - Allergies: 05:35 No Known Allergies; jw7 - Home Meds: 05:35 Lisinopril Oral daily for hypertension [Active]; jw7 - PMHx: 05:35 Hypertension; Sleep Apnea; jw7 - PSHx: 05:35 None; jw7 - Immunization history:: Adult Immunizations up to date. - Social history:: Smoking status: Patient denies any tobacco usage or history of. - Family history:: not pertinent. ROS: 06:24 Constitutional: Negative for fever, chills, and weight loss, MS/Extremity: Positive sp4 right ankle pain, right ankle swelling, right ankle tenderness 06:24 All other systems are negative. Exam: 06:24 Constitutional: This is a well developed, well nourished patient who is awake, alert, sp4 and in no acute distress. Head/Face: Normocephalic, atraumatic. Eyes: Pupils equal round and reactive to light, extra-ocular motions intact. Lids and lashes normal. Conjunctiva and sclera are not injected. Cornea within normal limits. Periorbital areas with no swelling, redness, or edema. ENT: Nares patent. No nasal discharge, no septal abnormalities noted. Tympanic membranes are normal and external auditory canals are clear. Oropharynx with no redness, swelling, or masses, exudates, or evidence of obstruction, uvula midline. Mucous membranes moist. Neck: Trachea midline, no thyromegaly or masses palpated, and no cervical lymphadenopathy. Supple, full range of motion without nuchal rigidity, or vertebral point tenderness. Chest/axilla: Normal chest wall appearance and motion. Nontender with no deformity. No lesions are appreciated. Cardiovascular: Regular rate and rhythm with a normal S1 and S2. No gallops, murmurs, or rubs. Normal PMI, no JVD. No pulse deficits. Respiratory: Lungs have equal breath sounds bilaterally, clear to auscultation and percussion. No rales, rhonchi or wheezes noted. No increased work of breathing, no retractions or nasal flaring. Abdomen/GI: Soft, non-tender, with normal bowel sounds. No distension or tympany. No guarding or rebound. No evidence of tenderness throughout. Back: No spinal tenderness. No costovertebral tenderness. Skin: Warm, dry with normal turgor. Normal color with no rashes, no lesions, and no evidence of cellulitis. MS/ Extremity: Pulses equal, no cyanosis. Neurovascular intact. Full, normal range of motion. The right ankle lateral malleolus swelling, tenderness, pain, equal full peripheral pulses. Positive moderate to severe pain on ambulation. Neuro: Awake and alert, GCS 15, oriented to person, place, time, and situation. Cranial nerves II-XII grossly intact. Motor strength 5/5 in all extremities. Sensory grossly intact. Psych: Awake, alert, with orientation to person, place and time. Behavior, mood, and affect are within normal limits Vital Signs: 05:32 BP 173 / 109 [place] Sitting (auto/lg); Pulse 83 MON; Resp 19 S; Temp 97.9(O); Pulse Ox 97% jw7 on R/A; Weight 189.15 kg; Height 6 ft. 0 in. ; Pain 10/10; 05:32 Body Mass Index 56.55 (189.15 kg, 182.88 cm) 7 05:32 Pain Scale: Adult jw7 Procedures: 06:24 Splinting: Splint applied to lateral aspect of right calf, right ankle, lateral aspect sp4 of right foot and anterior aspect of right ankle using Ortho 3D boot, applied by tech. Examined by me, post splint application: neurovascular intact, 2+ distal pulses palpable, brisk capillary refill noted, Patient tolerated well, Crutches were provided for the patient. Advised to stay on crutches for at least 2 weeks.. MDM: 06:03 Patient medically screened. sp4 06:22 ED course: X rays - FINDINGS: Bones/joints: Unremarkable. No acute fracture. No sp4 dislocation. Soft tissues: Soft tissue swelling in the ankle and foot. No radiopaque foreign body. IMPRESSION: Soft tissue swelling in the ankle and foot. Electronically signed by: Mary Kay Reynolds. ED course: X ray - COMPARISON: No relevant prior studies available. FINDINGS: Bones/joints: Unremarkable. No acute fracture. No dislocation. Soft tissues: Lower leg soft tissue swelling. No radiopaque foreign body. IMPRESSION: Lower leg soft tissue swelling. . 06:24 Differential diagnosis: fracture, sprain, foreign body, arthritis, gout, cellulitis. sp4 Data reviewed: vital signs, nurses notes, old medical records, radiologic studies, plain films. Consideration of Admission/Observation Escalation of care including admission/observation considered. ED course: No fractures based on x-rays. Intact neurovascular status. Will advise 2 weeks orthopedic boot wearing Ascencio, 2 weeks Ortho boot, 2 weeks crutches.. ED course: Work release for 2 weeks will be provided. 07/06 05:30 Order name: Tib Fib Right XRAY sp4 07/06 05:31 Order name: Foot Right 3 View XRAY sp4 07/06 06:24 Order name: Orthopedic shoe: Right lower leg tall Ortho boot application; Complete sp4 Time: 06:37 07/06 06:24 Order name: Crutch Training; Complete Time: 06:37 sp4 07/06 06:24 Order name: Crutches; Complete Time: 06:37 sp4 Administered Medications: 05:47 Drug: Ibuprofen PO 800 mg Route: PO; rv 06:33 Follow up: Response: No adverse reaction as6 05:47 Drug: Acetaminophen-Codeine PO (300 mg-30 mg) 2 tabs Route: PO; rv 06:33 Follow up: Response: No adverse reaction as6 05:47 Drug: Cyclobenzaprine PO 10 mg Route: PO; rv 06:33 Follow up: Response: No adverse reaction as6 05:58 Drug: cloNIDine PO 0.2 mg Route: PO; rv 06:33 Follow up: Response: No adverse reaction as6 Disposition Summary: 07/06/23 06:28 Discharge Ordered Location: Home sp4 Condition: Stable sp4 Problem: new sp4 Symptoms: have improved sp4 Diagnosis - Sprain of unspecified ligament of right ankle, initial encounter sp4 - Acute right lateral ankle sprain sp4 Followup: sp4 - With: Michael Demarco MD - When: 7 - 10 days - Reason: Recheck today's complaints Discharge Instructions: - Discharge Summary Sheet sp4 - Ankle Sprain, [place] sp4 Forms: - Work release form rv1 - Patient Portal Instructions sp4 - Leadership Thank You Letter sp4 Prescriptions: - Ibuprofen 800 mg Oral Tablet - take 1 tablet by ORAL route every 8 hours As needed take with food; 30 tablet; sp4 Refills: 0, Product Selection Permitted Signatures: Dispatcher [employer] Fawad Huang RN RN rv Becca Gaspar RN RN jw7 Kushal Quiroga MD MD sp4 Dov Cabral RN as6
--- NOTE | 2023-07-06 06:29 | ER ---
Nurse's Notes [facility] Name: Bolivar Yang Age: 27 yrs Sex: Male : 1995 Arrival Date: 07/06/2023 Time: 05:05 Bed 5 Private MD: Diagnosis: Sprain of unspecified ligament of right ankle, initial encounter;Acute right lateral ankle sprain Presentation: 07/06 05:32 Chief complaint: Spouse and/or significant other states: pt twisted his ankle yesterday jw7 when walking on uneven ground. pain has gotten progressively worse and he cannot put any weight on his right ankle/foot. Coronavirus screen: At this time, the client does not indicate any symptoms associated with coronavirus-19. Ebola Screen: No symptoms or risks identified at this time. Initial Sepsis Screen: Does the patient meet any 2 criteria? No. Patient's initial sepsis screen is negative. Does the patient have a suspected source of infection? No. Patient's initial sepsis screen is negative. Risk Assessment: Do you want to hurt yourself or someone else? Patient reports no desire to harm self or others. Onset of symptoms was July 05, 2023. 05:32 Method Of Arrival: Wheelchair jw7 05:32 Acuity: GUILLERMO 4 jw7 Triage Assessment: 05:35 General: Appears in no apparent distress. uncomfortable, Behavior is calm, cooperative. jw7 Pain: Complains of pain in right foot, right ankle, right Achilles and anterior aspect of right ankle Pain does not radiate. Pain currently is 10 out of 10 on a pain scale. Quality of pain is described as sharp, throbbing, Pain began 1 day ago. Is continuous, Alleviated by rest, Aggravated by weight bearing, Noted to be grimacing, resistant to movement. EENT: No deficits noted. No signs and/or symptoms were reported regarding the EENT system. Neuro: No deficits noted. [place] Agitation-Sedation Scale (RASS): 0 - Alert and Calm Level of Consciousness is awake, alert, obeys commands, Oriented to person, place, time, situation. Cardiovascular: No deficits noted. Denies chest pain, Capillary refill < 3 seconds Clubbing of nail beds is absent JVD is absent Patient's skin is warm and dry. Respiratory: No deficits noted. Airway is patent Trachea midline Respiratory effort is even, unlabored, Respiratory pattern is regular, symmetrical. GI: No deficits noted. No signs and/or symptoms were reported involving the gastrointestinal system. : No deficits noted. No signs and/or symptoms were reported regarding the genitourinary system. Derm: No deficits noted. No signs and/or symptoms reported regarding the dermatologic system. Skin is intact, is healthy with good turgor, Skin is dry, Skin is normal, Skin temperature is warm. Musculoskeletal: Circulation, motion, and sensation intact. Range of motion: limited in right ankle Swelling present in right ankle and anterior aspect of right ankle. Historical: - Allergies: 05:35 No Known Allergies; jw7 - Home Meds: 05:35 Lisinopril Oral daily for hypertension [Active]; jw7 - PMHx: 05:35 Hypertension; Sleep Apnea; jw7 - PSHx: 05:35 None; jw7 - Immunization history:: Adult Immunizations up to date. - Social history:: Smoking status: Patient denies any tobacco usage or history of. - Family history:: not pertinent. Screenin:40 [facility] ED Fall Risk Assessment (Adult) History of falling in the last 3 months, jw7 including since admission No falls in past 3 months (0 pts) Score/Fall Risk Level 0 - 2 = Low Risk. Abuse screen: Denies threats or abuse. Denies injuries from another. Nutritional screening: No deficits noted. Tuberculosis screening: No symptoms or risk factors identified. Assessment: 05:40 General: see triage assessment. jw7 Vital Signs: 05:32 BP 173 / 109 LA Sitting (auto/lg); Pulse 83 MON; Resp 19 S; Temp 97.9(O); Pulse Ox 97% jw7 on R/A; Weight 189.15 kg; Height 6 ft. 0 in. ; Pain 10/10; 05:32 Body Mass Index 56.55 (189.15 kg, 182.88 cm) jw7 05:32 Pain Scale: Adult jw7 ED Course: 05:09 Patient arrived in ED. mr 05:17 Becca Gaspar, RN is Primary Nurse. jw7 05:25 Kushal Quiroga MD is Attending Physician. sp4 05:35 Triage completed. jw7 05:40 Patient has correct armband on for positive identification. Bed in low position. Call jw7 light in reach. Side rails up X 1. 05:51 Tib Fib Right XRAY In Process Unspecified. EDMS 05:51 Foot Right 3 View XRAY In Process Unspecified. EDMS 06:28 Michael Demarco MD is Referral Physician. sp4 06:40 Arm band placed on. as6 06:40 No provider procedures requiring assistance completed. Patient did not have IV access as6 during this emergency room visit. Crutch training done. Ortho shoe applied to right foot. 06:41 Provided Education on: discharge teaching, crutch training . as6 Administered Medications: 05:47 Drug: Ibuprofen PO 800 mg Route: PO; rv 06:33 Follow up: Response: No adverse reaction as6 05:47 Drug: Acetaminophen-Codeine PO (300 mg-30 mg) 2 tabs Route: PO; rv 06:33 Follow up: Response: No adverse reaction as6 05:47 Drug: Cyclobenzaprine PO 10 mg Route: PO; rv 06:33 Follow up: Response: No adverse reaction as6 05:58 Drug: cloNIDine PO 0.2 mg Route: PO; rv 06:33 Follow up: Response: No adverse reaction as6 Medication: 06:40 VIS not applicable for this client. as6 Outcome: 06:28 Discharge ordered by . sp4 06:41 Discharged to home via wheelchair, with crutches, with significant other. as6 06:41 Condition: stable 06:41 Discharge instructions given to patient, significant other, Instructed on discharge instructions, follow up and referral plans. medication usage, crutch walking, Demonstrated understanding of instructions, follow-up care, medications, crutch walking, Prescriptions given X 1. 06:41 Patient left the ED. as6 Signatures: Dispatcher [employer] EDME Brenda KeysFawad, RN RN Dov Fajardo RN RN as6 Becca Gaspar RN RN jw7 Potepalov, Sergey, MD MD sp4 Corrections: (The following items were deleted from the chart) 05:46 05:32 BP 173 / 109 Sitting Auto L Arm Large; Pulse 83bpm; MonitorResp 19bpm; jw7 Spontaneous; Pulse Ox 97% RA; Temp 97.9F Oral; jw7
[2023-07-06 07:00] VITALS: BP 173/109; TEMP 97.9; O2SAT 97
--- NOTE | 2023-07-06 11:22 | RAD REPORT ---
EXAM DESCRIPTION: RAD - Tib Fib Right - 07/06/2023 5:50 am CLINICAL HISTORY: The patient is 27 years old and is Male; r ankle pain TECHNIQUE: Two views of the right tibia and fibula. COMPARISON: No relevant prior studies available. FINDINGS: Bones/joints: Unremarkable. No acute fracture. No dislocation. Soft tissues: Lower leg soft tissue swelling. No radiopaque foreign body. IMPRESSION: Lower leg soft tissue swelling. Electronically signed by: Mary Kay Reynolds MD 07/06/2023 6:01 AM CDT Due to temporary technical issues with the PACS/Fluency reporting system, reports are being signed by the in house radiologist without review as a courtesy to ensure prompt reporting. The interpreting r adiologist is fully responsible for the content of the report.
--- NOTE | 2023-07-06 11:27 | RAD REPORT ---
EXAM DESCRIPTION: RAD - Foot Right 3 View - 07/06/2023 5:50 am CLINICAL HISTORY: The patient is 27 years old and is Male; foot pain TECHNIQUE: Three views of the right foot. COMPARISON: No relevant prior studies available. FINDINGS: Bones/joints: Unremarkable. No acute fracture. No dislocation. Soft tissues: Soft tissue swelling in the ankle and foot. No radiopaque foreign body. IMPRESSION: Soft tissue swelling in the ankle and foot. Electronically signed by: Mary Kay Reynolds MD 07/06/2023 6:02 AM CDT Due to temporary technical issues with the PACS/Fluency reporting system, reports are being signed by the in house radiologist without review as a courtesy to ensure prompt reporting. The interpreting r adiologist is fully responsible for the content of the report.
== END 2023-07-06 06:41 | disposition home or self-care (01) ==
LOC: ER 05:05
DX: S93.491A Sprain of other ligament of right ankle, initial encounter (principal)

== ENCOUNTER → 2024-01-02 | Emergency (ER) | payer SELFPAY ==
[~2024-01-02] MED LIST: KETOROLAC 30 MG/ML INJ ONE; MORPHINE 4 MG/ML SYR ONE; NA CHLORIDE 0.9% 1,000 ML ONE; ONDANSETRON 4 MG/2 ML VIAL ONE; POTASSIUM 25 MEQ EFFERV TAB ONE
[2024-01-02 19:48] LABS: Absolute Lymphocytes (CBC) 3.2 K/uL (0.7-4.9); Lymphocytes % 28.1 % (15.3-44.8); MCV 83.6 fL (80-100); MPV 9.8 fL (7.6-11.3); Platelets 222 thou/uL (152-406); RBC Red Blood Cell Count 4.55 M/uL (4.33-5.43)
[2024-01-02 20:20] LABS: Albumin 3.4 g/dL (3.4-5.0); Bilirubin Total 0.5 mg/dL (0.2-1.0); Protein, Total 7.4 g/dL (6.4-8.2)
[2024-01-02 20:40] LABS: Specific Gravity > 1.030 (1.005-1.030); Urine Bacteria None Seen /HPF (<20); Urine Bilirubin NEGATIVE (Negative); Urine Blood Negative (Negative); Urine Clarity Clear (Clear); Urine Color Yellow (Yellow); Urine Glucose NEGATIVE (Negative); Urine Mucus 4+ /HPF (None Seen); Urine Protein 1+ (Negative); Urine RBC <5 /HPF (None Seen); Urine Urobilinogen Normal (Normal)
--- NOTE | 2024-01-02 21:49 | RAD REPORT ---
EXAM DESCRIPTION: CT - Abdomen Pelvis W Contrast - 01/02/2024 9:32 pm CLINICAL HISTORY: Abdominal pain COMPARISON: None TECHNIQUE: Computed axial tomography of the abdomen and pelvis was obtained. 100 cc Isovue-300 is ad ministered intravenously. Oral contrast was given. All CT scans are performed using dose optimization technique as appropriate and may include automated exposure control or mA/KV adjustment according to patient size. FINDINGS: The liver, spleen, pancreas, adrenals and kidneys appear unremarkable. There is no evidence of diverticulitis Normal appendix. Small left inguinal hernia contains fat. Small umbilical hernia IMPRESSION: No acute abnormality is displayed
--- NOTE | 2024-01-02 23:16 | EDPHYS ---
Physician Documentation [facility] Name: Bolivar Yang Age: 28 yrs Sex: Male : 1995 Arrival Date: 01/02/2024 Time: 17:19 Bed IW10 Private MD: BALTAZAR Physician Josiah Alaniz HPI: 01/02 18:00 This 28 yrs old Male presents to ER via Ambulatory with complaints of cp Abdominal Pain, Abdominal Swelling. 18:00 The patient presents with abdominal pain in the periumbilical area. mid abdomen. cp 18:00 Onset: The symptoms/episode began/occurred 2 week(s) ago. Associated signs and cp symptoms: Pertinent positives: nausea, vomiting, and diarrhea, anorexia, Pertinent negatives: blood in stools, constipation, fever, vomiting blood. The symptoms are described as waxing/waning. Historical: - Allergies: 17:38 No Known Allergies; nj1 - PMHx: 17:38 Hypertension; Sleep Apnea; nj1 - PSHx: 17:38 None; nj1 - Immunization history:: Client reports receiving the 2nd dose of the Covid vaccine. - Social history:: Smoking status: Patient reports the use of cigarette tobacco products, smokes one-half pack cigarettes per day. ROS: 18:05 Constitutional: Positive for poor PO intake, Negative for body aches, chills, fever, cp 18:05 Eyes: Negative for injury, pain, redness, and discharge, cp 18:05 ENT: Negative for drainage from ear(s), ear pain, sore throat, difficulty swallowing, difficulty handling secretions, 18:05 Cardiovascular: Negative for chest pain, edema, palpitations, 18:05 Respiratory: Negative for cough, shortness of breath, wheezing, 18:05 Abdomen/GI: Positive for abdominal pain, nausea, vomiting, and diarrhea, anorexia, Negative for constipation, hematemesis, black/tarry stool, 18:05 Back: Negative for pain at rest, pain with movement, 18:05 : Negative for urinary symptoms, testicular pain 18:05 All other systems are negative, Exam: 18:10 Constitutional: The patient appears in no acute distress, alert, awake, cp non-diaphoretic, non-toxic, well developed, well nourished, obese, uncomfortable, 18:10 Head/Face: Normocephalic, atraumatic. cp 18:10 Eyes: Periorbital structures: appear normal, Conjunctiva: normal, no exudate, no injection, Sclera: no appreciated abnormality, Lids and lashes: appear normal, bilaterally, 18:10 ENT: External ear(s): are unremarkable, Nose: is normal, Mouth: Lips: moist, Oral mucosa: pink and intact, moist, Posterior pharynx: Airway: normal, erythema, is not appreciated, exudate, is not appreciated, 18:10 Chest/axilla: Inspection: normal, 18:10 Cardiovascular: Rate: normal, Rhythm: regular, 18:10 Respiratory: the patient does not display signs of respiratory distress, Respirations: normal, no use of accessory muscles, no retractions, labored breathing, is not present, Breath sounds: are clear throughout, no decreased breath sounds, no stridor, no wheezing, 18:10 Abdomen/GI: Inspection: obese Bowel sounds: active, all quadrants, Palpation: soft, in all quadrants, moderate abdominal tenderness, in the umbilical area, rebound tenderness, is not appreciated, involuntary guarding, is not appreciated, 18:10 Back: pain, is absent, ROM is normal, 18:10 Skin: cellulitis, is not appreciated, no rash present. Vital Signs: 17:35 BP 157 / 87; Pulse 87; Resp 18; Temp 98.4(O); Pulse Ox 100% ; Weight 152.86 kg; Height nj1 6 ft. 0 in. ; Pain 9/10; 20:30 BP 149 / 82; Pulse 82; Resp 17 S; Pulse Ox 96% on R/A; ha1 21:35 BP 150 / 83; Pulse 68; Resp 17 S; Pulse Ox 100% on R/A; ha1 22:30 BP 122 / 75; Pulse 65; Resp 18 S; Pulse Ox 95% on R/A; jw7 23:30 BP 138 / 91; Pulse 64; Resp 17 S; Pulse Ox 98% on R/A; jw7 17:35 Body Mass Index 45.70 (152.86 kg, 182.88 cm) nj1 17:35 Pain Scale: Adult nj MDM: 17:37 Patient medically screened. [facility] 18:00 Differential diagnosis: appendicitis, bowel obstruction, cholecystitis, Cholelithiasis, cp gastritis, non-specific abd pain, pancreatitis, Peritonitis, Pyelonephritis, Ureterolithiasis, urinary tract infection. 23:15 Data reviewed: vital signs, nurses notes, lab test result(s), radiologic studies, CT cp scan. 23:15 I considered the following discharge prescriptions or medication management in the emergency department Medications were administered in the Emergency Department. See MAR. Care significantly affected by the following chronic conditions: Hypertension, Obesity. Counseling: I had a detailed discussion with the patient and/or guardian regarding the historical points, exam findings, and any diagnostic results supporting the discharge/admit diagnosis, lab results, radiology results, the need for outpatient follow up, a family practitioner, a filtering machine tender helper, to return to the emergency department if symptoms worsen or persist or if there are any questions or concerns that arise at home. Response to treatment: the patient's symptoms have markedly improved after treatment, and as a result, I will discharge patient. Special discussion: Based on the patient's Hx, exam, and Dx evaluation, there is no indication for emergent surgery or inpatient Tx. It is understood by the patient/guardian that if the Sx's persist or worsen they need to return immediately for re-evaluation. 01/02 17:44 Order name: CBC with Diff; Complete Time: 20:00 01/02 22:13 Interpretation: Normal except: WBC 11.50; HGB 12.3; HCT 38.0; RDW 15.5. 01/02 17:44 Order name: CMP; Complete Time: 21:27 01/02 21:27 Interpretation: Normal except: K 3.0; GLOB 4.0; A/G 0.9. 01/02 17:44 Order name: Lipase; Complete Time: 21:27 01/02 17:44 Order name: Urinalysis w/ reflexes; Complete Time: 21:27 01/02 22:14 Interpretation: Normal except: Urine SG > 1.030; UPROT 1+; UESTR 25; MUCUS 4+. 01/02 18:05 Order name: CT Abd/Pelvis - PO and IV Contrast; Complete Time: 22:00 01/02 17:44 Order name: IV Saline Lock; Complete Time: 19:40 01/02 17:44 Order name: Labs collected and sent; Complete Time: 19:40 cp Administered Medications: 20:10 Drug: NS 0.9% IV 1000 ml IV at 1 bolus Per protocol; 1000 mL bolus Route: IV; Rate: 1 nj1 bolus; Site: right antecubital; 23:45 Follow up: Response: No adverse reaction; IV Status: Completed infusion; IV Intake: jw7 1000ml 20:10 Drug: Ondansetron IVP 4 mg IVP once; over 2 minutes Route: IVP; Site: right antecubital;nj1 23:45 Follow up: Response: No adverse reaction jw7 20:12 Drug: morphine IVP or IV 4 mg IVP once over 4 mins Route: IVP; Infused Over: 4 mins; nj1 Site: right antecubital; 23:44 Follow up: Response: No adverse reaction; Marked relief of symptoms jw7 22:47 Drug: Ketorolac IVP 30 mg IVP once Route: IVP; Site: right antecubital; jw7 23:44 Follow up: Response: No adverse reaction; Marked relief of symptoms jw7 22:47 Drug: Potassium PO Effervescent Tablet 50 mEq PO once; dissolve in 4 ounces of water or jw7 juice Route: PO; 23:44 Follow up: Response: No adverse reaction jw7 22:47 Drug: Potassium PO Effervescent Tablet 25 mEq PO once; dissolve in 4 ounces of water or jw7 juice Route: PO; 23:44 Follow up: Response: No adverse reaction jw7 Disposition Summary: 01/02/24 23:15 Discharge Ordered Notes: Location: Home cp Problem: new cp Symptoms: have improved cp Condition: Stable cp Diagnosis - Abdominal pain, unspecified - umbilical cp Followup: cp - With: Michael Nguyen MD - When: 2 - 3 days - Reason: Recheck today's complaints Discharge Instructions: - Discharge Summary Sheet cp - Abdominal Pain, Adult cp Forms: - Medication Reconciliation Form cp - Thank You Letter cp - Antibiotic Education cp - Prescription Opioid Use cp - Patient Portal Instructions cp - Leadership Thank You Letter cp - Work release form jw7 Prescriptions: - Ibuprofen 800 mg Oral Tablet - take 1 tablet ORAL route every 8 hours As needed take with food; 30 tablet; cp Refills: 0, Product Selection Permitted - Pepcid 20 mg Oral Tablet - take 1 tablet ORAL route every 12 hours for 10 days; 20 tablet; Refills: 0, cp Product Selection Permitted Signatures: Dispatcher [employer] EDMS Corbin, MD MD rodrigo Rahman Corey, PA PA cp Waits, Jodi, RN RN jw7 Kristy Baer RN RN nj1
--- NOTE | 2024-01-02 23:16 | ER ---
Nurse's Notes [facility] Name: Bolivar Yang Age: 28 yrs Sex: Male : 1995 Arrival Date: 01/02/2024 Time: 17:19 Bed IW10 Private MD: Diagnosis: Abdominal pain, unspecified-umbilical Presentation: 01/02 17:35 Chief complaint: Patient states: Abdominal pain for 2 weeks, above umbilicus, along nj1 with diarrhea, vomiting and nausea. Able to keep fluids down. Denies fever. Coronavirus screen: Vaccine status: Patient reports being unvaccinated. Ebola Screen: Patient denies travel to an Ebola-affected area in the 21 days before illness onset. Initial Sepsis Screen: Does the patient meet any 2 criteria? No. Patient's initial sepsis screen is negative. Does the patient have a suspected source of infection? No. Patient's initial sepsis screen is negative. Risk Assessment: Do you want to hurt yourself or someone else? Patient reports no desire to harm self or others. Onset of symptoms was December 2023. 17:35 Method Of Arrival: Ambulatory [facility] 17:35 Acuity: GUILLERMO 3 nj1 Historical: - Allergies: 17:38 No Known Allergies; nj1 - PMHx: 17:38 Hypertension; Sleep Apnea; nj1 - PSHx: 17:38 None; nj1 - Immunization history:: Client reports receiving the 2nd dose of the Covid vaccine. - Social history:: Smoking status: Patient reports the use of cigarette tobacco products, smokes one-half pack cigarettes per day. Screenin:00 [facility] ED Fall Risk Assessment (Adult) History of falling in the last 3 months, jw7 including since admission No falls in past 3 months (0 pts) Score/Fall Risk Level 0 - 2 = Low Risk Oriented to surroundings, Maintained a safe environment, Educated pt \T\ family on fall prevention, incl call for assistance when getting out of bed. Abuse screen: Denies threats or abuse. Denies injuries from another. Nutritional screening: No deficits noted. Tuberculosis screening: No symptoms or risk factors identified. Assessment: 20:35 General: Appears uncomfortable, Behavior is calm, cooperative. Pain: Complains of pain ha1 in abdomen Pain does not radiate. Pain currently is 8 out of 10 on a pain scale. Quality of pain is described as crampy, throbbing. Neuro: Level of Consciousness is awake, alert, obeys commands, Oriented to person, place, time, situation. Cardiovascular: Patient's skin is warm and dry. Respiratory: Airway is patent Respiratory effort is even, unlabored, Respiratory pattern is regular, symmetrical. GI: Abdomen is round distended, obese, Bowel sounds present X 4 quads. Abd is soft. Derm: Skin is normal. Musculoskeletal: Circulation, motion, and sensation intact. Range of motion: intact in all extremities. 21:41 Reassessment: Patient and/or family updated on plan of care and expected duration. Pain ha1 level reassessed. Patient is alert, oriented x 3, equal unlabored respirations, skin warm/dry/pink. 22:40 Reassessment: Patient appears in no apparent distress at this time. No changes from [facility] previously documented assessment. Patient and/or family updated on plan of care and expected duration. Pain level reassessed. Patient is alert, oriented x 3, equal unlabored respirations, skin warm/dry/pink. 23:42 Reassessment: Patient appears in no apparent distress at this time. Patient and/or jw7 family updated on plan of care and expected duration. Pain level reassessed. Patient is alert, oriented x 3, equal unlabored respirations, skin warm/dry/pink. Patient states feeling better. Patient states symptoms have improved. Vital Signs: 17:35 BP 157 / 87; Pulse 87; Resp 18; Temp 98.4(O); Pulse Ox 100% ; Weight 152.86 kg; Height nj1 6 ft. 0 in. ; Pain 9/10; 20:30 BP 149 / 82; Pulse 82; Resp 17 S; Pulse Ox 96% on R/A; ha1 21:35 BP 150 / 83; Pulse 68; Resp 17 S; Pulse Ox 100% on R/A; ha1 22:30 BP 122 / 75; Pulse 65; Resp 18 S; Pulse Ox 95% on R/A; jw7 23:30 BP 138 / 91; Pulse 64; Resp 17 S; Pulse Ox 98% on R/A; jw7 17:35 Body Mass Index 45.70 (152.86 kg, 182.88 cm) [facility] 17:35 Pain Scale: Adult [facility] ED Course: 17:22 Patient arrived in ED. im 17:22 [facility]ultz [facility] cp 17:22 Josiah Alaniz MD is Attending Physician. cp 17:38 Triage completed. nj1 17:39 Arm band placed on left wrist. nj1 19:00 Patient has correct armband on for positive identification. Bed in low position. Call jw7 light in reach. Side rails up X2. 19:35 Inserted saline lock: 20 gauge in right antecubital area, using aseptic technique. nj1 ,using aseptic technique. Ultrasound guided. Catheter tip well visualized within vasculature during placement. Blood collected. 21:34 CT Abd/Pelvis - PO and IV Contrast In Process Unspecified. EDMS 23:14 Michael Nguyen MD is Referral Physician. cp 23:43 No provider procedures requiring assistance completed. IV discontinued, intact, jw7 bleeding controlled, No redness/swelling at site. Pressure dressing applied. 23:44 Provided Education on: discharge instructions. jw7 Administered Medications: 20:10 Drug: NS 0.9% IV 1000 ml IV at 1 bolus Per protocol; 1000 mL bolus Route: IV; Rate: 1 nj1 bolus; Site: right antecubital; 23:45 Follow up: Response: No adverse reaction; IV Status: Completed infusion; IV Intake: jw7 1000ml 20:10 Drug: Ondansetron IVP 4 mg IVP once; over 2 minutes Route: IVP; Site: right antecubital;nj1 23:45 Follow up: Response: No adverse reaction jw7 20:12 Drug: morphine IVP or IV 4 mg IVP once over 4 mins Route: IVP; Infused Over: 4 mins; nj1 Site: right antecubital; 23:44 Follow up: Response: No adverse reaction; Marked relief of symptoms jw7 22:47 Drug: Ketorolac IVP 30 mg IVP once Route: IVP; Site: right antecubital; jw7 23:44 Follow up: Response: No adverse reaction; Marked relief of symptoms jw7 22:47 Drug: Potassium PO Effervescent Tablet 50 mEq PO once; dissolve in 4 ounces of water or jw7 juice Route: PO; 23:44 Follow up: Response: No adverse reaction jw7 22:47 Drug: Potassium PO Effervescent Tablet 25 mEq PO once; dissolve in 4 ounces of water or jw7 juice Route: PO; 23:44 Follow up: Response: No adverse reaction jw7 Medication: 23:44 VIS not applicable for this client. jw7 Intake: 23:45 IV: 1000ml; Total: 1000ml. jw7 Outcome: 23:15 Discharge ordered by . cp 23:43 Discharged to home ambulatory, jw7 23:43 Condition: stable 23:43 Discharge instructions given to patient, family, Instructed on discharge instructions, follow up and referral plans. medication usage, Demonstrated understanding of instructions, follow-up care, medications, Prescriptions given X 2, 23:45 Patient left the ED. jw7 Signatures: Dispatcher [employer] EDMS Josiah Schultz PA PA cp Waits, Jodi, RN RN jw7 Mariza Malone RN RN 1 Kristy Baer RN RN nj1 Janay Mendoza Corrections: (The following items were deleted from the chart) 17:40 17:35 Pulse 87bpm; Resp 18bpm; Pulse Ox 100%; Temp 98.4F Oral; 152.86 kg; Height 6 ft.; nj1 BMI: 45.7; Pain 9/10, Adult; nj1
[2024-01-03 00:30] VITALS: TEMP 98.4
[2024-01-03 00:57] VITALS: BP 138/91; O2SAT 98
== END ==
LOC: ER 17:19
DX: R10.9 Unspecified abdominal pain (principal)
CPT/HCPCS: 36415; 74177; 80053; 81001; 83690; 85025; 96361; 96374; 96375; 99284; J2405; J7030; Q9967

== ENCOUNTER 2025-06-26 09:46 | Emergency (ER) | payer SELFPAY ==
[2025-06-26] MEDS ORDERED: ONDANSETRON 4 MG/2 ML VIAL ONE (10:54)
[2025-06-26] MEDS ORDERED: NA CHLORIDE 0.9% 1,000 ML ONE (10:54)
[2025-06-26] MEDS ORDERED: MORPHINE 4 MG/ML SYR ONE (10:54)
[2025-06-26 11:23] LABS: Absolute Lymphocytes (CBC) 2.5 K/uL (0.7-4.9); Hematocrit 38.5 % (39.6-49.0); Hemoglobin 12.5 g/dL (13.6-17.9); MCH 27.5 pg (27.0-35.0); MCHC 32.4 g/dL (32.0-36.0); MCV 84.9 fL (80-100); MPV 9.8 fL (7.6-11.3); Nucleated RBC Absolute Count 0.0 (0-0); Nucleated Red Blood Cells % 0.0 % (0-0); RBC Red Blood Cell Count 4.54 M/uL (4.33-5.43); White Blood Count 10.50 thou/uL (4.3-10.9)
--- NOTE | 2025-06-26 12:29 | RAD REPORT ---
EXAMINATION: Abdomen Pelvis W Contrast CLINICAL INDICATION: Male, 29 years old.ABD PAIN TECHNIQUE: CT abdomen and pelvis was performed, after the administration of IV contrast, as per [facility] protocol. Axial, sagittal and coronal reconstructions were obtained. One or more of the following dose reduction techniques were used: Automated exposure control, adjustment of the mA and/o r kV according to patient size, and/or iterative reconstruction. Unless otherwise specified, incidental findings do not require dedicated imaging follow-up. [id number]. COMPARISON: No prior exams FINDINGS: LOWER CHEST: Mild right middle lobe micronodularity that is new from prior.Mild cardiomegaly. Mild to moderate circumferential thickening of the distal esophagus which could reflect esophagitis. Endoscopy could better evaluate. UPPER GI: No significant abnormality. LIVER: Hepatic steatosis, but otherwise unremarkable. GALLBLADDER/BILE DUCTS: No biliary ductal dilatation.? PANCREAS: No mass, ductal dilation, or joel-pancreatic fluid. SPLEEN: Unremarkable. ADRENALS: No adrenal masses. KIDNEYS AND URETERS: No hydronephrosis.No suspicious renal mass.No renal calculi.No ureteral calculi. ABDOMINAL AORTA AND OTHER VESSELS: Normal caliber aorta and IVC. PERITONEUM: No abnormal free fluid. No free air. LYMPH NODES: No pathologic lymphadenopathy. ABDOMINAL WALL: Unremarkable SMALL BOWEL/COLON: Small bowel has normal course and caliber. No colonic wall thickening or pericolon ic inflammatory changes.Normal appendix. URINARY BLADDER: Underdistended but grossly unremarkable. REPRODUCTIVE ORGANS: No pathologic process. MUSCULOSKELETAL: No acute fracture. Scattered Schmorl's nodes. This vertebral body at L4. ADDITIONAL FINDINGS: None. IMPRESSION: No acute findings within the abdomen or pelvis. Mild right middle lobe micronodularity which is new a nd could reflect mild infection/inflammation. Question distal esophagitis.
[2025-06-26 12:30] LABS: Anion Gap 9.0 mEq/L (5.0-15.0); BUN Blood Urea Nitrogen 10.0 mg/dL (7-18); Glucose Level 98.0 mg/dL (74-106)
[2025-06-26 12:31] LABS: ALT/SGPT 33.0 U/L (16-61); AST/SGOT 29.0 U/L (15-37); Albumin 3.4 g/dL (3.4-5.0); Albumin/Globulin Ratio 0.9 (1.1-1.8); Alkaline Phosphatase 101.0 U/L (45-117); Globulin 3.7 g/dL (2.3-3.5); Lipase 17.0 U/L (13-75); Potassium 4.0 mEq/L (3.5-5.1)
[2025-06-26] MEDS ORDERED: FAMOTIDINE 20 MG/2 ML VIAL IV ONE (12:35)
[2025-06-26] MEDS ORDERED: METHYLPREDNISOLONE 125 MG INJ ONE (13:14)
[2025-06-26] MEDS ORDERED: METRONIDAZOLE 500mg IVPB 500 MG/100 ML BAG IV ONE (13:14)
[2025-06-26] MEDS ORDERED: CEFTRIAXONE 1000 MG/VIAL ONE (13:14)
[2025-06-26] MEDS ORDERED: NA CHLORIDE 0.9% 50 ML ONE (13:14)
--- NOTE | 2025-06-26 13:22 | EDPHYS ---
Physician Documentation [facility] Name: Bolivar Yang Age: 29 yrs Sex: Male : 1995 Arrival Date: 06/26/2025 Time: 09:46 Bed 18 Private MD: ED Physician Josiah Alaniz HPI: 06/26 10:16 This 29 yrs old Male presents to ER via Ambulatory with complaints of sb4 Abdominal Pain, Dizziness, General Weakness. 10:16 Patient reports abdominal pain and bloody diarrhea for a few months now. States he went sb4 to [place] ED about 1 month ago and was told he had diverticulosis but not diverticulitis. Has a follow-up with GI but is not for another 3 weeks. States the pain got worse today. No nausea or vomiting. Pain is in the left lower quadrant. Historical: - Allergies: 10:02 No Known Allergies; ll1 - PMHx: 10:02 Hypertension; Sleep Apnea; ll1 - PSHx: 10:02 None; ll1 - Immunization history:: Adult Immunizations up to date. - Infectious Disease History:: Denies. - Social history:: Smoking status: Patient reports the use of cigarette tobacco products, smokes .1 packs per day. ROS: 10:16 Constitutional: Negative for fever, chills, and weight loss, sb4 10:16 Abdomen/GI: Positive for abdominal pain, diarrhea, 10:16 All other systems are negative, Exam: 10:16 Head/Face: Normocephalic, atraumatic. Eyes: Extra-ocular motions intact. Periorbital sb4 areas with no swelling, redness, or edema. ENT: Mucous membranes moist. Cardiovascular: Regular rate and rhythm with a normal S1 and S2. Respiratory: No increased work of breathing, no retractions or nasal flaring. Skin: Warm, dry with normal turgor. Normal color with no rashes, no lesions, and no evidence of cellulitis. 10:16 Constitutional: The patient appears alert, awake, obese, in obvious pain, uncomfortable, 10:16 Abdomen/GI: Inspection: abdomen appears normal, Bowel sounds: normal, Palpation: moderate abdominal tenderness, in the left lower quadrant, Vital Signs: 10:03 BP 157 / 92; Pulse 79; Resp 18; Temp 97.2; Pulse Ox 100% ; Weight 175.54 kg; Height 6 ll1 ft. 0 in. ; Pain 9/10; 12:28 BP 157 / 82; Pulse 59; Resp 16; Pulse Ox 98% ; db 13:30 BP 155 / 90; Pulse 65; Resp 16; Pulse Ox 100% ; db 14:00 BP 170 / 90; Pulse 68; Resp 16; Pulse Ox 96% ; db 10:03 Body Mass Index 52.49 (175.54 kg, 182.88 cm) ll1 10:03 Pain Scale: Adult ll1 MDM: 09:55 Medical Screening Exam initiated sb4 10:17 Differential diagnosis: diverticulitis, non-specific abd pain, colitis. Care sb4 significantly affected by the following chronic conditions: Hypertension, Obesity. 12:37 Independent interpretation of the following test(s) in the Emergency Department CT sb4 Scan: My interpretation is My interpretation of the CT abdomen pelvis images with IV contrast is mild stranding in the descending colon. 13:20 Data reviewed: vital signs, nurses notes, lab test result(s), radiologic studies, and sb4 as a result, I will discharge patient. Counseling: I had a detailed discussion with the patient and/or guardian regarding the historical points, exam findings, and any diagnostic results supporting the discharge/admit diagnosis, the presence of at least one elevated blood pressure reading (>120/80) during this emergency department visit, lab results, radiology results, the need for outpatient follow up, a supervisor dock, to return to the emergency department if symptoms worsen or persist or if there are any questions or concerns that arise at home. 06/26 10:09 Order name: CBC with Diff; Complete Time: 11:26 sb4 06/26 10:09 Order name: CMP; Complete Time: 12:32 sb4 06/26 10:09 Order name: Lipase; Complete Time: 12:32 sb4 06/26 10:09 Order name: CT Abd/Pelvis - IV Contrast Only; Complete Time: 12:30 sb4 06/26 10:09 Order name: IV Saline Lock; Complete Time: 11:44 sb4 06/26 10:09 Order name: Labs collected and sent; Complete Time: 11:44 sb4 06/26 11:29 Order name: Labs - recollect needed: recollect green top; Complete Time: 12:14 bd 06/26 12:36 Order name: PO challenge sb4 Administered Medications: 11:00 Drug: Ondansetron IVP 4 mg IVP once; over 2 minutes Route: IVP; Site: right antecubital;db 14:30 Follow up: Response: No adverse reaction db 11:00 Drug: morphine IVP or IV 4 mg IVP once over 4 mins Route: IVP; Infused Over: 4 mins; db Site: right antecubital; 14:58 Follow up: Response: No adverse reaction db 11:00 Drug: NS 0.9% IV 1000 ml IV at 1 bolus Per protocol; to be given as a bolus over 60 db minutes Route: IV; Rate: 1 bolus; Site: right antecubital; 14:58 Follow up: Response: No adverse reaction; IV Status: Completed infusion; IV Intake: db 1000ml 12:40 Drug: Famotidine IVP 20 mg IVP once; dilute with 10 mL 0.9% NaCl; give over 2 minutes db Route: IVP; Site: right antecubital; 14:30 Follow up: Response: No adverse reaction db 12:40 Drug: Droperidol IVP 2.5 mg IVP once Route: IVP; Site: right antecubital; db 14:30 Follow up: Response: No adverse reaction db 13:00 Drug: Rocephin IV 1 grams IV at calculated rate once; Given slow IV push per pharmacy db instructions Route: IV; Rate: calculated rate; Site: right antecubital; 13:31 Follow up: Response: No adverse reaction; IV Status: Completed infusion; IV Intake: 50mldb 13:00 Drug: MethylPrednisoLONE IVP 125 mg IVP once Route: IVP; Site: right antecubital; db 14:30 Follow up: Response: No adverse reaction db 13:15 Drug: metroNIDAZOLE IVPB 500 mg 100 ml IVPB at 200 ml/hr once over 30 mins Volume: 100 db ml; Route: IVPB; Rate: 200 ml/hr; Infused Over: 30 mins; Site: right antecubital; 14:57 Follow up: Response: No adverse reaction; IV Status: Completed infusion; IV Intake: db 100ml Disposition: 14:40 Co-signature as Attending Physician, Josiah Alaniz MD I agree with the assessment and rodrigo plan of care. Disposition Summary: 06/26/25 13:21 Discharge Ordered Notes: Location: Home sb4 Problem: new sb4 Symptoms: have improved sb4 Condition: Stable sb4 Diagnosis - Diverticulitis of large intestine without perforation or abscess with bleeding sb4 Followup: sb4 - With: Dwayne Hyde MD - When: As needed - Reason: Recheck today's complaints, Re-evaluation by your physician Discharge Instructions: - Discharge Summary Sheet ll1 - High-Fiber Eating Plan sb4 - Diverticulitis sb4 Forms: - Work release form ll1 - Antibiotic Education sb4 - Patient Portal Instructions sb4 - Leadership Thank You Letter sb4 Prescriptions: - Augmentin 875-125 mg Oral Tablet - take 1 tablet ORAL route every 12 hours for 10 days; 20 tablet; Refills: 0, sb4 Product Selection Permitted - Flagyl 500 mg Oral Tablet - take 1 tablet ORAL route every 8 hours for 10 days; 30 tablet; Refills: 0, sb4 Product Selection Permitted Signatures: Dispatcher [employer] EDAshwini Mata Corey, MD MD cha Lewis, Lynsay RN RN [facility] Edie Elder RN RN db Alexandra Patel PA-C PAAngelita sb4 Corrections: (The following items were deleted from the chart) 10:10 10:10 CBC+H.LAB.BRZ ordered. EDMS EDMS 10:10 10:10 COMPREHENSIVE METABOLIC PANEL+C.LAB.BRZ ordered. EDMS EDMS 10:10 10:10 LIPASE+C.LAB.BRZ ordered. EDMS EDMS 10:10 10:10 Abdomen Pelvis W Con+CT.RAD.BRZ ordered. EDMS EDMS
--- NOTE | 2025-06-26 13:22 | ER ---
Nurse's Notes [facility] Name: Bolivar Yang Age: 29 yrs Sex: Male : 1995 Arrival Date: 06/26/2025 Time: 09:46 Bed 18 Private MD: Diagnosis: Diverticulitis of large intestine without perforation or abscess with bleeding Presentation: 06/26 10:03 Chief complaint: Patient states: Abdominal pain continues since his last visit here ll1 about 1 month ago. + weak and dizzy. Coronavirus screen: Client denies travel out of the [place] in the last 14 days. At this time, the client does not indicate any symptoms associated with coronavirus-19. Ebola Screen: Patient denies travel to an Ebola-affected area in the 21 days before illness onset. Initial Sepsis Screen: Does the patient meet any 2 criteria? No. Patient's initial sepsis screen is negative. Does the patient have a suspected source of infection? No. Patient's initial sepsis screen is negative. Risk Assessment: Do you want to hurt yourself or someone else? Patient reports no desire to harm self or others. Onset of symptoms was May 26, 2025. 10:03 Method Of Arrival: Ambulatory ll1 10:03 Acuity: GUILLERMO 3 ll1 Triage Assessment: 10:03 General: Appears distressed, uncomfortable, Behavior is calm, cooperative, appropriate ll1 for age, Reports fatigue for. Pain: Complains of pain in abdomen Pain currently is 9 out of 10 on a pain scale. Quality of pain is described as aching, crampy. Neuro: Reports dizziness, weakness. GI: Reports lower abdominal pain, upper abdominal pain, rectal bleeding. Historical: - Allergies: 10:02 No Known Allergies; ll1 - PMHx: 10:02 Hypertension; Sleep Apnea; ll1 - PSHx: 10:02 None; ll1 - Immunization history:: Adult Immunizations up to date. - Infectious Disease History:: Denies. - Social history:: Smoking status: Patient reports the use of cigarette tobacco products, smokes .1 packs per day. Screenin:45 [facility] ED Fall Risk Assessment (Adult) History of falling in the last 3 months, db including since admission No falls in past 3 months (0 pts) Confusion or Disorientation No (0 pts) Intoxicated or Sedated No (0 pts) Impaired Gait No (0 pts) Mobility Assist Device Used No (0 pt) Altered Elimination No (0 pt) Score/Fall Risk Level 0 - 2 = Low Risk Oriented to surroundings, Maintained a safe environment. Abuse screen: Denies threats or abuse. Denies injuries from another. Nutritional screening: No deficits noted. Tuberculosis screening: No symptoms or risk factors identified. Assessment: 10:30 Reassessment: Patient and/or family updated on plan of care and expected duration. Pain ll1 level reassessed. Vital Signs: 10:03 BP 157 / 92; Pulse 79; Resp 18; Temp 97.2; Pulse Ox 100% ; Weight 175.54 kg; Height 6 ll1 ft. 0 in. ; Pain 9/10; 12:28 BP 157 / 82; Pulse 59; Resp 16; Pulse Ox 98% ; db 13:30 BP 155 / 90; Pulse 65; Resp 16; Pulse Ox 100% ; db 14:00 BP 170 / 90; Pulse 68; Resp 16; Pulse Ox 96% ; db 10:03 Body Mass Index 52.49 (175.54 kg, 182.88 cm) ll1 10:03 Pain Scale: Adult ll1 ED Course: 09:50 Patient arrived in ED. im 09:51 Alexandra Patel PA-C is PHCP. sb4 09:51 Josiah Alaniz MD is Attending Physician. sb4 10:02 Arm band placed on. ll1 10:04 Triage completed. ll1 10:30 Patient placed in an exam room, on a stretcher. ll1 10:39 Edie Elder, FANG is Primary Nurse. db 11:00 Initial lab(s) drawn, by me, sent to lab. Inserted saline lock: 20 gauge in right db antecubital area, using aseptic technique. Blood collected. Flushed with 10 mL NS. 11:35 CT Abd/Pelvis - IV Contrast Only In Process Unspecified. EDMS 13:21 Dwayne Hyde MD is Referral Physician. sb4 14:30 Patient has correct armband on for positive identification. Bed in low position. Call db light in reach. Side rails up X 1. Provided Education on: DISCHARGE AND FOLLOWUP WITH PROVIDER. Pulse ox on. NIBP on. Diet tray ordered. 14:30 No provider procedures requiring assistance completed. IV discontinued, intact, db bleeding controlled, No redness/swelling at site. Administered Medications: 11:00 Drug: Ondansetron IVP 4 mg IVP once; over 2 minutes Route: IVP; Site: right antecubital;db 14:30 Follow up: Response: No adverse reaction db 11:00 Drug: morphine IVP or IV 4 mg IVP once over 4 mins Route: IVP; Infused Over: 4 mins; db Site: right antecubital; 14:58 Follow up: Response: No adverse reaction db 11:00 Drug: NS 0.9% IV 1000 ml IV at 1 bolus Per protocol; to be given as a bolus over 60 db minutes Route: IV; Rate: 1 bolus; Site: right antecubital; 14:58 Follow up: Response: No adverse reaction; IV Status: Completed infusion; IV Intake: db 1000ml 12:40 Drug: Famotidine IVP 20 mg IVP once; dilute with 10 mL 0.9% NaCl; give over 2 minutes db Route: IVP; Site: right antecubital; 14:30 Follow up: Response: No adverse reaction db 12:40 Drug: Droperidol IVP 2.5 mg IVP once Route: IVP; Site: right antecubital; db 14:30 Follow up: Response: No adverse reaction db 13:00 Drug: Rocephin IV 1 grams IV at calculated rate once; Given slow IV push per pharmacy db instructions Route: IV; Rate: calculated rate; Site: right antecubital; 13:31 Follow up: Response: No adverse reaction; IV Status: Completed infusion; IV Intake: 50mldb 13:00 Drug: MethylPrednisoLONE IVP 125 mg IVP once Route: IVP; Site: right antecubital; db 14:30 Follow up: Response: No adverse reaction db 13:15 Drug: metroNIDAZOLE IVPB 500 mg 100 ml IVPB at 200 ml/hr once over 30 mins Volume: 100 db ml; Route: IVPB; Rate: 200 ml/hr; Infused Over: 30 mins; Site: right antecubital; 14:57 Follow up: Response: No adverse reaction; IV Status: Completed infusion; IV Intake: db 100ml Medication: 14:30 VIS not applicable for this client. db Intake: 13:31 IV: 50ml; Total: 50ml. db 14:57 IV: 100ml; Total: 150ml. db 14:58 IV: 1000ml; Total: 1150ml. db Outcome: 13:21 Discharge ordered by MD. kebede 14:30 Discharged to home ambulatory, with family, db 14:30 Condition: stable 14:30 Discharge instructions given to patient, family, Instructed on discharge instructions, follow up and referral plans. Prescriptions given X 2, 14:36 Patient left the ED. ts3 Signatures: Dispatcher [employer] EDRuthann Shah RN RN ll1 Edie Elder RN RN Alexandra Phoenix, PA-C PA-C sb4 Janay Mendoza Taisha ts3
[2025-06-26 20:31] VITALS: BP 157/92; TEMP 97.2; O2SAT 100
== END 2025-06-26 14:36 | disposition home or self-care (01) ==
LOC: ER 09:46
DX: K57.33 Diverticulitis of large intestine without perforation or abscess with bleeding (principal); I10 Essential (primary) hypertension; G47.30 Sleep apnea, unspecified; F17.210 Nicotine dependence, cigarettes, uncomplicated
CPT/HCPCS: 36415; 74177; 80053; 83690; 85025; 96361; 96365; 96375; 99284; J0696; J1790; J2405; J2919; J7030; Q9967